=== PATIENT | female | born 1960 | race Caucasian/White ===

== ENCOUNTER 2017-04-19 12:26 | Inpatient (IN) | payer OTHER ==
[2017-04-19] VITALS (9 sets, daily range): BP systolic 85–104; BP diastolic 43–64; PULSE 96–104; RESP 16–27; TEMP 98.3–99; O2SAT 96–100
[~2017-04-19 12:26] MED LIST: BACT800T5 PO; CHLO25 PO; CITA20TA4 PO; ESTR1TAB PO; LISI-363 PO; LORA1TAB PO; MEDR2.5T19 PO; PRIL20TA2 PO; PROM25TA5 PO; ZANT150T2 PO; ZANT300T PO
[2017-04-19] MEDS ORDERED: IODIXANOL 320 MG/ML 10 ML VIAL (for Rad CT) IV ONE (12:27)
[2017-04-19] MEDS ORDERED: SODIUM CHLOR 0.9% 1000 ML INJ 1,000 ML IV SCH (12:43)
[2017-04-19] MEDS ORDERED: SODIUM CHLORIDE 0.9% FLUSH 10 ML FLUSH IV FLUSH PRN ×2 (12:45→15:45)
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
[2017-04-19 13:06] LABS: AUTOMATED NEUTROPHIL # 6.2 TH/MM3 (1.8-7.7); BASOPHIL % 0.2 % (0.0-2.0); HEMATOCRIT 30.6 % (35.0-46.0); LYMPH % 18.1 % (9.0-44.0); LYMPHOCYTE # 1.5 TH/MM3 (1.0-4.8); MEAN CELL VOLUME 102.7 FL (80.0-100.0); MEAN CORPUSCULAR HEMOGLOBIN 34.9 PG (27.0-34.0); MONO % 3.2 % (0.0-8.0); NEUT % 78.5 % (16.0-70.0); PLATELET COUNT 164 TH/MM3 (150-450); RED BLOOD COUNT 2.98 MIL/MM3 (4.00-5.30); RED CELL DISTRIBUTION WIDTH 17.3 % (11.6-17.2)
[2017-04-19 13:09] LABS: HEMO FLAGS AUTO DIFF
[2017-04-19 13:27] LABS: APTT (PATIENT) 38.3 SEC (24.3-30.1); INTERNATIONAL NORMALIZED RATIO 1.7 RATIO
[2017-04-19] MEDS ORDERED: LISI-515 PO (13:27)
[2017-04-19] MEDS ORDERED: TRAZ1TAB45 PO (13:27)
[2017-04-19] MEDS ORDERED: ESTR1 PO (13:27)
[2017-04-19] MEDS ORDERED: CITA20TA4 PO (13:27)
[2017-04-19 13:32] LABS: ALT (GPT) 130 U/L (10-53); ANION GAP 14 MEQ/L (5-15); AST (GOT) 280 U/L (15-37); BICARBONATE 20.6 MEQ/L (21.0-32.0); CHLORIDE 84 MEQ/L (98-107); GLOMERULAR FILTRATION RATE 33 ML/MIN (>89); POTASSIUM 3.9 MEQ/L (3.5-5.1)
[2017-04-19 13:33] LABS: BLOOD UREA NITROGEN 12 MG/DL (7-18)
[2017-04-19 13:35] LABS: SODIUM (NA) 119 MEQ/L (136-145)
[2017-04-19 13:36] LABS: ALKALINE PHOSPHATASE 188 U/L (45-117)
[2017-04-19 13:39] LABS: BANDS 20 % (0-6); CORRECTED NUCLEATED RBC 1 /100 WBC (0-0); MYELOCYTES 1 % (0-0); NEUTROPHIL # MANUAL DIFF 7.4 TH/MM3 (1.8-7.7); POLYS (SEG NEUTROPHILS) 72 % (16-70); WBC DIFF SAMPLE 100
[2017-04-19 13:41] LABS: OVALOCYTES 1+ (NORMAL); PLATELET ESTIMATE SMEAR NORMAL (NORMAL); PLATELET MORPHOLOGY NORMAL (NORMAL); SCAN/DIFF FINAL DIFF MANUAL; TARGET CELLS 2+ (NORMAL)
[2017-04-19] MEDS ORDERED: SODIUM CHLOR 0.9% 1000 ML INJ 1,000 ML IV ONE ×2 (13:45→23:30)
--- NOTE | 2017-04-19 13:55 | RADRPT ---
EXAM DATE/TIME: 04/19/2017 13:05 [facility] COMPARISON: US ABDOMEN - GALLBLADDER, May 07, 2014, 15:59. INDICATIONS : Right upper quadrant pain. MEDICAL HISTORY : Hypertension. Gastroesophageal reflux disease. Asthma. SURGICAL HISTORY : Tonsillectomy. Dilation and curettage. ENCOUNTER: Subsequent ACUITY: 1 day PAIN SCORE: 1/10 LOCATION: Right upper quadrant MEASUREMENTS: LIVER: 19.6 cm length COMMON DUCT: 5 mm RIGHT KIDNEY: 11.5 x 5.3 x 6.6 cm FINDINGS: LIVER: Liver is enlarged with increased echogenicity suggesting some degree of fatty infiltration. Is also n odularity possibly representing some degree of cirrhosis. Ascites identified. Hepatofugal flow in th e main portal vein. COMMON DUCT: No intraluminal mass or stone visualized. GALLBLADDER: Gallbladder wall thickening with mild pericholecystic fluid. Gallbladder is sludge-filled PANCREAS: The visualized portions are within normal limits. RIGHT KIDNEY: No evidence of hydronephrosis, stone, or mass. Small amount of perinephric fluid. CONCLUSION: 1. Sonographic findings characteristic of some degree of cirrhosis with hepatic fatty infiltration an d nodularity. 2. In addition, there is hepatofugal flow in the main portal vein characteristic of portal hypertensi on. 3. Ascites. 4. Sludge filled gallbladder with gallbladder wall thickening and pericholecystic fluid. Findings are nonspecific and can be related to liver failure with low oncotic pressures. Armen Rodriguez MD on April 19, 2017 at 13:48 Board Certified Radiologist. This report was verified electronically.
[2017-04-19] MEDS ORDERED: PIPERACIL-TAZO 4.5 GM PREMIX 100 ML IV ONE (14:00)
--- NOTE | 2017-04-19 14:45 | RADRPT ---
EXAM DATE/TIME: 04/19/2017 13:51 [facility] COMPARISON: No previous studies available for comparison. INDICATIONS : Generalized weakness and hypotension. IV CONTRAST: 50 cc Visipaque (iodixanol) IV ORAL CONTRAST: No oral contrast ingested. RADIATION DOSE: 18.89 CTDIvol (mGy) MEDICAL HISTORY : Hypertension. Gastroesophageal reflux disease. SURGICAL HISTORY : Tonsillectomy. ENCOUNTER: Initial ACUITY: 1 day PAIN SCALE: 0/10 LOCATION: abdomen TECHNIQUE: Volumetric scanning of the abdomen and pelvis was performed. Using automated exposure control and ad justment of the mA and/or kV according to patient size, radiation dose was kept as low as reasonably achievable to obtain optimal diagnostic quality images. DICOM format image data is available electro nically for review and comparison. FINDINGS: LOWER LUNGS: Moderate left pleural effusion with a tiny right-sided effusion. Concomitant atelectatic changes in t he lung base. Small hiatal hernia. LIVER: Enlarged with diffusely decreased attenuation characteristic of fatty infiltration. Focal areas of in creased density may represent areas of fatty sparing. Ascites along the convexity of the liver and sp lxu tracking through the mesentery and into the deep pelvis. I do not believe that this is sufficien t volume to drain percutaneously at this point, however. SPLEEN: Normal size without lesion. PANCREAS: Within normal limits. KIDNEYS: Normal in size and shape. There is no mass, stone or hydronephrosis. ADRENAL GLANDS: Within normal limits. VASCULAR: There is no aortic aneurysm. BOWEL/MESENTERY: The stomach, small bowel, and colon demonstrate no acute abnormality. There is no free intraperitone al air or fluid. ABDOMINAL WALL: Within normal limits. RETROPERITONEUM: There is no lymphadenopathy. BLADDER: No wall thickening or mass. REPRODUCTIVE: Within normal limits. INGUINAL: There is no lymphadenopathy or hernia. MUSCULOSKELETAL: Partial sacralization of the left side of L5. Mild degenerative changes in the lumbar spine. Otherwis e intact CONCLUSION: 1. Diffuse hepatic fatty infiltration with probable focal areas of fatty sparing. 2. Mild to moderate ascites. 3. Moderate size left pleural effusion with a tiny right pleural effusion. Concomitant atelectatic ch anges in the left base. 4. Pericholecystic fluid with possible some gallbladder wall thickening and luminal sludge 5. Partial sacralization of the left side of L5. Armen Rodriguez MD on April 19, 2017 at 14:37 Board Certified Radiologist. This report was verified electronically.
[2017-04-19] MEDS ORDERED: ONDANSETRON HCL 4 MG/2 ML VIAL IVP PRN (15:45)
[2017-04-19] MEDS ORDERED: NALOXONE HCL 0.4 MG/ML AMP IV PRN (15:45)
--- NOTE | 2017-04-19 16:41 | HHI.HP ---
cc: Kulwant Martel MD [facility] Service [facility] Primary Care Physician Non-Staff Admission Diagnosis jaundice, cirrhosis, ascites, hyponatremia Diagnoses: Chief Complaint: dizzy and jaundiced Travel History International Travel<30 Days: No Contact w/Intl Traveler <30 Da: No Traveled to Known Affected Are: No History of Present Illness Patient is a 56 female who drinks wine daily and who came to the ER by ambulance for complaints of dizziness and feeling poorly for one day. She had back pain and a friend gave her a tramadol which she took at work. She felt dizzy and a coworker thought she looked yellow. She was recently evaluated by Dr Martel for liver disease and her Hepatitis profile was negative. She was hypotensive and jaundiced with high liver numbers. She has anxiety and takes tramadol and Celexa. There has been no belly pain or nausea today but in the past few days she has had this without emesis. Review of Systems Constitutional: COMPLAINS OF: Fatigue, Dizziness, DENIES: Diaphoretic episodes , Fever, Weight gain, Weight loss, Chills, Change in appetite, Night Sweats Endocrine: DENIES: Abnorml menstrual pattern, Heat/cold intolerance, Polydipsia , Polyuria, Polyphagia Eyes: DENIES: Blurred vision, Diplopia, Eye inflammation, Eye pain, Vision loss , Photosensitivity, Double Vision Ears, nose, mouth, throat: DENIES: Tinnitus, Hearing loss, Vertigo, Nasal discharge, Oral lesions, Throat pain, Hoarseness, Ear Pain, Running Nose, Epistaxis, Sinus Pain, Toothache, Odynophagia Respiratory: DENIES: Apneas, Cough, Snoring, Wheezing, Hemoptysis, Sputum production, Shortness of breath Cardiovascular: DENIES: Chest pain, Palpitations, Syncope, Dyspnea on Exertion , PND, Lower Extremity Edema, Orthopnea, Claudication Gastrointestinal: COMPLAINS OF: Abdominal pain, DENIES: Black stools, Bloody stools, Constipation, Diarrhea, Nausea, Vomiting, Difficulty Swallowing, Anorexia Genitourinary: DENIES: Abnormal vaginal bleeding, Dysmenorrhea, Dyspareunia, Sexual dysfunction, Urinary frequency, Urinary incontinence, Urgency, Hematuria , Dysuria, Nocturia, Vaginal discharge Musculoskeletal: DENIES: Joint pain, Muscle aches, Stiffness, Joint Swelling, Back pain, Neck pain Integumentary: DENIES: Abnormal pigmentation, Pruritus, Rash, Nail changes, Breast masses, Breast skin changes, Nipple discharge Hematologic/lymphatic: DENIES: Bruising, Lymphadenopathy Immunologic/allergic: DENIES: Eczema, Urticaria Neurologic: DENIES: Abnormal gait, Headache, Localized weakness, Paresthesias, Seizures, Speech Problems, Tremor, Poor Balance Psychiatric: DENIES: Anxiety, Confusion, Mood changes, Depression, Hallucinations, Agitation, Suicidal Ideation, Homicidal Ideation, Delusions Except as stated in HPI: all other systems reviewed are Neg Past Family Social History Past Medical History HTN Anxiety Past Surgical History denies Reported Medications Reviewed in the EMR Allergies: Coded Allergies: No Known Allergies (Verified , 03/23/16) Active Ordered Medications Reviewed in the EMR Family History Father in MVA Mother with dementia Brother has DM2 Social History No tobacco Drinks 3-4 Glasses of wine daily (but this is after having cut back recently) Physical Exam Vital Signs Vital Signs Date Time Temp Pulse Resp B/P (MAP) Pulse Ox O2 Delivery O2 Flow Rate FiO2 04/19/17 15:45 98 18 95/60 (72) 98 Nasal Cannula 2.00 04/19/17 14:35 96 18 104/64 (77) 96 Nasal Cannula 2.00 04/19/17 13:00 100 04/19/17 13:00 99 16 04/19/17 12:59 98.3 99 16 86/56 (66) 100 Physical Exam GENERAL: This is a well-nourished, well-developed patient,jaundiced, ill appearing SKIN: telangiectasia, No rashes, ecchymoses or lesions. Cool and dry. HEAD: Atraumatic. Normocephalic. No temporal or scalp tenderness. EYES: Pupils equal round and reactive. Extraocular motions intact. No scleral icterus. No injection or drainage. ENT: Nose without bleeding, purulent drainage or septal hematoma. Throat without erythema, tonsillar hypertrophy or exudate. Uvula midline. Airway patent. NECK: Trachea midline. No JVD or lymphadenopathy. Supple, nontender, no meningeal signs. CARDIOVASCULAR: Regular rate and rhythm without murmurs, gallops, or rubs. RESPIRATORY: Clear to auscultation. Breath sounds equal bilaterally. No wheezes , rales, or rhonchi. GASTROINTESTINAL: Abdomen soft, non-tender,moderately nondistended. No hepato- splenomegaly, or palpable masses. No guarding. MUSCULOSKELETAL: Extremities without clubbing, cyanosis, but +2 edema. No joint tenderness, effusion, or edema noted. No calf tenderness. Negative Homans sign bilaterally. NEUROLOGICAL: Awake and alert. Cranial nerves II through XII intact. Motor and sensory grossly within normal limits. Five out of 5 muscle strength in all muscle groups. Normal speech. Laboratory Laboratory Tests Test 04/19/17 12:56 04/19/17 14:32 White Blood Count 8.0 Red Blood Count 2.98 Hemoglobin 10.4 Hematocrit 30.6 Mean Corpuscular Volume 102.7 Mean Corpuscular Hemoglobin 34.9 Mean Corpuscular Hemoglobin Concent 34.0 Red Cell Distribution Width 17.3 Platelet Count 164 Mean Platelet Volume 8.4 Neutrophils (%) (Auto) 78.5 Lymphocytes (%) (Auto) 18.1 Monocytes (%) (Auto) 3.2 Eosinophils (%) (Auto) 0.0 Basophils (%) (Auto) 0.2 Neutrophils # (Auto) 6.2 Lymphocytes # (Auto) 1.5 Monocytes # (Auto) 0.3 Eosinophils # (Auto) 0.0 Basophils # (Auto) 0.0 CBC Comment AUTO DIFF Differential Total Cells Counted 100 Neutrophils % (Manual) 72 Band Neutrophils % 20 Lymphocytes % 5 Monocytes % 2 Neutrophils # (Manual) 7.4 Myelocytes 1 Nucleated Red Blood Cells 1 Differential Comment FINAL DIFF MANUAL Platelet Estimate NORMAL Platelet Morphology Comment NORMAL Target Cells 2+ Ovalocytes 1+ Prothrombin Time 19.0 Prothromb Time International Ratio 1.7 Activated Partial Thromboplast Time 38.3 Blood Urea Nitrogen 12 Creatinine 1.60 Random Glucose 99 Total Protein 5.5 Albumin 2.1 Calcium Level 8.8 Alkaline Phosphatase 188 Aspartate Amino Transf (AST/SGOT) 280 Alanine Aminotransferase (ALT/SGPT) 130 Total Bilirubin 24.0 Direct Bilirubin 20.4 Sodium Level 119 Potassium Level 3.9 Chloride Level 84 Carbon Dioxide Level 20.6 Anion Gap 14 Estimat Glomerular Filtration Rate 33 Lipase 560 Lactic Acid Level 4.1 Date/Time Source Procedure Growth Status 04/19/17 14:32 Blood Peripheral Aerobic Blood Culture Pending Received 04/19/17 14:32 Blood Peripheral Anaerobic Blood Culture Pending Received Result Diagram: 04/19/17 1256 04/19/[address] abd pelvis and US GB Caprini VTE Risk Assessment Caprini VTE Risk Assessment: Mod/High Risk (score >= 2) VTE Pharm Contraindication: Coagulopathy,INR elevated Caprini Risk Assessment Model Point Value = 1 Point Value = 2 Point Value = 3 Point Value = 5 Age 41-60 Minor surgery BMI > 25 kg/m2 Swollen legs Varicose veins or History of unexplained or recurrent spontaneous Oral contraceptives or hormone replacement Sepsis (< 1 month) Serious lung disease, including pneumonia (< 1 month) Abnormal pulmonary function Acute myocardial infarction Congestive heart failure (< 1 month) History of inflammatory bowel disease Medical patient at bed rest Age 61-74 Arthroscopic surgery Major open surgery (> 45 min) Laparoscopic surgery (> 45 min) Malignancy Confined to bed (> 72 hours) Immobilizing plaster cast Central venous access Age >= 75 History of VTE Family history of VTE Factor V Leiden Prothrombin [id number] Lupus anticoagulant Anticardiolipin antibodies Elevated serum homocysteine Heparin-induced thrombocytopenia Other congenital or acquired thrombophilia Stroke (< 1 month) Elective arthroplasty Hip, pelvis, or leg fracture Acute spinal cord injury (< 1 month) Prophylaxis Regimen Total Risk Factor Score Risk Level Prophylaxis Regimen 0-1 Low Early ambulation 2 Moderate Order ONE of the following: *Sequential Compression Device (SCD) *Heparin 5000 units SQ BID 3-4 Higher Order ONE of the following medications: *Heparin 5000 units SQ TID *Enoxaparin/Lovenox 40 mg SQ daily (WT < 150 kg, CrCl > 30 mL/min) *Enoxaparin/Lovenox 30 mg SQ daily (WT < 150 kg, CrCl > 10-29 mL/min) *Enoxaparin/Lovenox 30 mg SQ BID (WT < 150 kg, CrCl > 30 mL/min) AND/OR *Sequential Compression Device (SCD) 5 or more Highest Order ONE of the following medications: *Heparin 5000 units SQ TID (Preferred with Epidurals) *Enoxaparin/Lovenox 40 mg SQ daily (WT < 150 kg, CrCl > 30 mL/min) *Enoxaparin/Lovenox 30 mg SQ daily (WT < 150 kg, CrCl > 10-29 mL/min) *Enoxaparin/Lovenox 30 mg SQ BID (WT < 150 kg, CrCl > 30 mL/min) AND *Sequential Compression Device (SCD) Assessment and Plan Problem List: (1) Liver failure, acute ICD Code: K72.00 - Acute and subacute hepatic failure without coma Plan: with minimal ascited Medical management (bb, diuretic0 Serology completed 01/2017 and was negative (2) Hyponatremia ICD Code: E87.1 - Hypo-osmolality and hyponatremia Status: Acute Plan: likely due to volume overload will diurese and follow trend (3) Hyperbilirubinemia ICD Code: E80.6 - Other disorders of bilirubin metabolism Status: Acute Plan: from Acute liver failure, likely from Etoh no evidence of Obstruction (4) Ascites ICD Code: R18.8 - Other ascites Status: Acute Plan: not enough to drain at this time (5) Anemia ICD Code: D64.9 - Anemia, unspecified Status: Chronic Plan: macrocytic and likely chronic from liver failure work up in progress (6) Hypotension ICD Code: I95.9 - Hypotension, unspecified Code Status full code Discussed Condition With Patient, ER MD Physician Certification 2 Midnight Certification Type: Admission for Inpatient Services Order for Inpatient Services The services are ordered in accordance with Medicare regulations or non- Medicare payer requirements, as applicable. In the case of services not specified as inpatient-only, they are appropriately provided as inpatient services in accordance with the 2-midnight benchmark. Estimated LOS (days): 4 4 days is the estimated time the patient will need to remain in the hospital, assuming treatment plan goals are met and no additional complications. Post-Hospital Plan: Home Problem Qualifiers (1) Ascites: Qualified Codes: K70.31 - Alcoholic cirrhosis of liver with ascites Hien Hernandez MD Apr 19, 2017 16:40
[2017-04-19 16:46] LABS: LACTIC ACID GHOST NOT REPORTABLE
[2017-04-19] MEDS: PANTOPRAZOLE SOD 40 MG DELAYED RELEASE TAB PO SCH (17:13)
[2017-04-19] MEDS: SODIUM CHLORIDE 0.9% FLUSH 10 ML FLUSH IV FLUSH SCH (21:00)
[2017-04-19] MEDS: traZODone HCL 50 MG TAB PO SCH (21:00)
[2017-04-19] MEDS ORDERED: LORazepam 2 MG/ML VIAL IV PUSH PRN ×4 (21:15)
[2017-04-19] MEDS ORDERED: LORazepam 1 MG TAB PO PRN (21:15)
[2017-04-19] MEDS ORDERED: LORazepam 2 MG TAB PO PRN (21:15)
[2017-04-19] MEDS ORDERED: FLUMAZENIL 0.5 MG/5 ML VIAL IV PUSH PRN (21:15)
[2017-04-19] MEDS ORDERED: HALOPERIDOL LACTATE 5 MG/ML AMP IM PRN (21:15)
[2017-04-20] VITALS (15 sets, daily range): BP systolic 78–104; BP diastolic 46–66; PULSE 80–122; RESP 17–27; TEMP 97.8–98.3; O2SAT 96–98
[2017-04-20] MEDS ORDERED: SODIUM CHLOR 0.9% 1000 ML INJ 1,000 ML IV ONE (03:30)
[2017-04-20] MEDS ORDERED: TERBUTALINE INJ 1 MG/ML AMP SQ PRN (03:30)
[2017-04-20] MEDS ORDERED: NOREPINEPHRINE INJ 4 MG in SODIUM CHLOR 0.9% 250 ML INJ 246 ML IV PRN (03:30)
--- NOTE | 2017-04-20 04:06 | RADRPT ---
EXAM DATE/TIME: 04/20/2017 03:41 [facility] COMPARISON: CHEST SINGLE AP, March 23, 2016, 16:42. INDICATIONS : Chest pain. MEDICAL HISTORY : Hypertension. SURGICAL HISTORY : None. ENCOUNTER: Initial ACUITY: 1 day PAIN SCORE: 3/10 LOCATION: Right upper chest FINDINGS: A single view of the chest demonstrates increased density overlying the left thorax characteristic of a layering small to moderate-sized left pleural effusion with some compressive atelectasis. Right tarsha ng is clear. Heart size upper limits normal. CONCLUSION: 1. Layering small to moderate size left effusion with basilar atelectasis. No pneumothorax. Balaji Whittington MD on April 20, 2017 at 4:02 Board Certified Radiologist. This report was verified electronically.
[2017-04-20] MEDS: cefTRIAXone INJ 2,000 MG in SODIUM CHLORIDE 0.9% INJ 100 ML IV SCH ×2 (04:49→04:50)
[2017-04-20 05:27] LABS: HEMATOCRIT 26.8 % (35.0-46.0); MEAN CELL VOLUME 100.7 FL (80.0-100.0); MEAN CORPUSCULAR HEMOGLOBIN 35.9 PG (27.0-34.0); MEAN CORPUSCULAR HGB CONC 35.6 % (32.0-36.0); PLATELET COUNT 149 TH/MM3 (150-450); RED BLOOD COUNT 2.67 MIL/MM3 (4.00-5.30); RED CELL DISTRIBUTION WIDTH 16.8 % (11.6-17.2); WHITE BLOOD COUNT 7.4 TH/MM3 (4.0-11.0)
[2017-04-20 05:43] LABS: BLOOD, URINE NEG (NEG); GLUCOSE,URINE NEG (NEG); KETONE, URINE NEG (NEG); NITRITE,URINE NEG (NEG); PH, URINE 5.5 (5.0-8.5)
[2017-04-20 05:44] LABS: HEMO FLAGS AUTO DIFF
[2017-04-20 06:08] LABS: ALKALINE PHOSPHATASE 160 U/L (45-117); ALT (GPT) 111 U/L (10-53); ANION GAP 12 MEQ/L (5-15); AST (GOT) 228 U/L (15-37); BICARBONATE 20.8 MEQ/L (21.0-32.0); BLOOD UREA NITROGEN 13 MG/DL (7-18); CHLORIDE 90 MEQ/L (98-107); GLOMERULAR FILTRATION RATE 39 ML/MIN (>89); POTASSIUM 4.3 MEQ/L (3.5-5.1); TOTAL BILIRUBIN ADULT 24.5 MG/DL (0.2-1.0)
[2017-04-20 06:12] LABS: SODIUM (NA) 123 MEQ/L (136-145)
[2017-04-20 06:19] LABS: URINE COLOR AMBER (YELLW/STRAW)
[2017-04-20 06:20] LABS: SQUAMOUS EPITHELIAL CELL URINE 0-5 /hpf (0-5)
[2017-04-20 06:21] LABS: COMMENT (UR) CULT NOT INDICATED; CULTURE IF INDICATED CULT NOT INDICATED
[2017-04-20 06:49] LABS: BANDS 3 % (0-6); CORRECTED NUCLEATED RBC 1 /100 WBC (0-0); NEUTROPHIL # MANUAL DIFF 6.3 TH/MM3 (1.8-7.7); POLYS (SEG NEUTROPHILS) 82 % (16-70); WBC DIFF SAMPLE 100
[2017-04-20 06:50] LABS: SCAN/DIFF FINAL DIFF MANUAL; TOXIC GRANULATION 2+ (NORMAL)
--- NOTE | 2017-04-20 08:56 | MB ---
cc: JUANJOSE QUEEN M.D. DATE OF CONSULTATION 04/20/[address] Hernandez REASON FOR CONSULTATION Jaundice, abdominal pain. HISTORY OF PRESENT ILLNESS Ms. Espinoza is a very pleasant 56-year-old lady who came to our emergency room with complaints of dizziness and feeling poorly for approximately one day. The patient stated she was having diarrhea on and off for one week. Also, she reports having nausea and vomiting, abdominal pain for the last three weeks. She complained mostly of back pain which she describes to be in the thoracic area for the last three weeks. She was taking Tylenol, ibuprofen and most recently she had some tramadol from one of her friends. She had some red blood per rectum. She stated most likely it was from to much wiping secondary to her diarrhea. Denies any recent travel or antibiotic use. 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 According to her, she had recent labs with the Dr. Martel. She was tested for hepatitis and that was negative. There is no previous history of liver issues as far as she can tell. She does drink quite a large amount of alcohol approximately one bottle of wine daily. No weight loss, fever or chills. PAST MEDICAL HISTORY She has: 1. High blood pressure 2. Mitral valve prolapse 3. Asthma 4. Reflux 5. Chronic back pain 6. History of anemia. PAST SURGICAL HISTORY She had a keloid removed from the ears. ALLERGIES No known allergies. MEDICATIONS She is on: 1. Celexa 2. Vitamin B1 3. 4. Rocephin 5. Norepinephrine 6. Terbutaline 7. M p.r.n. 8. Ativan p.r.n. 9. Haldol p.r.n. 10. Desyrel 11. Protonix REVIEW OF SYSTEMS She denies any fever or chills, weight loss or weight gain. ENT: No alteration in her baseline hearing or visual acuity. PULMONARY: Denies any chest pain or shortness of breath. GASTROINTESTINAL: As above. GENITOURINARY: Denies dysuria or hematuria. HEMATOLOGIC: Does have history of anemia. No bleeding disorder. SKIN: No alteration in baseline skin lesion. NEUROLOGIC: No history of TIA or CVA kind of symptoms. ON CLINICAL EXAM She is sitting in bed in no acute distress. She is jaundiced. VITAL SIGNS: Temperature 98, pulse 94 and blood pressure 98/54. HEAD, EYES, EARS, NOSE, AND THROAT: PERRLA. Jaundiced. NECK: No JVD. No lymphadenopathy. CHEST: Clear to auscultation and palpation. CARDIOVASCULAR: Sinus with no murmur. ABDOMEN: Soft, distended. Bowel sounds are present, tenderness ruq and epigastrium GUEST SERVICES AGENT: Awake, alert, oriented x3. No focal signs identified. No flapping tremor, but she does have resting tremor. LABORATORY DATA Her hemoglobin was 10.4 dropped from 15.3 last year, today 9.6, white count 8, platelets 164. Her PT/INR 1.7 and 19. Her chemistry suggestive of sodium 123, BUN 13, creatinine 1.4, glucose 74, total bilirubin 24 with a direct of 20, AST 228, ALT 111, alkaline phosphatase 160, total protein 5.5, albumin 2.1, lipase 560. Hepatitis profile was negative. Her Tylenol level was less 2. No alcohol level was done. Her abdominal CT done this admission showed diffuse hepatic fatty infiltration with probable focal areas of fatty sparing, mild to moderate ascites, moderate sized left pleural effusion, pericholecystic fluid with possibly some gallbladder wall thickening of sludge, partial cephalization of L5. The patient had an ultrasound of the gallbladder that showed some degree of cirrhosis with hepatic fatty infiltration and nodularity, portal hypertension, ascites, sludge filled gallbladder with gallbladder wall thickening and pericholecystic fluid most likely related to liver failure. IMPRESSION Ms. Espinoza is a 56-year-old lady admitted with dizziness, weakness, found to have: 1. Severe jaundice. The findings are suggestive of alcoholic hepatitis most likely as the etiology. 2. Multiple electrolyte abnormalities secondary to cirrhosis and possible alcohol use 3. Coagulopathy secondary to the above. 4. Ascites, not enough at this point to be drained. 5. No signs of hepatic encephalopathy. 6. Anemia secondary to liver cirrhosis. No indication of active bleed at this time. 7. Back pain of unclear etiology. 8. Pericholecystic fluid with sludge in the gallbladder. No indication of acute cholecystitis, most likely findings related to portal hypertension and ascites. RECOMMENDATIONS 1. MRCP to further evaluate for common bile duct pathology. 2. MRI thoracic spine. 3. Start pentoxifylline. 4. If no indication of infection, may consider starting Steroids. 5. Hepatitis profile, JAYANT, anti-smooth muscle antibody, antimitochondrial antibodies,ceruloplasmin , celiac panel, alpha-I antitrypsin, ferritin and iron stool for C. Diff. The patient was counseled about stopping alcohol completely. May need to join rehab after discharge. I would like to thank Dr. Hernandez for referring her to our office for consultation. MD DIOR Cabral/AWA /8:09 AM /8:26 AM MTDBettina
[2017-04-20 10:05] LABS: FERRITIN 4008 NG/ML (8-252); TRANSFERRIN IRON PROFILE 59 MG/DL (200-360)
[2017-04-20] MEDS: THIAMINE HCL 100 MG TAB PO SCH (10:37)
[2017-04-20] MEDS: MULTIVITAMINS/MINERALS THERAPEUTIC TAB PO SCH (10:37)
[2017-04-20] MEDS: FOLIC ACID 1 MG TAB PO SCH (10:38)
[2017-04-20] MEDS: CITALOPRAM HYDROBROMIDE 20 MG TAB PO SCH (10:38)
[2017-04-20] MEDS: PANTOPRAZOLE SOD 40 MG DELAYED RELEASE TAB PO SCH (10:38)
[2017-04-20] MEDS: SODIUM CHLORIDE 0.9% FLUSH 10 ML FLUSH IV FLUSH SCH ×2 (10:39→21:00)
--- NOTE | 2017-04-20 11:11 | HHI.PR ---
Subjective Remarks Seen in follow-up today for liver failure and for back pain. She is still quite jaundiced. Plan of care discussed with patient. GI consultation appreciated. MRCP pending Objective Vitals Vital Signs Date Time Temp Pulse Resp B/P (MAP) Pulse Ox O2 Delivery O2 Flow Rate FiO2 04/20/17 08:00 97.8 102 19 91/54 (66) 97 04/20/17 08:00 102 04/20/17 05:00 100 22 104/50 (68) 04/20/17 04:00 94 04/20/17 04:00 98.0 94 18 98/54 (69) 04/20/17 03:00 96 17 87/52 (64) 04/20/17 02:00 98 17 100/53 (69) 96 04/20/17 01:00 100 17 96/48 (64) 98 04/20/17 00:00 98 18 95/55 (68) 97 04/20/17 00:00 98 04/19/17 23:00 96 18 85/43 (57) 96 04/19/17 22:00 104 04/19/17 22:00 98.6 104 27 102/56 (71) 99 04/19/17 21:48 04/19/17 21:24 103 18 96/53 (67) 96 Nasal Cannula 2.00 04/19/17 19:00 99 Nasal Cannula 2.00 04/19/17 19:00 99.0 99 18 99/53 (68) 99 Nasal Cannula 2.00 04/19/17 16:32 96 18 99/57 (71) 100 Nasal Cannula 2.00 04/19/17 15:45 98 18 95/60 (72) 98 Nasal Cannula 2.00 04/19/17 14:35 96 18 104/64 (77) 96 Nasal Cannula 2.00 04/19/17 13:00 100 04/19/17 13:00 99 16 04/19/17 12:59 98.3 99 16 86/56 (66) 100 I/O 04/19/17 04/19/17 04/19/17 04/20/17 04/20/17 04/20/17 07:00 15:00 23:00 07:00 15:00 23:00 Intake Total 2100 ml 4100 ml Output Total 550 ml Balance 2100 ml 3550 ml Intake IV Total 2100 ml 4100 ml Output Urine Total 550 ml # Voids 1 Result Diagram: 04/20/17 0453 04/20/17 0453 Objective Remarks Diffuse telangiectasias GENERAL: This is a well-nourished, well-developed patient, jaundiced CARDIOVASCULAR: Regular rate and rhythm without murmurs, gallops, or rubs. RESPIRATORY: Clear to auscultation. Breath sounds equal bilaterally. No wheezes , rales, or rhonchi. GASTROINTESTINAL: Abdomen soft, non-tender, mildly distended. Small umbilical hernia, Normal active bowel sounds MUSCULOSKELETAL: Extremities without clubbing, cyanosis, or edema. NEURO: Alert & Oriented x4 to person, place, time, situation. Moves all ext x4 A/P Problem List: (1) Liver failure, acute ICD Code: K72.00 - Acute and subacute hepatic failure without coma Plan: with minimal ascites Empric ABX Medical management (bb, diuretic, pentoxifylline) Serology completed 01/2017 and was negative MRCP pending (2) Hyponatremia ICD Code: E87.1 - Hypo-osmolality and hyponatremia Status: Acute Plan: likely due to volume overload will diurese and follow trend (3) Hyperbilirubinemia ICD Code: E80.6 - Other disorders of bilirubin metabolism Status: Acute Plan: from Acute liver failure, likely from Etoh no evidence of Obstruction (4) Anemia ICD Code: D64.9 - Anemia, unspecified Status: Chronic Plan: macrocytic and likely chronic from liver failure work up in progress (5) Hypotension ICD Code: I95.9 - Hypotension, unspecified (6) EtOH dependence ICD Code: F10.20 - Alcohol dependence, uncomplicated Plan: Continue vitamin supplementation wa protocol (7) Back pain ICD Code: M54.9 - Dorsalgia, unspecified Plan: MRI back rule out pathological issues Continue with pain control Hien Hernandez MD Apr 20, 2017 11:11
--- NOTE | 2017-04-20 13:49 | EKG ---
Date Performed: 04/19/2017 Time Performed: 12:56:16 PTAGE: 56 years EKG: Sinus rhythm NORMAL ECG Compared to prior tracing no significant change PREVIOUS TRACING : 05/07/2014 13.04 DOCTOR: Karen Jacobs Interpretating Date/Time 04/20/2017 13:43:25
--- NOTE | 2017-04-20 14:05 | RADRPT ---
EXAM DATE/TIME: 04/20/2017 12:58 [facility] COMPARISON: US ABDOMEN - GALLBLADDER, April 19, 2017, 13:05. CT ABDOMEN & PELVIS W CONTRAST, April 19, 2017, 1 3:51. INDICATIONS : Abdominal pain. MEDICAL HISTORY : Hypertension. SURGICAL HISTORY : Tonsillectomy. ENCOUNTER: Initial ACUITY: 2 day PAIN SCORE: 6/10 LOCATION: abdomen TECHNIQUE: Multiplanar, multisequence magnetic resonance imaging of the abdomen was performed. High-resolution 3D dataset was utilized to reconstruct maximum-intensity projection (MIP) images. FINDINGS: There is no biliary ductal dilatation. Liver is mildly inhomogeneous and there is moderate ascites. T he gallbladder is abnormal, mildly distended with wall thickening/pericholecystic fluid as before, no nspecific. Pancreas is unremarkable. There is hepatic steatosis. A diffuse drop in signal intensity i s noted on the opposed phase imaging. There is a large left pleural effusion and a small right effusi on. CONCLUSION: 1. No evidence for biliary obstruction. 2. Fatty liver. 3. Ascites and pleural effusions. Checo Pollard MD on April 20, 2017 at 13:57 Board Certified Radiologist. This report was verified electronically.
[2017-04-20] MEDS: PENTOXIFYLLINE 400 MG CONTROLLED RELEASE TAB PO SCH ×2 (14:48→20:59)
[2017-04-20 15:24] LABS: C. DIFF EPI 027 PRESUMPTIVE NEGATIVE (NEGATIVE)
--- NOTE | 2017-04-20 16:41 | RADRPT ---
EXAM DATE/TIME: 04/20/2017 13:28 [facility] COMPARISON: No previous studies available for comparison. INDICATIONS : Pain. Abdominal pain/ NKI. MEDICAL HISTORY : Hypertension. SURGICAL HISTORY : Tonsillectomy. ENCOUNTER: Initial ACUITY: 2 day PAIN SCORE: 7/10 LOCATION: Back TECHNIQUE: Multiplanar multisequence MRI of the thoracic spine was performed. FINDINGS: Hemangioma at T12. Tiny hemangioma at T8 and T1 vertebral bodies. Sagittal T2-6 cervical spine. This is visualized on the axial images centrally may reflect a subtle syrinx. There is no cord expansion. Bilateral pleural effusions. T1-T2: Normal. T2-T3: The thecal sac has a normal diameter. No evidence of disc bulge or protrusion. T3-T4: The thecal sac has a normal diameter. No evidence of disc bulge or protrusion. T4-T5: The thecal sac has a normal diameter. No evidence of disc bulge or protrusion. T5-T6: The thecal sac has a normal diameter. No evidence of disc bulge or protrusion. T6-T7: The thecal sac has a normal diameter. No evidence of disc bulge or protrusion. T7-T8: The thecal sac has a normal diameter. No evidence of disc bulge or protrusion. T8-T9: The thecal sac has a normal diameter. No evidence of disc bulge or protrusion. T9-T10: The thecal sac has a normal diameter. No evidence of disc bulge or protrusion. T10-T11: The thecal sac has a normal diameter. No evidence of disc bulge or protrusion. T11-T12: The thecal sac has a normal diameter. No evidence of disc bulge or protrusion. T12-L1: The thecal sac has a normal diameter. No evidence of disc bulge or protrusion. CONCLUSION: 1. Questionable thin caliber increased signal within the cord diffusely may be related to a subtle sy rinx versus artifactual. Consider a followup short interval MRI in 2-4 weeks both with and without co ntrast. Checo Pollard MD on April 20, 2017 at 16:36 Board Certified Radiologist. This report was verified electronically.
[2017-04-20] MEDS: KETOROLAC TROMETHAMINE 30 MG/ML (IVP) VIAL IV PUSH PRN ×2 (18:55→18:57)
[2017-04-20] MEDS: NADOLOL 20 MG TAB PO SCH (18:55)
[2017-04-20] MEDS: traZODone HCL 50 MG TAB PO SCH (20:58)
[2017-04-21] VITALS (24 sets, daily range): BP systolic 72–92; BP diastolic 45–63; PULSE 70–84; RESP 14–28; TEMP 98–98.7; O2SAT 84–98
[2017-04-21] MEDS ORDERED: SODIUM CHLORID 0.9% 500 ML INJ 500 ML IV ONE (03:00)
[2017-04-21] MEDS: cefTRIAXone INJ 2,000 MG in SODIUM CHLORIDE 0.9% INJ 100 ML IV SCH (05:00)
[2017-04-21] MEDS: PENTOXIFYLLINE 400 MG CONTROLLED RELEASE TAB PO SCH ×3 (06:09→21:44)
[2017-04-21] MEDS: THIAMINE HCL 100 MG TAB PO SCH (08:34)
[2017-04-21] MEDS: FOLIC ACID 1 MG TAB PO SCH (08:35)
[2017-04-21] MEDS: SODIUM CHLORIDE 0.9% FLUSH 10 ML FLUSH IV FLUSH SCH ×2 (08:35→21:45)
[2017-04-21] MEDS: MULTIVITAMINS/MINERALS THERAPEUTIC TAB PO SCH (08:35)
[2017-04-21] MEDS: PANTOPRAZOLE SOD 40 MG DELAYED RELEASE TAB PO SCH (08:35)
[2017-04-21] MEDS: CITALOPRAM HYDROBROMIDE 20 MG TAB PO SCH (08:35)
[2017-04-21] MEDS: NADOLOL 20 MG TAB PO SCH (09:00)
[2017-04-21] MEDS: prednisoLONE 10 MG ODT TAB PO SCH (09:51)
[2017-04-21] MEDS: SPIRONOLACTONE 50 MG TAB PO SCH ×2 (11:22→18:26)
[2017-04-21] MEDS: KETOROLAC TROMETHAMINE 30 MG/ML (IVP) VIAL IV PUSH PRN ×2 (11:28→18:37)
[2017-04-21 12:00] LABS: INTERNATIONAL NORMALIZED RATIO 1.8 RATIO; PROTHROMBIN TIME - PATIENT 19.9 SEC (9.8-11.6)
[2017-04-21 12:33] LABS: CREATINE KINASE 44 U/L (26-192)
[2017-04-21 13:06] LABS: BLOOD, URINE NEG (NEG); GLUCOSE,URINE NEG (NEG); KETONE, URINE NEG (NEG); NITRITE,URINE NEG (NEG); PH, URINE 6.5 (5.0-8.5)
[2017-04-21 13:10] LABS: METHOD OF COLLECTION CATH; URINE COLOR AMBER (YELLW/STRAW)
[2017-04-21 13:11] LABS: COMMENT (UR) CULT NOT INDICATED; CULTURE IF INDICATED CULT NOT INDICATED; RENAL EPITHELIAL CELLS 0-5 /hpf; SQUAMOUS EPITHELIAL CELL URINE > 8 /hpf (0-5)
[2017-04-21 13:11] LABS: ANA SCREEN POS (NEG)
--- NOTE | 2017-04-21 13:29 | PD.RAD ---
Post US Procedure Prog Note Pre Procedure Diagnosis: (1) Cirrhosis (2) Ascites Post Procedure Diagnosis: (1) Cirrhosis (2) Ascites Procedure Date: Apr 21, 2017 Supervising Radiologist: Andrez Calderon Proceduralist/Assist: Charlene Barker RDMS Anesthesia: Local Plan of Activity Patient to Unit: Nursing Unit Patient Condition: Fair See PACS Report for procedural detail/treatment Drainage Procedure Procedure 1 Imaging Guidance: Ultrasound Side: Right Procedure Type: Paracentesis Syrian: 6 Drainage: Suction Fluid Description: Clear, Yellow Andrez Calderon MD Apr 21, 2017 13:29
--- NOTE | 2017-04-21 14:15 | HHI.PR ---
Subjective Remarks Patient seen today in follow-up for acute liver failure presumably from alcohol. Patient with some volume overload and hypotension after several liters of fluid been given overnight. Patient still hypotensive but now is edematous. Patient abdomen is distended and there is fluid wave. Care plan discussed with patient and with BERRY GROWER Objective Vitals Vital Signs Date Time Temp Pulse Resp B/P (MAP) Pulse Ox O2 Delivery O2 Flow Rate FiO2 04/21/17 12:00 70 04/21/17 12:00 98.7 70 17 77/52 (60) 04/21/17 10:00 80 04/21/17 09:00 78 28 91/54 (66) 04/21/17 08:33 76 26 80/53 (62) 04/21/17 08:05 74 21 87/48 (61) 04/21/17 08:00 72 04/21/17 08:00 98.5 72 14 79/49 (59) 94 04/21/17 07:00 74 16 81/52 (62) 04/21/17 06:11 76 20 91/63 (72) 04/21/17 06:00 72 18 72/48 (56) 04/21/17 05:00 70 14 76/48 (57) 97 04/21/17 04:21 72 17 84/54 (64) 84/54 (64) 04/21/17 04:00 98.0 70 14 76/51 (59) 04/21/17 04:00 70 04/21/17 03:11 84/56 (65) 04/21/17 03:04 74 17 83/59 (67) 97 04/21/17 02:45 72 15 81/52 (62) 98 04/21/17 02:00 74 16 74/45 (55) 97 04/21/17 01:51 95 Nasal Cannula 2.00 04/21/17 01:06 76 25 92/60 (71) 98 04/21/17 01:06 76 04/21/17 01:05 76 04/21/17 01:05 76 18 87/60 (69) 93 04/21/17 00:00 74 04/21/17 00:00 98.2 74 17 78/48 (58) 90 04/20/17 23:10 84 26 86/54 (65) 04/20/17 23:10 84 04/20/17 22:00 82 21 78/58 (65) 04/20/17 22:00 82 04/20/17 21:00 80 04/20/17 21:00 80 04/20/17 21:00 80 21 87/59 (68) 04/20/17 21:00 80 21 87/59 (68) 04/20/17 20:00 98.3 80 27 87/66 (73) 97 04/20/17 20:00 80 04/20/17 17:45 122 04/20/17 16:00 108 04/20/17 16:00 106 20 88/57 (67) I/O 04/20/17 04/20/17 04/20/17 04/21/17 04/21/17 04/21/17 07:00 15:00 23:00 07:00 15:00 23:00 Intake Total 4100 ml 240 ml 1440 ml Output Total 550 ml 700 ml 350 ml Balance 3550 ml -460 ml 1090 ml Intake Oral 240 ml 240 ml IV Total 4100 ml 1200 ml Output Urine Total 550 ml 700 ml 350 ml # Bowel Movements 0 1 Result Diagram: 04/20/17 0453 04/20/17 0453 Imaging Last Impressions Thoracic Spine MRI 04/20/17 0000 Signed Impressions: Service Date/Time: Thursday, April 20, 2017 13:28 - CONCLUSION: 1. Questionable thin caliber increased signal within the cord diffusely may be related to a subtle syrinx versus artifactual. Consider a followup short interval MRI in 2-4 weeks both with and without contrast. Checo Pollard MD Cholangiopancreatography MRI 04/20/17 0000 Signed Impressions: Service Date/Time: Thursday, April 20, 2017 12:58 - CONCLUSION: 1. No evidence for biliary obstruction. 2. Fatty liver. 3. Ascites and pleural effusions. Checo Pollard MD Chest X-Ray 04/20/17 0000 Signed Impressions: Service Date/Time: Thursday, April 20, 2017 03:41 - CONCLUSION: 1. Layering small to moderate size left effusion with basilar atelectasis. No pneumothorax. Balaji Whittington MD Gall Bladder Ultrasound 04/19/17 0000 Signed Impressions: Service Date/Time: Wednesday, April 19, 2017 13:05 - CONCLUSION: 1. Sonographic findings characteristic of some degree of cirrhosis with hepatic fatty infiltration and nodularity. 2. In addition, there is hepatofugal flow in the main portal vein characteristic of portal hypertension. 3. Ascites. 4. Sludge filled gallbladder with gallbladder wall thickening and pericholecystic fluid. Findings are nonspecific and can be related to liver failure with low oncotic pressures. Armen Rodriguez MD Abdomen/Pelvis CT 04/19/17 0000 Signed Impressions: Service Date/Time: Wednesday, April 19, 2017 13:51 - CONCLUSION: 1. Diffuse hepatic fatty infiltration with probable focal areas of fatty sparing. 2. Mild to moderate ascites. 3. Moderate size left pleural effusion with a tiny right pleural effusion. Concomitant atelectatic changes in the left base. 4. Pericholecystic fluid with possible some gallbladder wall thickening and luminal sludge 5. Partial sacralization of the left side of L5. Armen Rodriguez MD Objective Remarks Diffuse telangiectasias GENERAL: This is a well-nourished, well-developed patient, jaundiced CARDIOVASCULAR: Regular rate and rhythm without murmurs, gallops, or rubs. RESPIRATORY: Clear to auscultation. Breath sounds equal bilaterally. No wheezes , rales, or rhonchi. GASTROINTESTINAL: Abdomen soft, non-tender, mildly distended. Small umbilical hernia, Normal active bowel sounds MUSCULOSKELETAL: Extremities without clubbing, cyanosis, or edema. NEURO: Alert & Oriented x4 to person, place, time, situation. Moves all ext x4 A/P Problem List: (1) Liver failure, acute ICD Code: K72.00 - Acute and subacute hepatic failure without coma Plan: with minimal ascites Empric ABX Medical management (bb, diuretic, pentoxifylline, steroids) Serology completed 01/2017 and was negative, repeat pending MRCP pending (2) Hyponatremia ICD Code: E87.1 - Hypo-osmolality and hyponatremia Status: Acute Plan: Improved (3) Hyperbilirubinemia ICD Code: E80.6 - Other disorders of bilirubin metabolism Status: Acute Plan: from Acute liver failure, likely from Etoh no evidence of Obstruction continue to follow (4) Anemia ICD Code: D64.9 - Anemia, unspecified Status: Chronic (5) Hypotension ICD Code: I95.9 - Hypotension, unspecified (6) EtOH dependence ICD Code: F10.20 - Alcohol dependence, uncomplicated (7) Back pain ICD Code: M54.9 - Dorsalgia, unspecified Hien Hernandez MD Apr 21, 2017 14:15
[2017-04-21 15:09] LABS: PERITONEAL LYMPHS 28 %; PERITONEAL MESOTHELIAL 28 %; PERITONEAL POLYS(SEGS) 44 %; PERITONEAL WBC 19 /MM3 (0-10)
[2017-04-21 16:28] LABS: LDH SERUM 755 U/L (84-246)
--- NOTE | 2017-04-21 17:57 | RADRPT ---
EXAM DATE/TIME: 04/21/2017 13:00 [facility] COMPARISON: No previous studies available for comparison. INDICATIONS : Ascites. MEDICAL HISTORY : Hypertension. Gastroesophageal reflux disease. Miltral valve prolapse. Anxiety. Anemia. SURGICAL HISTORY : Tonsillectomy. Dilation and curettage. Keloid removal. ENCOUNTER: Initial ACUITY: 1 day PAIN SCORE: 4/10 LOCATION: Right lower quadrant FLUID: Total volume of 2,500 cc of clear, yellow fluid was removed. Fluid was sent to lab for ordered studies. Post procedure scanning reveals no hematoma or other complication. TECHNIQUE: 1. Ultrasound guidance for abdominal paracentesis. 2. Paracentesis. The risks, benefits, and alternatives to ultrasound guided paracentesis were explained to the patient in detail including the risk of bleeding and infection. Written and verbal informed consent was obt ained. With the patient on the ultrasound table, ultrasound imaging was used to select the most appropriate approach for paracentesis. Overlying skin was prepped and draped in the usual sterile fashion and wi th a local anesthetic, a dermatotomy was made with an 11 blade scalpel. A 6 [place] H[employer]-nafeccvy ca theter was introduced into the peritoneal cavity and fluid was collected. The patient tolerated the procedure well and left the ultrasound suite in stable condition. CONCLUSION: Uncomplicated ultrasound guided paracentesis. Andrez Calderon MD on April 21, 2017 at 17:55 Board Certified Radiologist. This report was verified electronically.
[2017-04-21] MEDS ORDERED: SPIRONOLACTONE 50 MG TAB PO SCH (18:00)
--- NOTE | 2017-04-21 18:00 | HHI.GIFU ---
GI Follow-up Note Consult Follow-up Subjective: Patient laying in bed comfortably, tired. S/p paracentesis .Denies nausea, vomiting, still loose stools .Still hypotensive Objective: PHYSICAL EXAMINATION: Vitals signs stable No fever HEENT: Pupils round and reactive to light; normocephalic; atraumatic; Vital Signs Date Time Temp Pulse Resp B/P (MAP) Pulse Ox O2 Delivery O2 Flow Rate FiO2 04/21/17 14:10 78 16 91/58 (69) 84 04/21/17 12:00 70 04/21/17 12:00 98.7 70 17 77/52 (60) 04/21/17 10:00 80 jaundice. Throat is clear. NECK: Neck is supple, no JVD, no lymphadenopathy. CHEST: Chest is clear to auscultation and percussion. CARDIAC: Regular rate and rhythm with no murmur gallop or rubs. ABDOMEN: Soft, distended, nontender; no hepatosplenomegaly; bowel sounds are present in all four quadrants. EXTREMITIES: No clubbing, cyanosis, or edema. SKIN: Normal; no rash; jaundice. MAINTENANCE ASSISTANT: No focal deficits; alert and oriented times three. Available Data (labs, X- Rays, Procedues) : Laboratory Tests Test 04/20/17 04:53 04/20/17 05:08 04/20/17 08:56 04/20/17 11:30 White Blood Count 7.4 TH/MM3 Red Blood Count 2.67 MIL/MM3 Hemoglobin 9.6 GM/DL Hematocrit 26.8 % Mean Corpuscular Volume 100.7 FL Mean Corpuscular Hemoglobin 35.9 PG Mean Corpuscular Hemoglobin Concent 35.6 % Red Cell Distribution Width 16.8 % Platelet Count 149 TH/MM3 Mean Platelet Volume 8.5 FL CBC Comment AUTO DIFF Differential Total Cells Counted 100 Neutrophils % (Manual) 82 % Band Neutrophils % 3 % Lymphocytes % 11 % Monocytes % 4 % Neutrophils # (Manual) 6.3 TH/MM3 Nucleated Red Blood Cells 1 /100 WBC Differential Comment FINAL DIFF MANUAL Toxic Granulation 2+ Blood Urea Nitrogen 13 MG/DL Creatinine 1.40 MG/DL Random Glucose 64 MG/DL Total Protein 4.9 GM/DL Albumin 1.9 GM/DL Calcium Level 8.4 MG/DL Alkaline Phosphatase 160 U/L Aspartate Amino Transf (AST/SGOT) 228 U/L Alanine Aminotransferase (ALT/SGPT) 111 U/L Total Bilirubin 24.5 MG/DL Sodium Level 123 MEQ/L Potassium Level 4.3 MEQ/L Chloride Level 90 MEQ/L Carbon Dioxide Level 20.8 MEQ/L Anion Gap 12 MEQ/L Estimat Glomerular Filtration Rate 39 ML/MIN Iron Level 86 MCG/DL Total Iron Binding Capacity 83 MCG/DL Percent Iron Saturation 100.0 % Ferritin 4008 NG/ML Urine Color BIBI Urine Turbidity CLEAR Urine pH 5.5 Urine Specific [place] 1.011 Urine Protein NEG mg/dL Urine Glucose (UA) NEG mg/dL Urine Ketones NEG mg/dL Urine Occult Blood NEG Urine Nitrite NEG Urine Bilirubin LARGE Urine Leukocyte Esterase NEG Urine Squamous Epithelial Cells 0-5 /hpf Urine Amorphous Sediment SMALL Microscopic Urinalysis Comment CULT NOT INDICATED Stool C. difficile Toxin (PCR) NEGATIVE Stl C. difficile Toxin Epiderm 027 PRESUMPTIVE NEGATIVE Anti-Nuclear Antibody Screen POS Anti-Smooth Muscle Antibody Negative Hepatitis A IgM Antibody NEGATIVE Hepatitis B Surface Antigen NEGATIVE Hepatitis B Core IgM Antibody NEGATIVE Hepatitis C Antibody NEGATIVE Test 04/21/17 11:35 04/21/17 12:52 04/21/17 13:25 Prothrombin Time 19.9 SEC Prothromb Time International Ratio 1.8 RATIO Ammonia LESS THAN 10 MCMOL/L Lactate Dehydrogenase 755 U/L Total Creatine Kinase 44 U/L Urine Collection Type CATH Urine Color BIBI Urine Turbidity CLEAR Urine pH 6.5 Urine Specific [place] 1.010 Urine Protein NEG mg/dL Urine Glucose (UA) NEG mg/dL Urine Ketones NEG mg/dL Urine Occult Blood NEG Urine Nitrite NEG Urine Bilirubin LARGE Urine Leukocyte Esterase NEG Urine WBC 3-5 /hpf Urine Squamous Epithelial Cells > 8 /hpf Urine Renal Epithelial Cells 0-5 /hpf Microscopic Urinalysis Comment CULT NOT INDICATED Urine Collection Time 12:52 Peritoneal Fluid WBC 19 /MM3 Peritoneal Fluid RBC 450 /MM3 Peritoneal Fluid Neutrophils 44 % Peritoneal Fluid Lymphocytes 28 % Peritoneal Fluid Mesothelial Cells 28 % Peritoneal Fluid Albumin 0.5 G/DL Peritoneal Fluid LDH 146 U/L ASSESSMENT/PLAN: liver failure secondary etoh hepatitis -stable ascites s/p paracentesis awaiting results coagulopathy secondary liver failure jaundice -no indication of obstruction of biliary tree -secondary etoh hepattis back pain-abnormal mri spine [id number] diff negative Recommendations advance diet trial of Rifaximin start albumin bid iv start Prednisolone monitor labs closely fu labs neurology consult in am It was a pleasure seeing [place],Richelle. Thank you for this consult. Entered by: Thuy Hilton MD Apr 21, 2017 18:00
[2017-04-21] MEDS: ALBUMIN HUMAN 25% 25 GM/100 ML BAGP IV SCH (18:26)
--- NOTE | 2017-04-21 21:41 | HHI.PR ---
Subjective Remarks DRAFT not seen F/U Liver failure Objective Vitals Vital Signs Date Time Temp Pulse Resp B/P (MAP) Pulse Ox O2 Delivery O2 Flow Rate FiO2 04/21/17 18:00 82 19 85/54 (64) 96 04/21/17 18:00 82 04/21/17 16:00 98.6 84 22 89/56 (67) 04/21/17 16:00 82 04/21/17 14:10 78 16 91/58 (69) 84 04/21/17 12:00 70 04/21/17 12:00 98.7 70 17 77/52 (60) 04/21/17 10:00 80 04/21/17 09:00 78 28 91/54 (66) 04/21/17 08:33 76 26 80/53 (62) 04/21/17 08:05 74 21 87/48 (61) 04/21/17 08:00 95 21 04/21/17 08:00 72 04/21/17 08:00 98.5 72 14 79/49 (59) 94 04/21/17 07:00 74 16 81/52 (62) 04/21/17 06:11 76 20 91/63 (72) 04/21/17 06:00 72 18 72/48 (56) 04/21/17 05:00 70 14 76/48 (57) 97 04/21/17 04:21 72 17 84/54 (64) 84/54 (64) 04/21/17 04:00 98.0 70 14 76/51 (59) 04/21/17 04:00 70 04/21/17 03:11 84/56 (65) 04/21/17 03:04 74 17 83/59 (67) 97 04/21/17 02:45 72 15 81/52 (62) 98 04/21/17 02:00 74 16 74/45 (55) 97 04/21/17 01:51 95 Nasal Cannula 2.00 04/21/17 01:06 76 25 92/60 (71) 98 04/21/17 01:06 76 04/21/17 01:05 76 04/21/17 01:05 76 18 87/60 (69) 93 04/21/17 00:00 74 04/21/17 00:00 98.2 74 17 78/48 (58) 90 04/20/17 23:10 84 26 86/54 (65) 04/20/17 23:10 84 04/20/17 22:00 82 21 78/58 (65) 04/20/17 22:00 82 I/O 04/20/17 04/20/17 04/20/17 04/21/17 04/21/17 04/21/17 06:59 14:59 22:59 06:59 14:59 22:59 Intake Total 4100 ml 240 ml 1440 ml 590 ml Output Total 550 ml 700 ml 350 ml 1025 ml Balance 3550 ml -460 ml 1090 ml -435 ml Intake Oral 240 ml 240 ml 480 ml IV Total 4100 ml 1200 ml 110 ml Output Urine Total 550 ml 700 ml 350 ml 1025 ml # Bowel Movements 0 1 1 Result Diagram: 04/20/1745204/20/17452 A/P Problem List: (1) Liver failure, acute ICD Code: K72.00 - Acute and subacute hepatic failure without coma (2) Hyponatremia ICD Code: E87.1 - Hypo-osmolality and hyponatremia Status: Acute (3) Hyperbilirubinemia ICD Code: E80.6 - Other disorders of bilirubin metabolism Status: Acute (4) Anemia ICD Code: D64.9 - Anemia, unspecified Status: Chronic (5) Hypotension ICD Code: I95.9 - Hypotension, unspecified (6) EtOH dependence ICD Code: F10.20 - Alcohol dependence, uncomplicated (7) Back pain ICD Code: M54.9 - Dorsalgia, unspecified Assessment and Plan (1) Liver failure, acute 2/2 etoh hepatitis with minimal ascites Empric ABX Medical management (bb/corgard, diuretic/aldactone, pentoxifylline, steroids, rifaximin and albumin) Serology for infectious hep negative MRCP no blockage (2) Hyponatremia Improving (3) Hyperbilirubinemia from Acute liver failure, likely from Etoh no evidence of Obstruction continue to follow (4) Anemia Chronic (5) Hypotension on IV albumin (6) EtOH dependence. Counselled. WA protocol (7) Back pain F/u TS MRI mid Sept f/u possible syrinx Lactic acidosis improved 2/2 hypotension from low albumin. No eveidence of infection Chet Ramachandran MD Apr 21, 2017 21:41
[2017-04-21] MEDS: traZODone HCL 50 MG TAB PO SCH (21:44)
[2017-04-21] MEDS: RIFAXIMIN 550 MG TAB PO SCH (21:44)
[2017-04-22] VITALS (16 sets, daily range): BP systolic 64–102; BP diastolic 38–61; PULSE 71–97; RESP 12–25; TEMP 98–98.4; O2SAT 93–99
[2017-04-22] MEDS: KETOROLAC TROMETHAMINE 30 MG/ML (IVP) VIAL IV PUSH PRN ×2 (02:14→09:26)
[2017-04-22] MEDS ORDERED: cefTRIAXone INJ 2,000 MG in SODIUM CHLORIDE 0.9% INJ 100 ML IV SCH ×2 (03:30→05:00)
[2017-04-22 04:56] LABS: CHLORIDE 93 MEQ/L (98-107); POTASSIUM 3.7 MEQ/L (3.5-5.1); SODIUM (NA) 126 MEQ/L (136-145)
[2017-04-22 05:03] LABS: ANION GAP 10 MEQ/L (5-15); BICARBONATE 22.9 MEQ/L (21.0-32.0); BLOOD UREA NITROGEN 18 MG/DL (7-18)
[2017-04-22 05:06] LABS: ALT (GPT) 87 U/L (10-53); AST (GOT) 133 U/L (15-37); GLOMERULAR FILTRATION RATE 47 ML/MIN (>89)
[2017-04-22 05:09] LABS: ALKALINE PHOSPHATASE 156 U/L (45-117)
[2017-04-22 05:18] LABS: TOTAL BILIRUBIN ADULT 25.5 MG/DL (0.2-1.0)
[2017-04-22] MEDS: ALBUMIN HUMAN 25% 25 GM/100 ML BAGP IV SCH ×3 (05:36→22:43)
[2017-04-22] MEDS: PENTOXIFYLLINE 400 MG CONTROLLED RELEASE TAB PO SCH ×3 (05:38→22:01)
[2017-04-22 07:51] LABS: IGA SERUM 499 mg/dL (81-463)
[2017-04-22] MEDS: NADOLOL 20 MG TAB PO SCH (09:00)
[2017-04-22] MEDS: CITALOPRAM HYDROBROMIDE 20 MG TAB PO SCH (09:24)
[2017-04-22] MEDS: PANTOPRAZOLE SOD 40 MG DELAYED RELEASE TAB PO SCH (09:25)
[2017-04-22] MEDS: MULTIVITAMINS/MINERALS THERAPEUTIC TAB PO SCH (09:25)
[2017-04-22] MEDS: prednisoLONE 10 MG ODT TAB PO SCH (09:25)
[2017-04-22] MEDS: THIAMINE HCL 100 MG TAB PO SCH (09:25)
[2017-04-22] MEDS: RIFAXIMIN 550 MG TAB PO SCH ×2 (09:25→20:47)
[2017-04-22] MEDS: FOLIC ACID 1 MG TAB PO SCH (09:25)
[2017-04-22] MEDS: SPIRONOLACTONE 50 MG TAB PO SCH ×2 (09:25→17:54)
[2017-04-22] MEDS: SODIUM CHLORIDE 0.9% FLUSH 10 ML FLUSH IV FLUSH SCH ×2 (09:26→20:47)
--- NOTE | 2017-04-22 14:37 | HHI.PR ---
Subjective Remarks Follow-up liver failure. Complains of weakness. Also with transient dizziness and shortness of breath when she is out of bed. Still with abdominal pain. Discussed with RN, still with low BP systolic in the high 80s or low 90s map at least 60. Objective Vitals Vital Signs Date Time Temp Pulse Resp B/P (MAP) Pulse Ox O2 Delivery O2 Flow Rate FiO2 04/22/17 13:00 82 18 93/54 (67) 04/22/17 12:00 84 04/22/17 12:00 98.4 84 25 80/57 (65) 04/22/17 11:00 78 13 90/56 (67) 04/22/17 10:09 82 23 85/51 (62) 04/22/17 10:00 76 12 64/38 (47) 04/22/17 09:00 74 14 71/45 (54) 04/22/17 08:22 86 19 94/54 (67) 04/22/17 08:00 98.3 78 14 77/55 (62) 96 04/22/17 08:00 75 04/22/17 07:00 76 15 78/53 (61) 04/22/17 04:00 98.1 72 25 93/61 (72) 99 04/22/17 04:00 71 04/22/17 03:14 25 04/22/17 00:00 98.0 96 18 81/56 (64) 93 04/22/17 00:00 97 04/21/17 20:00 78 04/21/17 20:00 98.4 79 26 85/46 (59) 97 04/21/17 18:00 82 19 85/54 (64) 96 04/21/17 18:00 82 04/21/17 16:00 98.6 84 22 89/56 (67) 04/21/17 16:00 82 I/O 04/21/17 04/21/17 04/21/17 04/22/17 04/22/17 04/22/17 06:59 14:59 22:59 06:59 14:59 22:59 Intake Total 1440 ml 830 ml 240 ml Output Total 350 ml 1025 ml Balance 1090 ml -195 ml 240 ml Intake Oral 240 ml 720 ml 240 ml IV Total 1200 ml 110 ml Output Urine Total 350 ml 1025 ml # Voids 3 5 # Bowel Movements 1 4 4 Result Diagram: 04/20/17 0453 04/22/17 0435 Imaging Last Impressions Cyst Biopsy Asp-Paracentesis US 04/21/17 0000 Signed Impressions: Service Date/Time: Friday, April 21, 2017 13:00 - CONCLUSION: Uncomplicated ultrasound guided paracentesis. Andrez Calderon MD Thoracic Spine MRI 04/20/17 0000 Signed Impressions: Service Date/Time: Thursday, April 20, 2017 13:28 - CONCLUSION: 1. Questionable thin caliber increased signal within the cord diffusely may be related to a subtle syrinx versus artifactual. Consider a followup short interval MRI in 2-4 weeks both with and without contrast. Checo Pollard MD Cholangiopancreatography MRI 04/20/17 0000 Signed Impressions: Service Date/Time: Thursday, April 20, 2017 12:58 - CONCLUSION: 1. No evidence for biliary obstruction. 2. Fatty liver. 3. Ascites and pleural effusions. Checo Pollard MD Chest X-Ray 04/20/17 0000 Signed Impressions: Service Date/Time: Thursday, April 20, 2017 03:41 - CONCLUSION: 1. Layering small to moderate size left effusion with basilar atelectasis. No pneumothorax. Balaji Whittington MD Gall Bladder Ultrasound 04/19/17 0000 Signed Impressions: Service Date/Time: Wednesday, April 19, 2017 13:05 - CONCLUSION: 1. Sonographic findings characteristic of some degree of cirrhosis with hepatic fatty infiltration and nodularity. 2. In addition, there is hepatofugal flow in the main portal vein characteristic of portal hypertension. 3. Ascites. 4. Sludge filled gallbladder with gallbladder wall thickening and pericholecystic fluid. Findings are nonspecific and can be related to liver failure with low oncotic pressures. Armen Rodriguez MD Abdomen/Pelvis CT 04/19/17 0000 Signed Impressions: Service Date/Time: Wednesday, April 19, 2017 13:51 - CONCLUSION: 1. Diffuse hepatic fatty infiltration with probable focal areas of fatty sparing. 2. Mild to moderate ascites. 3. Moderate size left pleural effusion with a tiny right pleural effusion. Concomitant atelectatic changes in the left base. 4. Pericholecystic fluid with possible some gallbladder wall thickening and luminal sludge 5. Partial sacralization of the left side of L5. Armen Rodriguez MD Objective Remarks Well-developed, well-nourished who is critically ill Skin is jaundice no rash Pupils reactive to light with jaundice Neck no JVD supple Lungs are clear decreased breath sounds Regular rate rhythm Abdomen soft normal active bowel sounds tender epigastric and right upper quadrant Anasarca. Bilateral lower extremity pitting edema no cyanosis Alert and oriented nonfocal. No hallucinations. No tremors Procedures none A/P Problem List: (1) Liver failure, acute ICD Code: K72.00 - Acute and subacute hepatic failure without coma (2) Hyponatremia ICD Code: E87.1 - Hypo-osmolality and hyponatremia Status: Acute (3) Hyperbilirubinemia ICD Code: E80.6 - Other disorders of bilirubin metabolism Status: Acute (4) Anemia ICD Code: D64.9 - Anemia, unspecified Status: Chronic (5) Hypotension ICD Code: I95.9 - Hypotension, unspecified (6) EtOH dependence ICD Code: F10.20 - Alcohol dependence, uncomplicated (7) Back pain ICD Code: M54.9 - Dorsalgia, unspecified Assessment and Plan (1) Liver failure, acute 2/2 etoh hepatitis Patient has anasarca Continue Medical management (bb/corgard, diuretic/aldactone, pentoxifylline, steroids, rifaximin and albumin) Serology for infectious hep negative MRCP no blockage (2) Hyponatremia Improving (3) Hyperbilirubinemia from Acute liver failure, likely from Etoh no evidence of Obstruction continue to follow (4) Anemia Chronic (5) Hypotension with hypoalbuminemia. Still with hypotension increase IV albumin 25 mg every 8 hours (6) EtOH dependence. Counselled. CIWA protocol (7) Back pain F/u TS MRI mid Sept f/u possible syrinx. Continue pain management with oxycodone and IV Toradol. Lactic acidosis improved 2/2 hypotension. No evidence of infection dc Rocephin Deconditioning. Consult physical therapy Discharge Planning Patient remains critically ill we'll keep in ICU. High likelihood of decompensation Chet Stark MD Apr 22, 2017 14:36
[2017-04-22] MEDS: traZODone HCL 50 MG TAB PO SCH (20:47)
[2017-04-23] VITALS (9 sets, daily range): BP systolic 62–100; BP diastolic 38–64; PULSE 72–99; RESP 16–25; TEMP 97.8–98; O2SAT 93
[2017-04-23 05:16] LABS: CHLORIDE 98 MEQ/L (98-107); POTASSIUM 3.4 MEQ/L (3.5-5.1); SODIUM (NA) 132 MEQ/L (136-145)
[2017-04-23 05:30] LABS: MEAN CELL VOLUME 100.9 FL (80.0-100.0); MEAN CORPUSCULAR HEMOGLOBIN 35.8 PG (27.0-34.0); MEAN CORPUSCULAR HGB CONC 35.5 % (32.0-36.0); PLATELET COUNT 168 TH/MM3 (150-450); RED BLOOD COUNT 2.58 MIL/MM3 (4.00-5.30); RED CELL DISTRIBUTION WIDTH 17.4 % (11.6-17.2); WHITE BLOOD COUNT 6.6 TH/MM3 (4.0-11.0)
[2017-04-23 05:47] LABS: HEMO FLAGS AUTO DIFF
[2017-04-23 06:04] LABS: ALKALINE PHOSPHATASE 132 U/L (45-117); ALT (GPT) 71 U/L (10-53); ANION GAP 11 MEQ/L (5-15); AST (GOT) 92 U/L (15-37); BLOOD UREA NITROGEN 16 MG/DL (7-18); GLOMERULAR FILTRATION RATE 52 ML/MIN (>89); MAGNESIUM 2.1 MG/DL (1.5-2.5); TOTAL BILIRUBIN ADULT 26.6 MG/DL (0.2-1.0)
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
[2017-04-23 06:43] LABS: CORRECTED NUCLEATED RBC 2 /100 WBC (0-0); NEUTROPHIL # MANUAL DIFF 5.9 TH/MM3 (1.8-7.7); OVALOCYTES 1+ (NORMAL); POLYS (SEG NEUTROPHILS) 90 % (16-70); TARGET CELLS 1+ (NORMAL); WBC DIFF SAMPLE 100
[2017-04-23 06:44] LABS: PLATELET ESTIMATE SMEAR NORMAL (NORMAL); PLATELET MORPHOLOGY NORMAL (NORMAL); SCAN/DIFF FINAL DIFF MANUAL
[2017-04-23] MEDS: PENTOXIFYLLINE 400 MG CONTROLLED RELEASE TAB PO SCH ×3 (06:52→20:00)
[2017-04-23] MEDS: ALBUMIN HUMAN 25% 25 GM/100 ML BAGP IV SCH ×3 (06:53→19:59)
--- NOTE | 2017-04-23 07:27 | HHI.GIFU ---
GI Follow-up Note Consult Follow-up Subjective: Patient laying in bed comfortably, feeling better.Nausea, no vomiting. Pain better, bp improved Objective: PHYSICAL EXAMINATION: Vitals signs stable No fever Vital Signs Date Time Temp Pulse Resp B/P (MAP) Pulse Ox O2 Delivery O2 Flow Rate FiO2 04/23/17 04:00 99 04/23/17 04:00 97.8 76 16 90/60 (70) 93 04/23/17 00:00 97.8 76 16 90/60 (70) 93 04/23/17 00:00 76 HEENT: Pupils round and reactive to light; normocephalic; atraumatic; jaundice. Throat is clear. NECK: Neck is supple, no JVD, no lymphadenopathy. CHEST: Chest is clear to auscultation and percussion. CARDIAC: Regular rate and rhythm with no murmur gallop or rubs. ABDOMEN: Soft, nondistended, nontender; no hepatosplenomegaly; bowel sounds are present in all four quadrants. EXTREMITIES: No clubbing, cyanosis, edema pitting-2 plus SKIN: Normal; no rash; jaundice. 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 Available Data (labs, X- Rays, Procedues) : Laboratory Tests Test 04/21/17 11:35 04/21/17 12:52 04/21/17 13:25 04/22/17 04:35 Prothrombin Time 19.9 SEC Prothromb Time International Ratio 1.8 RATIO Ammonia LESS THAN 10 MCMOL/L LESS THAN 10 MCMOL/L Lactate Dehydrogenase 755 U/L Total Creatine Kinase 44 U/L Urine Collection Type CATH Urine Color BIBI Urine Turbidity CLEAR Urine pH 6.5 Urine Specific [place] 1.010 Urine Protein NEG mg/dL Urine Glucose (UA) NEG mg/dL Urine Ketones NEG mg/dL Urine Occult Blood NEG Urine Nitrite NEG Urine Bilirubin LARGE Urine Leukocyte Esterase NEG Urine WBC 3-5 /hpf Urine Squamous Epithelial Cells > 8 /hpf Urine Renal Epithelial Cells 0-5 /hpf Microscopic Urinalysis Comment CULT NOT INDICATED Urine Collection Time 12:52 Peritoneal Fluid WBC 19 /MM3 Peritoneal Fluid RBC 450 /MM3 Peritoneal Fluid Neutrophils 44 % Peritoneal Fluid Lymphocytes 28 % Peritoneal Fluid Mesothelial Cells 28 % Peritoneal Fluid Albumin 0.5 G/DL Peritoneal Fluid LDH 146 U/L Blood Urea Nitrogen 18 MG/DL Creatinine 1.20 MG/DL Random Glucose 100 MG/DL Total Protein 5.1 GM/DL Albumin 2.1 GM/DL Calcium Level 8.9 MG/DL Alkaline Phosphatase 156 U/L Aspartate Amino Transf (AST/SGOT) 133 U/L Alanine Aminotransferase (ALT/SGPT) 87 U/L Total Bilirubin 25.5 MG/DL Sodium Level 126 MEQ/L Potassium Level 3.7 MEQ/L Chloride Level 93 MEQ/L Carbon Dioxide Level 22.9 MEQ/L Anion Gap 10 MEQ/L Estimat Glomerular Filtration Rate 47 ML/MIN Random Cortisol 13.7 MCG/DL Test 04/23/17 04:50 White Blood Count 6.6 TH/MM3 Red Blood Count 2.58 MIL/MM3 Hemoglobin 9.2 GM/DL Hematocrit 26.0 % Mean Corpuscular Volume 100.9 FL Mean Corpuscular Hemoglobin 35.8 PG Mean Corpuscular Hemoglobin Concent 35.5 % Red Cell Distribution Width 17.4 % Platelet Count 168 TH/MM3 Mean Platelet Volume 8.0 FL CBC Comment AUTO DIFF Differential Total Cells Counted 100 Neutrophils % (Manual) 90 % Lymphocytes % 8 % Monocytes % 2 % Neutrophils # (Manual) 5.9 TH/MM3 Nucleated Red Blood Cells 2 /100 WBC Differential Comment FINAL DIFF MANUAL Platelet Estimate NORMAL Platelet Morphology Comment NORMAL Target Cells 1+ Ovalocytes 1+ Blood Urea Nitrogen 16 MG/DL Creatinine 1.10 MG/DL Random Glucose 99 MG/DL Total Protein 5.2 GM/DL Albumin 2.7 GM/DL Calcium Level 9.4 MG/DL Magnesium Level 2.1 MG/DL Alkaline Phosphatase 132 U/L Aspartate Amino Transf (AST/SGOT) 92 U/L Alanine Aminotransferase (ALT/SGPT) 71 U/L Total Bilirubin 26.6 MG/DL Sodium Level 132 MEQ/L Potassium Level 3.4 MEQ/L Chloride Level 98 MEQ/L Carbon Dioxide Level 23.0 MEQ/L Anion Gap 11 MEQ/L Estimat Glomerular Filtration Rate 52 ML/MIN ASSESSMENT/PLAN: liver failure secondary etoh hepatitis etoh hepatitis coagulpaty secondary to that ascites s/p paracentesis secondary portal htn-no sbp Recommendations continue current management prognosis guarded may add Lasix 40 mg bid iv once bp improves needs to stop etoh use completely consider drug rehab upon dc close monitoring of lfts, pt/inr, cbc It was a pleasure seeing Krupa Espinoza. Thank you for this consult. Entered by: Thuy Hilton MD Apr 23, 2017 07:27
[2017-04-23] MEDS: SODIUM CHLORIDE 0.9% FLUSH 10 ML FLUSH IV FLUSH SCH ×2 (09:00→19:59)
[2017-04-23] MEDS: prednisoLONE 10 MG ODT TAB PO SCH (09:02)
[2017-04-23] MEDS: MULTIVITAMINS/MINERALS THERAPEUTIC TAB PO SCH (09:02)
[2017-04-23] MEDS: SPIRONOLACTONE 50 MG TAB PO SCH ×2 (09:02→17:22)
[2017-04-23] MEDS: THIAMINE HCL 100 MG TAB PO SCH (09:02)
[2017-04-23] MEDS: NADOLOL 20 MG TAB PO SCH (09:02)
[2017-04-23] MEDS: FOLIC ACID 1 MG TAB PO SCH (09:02)
[2017-04-23] MEDS: CITALOPRAM HYDROBROMIDE 20 MG TAB PO SCH (09:02)
[2017-04-23] MEDS: PANTOPRAZOLE SOD 40 MG DELAYED RELEASE TAB PO SCH (09:02)
[2017-04-23] MEDS: RIFAXIMIN 550 MG TAB PO SCH ×2 (09:02→19:59)
[2017-04-23] MEDS: KETOROLAC TROMETHAMINE 30 MG/ML (IVP) VIAL IV PUSH PRN (09:05)
[2017-04-23] MEDS ORDERED: POTASSIUM CHLORIDE 10 MEQ CONTROLLED RELEASE TAB PO ONE (11:30)
[2017-04-23] MEDS ORDERED: FUROSEMIDE 20 MG/2 ML VIAL IV PUSH ONE (11:30)
[2017-04-23] MEDS: MIDODRINE 5 MG TAB PO SCH ×2 (11:43→17:00)
--- NOTE | 2017-04-23 12:33 | HHI.PR ---
Subjective Remarks Follow-up hypotension. Systolic BP in the 60s to 70s with map in the high 50s. Complains of dizziness and weakness when she is upright. No loss of consciousness, chest pain and shortness of breath. Discussed with RN Objective Vitals Vital Signs Date Time Temp Pulse Resp B/P (MAP) Pulse Ox O2 Delivery O2 Flow Rate FiO2 04/23/17 10:04 20 04/23/17 10:04 20 04/23/17 08:00 97.8 76 16 100/57 (71) 93 04/23/17 08:00 76 04/23/17 04:00 99 04/23/17 04:00 97.8 76 16 90/60 (70) 93 04/23/17 00:00 97.8 76 16 90/60 (70) 93 04/23/17 00:00 76 04/22/17 20:00 98.3 83 20 102/60 (74) 97 04/22/17 20:00 72 04/22/17 17:00 72 14 88/40 (56) 04/22/17 16:00 98.1 78 17 89/57 (68) 95 04/22/17 16:00 78 04/22/17 15:00 82 22 93/55 (68) 04/22/17 14:00 78 15 80/52 (61) 04/22/17 13:00 82 18 93/54 (67) I/O 04/22/17 04/22/17 04/22/17 04/23/17 04/23/17 04/23/17 07:00 15:00 23:00 07:00 15:00 23:00 Intake Total 240 ml 720 ml 220 ml Balance 240 ml 720 ml 220 ml Intake Oral 240 ml 520 ml 120 ml IV Total 100 ml 100 ml Albumin 100 ml # Voids 5 6 3 # Bowel Movements 4 3 3 Result Diagram: 04/23/1744904/23/170 Objective Remarks Well-developed, well-nourished who is critically ill Skin is jaundice no rash Pupils reactive to light with jaundice Neck no JVD supple Lungs are clear decreased breath sounds Regular rate rhythm Abdomen soft normal active bowel sounds tender epigastric and right upper quadrant Anasarca. Bilateral lower extremity pitting edema no cyanosis Alert and oriented nonfocal. No hallucinations. No tremors Procedures none A/P Problem List: (1) Liver failure, acute ICD Code: K72.00 - Acute and subacute hepatic failure without coma (2) Hyponatremia ICD Code: E87.1 - Hypo-osmolality and hyponatremia Status: Acute (3) Hyperbilirubinemia ICD Code: E80.6 - Other disorders of bilirubin metabolism Status: Acute (4) Anemia ICD Code: D64.9 - Anemia, unspecified Status: Chronic (5) Hypotension ICD Code: I95.9 - Hypotension, unspecified (6) EtOH dependence ICD Code: F10.20 - Alcohol dependence, uncomplicated (7) Back pain ICD Code: M54.9 - Dorsalgia, unspecified Assessment and Plan (1) Liver failure, acute 2/2 etoh hepatitis Patient has anasarca Continue Medical management (bb/corgard, diuretic/aldactone, pentoxifylline, steroids, rifaximin and albumin). Add Lasix with hold parameters Serology for infectious hep negative MRCP no blockage (2) Hyponatremia Improving (3) Hyperbilirubinemia from Acute liver failure, likely from Etoh no evidence of Obstruction continue to follow (4) Anemia Chronic (5) Hypotension with hypoalbuminemia. Cortisol 13.4 Worsening hypotension despite on IV albumin 25 mg every 8 hours. Labs unchanged. Start ProAmatine. Check echocardiogram (6) EtOH dependence. Counselled. CIWA protocol (7) Back pain F/u TS MRI mid Sept f/u possible syrinx status post neurology evaluation. Continue pain management with oxycodone and IV Toradol. Lactic acidosis improved 2/2 hypotension. No evidence of infection dc Rocephin Deconditioning. Consulted physical therapy Discharge Planning Patient remains critically ill we'll keep in ICU. High likelihood of hemodynamic decompensation. Critical care time spent 30 minutes Chet Stark MD Apr 23, 2017 12:33
[2017-04-23] MEDS: FUROSEMIDE 20 MG/2 ML VIAL IV PUSH SCH (17:22)
[2017-04-23] MEDS: traZODone HCL 50 MG TAB PO SCH (19:59)
[2017-04-23] MEDS ORDERED: MIDODRINE 5 MG TAB PO ONE (22:15)
[2017-04-24] VITALS (43 sets, daily range): BP systolic 71–116; BP diastolic 44–76; PULSE 66–96; RESP 12–33; TEMP 97.6–99.2; O2SAT 96
[2017-04-24 03:50] LABS: ENDOMYSIAL AB TITER ND (<1:5); TISSUE TRANSGLUTAMINASE AB 1 U/mL (0-4)
[2017-04-24] MEDS: ALBUMIN HUMAN 25% 25 GM/100 ML BAGP IV SCH ×3 (05:21→22:08)
[2017-04-24] MEDS: PENTOXIFYLLINE 400 MG CONTROLLED RELEASE TAB PO SCH ×3 (05:21→22:09)
[2017-04-24] MEDS: MIDODRINE 5 MG TAB PO SCH ×3 (05:22→16:14)
[2017-04-24 06:58] LABS: HEMATOCRIT 24.8 % (35.0-46.0); MEAN CORPUSCULAR HEMOGLOBIN 35.7 PG (27.0-34.0); MEAN CORPUSCULAR HGB CONC 34.7 % (32.0-36.0); PLATELET COUNT 152 TH/MM3 (150-450); RED BLOOD COUNT 2.41 MIL/MM3 (4.00-5.30); RED CELL DISTRIBUTION WIDTH 18.4 % (11.6-17.2); WHITE BLOOD COUNT 7.3 TH/MM3 (4.0-11.0)
[2017-04-24 07:10] LABS: CHLORIDE 98 MEQ/L (98-107); POTASSIUM 3.5 MEQ/L (3.5-5.1); SODIUM (NA) 132 MEQ/L (136-145)
[2017-04-24 07:15] LABS: ANION GAP 11 MEQ/L (5-15); BICARBONATE 23.2 MEQ/L (21.0-32.0); BLOOD UREA NITROGEN 16 MG/DL (7-18); INTERNATIONAL NORMALIZED RATIO 1.6 RATIO; MAGNESIUM 2.1 MG/DL (1.5-2.5); PROTHROMBIN TIME - PATIENT 18.5 SEC (9.8-11.6)
[2017-04-24 07:18] LABS: ALT (GPT) 58 U/L (10-53); AST (GOT) 73 U/L (15-37); GLOMERULAR FILTRATION RATE 52 ML/MIN (>89); HEMO FLAGS AUTO DIFF
[2017-04-24 07:21] LABS: ALKALINE PHOSPHATASE 112 U/L (45-117)
[2017-04-24 07:41] LABS: NEUTROPHIL # MANUAL DIFF 6.4 TH/MM3 (1.8-7.7); POLYS (SEG NEUTROPHILS) 88 % (16-70); WBC DIFF SAMPLE 100
[2017-04-24 07:42] LABS: ROULEAUX PRESENT (NORMAL); SCAN/DIFF FINAL DIFF MANUAL
[2017-04-24] MEDS: NADOLOL 20 MG TAB PO SCH (08:18)
[2017-04-24] MEDS: SPIRONOLACTONE 50 MG TAB PO SCH ×2 (08:18→18:34)
[2017-04-24] MEDS: SODIUM CHLORIDE 0.9% FLUSH 10 ML FLUSH IV FLUSH SCH ×2 (09:00→20:05)
[2017-04-24] MEDS: FUROSEMIDE 20 MG/2 ML VIAL IV PUSH SCH ×2 (09:00→18:35)
[2017-04-24 09:11] LABS: TOTAL BILIRUBIN ADULT 23.5 MG/DL (0.2-1.0)
[2017-04-24] MEDS: MULTIVITAMINS/MINERALS THERAPEUTIC TAB PO SCH (09:42)
[2017-04-24] MEDS: PANTOPRAZOLE SOD 40 MG DELAYED RELEASE TAB PO SCH (09:42)
[2017-04-24] MEDS: THIAMINE HCL 100 MG TAB PO SCH (09:42)
[2017-04-24] MEDS: FOLIC ACID 1 MG TAB PO SCH (09:42)
[2017-04-24] MEDS: RIFAXIMIN 550 MG TAB PO SCH ×2 (09:42→20:03)
[2017-04-24] MEDS: prednisoLONE 10 MG ODT TAB PO SCH (09:43)
[2017-04-24] MEDS: CITALOPRAM HYDROBROMIDE 20 MG TAB PO SCH (09:43)
--- NOTE | 2017-04-24 15:23 | HHI.PR ---
Subjective Remarks Follow-up liver failure. Still feeling weak. Out of bed to chair with improving dizziness. BP still low. Discussed with RN Objective Vitals Vital Signs Date Time Temp Pulse Resp B/P (MAP) Pulse Ox O2 Delivery O2 Flow Rate FiO2 04/24/17 13:00 78 04/24/17 13:00 78 16 75/49 (58) 04/24/17 12:45 80 18 76/48 (57) 04/24/17 12:30 78 21 76/50 (59) 04/24/17 12:15 90 25 85/48 (60) 04/24/17 12:00 82 04/24/17 12:00 98.3 82 22 71/44 (53) 04/24/17 11:45 82 17 84/53 (63) 04/24/17 11:30 86 20 86/57 (67) 04/24/17 11:15 90 28 94/55 (68) 04/24/17 11:00 84 18 87/54 (65) 04/24/17 11:00 84 04/24/17 10:45 94 21 94/61 (72) 04/24/17 10:30 82 15 86/56 (66) 04/24/17 10:15 84 18 94/59 (71) 04/24/17 10:00 90 04/24/17 10:00 90 21 103/58 (73) 04/24/17 09:45 96 23 98/76 (83) 04/24/17 09:39 84 22 87/56 (66) 04/24/17 09:00 74 14 80/55 (63) 04/24/17 09:00 74 04/24/17 08:00 97.9 74 13 93/58 (70) 04/24/17 08:00 74 04/24/17 07:00 72 04/24/17 07:00 72 12 91/60 (70) 04/24/17 06:00 74 04/24/17 06:00 74 13 89/54 (66) 04/24/17 05:00 76 04/24/17 04:00 74 04/24/17 04:00 97.6 74 13 80/45 (57) 04/24/17 00:00 66 04/24/17 00:00 97.7 66 33 83/55 (64) 04/23/17 20:00 78 04/23/17 19:19 98.0 80 25 93/60 (71) 04/23/17 16:00 98.0 96 18 87/61 (70) 04/23/17 16:00 76 I/O 04/23/17 04/23/17 04/23/17 04/24/17 04/24/17 04/24/17 07:00 15:00 23:00 07:00 15:00 23:00 Intake Total 220 ml 410 ml 100 ml Output Total 400 ml Balance 220 ml 410 ml -300 ml Intake Oral 120 ml 210 ml IV Total 100 ml 100 ml 100 ml Albumin 100 ml Output Urine Total 400 ml # Voids 3 5 # Bowel Movements 3 3 Result Diagram: 04/24/1762104/24/17621 Objective Remarks Well-developed, well-nourished who is critically ill Skin is jaundice no rash Pupils reactive to light with jaundice Neck no JVD supple Lungs are clear decreased breath sounds Regular rate rhythm Abdomen soft normal active bowel sounds tender epigastric and right upper quadrant Anasarca. Bilateral lower extremity pitting edema no cyanosis Alert and oriented nonfocal. No hallucinations. No tremors Procedures none A/P Problem List: (1) Liver failure, acute ICD Code: K72.00 - Acute and subacute hepatic failure without coma (2) Hyponatremia ICD Code: E87.1 - Hypo-osmolality and hyponatremia Status: Acute (3) Hyperbilirubinemia ICD Code: E80.6 - Other disorders of bilirubin metabolism Status: Acute (4) Anemia ICD Code: D64.9 - Anemia, unspecified Status: Chronic (5) Hypotension ICD Code: I95.9 - Hypotension, unspecified (6) EtOH dependence ICD Code: F10.20 - Alcohol dependence, uncomplicated (7) Back pain ICD Code: M54.9 - Dorsalgia, unspecified Assessment and Plan (1) Liver failure, acute 2/2 etoh hepatitis Patient has anasarca Continue Medical management (bb(corgard), diuretic(aldactone and lasix), pentoxifylline, steroids, rifaximin and albumin). Serology for infectious hep negative MRCP no blockage (2) Hyponatremia Improving (3) Hyperbilirubinemia from Acute liver failure, likely from Etoh no evidence of Obstruction continue to follow (4) Anemia Chronic (5) Hypotension with hypoalbuminemia. Cortisol 13.4. Hypotension persistent despite on IV albumin 25 mg every 8 hours. Labs unchanged. Increase ProAmatine. Follow-up echocardiogram (6) EtOH dependence. Counselled. WA protocol (7) Back pain F/u TS MRI mid Sept f/u possible syrinx status post neurology evaluation. Continue pain management with oxycodone and IV Toradol. Lactic acidosis improved 2/2 hypotension. No evidence of infection dc Rocephin Deconditioning. Consulted physical therapy Discharge Planning Patient remains critically ill we'll keep in ICU. High likelihood of hemodynamic decompensation. Critical care time spent 30 minutes. Consult palliative care Chet Stark MD Apr 24, 2017 15:23
[2017-04-24] MEDS ORDERED: POTASSIUM CHLORIDE 20 MEQ CONTROLLED RELEASE TAB PO ONE (15:30)
--- NOTE | 2017-04-24 16:43 | HHI.GIFU ---
Subjective Remarks No specific symptoms, tremors noted but fully awake and alert. Objective Vitals I&O Vital Signs Date Time Temp Pulse Resp B/P (MAP) Pulse Ox O2 Delivery O2 Flow Rate FiO2 04/24/17 13:00 78 04/24/17 13:00 78 16 75/49 (58) 04/24/17 12:45 80 18 76/48 (57) 04/24/17 12:30 78 21 76/50 (59) 04/24/17 12:15 90 25 85/48 (60) 04/24/17 12:00 82 04/24/17 12:00 98.3 82 22 71/44 (53) 04/24/17 11:45 82 17 84/53 (63) 04/24/17 11:30 86 20 86/57 (67) 04/24/17 11:15 90 28 94/55 (68) 04/24/17 11:00 84 18 87/54 (65) 04/24/17 11:00 84 04/24/17 10:45 94 21 94/61 (72) 04/24/17 10:30 82 15 86/56 (66) 04/24/17 10:15 84 18 94/59 (71) 04/24/17 10:00 90 04/24/17 10:00 90 21 103/58 (73) 04/24/17 09:45 96 23 98/76 (83) 04/24/17 09:39 84 22 87/56 (66) 04/24/17 09:00 74 14 80/55 (63) 04/24/17 09:00 74 04/24/17 08:00 97.9 74 13 93/58 (70) 04/24/17 08:00 74 04/24/17 07:00 72 04/24/17 07:00 72 12 91/60 (70) 04/24/17 06:00 74 04/24/17 06:00 74 13 89/54 (66) 04/24/17 05:00 76 04/24/17 04:00 74 04/24/17 04:00 97.6 74 13 80/45 (57) 04/24/17 00:00 66 04/24/17 00:00 97.7 66 33 83/55 (64) 04/23/17 20:00 78 04/23/17 19:19 98.0 80 25 93/60 (71) I/O 04/23/17 04/23/17 04/23/17 04/24/17 04/24/17 04/24/17 07:00 15:00 23:00 07:00 15:00 23:00 Intake Total 220 ml 410 ml 100 ml Output Total 400 ml Balance 220 ml 410 ml -300 ml Intake Oral 120 ml 210 ml IV Total 100 ml 100 ml 100 ml Albumin 100 ml Output Urine Total 400 ml # Voids 3 5 # Bowel Movements 3 3 Laboratory Laboratory Tests Test 04/24/17 06:22 White Blood Count 7.3 Red Blood Count 2.41 Hemoglobin 8.6 Hematocrit 24.8 Mean Corpuscular Volume 103.0 Mean Corpuscular Hemoglobin 35.7 Mean Corpuscular Hemoglobin Concent 34.7 Red Cell Distribution Width 18.4 Platelet Count 152 Mean Platelet Volume 8.1 CBC Comment AUTO DIFF Differential Total Cells Counted 100 Neutrophils % (Manual) 88 Lymphocytes % 10 Monocytes % 2 Neutrophils # (Manual) 6.4 Differential Comment FINAL DIFF MANUAL Rouleau PRESENT Prothrombin Time 18.5 Prothromb Time International Ratio 1.6 Blood Urea Nitrogen 16 Creatinine 1.10 Random Glucose 96 Total Protein 5.5 Albumin 3.3 Calcium Level 9.5 Magnesium Level 2.1 Alkaline Phosphatase 112 Aspartate Amino Transf (AST/SGOT) 73 Alanine Aminotransferase (ALT/SGPT) 58 Total Bilirubin 23.5 Sodium Level 132 Potassium Level 3.5 Chloride Level 98 Carbon Dioxide Level 23.2 Anion Gap 11 Estimat Glomerular Filtration Rate 52 Date/Time Source Procedure Growth Status 04/19/17 14:32 Blood Peripheral Aerobic Blood Culture - Final NO GROWTH IN 5 DAYS Complete 04/19/17 14:32 Blood Peripheral Anaerobic Blood Culture - Final NO GROWTH IN 5 DAYS Complete 04/21/17 13:25 Fluid Peritoneal Fluid Gram Stain - Final Complete 04/21/17 13:25 Fluid Peritoneal Fluid Body Fluid Culture - Final NO GROWTH IN 72 HRS.--AEROBICALLY OR ... Complete Physical Exam HEENT: Pupils round and reactive to light; normocephalic; atraumatic; no jaundice. Throat is clear. NECK: Neck is supple, no JVD, no lymphadenopathy. CHEST: Chest is clear to auscultation and percussion. CARDIAC: Regular rate and rhythm with no murmur gallop or rubs. ABDOMEN: Soft, nondistended, nontender; no hepatosplenomegaly; bowel sounds are present in all four quadrants. EXTREMITIES: No clubbing, cyanosis, or edema. SKIN: Normal; no rash; no jaundice. FUNDRAISING COORDINATOR: positive flapping Assessment and Plan Plan ASSESSMENT: - Liver failure secondary etoh hepatitis - Etoh hepatitis, DF score less than 33 - Coagulpaty secondary to that - Ascites s/p paracentesis secondary portal htn-no sbp PLAN: - Continue current management - Needs to stop etoh use completely - Daily labs - Lactulose and Rifaximin - Will follow up with Esha Alford MD Apr 24, 2017 16:43
--- NOTE | 2017-04-24 17:49 | ECHRPT ---
Indication: HEART FAILURE CONCLUSIONS The left ventricular systolic function is normal with an estimated ejection fraction in the range of 60-65%. Normal left ventricular size. Wall thickness is normal. No regional wall motion abnormalities are present. moderate mitral valve regurgitation. Aortic valve sclerosis is present. mild to moderate aortic valve regurgitation. There is trace tricuspid valve regurgitation. The estimated pulmonary arterial pressure is 40 mmHg. BP: 89 / 54 HR: 66 Rhythm: Sinus MEASUREMENTS (Male / Female) Normal Values Technical Quality:Good 2D ECHO LV Diastolic Diameter PLAX 4.3 cm 4.2 - 5.9 / 3.9 - 5.3 cm LV Systolic Diameter PLAX 2.9 cm IVS Diastolic Thickness 0.9 cm 0.6 - 1.0 / 0.6 - 0.9 cm LVPW Diastolic Thickness 0.9 cm 0.6 - 1.0 / 0.6 - 0.9 cm LV Relative Wall Thickness 0.4 RV Internal Dim ED PLAX 2.4 cm LVOT Diameter 2.0 cm LA Systolic Diameter LX 3.5 cm 3.0 - 4.0 / 2.7 - 3.8 cm LV Ejection Fraction MOD 4C 61.8 % LV Cardiac Index MOD 4C 1360.8 cm/minm LV Ejection Fraction 4C AL 63.6 % LV Cardiac Index 4C AL 1449.7 cm/minm M-MODE Aortic Root Diameter MM 2.5 cm AV Cusp Separation MM 1.7 cm DOPPLER AV Peak Velocity 181.0 cm/s AV Peak Gradient 13.1 mmHg AI Peak Velocity 306.0 cm/s AI Peak Gradient 37.5 mmHg AI Pressure Half Time 349.5 ms LVOT Peak Velocity 135.0 cm/s LVOT Peak Gradient 7.3 mmHg AV Area Cont Eq pk 2.3 cm MV Area PHT 4.0 cm Mitral E Point Velocity 129.0 cm/s Mitral A Point Velocity 81.7 cm/s Mitral E to A Ratio 1.6 LV E' Lateral Velocity 8.4 cm/s Mitral E to LV E' Lateral Ratio 15.4 LV E' Septal Velocity 8.4 cm/s Mitral E to LV E' Septal Ratio 15.4 TR Peak Velocity 274.0 cm/s TR Peak Gradient 30.0 mmHg PV Peak Velocity 92.3 cm/s PV Peak Gradient 3.4 mmHg FINDINGS LEFT VENTRICLE The left ventricular systolic function is normal with an estimated ejection fraction in the range of 60-65%. Normal left ventricular size. Wall thickness is normal. No regional wall motion abnormalities are present. RIGHT VENTRICLE Normal right ventricular size and systolic function. LEFT ATRIUM The left atrial size is normal. RIGHT ATRIUM The right atrial size is normal. ATRIAL SEPTUM Normal atrial septal thickness without atrial level shunting by limited color doppler interrogation. AORTA The aortic root and proximal ascending aorta are normal in size on limited imaging. MITRAL VALVE Mild mitral valve regurgitation. AORTIC VALVE Trileaflet aortic valve. Aortic valve sclerosis is present. Moderate aortic valve regurgitation. TRICUSPID VALVE There is trace tricuspid valve regurgitation. The estimated pulmonary arterial pressure is 40 mmHg. PULMONARY VALVE The pulmonary valve is not well visualized. VESSELS The inferior vena cava is normal in size. PERICARDIUM No pericardial effusion. Donta Biggs MD, FACC, [facility] [place] (Electronically Signed) Final Date:24 April 2017 17:48
[2017-04-24] MEDS: traZODone HCL 50 MG TAB PO SCH (20:03)
[2017-04-25] VITALS (9 sets, daily range): BP systolic 82–124; BP diastolic 56–68; PULSE 74–102; RESP 15–28; TEMP 98.4–99.2; O2SAT 92
[2017-04-25 03:51] LABS: MITOCHONDRIAL ABS LESS THAN 20.0 U (<=20.0)
[2017-04-25] MEDS: PENTOXIFYLLINE 400 MG CONTROLLED RELEASE TAB PO SCH ×3 (06:00→20:10)
[2017-04-25] MEDS: ALBUMIN HUMAN 25% 25 GM/100 ML BAGP IV SCH (06:00)
[2017-04-25] MEDS: MIDODRINE 5 MG TAB PO SCH ×3 (06:00→16:01)
[2017-04-25] MEDS: FUROSEMIDE 20 MG/2 ML VIAL IV PUSH SCH ×2 (08:32→17:20)
[2017-04-25] MEDS: CITALOPRAM HYDROBROMIDE 20 MG TAB PO SCH (08:32)
[2017-04-25] MEDS: THIAMINE HCL 100 MG TAB PO SCH (08:32)
[2017-04-25] MEDS: RIFAXIMIN 550 MG TAB PO SCH ×2 (08:32→20:10)
[2017-04-25] MEDS: SPIRONOLACTONE 50 MG TAB PO SCH ×2 (08:32→17:20)
[2017-04-25] MEDS: PANTOPRAZOLE SOD 40 MG DELAYED RELEASE TAB PO SCH (08:32)
[2017-04-25] MEDS: NADOLOL 20 MG TAB PO SCH (08:33)
[2017-04-25] MEDS: prednisoLONE 10 MG ODT TAB PO SCH (08:33)
[2017-04-25] MEDS: SODIUM CHLORIDE 0.9% FLUSH 10 ML FLUSH IV FLUSH SCH ×2 (09:00→20:15)
--- NOTE | 2017-04-25 09:39 | HHI.PR ---
Subjective Remarks Follow-up liver failure. Still feels weak but able to get out of bed to chair without dizziness. Hemodynamically improved. Seen with RN Objective Vitals Vital Signs Date Time Temp Pulse Resp B/P (MAP) Pulse Ox O2 Delivery O2 Flow Rate FiO2 04/25/17 04:00 100 04/25/17 04:00 98.4 100 20 82/64 (70) 92 04/25/17 03:00 76 20 92/57 (69) 04/25/17 03:00 76 04/25/17 02:00 76 20 96/57 (70) 04/25/17 02:00 76 04/25/17 00:00 74 04/25/17 00:00 98.6 74 20 96/56 (69) 92 04/24/17 23:00 76 04/24/17 23:00 76 20 89/59 (69) 04/24/17 22:00 74 04/24/17 22:00 74 20 87/59 (68) 04/24/17 21:05 18 04/24/17 21:00 80 20 112/63 (79) 04/24/17 21:00 80 04/24/17 20:00 86 20 116/70 (85) 04/24/17 20:00 86 04/24/17 19:00 99.2 82 20 105/64 (78) 96 04/24/17 19:00 83 04/24/17 16:45 82 17 112/66 (81) 04/24/17 16:30 86 16 93/64 (74) 04/24/17 16:15 78 18 111/72 (85) 04/24/17 16:00 97.9 78 18 108/67 (81) 04/24/17 16:00 78 04/24/17 15:45 96 23 110/61 (77) 04/24/17 15:15 80 20 110/73 (85) 04/24/17 15:00 74 04/24/17 15:00 74 14 97/56 (70) 04/24/17 14:45 74 15 95/54 (68) 04/24/17 14:30 74 15 96/60 (72) 04/24/17 14:15 78 17 97/59 (72) 04/24/17 14:00 74 15 93/58 (70) 04/24/17 14:00 74 8/26/17 13:45 84 17 100/63 (75) 04/24/17 13:44 80 22 95/63 (74) 04/24/17 13:43 78 17 71/46 (54) 04/24/17 13:30 80 16 76/47 (57) 04/24/17 13:15 78 15 79/48 (58) 04/24/17 13:00 78 04/24/17 13:00 78 16 75/49 (58) 04/24/17 12:45 80 18 76/48 (57) 04/24/17 12:30 78 21 76/50 (59) 04/24/17 12:15 90 25 85/48 (60) 04/24/17 12:00 82 04/24/17 12:00 98.3 82 22 71/44 (53) 04/24/17 11:45 82 17 84/53 (63) 04/24/17 11:30 86 20 86/57 (67) 04/24/17 11:15 90 28 94/55 (68) 04/24/17 11:00 84 18 87/54 (65) 04/24/17 11:00 84 04/24/17 10:45 94 21 94/61 (72) 04/24/17 10:30 82 15 86/56 (66) 04/24/17 10:15 84 18 94/59 (71) 04/24/17 10:00 90 04/24/17 10:00 90 21 103/58 (73) 04/24/17 09:45 96 23 98/76 (83) I/O 04/24/17 04/24/17 04/24/17 04/25/17 04/25/17 04/25/17 07:00 15:00 23:00 07:00 15:00 23:00 Intake Total 100 ml 620 ml 360 ml Output Total 400 ml 300 ml 0 ml Balance -300 ml 320 ml 360 ml Intake Oral 420 ml 360 ml IV Total 100 ml 200 ml Output Urine Total 400 ml 300 ml Emesis 0 ml 0 ml # Voids 5 3 # Bowel Movements 0 2 Result Diagram: 04/24/1762104/24/17621 Imaging Last Impressions Cyst Biopsy Asp-Paracentesis US 04/21/17 0000 Signed Impressions: Service Date/Time: Friday, April 21, 2017 13:00 - CONCLUSION: Uncomplicated ultrasound guided paracentesis. Andrez Calderon MD Thoracic Spine MRI 04/20/17 Signed Impressions: Service Date/Time: Thursday, April 20, 2017 13:28 - CONCLUSION: 1. Questionable thin caliber increased signal within the cord diffusely may be related to a subtle syrinx versus artifactual. Consider a followup short interval MRI in 2-4 weeks both with and without contrast. Checo Pollard MD Cholangiopancreatography MRI 04/20/17 Signed Impressions: Service Date/Time: Thursday, April 20, 2017 12:58 - CONCLUSION: 1. No evidence for biliary obstruction. 2. Fatty liver. 3. Ascites and pleural effusions. Checo Pollard MD Chest X-Ray 04/20/17 Signed Impressions: Service Date/Time: Thursday, April 20, 2017 03:41 - CONCLUSION: 1. Layering small to moderate size left effusion with basilar atelectasis. No pneumothorax. Balaji Whittington MD Gall Bladder Ultrasound 04/19/17 Signed Impressions: Service Date/Time: Wednesday, April 19, 2017 13:05 - CONCLUSION: 1. Sonographic findings characteristic of some degree of cirrhosis with hepatic fatty infiltration and nodularity. 2. In addition, there is hepatofugal flow in the main portal vein characteristic of portal hypertension. 3. Ascites. 4. Sludge filled gallbladder with gallbladder wall thickening and pericholecystic fluid. Findings are nonspecific and can be related to liver failure with low oncotic pressures. Armen Rodriguez MD Abdomen/Pelvis CT 04/19/17 Signed Impressions: Service Date/Time: Wednesday, April 19, 2017 13:51 - CONCLUSION: 1. Diffuse hepatic fatty infiltration with probable focal areas of fatty sparing. 2. Mild to moderate ascites. 3. Moderate size left pleural effusion with a tiny right pleural effusion. Concomitant atelectatic changes in the left base. 4. Pericholecystic fluid with possible some gallbladder wall thickening and luminal sludge 5. Partial sacralization of the left side of L5. Armen Rodriguez MD Objective Remarks Well-developed, well-nourished patient Skin is jaundice no rash Pupils reactive to light with jaundice Neck no JVD supple Lungs are clear decreased breath sounds Regular rate rhythm Abdomen soft normal active bowel sounds tender epigastric and right upper quadrant Anasarca. Bilateral lower extremity pitting edema no cyanosis Alert and oriented nonfocal. No hallucinations. No tremors Procedures none A/P Problem List: (1) Liver failure, acute ICD Code: K72.00 - Acute and subacute hepatic failure without coma (2) Hyponatremia ICD Code: E87.1 - Hypo-osmolality and hyponatremia Status: Acute (3) Hyperbilirubinemia ICD Code: E80.6 - Other disorders of bilirubin metabolism Status: Acute (4) Anemia ICD Code: D64.9 - Anemia, unspecified Status: Chronic (5) Hypotension ICD Code: I95.9 - Hypotension, unspecified (6) EtOH dependence ICD Code: F10.20 - Alcohol dependence, uncomplicated (7) Back pain ICD Code: M54.9 - Dorsalgia, unspecified Assessment and Plan (1) Liver failure, acute 2/2 etoh hepatitis Patient has anasarca . Improved albumin levels discontinue IV albumin. Improving LFTs and coags but remains abnormal Continue Medical management (bb( corgard), diuretic(aldactone and lasix), pentoxifylline, steroids and rifaximin) . Serology for infectious hep negative MRCP no blockage (2) Hyponatremia Improving (3) Hyperbilirubinemia from Acute liver failure, likely from Etoh no evidence of Obstruction continue to follow (4) Anemia Chronic (5) Hypotension with hypoalbuminemia. Cortisol 13.4. Hemodynamically improved continue ProAmatine. Follow-up echocardiogram EF 60% (6) EtOH dependence. Counselled. CIWA protocol (7) Back pain F/u TS MRI mid Sept f/u possible syrinx status post neurology evaluation. Continue pain management with oxycodone and IV Toradol. Lactic acidosis improved 2/2 hypotension. No evidence of infection dc Rocephin Deconditioning. Consulted physical therapy Discharge Planning Hemodynamically improved. Transfer to intermediate care. Follow-up palliative care consult Chet Stark MD Apr 25, 2017 09:39
[2017-04-25] MEDS: traZODone HCL 50 MG TAB PO SCH (20:10)
[2017-04-26] VITALS (15 sets, daily range): BP systolic 89–122; BP diastolic 51–71; PULSE 66–97; RESP 12–27; TEMP 97.8–99.1
[2017-04-26 04:52] LABS: HEMATOCRIT 28.4 % (35.0-46.0); MEAN CELL VOLUME 105.2 FL (80.0-100.0); MEAN CORPUSCULAR HEMOGLOBIN 35.7 PG (27.0-34.0); MEAN CORPUSCULAR HGB CONC 33.9 % (32.0-36.0); PLATELET COUNT 159 TH/MM3 (150-450); RED CELL DISTRIBUTION WIDTH 19.8 % (11.6-17.2); WHITE BLOOD COUNT 8.7 TH/MM3 (4.0-11.0)
[2017-04-26 04:55] LABS: HEMO FLAGS AUTO DIFF
[2017-04-26 05:13] LABS: CHLORIDE 99 MEQ/L (98-107); POTASSIUM 3.4 MEQ/L (3.5-5.1); SODIUM (NA) 136 MEQ/L (136-145)
[2017-04-26 05:18] LABS: ANION GAP 9 MEQ/L (5-15); BLOOD UREA NITROGEN 17 MG/DL (7-18); MAGNESIUM 1.9 MG/DL (1.5-2.5)
[2017-04-26 05:21] LABS: ALT (GPT) 49 U/L (10-53); AST (GOT) 63 U/L (15-37); GLOMERULAR FILTRATION RATE 69 ML/MIN (>89)
[2017-04-26 05:23] LABS: TOTAL BILIRUBIN ADULT 24.8 MG/DL (0.2-1.0)
[2017-04-26 05:24] LABS: ALKALINE PHOSPHATASE 105 U/L (45-117)
[2017-04-26 06:04] LABS: INTERNATIONAL NORMALIZED RATIO 1.6 RATIO; PROTHROMBIN TIME - PATIENT 17.8 SEC (9.8-11.6)
[2017-04-26] MEDS: PENTOXIFYLLINE 400 MG CONTROLLED RELEASE TAB PO SCH ×3 (06:20→20:05)
[2017-04-26] MEDS: MIDODRINE 5 MG TAB PO SCH ×3 (06:21→16:39)
[2017-04-26 07:31] LABS: BANDS 4 % (0-6); POLYS (SEG NEUTROPHILS) 77 % (16-70); WBC DIFF SAMPLE 100
[2017-04-26 07:33] LABS: OVALOCYTES 1+ (NORMAL); PLATELET ESTIMATE SMEAR NORMAL (NORMAL); PLATELET MORPHOLOGY NORMAL (NORMAL); SCAN/DIFF FINAL DIFF MANUAL; TARGET CELLS 2+ (NORMAL); TEARDROP RBCS 1+ (NORMAL)
[2017-04-26] MEDS: PANTOPRAZOLE SOD 40 MG DELAYED RELEASE TAB PO SCH (08:37)
[2017-04-26] MEDS: prednisoLONE 10 MG ODT TAB PO SCH (08:37)
[2017-04-26] MEDS: SPIRONOLACTONE 50 MG TAB PO SCH ×2 (08:37→18:08)
[2017-04-26] MEDS: THIAMINE HCL 100 MG TAB PO SCH (08:37)
[2017-04-26] MEDS: CITALOPRAM HYDROBROMIDE 20 MG TAB PO SCH (08:37)
[2017-04-26] MEDS: RIFAXIMIN 550 MG TAB PO SCH ×2 (08:37→20:04)
[2017-04-26] MEDS: NADOLOL 20 MG TAB PO SCH (08:37)
[2017-04-26] MEDS: FUROSEMIDE 20 MG/2 ML VIAL IV PUSH SCH (08:38)
[2017-04-26] MEDS: SODIUM CHLORIDE 0.9% FLUSH 10 ML FLUSH IV FLUSH SCH ×2 (08:38→20:04)
--- NOTE | 2017-04-26 12:01 | HHI.PR ---
Subjective Remarks Follow liver failure. Feels better but still weak. Out of bed. Discussed with brother, nursing staff and palliative care. Objective Vitals Vital Signs Date Time Temp Pulse Resp B/P (MAP) Pulse Ox O2 Delivery O2 Flow Rate FiO2 04/26/17 10:56 97.8 90 23 111/68 (82) 04/26/17 08:28 92 17 107/63 (78) 04/26/17 08:00 80 12 04/26/17 07:00 80 13 04/26/17 04:39 95 04/26/17 04:38 97.8 97 17 108/65 (79) 04/26/17 00:17 78 22 96/59 (71) 04/26/17 00:12 79 04/26/17 00:00 74 22 04/25/17 20:25 92 04/25/17 20:00 98.4 82 16 98/56 (70) 04/25/17 17:12 20 04/25/17 14:00 82 I/O 04/25/17 04/25/17 04/25/17 04/26/17 04/26/17 04/26/17 07:00 15:00 23:00 07:00 15:00 23:00 Intake Total 360 ml 0 ml 125 ml 125 ml Output Total 0 ml Balance 360 ml 0 ml 125 ml 125 ml Intake Oral 360 ml 0 ml 125 ml 125 ml IV Total 0 ml 0 ml 0 ml Emesis 0 ml # Voids 3 5 2 3 # Bowel Movements 2 1 Result Diagram: 04/26/17 0431 04/26/17 0431 Objective Remarks Well-developed, well-nourished patient Skin is jaundice no rash Pupils reactive to light with jaundice Neck no JVD supple Lungs are clear decreased breath sounds Regular rate rhythm Abdomen soft normal active bowel sounds improving tenderness epigastric and right upper quadrant Anasarca. Bilateral lower extremity pitting edema no cyanosis Alert and oriented nonfocal. No hallucinations. No tremors Procedures none A/P Problem List: (1) Liver failure, acute ICD Code: K72.00 - Acute and subacute hepatic failure without coma (2) Hyponatremia ICD Code: E87.1 - Hypo-osmolality and hyponatremia Status: Acute (3) Hyperbilirubinemia ICD Code: E80.6 - Other disorders of bilirubin metabolism Status: Acute (4) Anemia ICD Code: D64.9 - Anemia, unspecified Status: Chronic (5) Hypotension ICD Code: I95.9 - Hypotension, unspecified (6) EtOH dependence ICD Code: F10.20 - Alcohol dependence, uncomplicated (7) Back pain ICD Code: M54.9 - Dorsalgia, unspecified Assessment and Plan (1) Liver failure, acute 2/2 etoh hepatitis Patient has anasarca . Improved albumin levels discontinued IV albumin. Will increase IV Lasix since she is hemodynamically stable and weight has not decreased Improving LFTs and coags but remains abnormal Continue Medical management (bb( corgard), diuretic(aldactone and lasix), pentoxifylline, steroids and rifaximin) . Serology for infectious hep negative MRCP no blockage (2) Hyponatremia Improving (3) Hyperbilirubinemia from Acute liver failure, likely from Etoh no evidence of Obstruction continue to follow (4) Anemia Chronic (5) Hypotension with hypoalbuminemia. Cortisol 13.4. Hemodynamically improved continue ProAmatine. Follow-up echocardiogram EF 60% (6) EtOH dependence. Counselled. CIWA protocol (7) Back pain F/u TS MRI mid Sept f/u possible syrinx status post neurology evaluation. Continue pain management with oxycodone and IV Toradol. Lactic acidosis improved 2/2 hypotension. No evidence of infection dc Rocephin Deconditioning. Consulted physical therapy Discharge Planning Hemodynamically improved. Transfer to medical floor Chet Stark MD Apr 26, 2017 12:01
--- NOTE | 2017-04-26 13:07 | PD.CONS ---
Consult Service Palliative Care Consult Requested By Dr. Stark . Primary Care Physician Non-Staff . Reason for Consultation a. To assist with evaluation and management of symptoms including: Weakness , edema, anxiety b. To assist medical decision maker(s) with: better understanding of current medical conditions; weighing benefits/burdens of medical treatment options; making medical treatment decisions. . HPI History of Present Illness This 56-year-old female, with a past history of alcohol abuse, chronic neck/ back pain, anxiety, depression, and hypertension, presented to the emergency department on 04/19/17 because of weakness and worsening edema. The patient reports that she has had a decreasing appetite over the past few months, and that she has been drinking less wine than usual in recent weeks. She had not noticed that she was jaundiced. She did believe that she had an episode of red blood per rectum, but not in recent days. In the past, she had suffered alcohol withdrawal symptoms when she stopped drinking, with tremor and nausea/ vomiting. The patient's brother reports that he had noticed that she was having muscle wasting with thinner arms and torso in recent weeks. In 2013 when she was in the emergency department here, her bilirubin was 1.7, with AST 192 and ALT 138. Her bilirubin was actually normal at 0.8 in December 2016, but the transaminases remained up at 154 and 110. The patient reports that she drinks Chardonnay and Pinot Grigio taylor daily, and she is unsure how much. Recently, she says she was drinking wine "to go to sleep." She had been associated with AA in the past, but she reports that her sponsor moved away a couple years ago and she lost contact with AA. She has no history of hepatitis from other etiologies as far she knows. In the emergency department at the time of this admission, findings included: * Obvious jaundice, weakness * Temp 98.3, pulse 99, respirations 16, blood pressure 86/56 * White count 8.0, hemoglobin 10.4, platelets 164,000, MCV 102.7 * Sodium 119, creatinine 1.6 * Lipase 560 * Bilirubin 24, AST 280, ALT 1:30 * INR 1.7 * CT abdomen/pelvis revealed diffuse fatty infiltrate of the liver, ascites * Ultrasound revealed cirrhosis, findings consistent with portal hypertension, and sludge in the gallbladder The patient was admitted and treatment was begun. An MRI revealed no evidence of biliary obstruction. She underwent paracentesis on 04/21/17, yielding 2.5 L. By 04/25/17, her sodium had improved to 132, but she remained weak and quite edematous, anasarca. Her albumin was 3.1, creatinine 0.85, but the bilirubin remained 24.8. Palliative Care was consulted to assist with symptom management, and to enter into discussions with the patient and her family regarding her current illnesses , prognosis, and the benefits and burdens of the various treatment options. . Function/Cognitive Trajectory The patient reports that she was functioning independently, living alone until the time of this hospitalization. She was weaker recently but was still driving a car and had had no falls. . Review of Systems Constitutional: COMPLAINS OF: Weight loss Endocrine: DENIES: Polydipsia Eyes: DENIES: Eye inflammation Ears, nose, mouth, throat: DENIES: Epistaxis Respiratory: DENIES: Cough, Shortness of breath Cardiovascular: DENIES: Chest pain, Syncope Gastrointestinal: COMPLAINS OF: Bloody stools (1 time a couple weeks ago), Anorexia (for a few weeks), DENIES: Constipation, Diarrhea, Vomiting, Vomiting blood Genitourinary: DENIES: Hematuria Musculoskeletal: COMPLAINS OF: Back pain (chronic), Neck pain (chronic) Integumentary: DENIES: Rash Hematologic/Lymphatics: DENIES: Lymphadenopathy Immunologic/Allergic: DENIES: Urticaria Neurologic: DENIES: Localized weakness, Seizures Psychiatric: DENIES: Hallucinations, Agitation, Suicidal Ideation Past Family Social History Coded Allergies: No Known Allergies (Verified , 03/23/16) Past Medical History * Hepatic failure, 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 Past Surgical History Tonsils D&C . Reported Medications Reported Meds & Active Scripts Active Reported Trazodone (Trazodone HCl) 150 Mg Tablet 150 Mg PO HS Citalopram (Citalopram Hydrobromide) 20 Mg Tab 20 Mg PO DAILY Estrace (Estradiol) 1 Mg Tab 1 Mg PO DAILY Lisinopril 20 Mg Tab 20 Mg PO DAILY . Current Medications Medications (Trade) Dose Ordered Sig/Ramon Route Start Time Stop Time Status Last Admin (NS Flush) 2 ml UNSCH PRN IV FLUSH 04/19/17 15:45 8/26/17 22:09 (NS Flush) 2 ml BID IV FLUSH 04/19/17 21:00 04/26/17 08:38 (Zofran Inj) 4 mg Q6H PRN IVP 04/19/17 15:45 04/23/17 09:03 (Narcan Inj) 0.4 mg UNSCH PRN IV 04/19/17 15:45 (CeleXA) 20 mg DAILY PO 04/20/17 09:00 04/26/17 08:37 (Desyrel) 150 mg HS PO 04/19/17 21:00 04/25/17 20:10 (Protonix) 40 mg DAILY PO 04/19/17 17:00 04/26/17 08:37 (Vitamin B1) 100 mg DAILY PO 04/20/17 09:00 04/26/17 08:37 (Romazicon Inj) 0.2 mg Q1M PRN IV PUSH 04/19/17 21:15 (Ativan) 1 mg Q4H PRN PO 04/19/17 21:15 (Ativan Inj) 1 mg Q4H PRN IV PUSH 04/19/17 21:15 04/23/17 02:23 (Ativan) 2 mg Q2H PRN PO 04/19/17 21:15 (Ativan Inj) 2 mg Q2H PRN IV PUSH 04/19/17 21:15 (Ativan Inj) 2 mg Q1H PRN IV PUSH 04/19/17 21:15 (Ativan Inj) 2 mg Q15M PRN IV PUSH 04/19/17 21:15 (Haldol Inj) 2 mg Q15M PRN IM 04/19/17 21:15 (TRENtal SR) 400 mg Q8HR PO 04/20/17 14:00 04/26/17 06:20 (Roxicodone) 5 mg Q6H PRN PO 04/20/17 11:15 04/25/17 22:26 (Corgard) 20 mg DAILY PO 04/20/17 18:30 04/26/17 08:37 (Orapred Odt) 40 mg DAILY PO 04/21/17 09:00 04/26/17 08:37 (Aldactone) 50 mg BID@ PO 8/23/17 11:00 04/26/17 08:37 (Xifaxan) 550 mg BID PO 04/21/17 21:00 04/26/17 08:37 (Proamatine) 10 mg TID@07,12,17 PO 04/24/17 17:00 04/26/17 06:21 (Lasix Inj) 40 mg BID@09,18 IV PUSH 04/26/17 18:00 (KCl) 40 meq DAILY PO 04/26/17 12:00 Family History Father in MVA, Mother has dementia, and a Brother has DM2. One sister of alcohol liver disease. . Substance Use Tobacco: None Alcohol: Long-term regular wine drinker Prescription med abuse: None Illicits: Denies any . Psychosocial History The patient was born and raised in [place], but moved to [place] at age 17. She has lived in this area for quite some time, and his lived alone for the past 15 years. She was once, in 2001. She has no children, but has 2 brothers and 2 sisters. One brother lives locally. 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 . Spiritual/Cultural Factors The patient is Church but unaffiliated with any particular amish or clergy. She has been visited by Church clergy while here in the hospital. . Health Care Surrogate: Copy in medical record Health Care Surrogate(s): Her brother Balaji . Today's verbally stated goals: The patient does want to be resuscitated if things get worse, and she would even want to be kept on life support "if there was a small chance that I could get better," but she would not want to be on life support more than 2 or 3 months. . Family/friends goals: The patient's brother/HCS is present for the conversation, and he says he will support her wishes. . Ethical and Legal Issues There are no ethical issues that would impact her care or decision-making at this time. The patient has capacity for decision-making. She has now designated her brother Balaji as healthcare surrogate. . Physical Exam Vital Signs Date Time Temp Pulse Resp B/P (MAP) Pulse Ox O2 Delivery O2 Flow Rate FiO2 04/26/17 10:56 97.8 90 23 111/68 (82) 8/28/17 08:28 92 17 107/63 (78) 04/26/17 08:00 80 12 04/26/17 07:00 80 13 04/26/17 04:39 95 04/26/17 04:38 97.8 97 17 108/65 (79) 04/26/17 00:17 78 22 96/59 (71) 04/26/17 00:12 79 04/26/17 00:00 74 22 04/25/17 20:25 92 04/25/17 20:00 98.4 82 16 98/56 (70) 04/25/17 17:12 20 04/25/17 14:00 82 04/26/17 04/27/17 19:00 07:00 Output Total 525 ml Balance -525 ml Output Urine Total 525 ml # Voids 4 Exam CONSTITUTIONAL/GENERAL: This is an obviously jaundiced, weak patient, in no apparent distress. TUBES/LINES/DRAINS: Peripheral IV SKIN: No rashes, or lesions. No wounds seen anteriorly. Skin temperature appropriate. Not diaphoretic. HEAD: Atraumatic. Normocephalic. EYES: Pupils equal and round and reactive. Extraocular motions intact. Marked scleral icterus. No injection or drainage. Fundi not examined. ENT: Hearing grossly normal. Nose without bleeding or purulent drainage. Throat without visible erythema, exudates, masses, or lesions. NECK: Trachea midline. Supple, nontender. No palpable thyroid enlargement or nodularity. CARDIOVASCULAR: Regular rate and rhythm without murmurs, gallops, or rubs. No JVD. Peripheral pulses symmetric. RESPIRATORY/CHEST: Symmetric, unlabored respirations. Clear to auscultation. Breath sounds equal bilaterally. No wheezes, rales, or rhonchi. GASTROINTESTINAL: Abdomen soft and nontender, but she is moderately distended with ascites. No hepato-splenomegaly, or palpable masses. No guarding. Bowel sounds present. GENITOURINARY: Without palpable bladder distension. MUSCULOSKELETAL: Extremities without clubbing, cyanosis. There is 3+ pitting edema of her entire legs and feet. No joint tenderness or effusion noted. No calf tenderness. No mottling or clubbing. LYMPHATICS: No palpable cervical or supraclavicular adenopathy. NEUROLOGICAL: Awake and alert. Motor and sensory grossly within normal limits. Follows commands. Cognitively sharp. Moves all extremities. PSYCHIATRIC: No obvious anxiety/depression. no apparent hallucinations or other psychotic thought process. . Diagnostic Tests Laboratory Laboratory Tests Test 04/24/17 06:22 04/26/17 04:31 White Blood Count 7.3 TH/MM3 (4.0-11.0) 8.7 TH/MM3 (4.0-11.0) Red Blood Count 2.41 MIL/MM3 (4.00-5.30) 2.70 MIL/MM3 (4.00-5.30) Hemoglobin 8.6 GM/DL (11.6-15.3) 9.6 GM/DL (11.6-15.3) Hematocrit 24.8 % (35.0-46.0) 28.4 % (35.0-46.0) Mean Corpuscular Volume 103.0 FL (80.0-100.0) 105.2 FL (80.0-100.0) Mean Corpuscular Hemoglobin 35.7 PG (27.0-34.0) 35.7 PG (27.0-34.0) Mean Corpuscular Hemoglobin Concent 34.7 % (32.0-36.0) 33.9 % (32.0-36.0) Red Cell Distribution Width 18.4 % (11.6-17.2) 19.8 % (11.6-17.2) Platelet Count 152 TH/MM3 (150-450) 159 TH/MM3 (150-450) Mean Platelet Volume 8.1 FL (7.0-11.0) 8.1 FL (7.0-11.0) CBC Comment AUTO DIFF AUTO DIFF Differential Total Cells Counted 100 100 Neutrophils % (Manual) 88 % (16-70) 77 % (16-70) Lymphocytes % 10 % (9-44) 11 % (9-44) Monocytes % 2 % (0-8) 8 % (0-8) Neutrophils # (Manual) 6.4 TH/MM3 (1.8-7.7) 7.0 TH/MM3 (1.8-7.7) Differential Comment FINAL DIFF MANUAL FINAL DIFF MANUAL Rouleau PRESENT (NORMAL) Prothrombin Time 18.5 SEC (9.8-11.6) 17.8 SEC (9.8-11.6) Prothromb Time International Ratio 1.6 RATIO 1.6 RATIO Blood Urea Nitrogen 16 MG/DL (7-18) 17 MG/DL (7-18) Creatinine 1.10 MG/DL (0.50-1.00) 0.85 MG/DL (0.50-1.00) Random Glucose 96 MG/DL (74-106) 88 MG/DL (74-106) Total Protein 5.5 GM/DL (6.4-8.2) 5.4 GM/DL (6.4-8.2) Albumin 3.3 GM/DL (3.4-5.0) 3.1 GM/DL (3.4-5.0) Calcium Level 9.5 MG/DL (8.5-10.1) 9.0 MG/DL (8.5-10.1) Magnesium Level 2.1 MG/DL (1.5-2.5) 1.9 MG/DL (1.5-2.5) Alkaline Phosphatase 112 U/L (45-117) 105 U/L (45-117) Aspartate Amino Transf (AST/SGOT) 73 U/L (15-37) 63 U/L (15-37) Alanine Aminotransferase (ALT/SGPT) 58 U/L (10-53) 49 U/L (10-53) Total Bilirubin 23.5 MG/DL (0.2-1.0) 24.8 MG/DL (0.2-1.0) Sodium Level 132 MEQ/L (136-145) 136 MEQ/L (136-145) Potassium Level 3.5 MEQ/L (3.5-5.1) 3.4 MEQ/L (3.5-5.1) Chloride Level 98 MEQ/L (98-107) 99 MEQ/L (98-107) Carbon Dioxide Level 23.2 MEQ/L (21.0-32.0) 28.0 MEQ/L (21.0-32.0) Anion Gap 11 MEQ/L (5-15) 9 MEQ/L (5-15) Estimat Glomerular Filtration Rate 52 ML/MIN (>89) 69 ML/MIN (>89) Band Neutrophils % 4 % (0-6) Platelet Estimate NORMAL (NORMAL) Platelet Morphology Comment NORMAL (NORMAL) Target Cells 2+ (NORMAL) Tear Drop Cells 1+ (NORMAL) Ovalocytes 1+ (NORMAL) Result Diagram: 04/26/17 0431 04/26/17 0431 Imaging Last Impressions Cyst Biopsy Asp-Paracentesis US 04/21/17 Signed Impressions: Service Date/Time: Friday, April 21, 2017 13:00 - CONCLUSION: Uncomplicated ultrasound guided paracentesis. Andrez Cadleron MD Thoracic Spine MRI 04/20/17 Signed Impressions: Service Date/Time: Thursday, April 20, 2017 13:28 - CONCLUSION: 1. Questionable thin caliber increased signal within the cord diffusely may be related to a subtle syrinx versus artifactual. Consider a followup short interval MRI in 2-4 weeks both with and without contrast. Checo Pollard MD Cholangiopancreatography MRI 04/20/17 Signed Impressions: Service Date/Time: Thursday, April 20, 2017 12:58 - CONCLUSION: 1. No evidence for biliary obstruction. 2. Fatty liver. 3. Ascites and pleural effusions. Checo Pollard MD Chest X-Ray 04/20/17 Signed Impressions: Service Date/Time: Thursday, April 20, 2017 03:41 - CONCLUSION: 1. Layering small to moderate size left effusion with basilar atelectasis. No pneumothorax. Balaji Whittington MD Gall Bladder Ultrasound 04/19/17 Signed Impressions: Service Date/Time: Wednesday, April 19, 2017 13:05 - CONCLUSION: 1. Sonographic findings characteristic of some degree of cirrhosis with hepatic fatty infiltration and nodularity. 2. In addition, there is hepatofugal flow in the main portal vein characteristic of portal hypertension. 3. Ascites. 4. Sludge filled gallbladder with gallbladder wall thickening and pericholecystic fluid. Findings are nonspecific and can be related to liver failure with low oncotic pressures. Armen Rodriguez MD Abdomen/Pelvis CT 04/19/17 Signed Impressions: Service Date/Time: Wednesday, April 19, 2017 13:51 - CONCLUSION: 1. Diffuse hepatic fatty infiltration with probable focal areas of fatty sparing. 2. Mild to moderate ascites. 3. Moderate size left pleural effusion with a tiny right pleural effusion. Concomitant atelectatic changes in the left base. 4. Pericholecystic fluid with possible some gallbladder wall thickening and luminal sludge 5. Partial sacralization of the left side of L5. Armen Rodriguez MD Procedures Paracentesis 04/21/17 . Patient/Family Conference Present at Family Conference: Patient's brother Balaji Fishman . Family Conference Time (mins): 44 Family Conference Location: Bedside Issues Discussed: * Palliative care role, purpose, approach * Additional medical, psychosocial, and spiritual history * Patients general health, functional status, and cognitive changes in the months leading up to the current hospitalization * Patient/family understanding of the current medical problems * Patient/family understanding of prognosis * Patients goals of care as best understood from advance directives and/or conversations and/or values * Current medical treatment options and benefits/burdens of those options * Likely scenarios comparing ongoing aggressive care with a transition to comfort measures only * Questions answered to the best of my ability * Palliative care contact information provided . 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 Spiritual: The patient is Church but unaffiliated with any particular amish or clergy. She has been visited by Church clergy while here in the hospital. Legal: The patient has capacity for decision-making. She has now designated her brother Balaji as healthcare surrogate. Ethical issues impacting care: None . Important Contacts Brother: Balaji Fishman Home: . Prognosis The patient's prognosis is rather poor. Her level of hepatic failure is significant, and her MELD score at the time of admission here was 33. . Code Status: Full Code Plan * FULL CODE, but the patient says she would only want to be on life support for 2 or 3 months and then withdrawn "if I was not going to get better" * DECISION-MAKING: The patient has capacity for decision-making. She has now designated her brother Balaji as healthcare surrogate. * SYMPTOMS: She has some chronic underlying anxiety, but that has not required specific treatment here. Her chronic but intermittent neck/back pain has also not required specific treatment, and she is not complaining of it at the time of the initial consultation. I have no medication recommendations at this time. * GOALS: The patient wants to continue to be treated aggressively for now. She says she will stop drinking and will reengage with AA. She is aware that her liver disease can be fatal, as she had a sister who of alcohol liver disease. * Healthcare surrogate form completed * Palliative Care will follow intermittently during this hospitalization, and will be available should any significant changes occur. . Time Spent Total Floor Time (mins): 78 Face to Face Time (mins): 55 >50% Counseling/Coord of Care: Yes (d/w Dr. Proctor and with RN) Thank you for the opportunity to participate in the care of Ms. Espinoza. Attestation To help prompt me to consider important information that might be impacting today's encounter and assessment, information from prior notes written by myself or my colleagues may have been "brought forward" into today's note. My signature on this note, however, is an attestation that I personally performed the exam, history, and/or decision-making noted today, and, unless otherwise indicated, the interactions with patient, family, and staff as well as the review of records all occurred today. I also attest that the listed assessment and stated plan reflect my best clinical judgment today based on the combination of historical information, prior notes, and today's exam/ interactions. When time spent is documented, it refers only to time spent today by the signer, or if indicated, combined time spent today by collaborating physician/nurse practitioner. Kell Cornejo MD Apr 26, 2017 13:07
[2017-04-26] MEDS: POTASSIUM CHLORIDE 20 MEQ CONTROLLED RELEASE TAB PO SCH (13:26)
--- NOTE | 2017-04-26 16:05 | HHI.DCPOC ---
Discharge Care Plan Diagnosis: (1) hepatic failure, most likely due to alcoholism and alcoholic hepatitis Your Health Problems Are: Difficulty with ADL Exercise Tolerance Goals to Promote Your Health * To prevent worsening of your condition and complications * To maintain your health at the optimal level Directions to Meet Your Goals Take your medications as prescribed Follow your dietary instruction Follow activity as directed Keep your appointments as scheduled Take your immunizations and boosters as scheduled If your symptoms worsen call your PCP, if no PCP go to Urgent Care Center or Emergency Room Smoking is Dangerous to Your Health. Avoid second hand smoke Call the 24-hour hour crisis hotline for domestic abuse at Chet Stark MD Apr 26, 2017 16:05
--- NOTE | 2017-04-26 16:07 | HHI.FF ---
Face to Face Verification Diagnosis: (1) hepatic failure, most likely due to alcoholism and alcoholic hepatitis Physical Therapy Order: Evaluate and Treat, Improve ambulation, Strength and gait training Home Health Nursing Order: Medical education Signs/symptoms of disease process Medication education-adverse effect Nursing assessment with vital signs I have seen patient Krupa Espinoza on 04/26/17. My clinical findings support the need for the requested home health care services because: Ltd mobility - disease progression I certify that my clinical findings support that this patient is homebound because: Unsafe to leave home unassisted Chet Stark MD Apr 26, 2017 16:07
[2017-04-26] MEDS: FUROSEMIDE 40 MG/4 ML VIAL IV PUSH SCH (18:08)
[2017-04-26] MEDS: hydrOXYzine HCL 25 MG TAB PO PRN (20:04)
[2017-04-26] MEDS: traZODone HCL 50 MG TAB PO SCH (20:05)
--- NOTE | 2017-04-26 23:18 | HHI.GIFU ---
Subjective Remarks patient is awake and orientated today, still very jaundice, no sign of GI bleed Objective Vitals I&O Vital Signs Date Time Temp Pulse Resp B/P (MAP) Pulse Ox O2 Delivery O2 Flow Rate FiO2 04/26/17 21:27 76 18 90/62 (71) 04/26/17 20:00 80 04/26/17 19:00 98.4 96 27 122/71 (88) 04/26/17 16:43 98.8 84 20 106/62 (77) 04/26/17 16:32 80 19 114/69 (84) 04/26/17 10:56 97.8 90 23 111/68 (82) 04/26/17 08:28 92 17 107/63 (78) 04/26/17 08:00 80 12 04/26/17 07:00 80 13 04/26/17 04:39 95 04/26/17 04:38 97.8 97 17 108/65 (79) 04/26/17 00:17 78 22 96/59 (71) 04/26/17 00:12 79 04/26/17 00:00 74 22 I/O 04/26/17 04/26/17 04/26/17 04/27/17 04/27/17 04/27/17 07:00 15:00 23:00 07:00 15:00 23:00 Intake Total 125 ml Output Total 525 ml 300 ml Balance 125 ml -525 ml -300 ml Intake Oral 125 ml IV Total 0 ml Output Urine Total 525 ml 300 ml # Voids 3 4 3 # Bowel Movements 6 Laboratory Laboratory Tests Test 04/26/17 04:31 White Blood Count 8.7 Red Blood Count 2.70 Hemoglobin 9.6 Hematocrit 28.4 Mean Corpuscular Volume 105.2 Mean Corpuscular Hemoglobin 35.7 Mean Corpuscular Hemoglobin Concent 33.9 Red Cell Distribution Width 19.8 Platelet Count 159 Mean Platelet Volume 8.1 CBC Comment AUTO DIFF Differential Total Cells Counted 100 Neutrophils % (Manual) 77 Band Neutrophils % 4 Lymphocytes % 11 Monocytes % 8 Neutrophils # (Manual) 7.0 Differential Comment FINAL DIFF MANUAL Platelet Estimate NORMAL Platelet Morphology Comment NORMAL Target Cells 2+ Tear Drop Cells 1+ Ovalocytes 1+ Prothrombin Time 17.8 Prothromb Time International Ratio 1.6 Blood Urea Nitrogen 17 Creatinine 0.85 Random Glucose 88 Total Protein 5.4 Albumin 3.1 Calcium Level 9.0 Magnesium Level 1.9 Alkaline Phosphatase 105 Aspartate Amino Transf (AST/SGOT) 63 Alanine Aminotransferase (ALT/SGPT) 49 Total Bilirubin 24.8 Sodium Level 136 Potassium Level 3.4 Chloride Level 99 Carbon Dioxide Level 28.0 Anion Gap 9 Estimat Glomerular Filtration Rate 69 Date/Time Source Procedure Growth Status 04/19/17 14:32 Blood Peripheral Aerobic Blood Culture - Final NO GROWTH IN 5 DAYS Complete 04/19/17 14:32 Blood Peripheral Anaerobic Blood Culture - Final NO GROWTH IN 5 DAYS Complete 04/21/17 13:25 Fluid Peritoneal Fluid Gram Stain - Final Complete 04/21/17 13:25 Fluid Peritoneal Fluid Body Fluid Culture - Final NO GROWTH IN 72 HRS.--AEROBICALLY OR ... Complete Physical Exam HEENT: Pupils round and reactive to light; normocephalic; atraumatic; sever jaundice. Throat is clear. NECK: Neck is supple, no JVD, no lymphadenopathy. CHEST: Chest is clear to auscultation and percussion. CARDIAC: Regular rate and rhythm with no murmur gallop or rubs. ABDOMEN: Soft, nondistended, nontender; hepatomegaly; bowel sounds are present in all four quadrants. EXTREMITIES: No clubbing, cyanosis, or edema. SKIN: Normal; no rash; jaundice. TERMITE EXTERMINATOR HELPER: positive flapping Assessment and Plan Plan ASSESSMENT: - Liver failure secondary etoh hepatitis - Etoh hepatitis, DF score less than 33 - Coagulpaty secondary to that - Ascites s/p paracentesis secondary portal htn-no sbp patient is not clear about how much she drinks, (she said she has no drinking for few wks but at same time she said he had wine to sleep before cooming to hospital PLAN: - Continue current management - Needs to stop etoh use completely - Daily labs - Lactulose and Rifaximin - pt was seen by palliative care - if she is truly off ETOH for wks as she said then there is less chance of her liver enzymes improving - other W/U for other etiologies is in progness Rochelle Proctor MD Apr 26, 2017 23:18
[2017-04-27] VITALS (12 sets, daily range): BP systolic 87–128; BP diastolic 57–83; PULSE 68–106; RESP 12–53; TEMP 97.9–99.2; O2SAT 94–98
[2017-04-27 05:15] LABS: POTASSIUM 3.4 MEQ/L (3.5-5.1)
[2017-04-27 05:18] LABS: BICARBONATE 30.1 MEQ/L (21.0-32.0); MAGNESIUM 1.8 MG/DL (1.5-2.5)
[2017-04-27] MEDS: MIDODRINE 5 MG TAB PO SCH ×3 (05:33→17:08)
[2017-04-27] MEDS: PENTOXIFYLLINE 400 MG CONTROLLED RELEASE TAB PO SCH ×3 (05:33→20:59)
[2017-04-27] MEDS: NADOLOL 20 MG TAB PO SCH (09:00)
[2017-04-27] MEDS: FUROSEMIDE 40 MG/4 ML VIAL IV PUSH SCH ×2 (09:33→17:57)
[2017-04-27] MEDS: THIAMINE HCL 100 MG TAB PO SCH (09:34)
[2017-04-27] MEDS: PANTOPRAZOLE SOD 40 MG DELAYED RELEASE TAB PO SCH (09:34)
[2017-04-27] MEDS: POTASSIUM CHLORIDE 20 MEQ CONTROLLED RELEASE TAB PO SCH ×2 (09:34→21:00)
[2017-04-27] MEDS: CITALOPRAM HYDROBROMIDE 20 MG TAB PO SCH (09:34)
[2017-04-27] MEDS: RIFAXIMIN 550 MG TAB PO SCH ×2 (09:34→20:59)
[2017-04-27] MEDS: SPIRONOLACTONE 50 MG TAB PO SCH ×2 (09:34→17:57)
[2017-04-27] MEDS: SODIUM CHLORIDE 0.9% FLUSH 10 ML FLUSH IV FLUSH SCH ×2 (09:35→20:59)
[2017-04-27] MEDS: prednisoLONE 10 MG ODT TAB PO SCH (09:39)
--- NOTE | 2017-04-27 13:16 | HHI.PR ---
Subjective Remarks Follow-up liver failure. States she is improving ambulated in the hallway with physical therapy. Objective Vitals Vital Signs Date Time Temp Pulse Resp B/P (MAP) Pulse Ox O2 Delivery O2 Flow Rate FiO2 04/27/17 12:00 100 04/27/17 12:00 99.2 96 21 118/68 (85) 04/27/17 11:00 94 18 108/67 (81) 04/27/17 10:00 106 37 128/83 (98) 04/27/17 09:00 80 17 108/65 (79) 04/27/17 08:00 98.8 68 12 95/61 (72) 04/27/17 08:00 72 04/27/17 05:00 72 26 93/61 (72) 04/27/17 04:00 70 04/27/17 03:00 97.9 70 16 99/57 (71) 04/27/17 01:00 68 53 87/61 (70) 04/27/17 00:00 84 04/26/17 23:00 99.1 66 13 89/51 (64) 04/26/17 21:27 76 18 90/62 (71) 04/26/17 20:00 80 04/26/17 19:00 98.4 96 27 122/71 (88) 04/26/17 16:43 98.8 84 20 106/62 (77) 04/26/17 16:32 80 19 114/69 (84) I/O 04/26/17 04/26/17 04/26/17 04/27/17 04/27/17 04/27/17 07:00 15:00 23:00 07:00 15:00 23:00 Intake Total 125 ml Output Total 525 ml 300 ml 1250 ml Balance 125 ml -525 ml -300 ml -1250 ml Intake Oral 125 ml IV Total 0 ml Output Urine Total 525 ml 300 ml 1250 ml # Voids 3 4 3 # Bowel Movements 6 Result Diagram: 04/26/17 0431 04/27/17 0435 Imaging Last Impressions Cyst Biopsy Asp-Paracentesis US 04/21/17 0000 Signed Impressions: Service Date/Time: Friday, April 21, 2017 13:00 - CONCLUSION: Uncomplicated ultrasound guided paracentesis. Andrez Calderon MD Thoracic Spine MRI 04/20/17 0000 Signed Impressions: Service Date/Time: Thursday, April 20, 2017 13:28 - CONCLUSION: 1. Questionable thin caliber increased signal within the cord diffusely may be related to a subtle syrinx versus artifactual. Consider a followup short interval MRI in 2-4 weeks both with and without contrast. Checo Pollard MD Cholangiopancreatography MRI 04/20/17 0000 Signed Impressions: Service Date/Time: Thursday, April 20, 2017 12:58 - CONCLUSION: 1. No evidence for biliary obstruction. 2. Fatty liver. 3. Ascites and pleural effusions. Checo Pollard MD Chest X-Ray 04/20/17 Signed Impressions: Service Date/Time: Thursday, April 20, 2017 03:41 - CONCLUSION: 1. Layering small to moderate size left effusion with basilar atelectasis. No pneumothorax. Balaji Whittington MD Gall Bladder Ultrasound 04/19/17 0000 Signed Impressions: Service Date/Time: Wednesday, April 19, 2017 13:05 - CONCLUSION: 1. Sonographic findings characteristic of some degree of cirrhosis with hepatic fatty infiltration and nodularity. 2. In addition, there is hepatofugal flow in the main portal vein characteristic of portal hypertension. 3. Ascites. 4. Sludge filled gallbladder with gallbladder wall thickening and pericholecystic fluid. Findings are nonspecific and can be related to liver failure with low oncotic pressures. Armen Rodriguez MD Abdomen/Pelvis CT 04/19/17 Signed Impressions: Service Date/Time: Wednesday, April 19, 2017 13:51 - CONCLUSION: 1. Diffuse hepatic fatty infiltration with probable focal areas of fatty sparing. 2. Mild to moderate ascites. 3. Moderate size left pleural effusion with a tiny right pleural effusion. Concomitant atelectatic changes in the left base. 4. Pericholecystic fluid with possible some gallbladder wall thickening and luminal sludge 5. Partial sacralization of the left side of L5. Armen Rodriguez MD Objective Remarks Well-developed, well-nourished patient Skin is jaundice no rash Pupils reactive to light with jaundice Neck no JVD supple Lungs are clear decreased breath sounds Regular rate rhythm Abdomen soft normal active bowel sounds improving tenderness epigastric and right upper quadrant Anasarca. Bilateral lower extremity pitting edema no cyanosis Alert and oriented nonfocal. No hallucinations. No tremors Procedures none A/P Problem List: (1) Liver failure, acute ICD Code: K72.00 - Acute and subacute hepatic failure without coma (2) Hyponatremia ICD Code: E87.1 - Hypo-osmolality and hyponatremia Status: Acute (3) Hyperbilirubinemia ICD Code: E80.6 - Other disorders of bilirubin metabolism Status: Acute (4) Anemia ICD Code: D64.9 - Anemia, unspecified Status: Chronic (5) Hypotension ICD Code: I95.9 - Hypotension, unspecified (6) EtOH dependence ICD Code: F10.20 - Alcohol dependence, uncomplicated (7) Back pain ICD Code: M54.9 - Dorsalgia, unspecified Assessment and Plan (1) Liver failure, acute 2/2 etoh hepatitis Patient has anasarca. Improved albumin levels discontinued IV albumin. Lost 4 kg from yesterday but still significantly fluid overloaded continue 40 mg IV Lasix every 12 hours Improving LFTs and coags but remains abnormal Continue Medical management (bb( corgard), diuretic(aldactone and lasix), pentoxifylline, steroids and rifaximin) . Serology for infectious hep negative. Follow-up hemochromatosis workup MRCP no blockage (2) Hyponatremia Improving (3) Hyperbilirubinemia from Acute liver failure, likely from Etoh no evidence of Obstruction continue to follow (4) Anemia Chronic (5) Hypotension with hypoalbuminemia. Cortisol 13.4. Hemodynamically improved continue ProAmatine. Follow-up echocardiogram EF 60% (6) EtOH dependence. Counselled. [place] protocol (7) Back pain F/u TS MRI mid Sept f/u possible syrinx status post neurology evaluation. Continue pain management with oxycodone and IV Toradol. Lactic acidosis improved 2/2 hypotension. No evidence of infection dc Rocephin Deconditioning. Consulted physical therapy Discharge Planning Slowly improving but not ready for discharge still with significant anasarca requiring IV diuresis. Also no payor source for rehabilitation Chet Stark MD Apr 27, 2017 13:16
--- NOTE | 2017-04-27 16:58 | HHI.GIFU ---
Subjective Remarks Patient was seen and examined today, she is sitting in chair, eating dinner, she has minimal abdominal discomfort still very jaundice no new complaint Objective Vitals I&O Vital Signs Date Time Temp Pulse Resp B/P (MAP) Pulse Ox O2 Delivery O2 Flow Rate FiO2 04/27/17 16:00 99.0 78 22 106/66 (79) 98 04/27/17 16:00 78 04/27/17 12:00 100 04/27/17 12:00 99.2 96 21 118/68 (85) 04/27/17 11:00 94 18 108/67 (81) 04/27/17 10:00 106 37 128/83 (98) 04/27/17 09:00 80 17 108/65 (79) 04/27/17 08:00 98.8 68 12 95/61 (72) 04/27/17 08:00 72 04/27/17 05:00 72 26 93/61 (72) 04/27/17 04:00 70 04/27/17 03:00 97.9 70 16 99/57 (71) 04/27/17 01:00 68 53 87/61 (70) 04/27/17 00:00 84 04/26/17 23:00 99.1 66 13 89/51 (64) 04/26/17 21:27 76 18 90/62 (71) 04/26/17 20:00 80 04/26/17 19:00 98.4 96 27 122/71 (88) I/O 04/26/17 04/26/17 04/26/17 04/27/17 04/27/17 04/27/17 07:00 15:00 23:00 07:00 15:00 23:00 Intake Total 125 ml Output Total 525 ml 300 ml 1250 ml Balance 125 ml -525 ml -300 ml -1250 ml Intake Oral 125 ml IV Total 0 ml Output Urine Total 525 ml 300 ml 1250 ml # Voids 3 4 3 # Bowel Movements 6 Laboratory Laboratory Tests Test 04/27/17 04:35 Blood Urea Nitrogen 17 Creatinine 0.82 Random Glucose 96 Calcium Level 8.7 Magnesium Level 1.8 Sodium Level 134 Potassium Level 3.4 Chloride Level 97 Carbon Dioxide Level 30.1 Anion Gap 7 Estimat Glomerular Filtration Rate 72 Date/Time Source Procedure Growth Status 04/19/17 14:32 Blood Peripheral Aerobic Blood Culture - Final NO GROWTH IN 5 DAYS Complete 04/19/17 14:32 Blood Peripheral Anaerobic Blood Culture - Final NO GROWTH IN 5 DAYS Complete 04/21/17 13:25 Fluid Peritoneal Fluid Gram Stain - Final Complete 04/21/17 13:25 Fluid Peritoneal Fluid Body Fluid Culture - Final NO GROWTH IN 72 HRS.--AEROBICALLY OR ... Complete Physical Exam HEENT: Pupils round and reactive to light; normocephalic; atraumatic; sever jaundice. Throat is clear. NECK: Neck is supple, no JVD, no lymphadenopathy. CHEST: Chest is clear to auscultation and percussion. CARDIAC: Regular rate and rhythm with no murmur gallop or rubs. ABDOMEN: Soft, nondistended, nontender; hepatomegaly; bowel sounds are present in all four quadrants. EXTREMITIES: No clubbing, cyanosis, or edema. SKIN: Normal; no rash; jaundice. DIGITAL COMMUNICATIONS MANAGER: no flapping A/O Assessment and Plan Plan ASSESSMENT: - Liver failure secondary etoh hepatitis - Etoh hepatitis, DF score less than 33 - Coagulpaty secondary to that - Ascites s/p paracentesis secondary portal htn-no sbp patient is not clear about how much she drinks, (she said she has no drinking for few wks but at same time she said he had wine to sleep before coming to hospital 04-27-17 seems to be doing better, but still very jaundiced, consistent with alcohol hepatitis she continued to wanting to be full code and no palliative care, we discussed transplant option after 6 month of being off alcohol or any substance abuse PLAN: - Continue current management - Needs to stop etoh use completely - Lactulose and Rifaximin - pt was seen by palliative care - if she is truly off ETOH for wks as she said then there is less chance of her liver enzymes improving - other W/U for other etiologies is in progress - ok to transfer to floor from GI stand Rochelle Proctor MD Apr 27, 2017 16:58
[2017-04-27] MEDS: traZODone HCL 50 MG TAB PO SCH (20:59)
[2017-04-27] MEDS: hydrOXYzine HCL 25 MG TAB PO PRN (21:01)
[2017-04-28] VITALS (20 sets, daily range): BP systolic 81–127; BP diastolic 45–77; PULSE 76–100; RESP 17–26; TEMP 97.5–98.9; O2SAT 92–99
[2017-04-28] MEDS: PENTOXIFYLLINE 400 MG CONTROLLED RELEASE TAB PO SCH ×3 (06:11→21:44)
[2017-04-28] MEDS: MIDODRINE 5 MG TAB PO SCH ×3 (06:11→16:40)
[2017-04-28] MEDS: PANTOPRAZOLE SOD 40 MG DELAYED RELEASE TAB PO SCH (08:07)
[2017-04-28] MEDS: prednisoLONE 10 MG ODT TAB PO SCH (08:07)
[2017-04-28] MEDS: RIFAXIMIN 550 MG TAB PO SCH ×2 (08:07→21:44)
[2017-04-28] MEDS: THIAMINE HCL 100 MG TAB PO SCH (08:08)
[2017-04-28] MEDS: CITALOPRAM HYDROBROMIDE 20 MG TAB PO SCH (08:08)
[2017-04-28] MEDS: POTASSIUM CHLORIDE 20 MEQ CONTROLLED RELEASE TAB PO SCH ×2 (08:08→21:44)
[2017-04-28] MEDS: NADOLOL 20 MG TAB PO SCH (08:09)
[2017-04-28] MEDS: FUROSEMIDE 40 MG/4 ML VIAL IV PUSH SCH ×2 (08:09→17:47)
[2017-04-28] MEDS: SODIUM CHLORIDE 0.9% FLUSH 10 ML FLUSH IV FLUSH SCH ×2 (08:09→21:00)
[2017-04-28] MEDS: SPIRONOLACTONE 50 MG TAB PO SCH ×3 (08:09→17:47)
--- NOTE | 2017-04-28 11:24 | HHI.PR ---
Subjective Remarks Patient seen and evaluated today in follow-up for liver failure secondary to alcohol. No new events overnight. Care plan discussed with ELECTRICAL ASSEMBLIES SUPERVISOR Objective Vitals Vital Signs Date Time Temp Pulse Resp B/P (MAP) Pulse Ox O2 Delivery O2 Flow Rate FiO2 04/28/17 10:00 98 04/28/17 10:00 98 22 114/73 (87) 04/28/17 09:00 98 04/28/17 09:00 98 22 102/69 (80) 04/28/17 08:00 98.4 80 17 90/49 (63) 04/28/17 08:00 80 04/28/17 07:00 76 04/28/17 07:00 76 26 81/45 (57) 04/28/17 06:00 80 17 84/50 (61) 04/28/17 06:00 80 04/28/17 05:00 88 19 96/52 (67) 04/28/17 05:00 88 04/28/17 04:00 98.9 81 18 86/52 (63) 93 04/28/17 04:00 81 04/28/17 00:00 82 04/28/17 00:00 98.3 82 18 83/58 (66) 99 04/27/17 20:00 98.6 91 22 114/74 (87) 94 04/27/17 20:00 77 04/27/17 16:00 99.0 78 22 106/66 (79) 98 04/27/17 16:00 78 04/27/17 12:00 100 04/27/17 12:00 99.2 96 21 118/68 (85) I/O 04/27/17 04/27/17 04/27/17 04/28/17 04/28/17 04/28/17 07:00 15:00 23:00 07:00 15:00 23:00 Intake Total 480 ml 480 ml Output Total 1250 ml 1800 ml 650 ml Balance -1250 ml -1320 ml -170 ml Intake Oral 480 ml 480 ml Output Urine Total 1250 ml 1800 ml 650 ml # Bowel Movements 5 2 Result Diagram: 04/26/17 04304/27/17 043 Objective Remarks Diffuse telangiectasias GENERAL: This is a well-nourished, well-developed patient, jaundiced CARDIOVASCULAR: Regular rate and rhythm without murmurs, gallops, or rubs. RESPIRATORY: Clear to auscultation. Breath sounds equal bilaterally. No wheezes , rales, or rhonchi. GASTROINTESTINAL: Abdomen soft, non-tender, mildly distended. Small umbilical hernia, Normal active bowel sounds MUSCULOSKELETAL: Extremities without clubbing, cyanosis, and +3 edema. NEURO: Alert & Oriented x4 to person, place, time, situation. Moves all ext x4 Procedures none A/P Problem List: (1) Liver failure, acute ICD Code: K72.00 - Acute and subacute hepatic failure without coma Plan: s/p paracentesis 04/21 Unable to tolerate BB Medical management (diuretic, pentoxifylline, steroids,Lactulose and Rifaximin) Serology completed 01/2017 and was negative, repeat pending MRCP pending (2) Hypotension ICD Code: I95.9 - Hypotension, unspecified Plan: d/c nadolol (patient not tolerating due to hypotension) follow clinically Discharge Planning She'll benefit from rehabilitation but is unable without pain or source at this time Continue inpatient care and PT OT Hien Hernandez MD Apr 28, 2017 11:24
--- NOTE | 2017-04-28 18:56 | HHI.GIFU ---
Subjective Remarks Feeling better, still very jaundiced, tolerating food well Objective Vitals I&O Vital Signs Date Time Temp Pulse Resp B/P (MAP) Pulse Ox O2 Delivery O2 Flow Rate FiO2 04/28/17 17:46 16 04/28/17 16:20 98.4 98 24 109/63 (78) 04/28/17 16:01 94 22 118/73 (88) 04/28/17 16:00 94 04/28/17 15:01 96 22 113/71 (85) 04/28/17 15:00 100 04/28/17 14:01 78 21 108/67 (81) 04/28/17 14:00 78 04/28/17 13:00 88 20 116/67 (83) 04/28/17 13:00 88 04/28/17 12:00 84 04/28/17 12:00 98.3 84 20 102/64 (77) 04/28/17 11:00 90 21 100/64 (76) 04/28/17 11:00 90 04/28/17 10:00 98 04/28/17 10:00 98 22 114/73 (87) 04/28/17 09:00 98 04/28/17 09:00 98 22 102/69 (80) 04/28/17 08:00 98.4 80 17 90/49 (63) 04/28/17 08:00 80 04/28/17 07:00 76 04/28/17 07:00 76 26 81/45 (57) 04/28/17 06:00 80 17 84/50 (61) 04/28/17 06:00 80 04/28/17 05:00 88 19 96/52 (67) 04/28/17 05:00 88 04/28/17 04:00 98.9 81 18 86/52 (63) 93 04/28/17 04:00 81 04/28/17 00:00 82 04/28/17 00:00 98.3 82 18 83/58 (66) 99 04/27/17 20:00 98.6 91 22 114/74 (87) 94 04/27/17 20:00 77 I/O 04/27/17 04/27/17 04/27/17 04/28/17 04/28/17 04/28/17 07:00 15:00 23:00 07:00 15:00 23:00 Intake Total 480 ml 480 ml 720 ml Output Total 1250 ml 1800 ml 650 ml Balance -1250 ml -1320 ml -170 ml 720 ml Intake Oral 480 ml 480 ml 720 ml Output Urine Total 1250 ml 1800 ml 650 ml # Voids 10 # Bowel Movements 5 2 2 Laboratory Date/Time Source Procedure Growth Status 04/19/17 14:32 Blood Peripheral Aerobic Blood Culture - Final NO GROWTH IN 5 DAYS Complete 04/19/17 14:32 Blood Peripheral Anaerobic Blood Culture - Final NO GROWTH IN 5 DAYS Complete 04/21/17 13:25 Fluid Peritoneal Fluid Gram Stain - Final Complete 04/21/17 13:25 Fluid Peritoneal Fluid Body Fluid Culture - Final NO GROWTH IN 72 HRS.--AEROBICALLY OR ... Complete Physical Exam HEENT: Pupils round and reactive to light; normocephalic; atraumatic; sever jaundice. Throat is clear. NECK: Neck is supple, no JVD, no lymphadenopathy. CHEST: Chest is clear to auscultation and percussion. CARDIAC: Regular rate and rhythm with no murmur gallop or rubs. ABDOMEN: Soft, nondistended, nontender; hepatomegaly; bowel sounds are present in all four quadrants. EXTREMITIES: No clubbing, cyanosis, or edema. SKIN: Normal; no rash; jaundice. EXTENSION SERVICE SPECIALIST IN CHARGE: no flapping A/O Assessment and Plan Plan ASSESSMENT: - Liver failure secondary etoh hepatitis - Etoh hepatitis, - Coagulpaty secondary to that - Ascites s/p paracentesis secondary portal htn-no sbp patient is not clear about how much she drinks, (she said she has no drinking for few wks but at same time she said he had wine to sleep before coming to hospital 04-27-17 seems to be doing better, but still very jaundiced, consistent with alcohol hepatitis she continued to wanting to be full code and no palliative care, we discussed transplant option after 6 month of being off alcohol or any substance abuse 04/28/2017 patient is doing better but still very jaundiced, alcohol liver disease with cirrhosis. PLAN: - Continue current management - Needs to stop etoh use completely - Lactulose and Rifaximin - if she is truly off ETOH for wks as she said then there is less chance of her liver enzymes improving - other W/U for other etiologies is in progress transfer to floor Rochelle Proctor MD Apr 28, 2017 18:56
[2017-04-28] MEDS: traZODone HCL 50 MG TAB PO SCH (21:41)
[2017-04-28] MEDS: hydrOXYzine HCL 25 MG TAB PO PRN (21:48)
[2017-04-29] VITALS: BP 106/67; PULSE 71; PULSE 77; RESP 20; TEMP 97.6; O2SAT 94
[2017-04-29 04:00] VITALS: BP 109/69; PULSE 74; PULSE 83; RESP 20; TEMP 98.3; O2SAT 91
[2017-04-29] MEDS: PENTOXIFYLLINE 400 MG CONTROLLED RELEASE TAB PO SCH ×3 (05:00→21:16)
[2017-04-29] MEDS: MIDODRINE 5 MG TAB PO SCH ×3 (06:43→17:10)
[2017-04-29 07:09] LABS: TOTAL BILIRUBIN ADULT 21.5 MG/DL (0.2-1.0)
[2017-04-29 08:00] VITALS: BP 108/68; PULSE 88; RESP 18; TEMP 98.1; O2SAT 94
[2017-04-29] MEDS: CITALOPRAM HYDROBROMIDE 20 MG TAB PO SCH (09:32)
[2017-04-29] MEDS: PANTOPRAZOLE SOD 40 MG DELAYED RELEASE TAB PO SCH (09:33)
[2017-04-29] MEDS: SPIRONOLACTONE 50 MG TAB PO SCH ×2 (09:33→18:10)
[2017-04-29] MEDS: POTASSIUM CHLORIDE 20 MEQ CONTROLLED RELEASE TAB PO SCH ×2 (09:34→21:17)
[2017-04-29] MEDS: RIFAXIMIN 550 MG TAB PO SCH ×2 (09:34→21:17)
[2017-04-29] MEDS: THIAMINE HCL 100 MG TAB PO SCH (09:34)
[2017-04-29] MEDS: FUROSEMIDE 40 MG/4 ML VIAL IV PUSH SCH ×2 (09:35→18:10)
[2017-04-29] MEDS: prednisoLONE 10 MG ODT TAB PO SCH (09:41)
[2017-04-29] MEDS: SODIUM CHLORIDE 0.9% FLUSH 10 ML FLUSH IV FLUSH SCH ×2 (09:41→21:17)
--- NOTE | 2017-04-29 10:31 | HHI.PR ---
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 Overall fluid balance is greatly improved. Patient without pain complaint. Slept well. Objective Vitals Vital Signs Date Time Temp Pulse Resp B/P (MAP) Pulse Ox O2 Delivery O2 Flow Rate FiO2 04/29/17 08:00 98.1 88 18 108/68 (81) 94 04/29/17 04:00 74 04/29/17 04:00 98.3 83 20 109/69 (82) 91 04/29/17 00:00 97.6 77 20 106/67 (80) 94 04/29/17 00:00 71 04/28/17 20:00 97.5 83 20 127/77 (94) 92 Manual Cuff/Palpation 04/28/17 17:46 16 04/28/17 17:45 87 119/75 (90) 04/28/17 16:20 98.4 98 24 109/63 (78) 04/28/17 16:01 94 22 118/73 (88) 04/28/17 16:00 94 04/28/17 15:01 96 22 113/71 (85) 04/28/17 15:00 100 04/28/17 14:01 78 21 108/67 (81) 04/28/17 14:00 78 04/28/17 13:00 88 20 116/67 (83) 04/28/17 13:00 88 04/28/17 12:00 84 04/28/17 12:00 98.3 84 20 102/64 (77) 04/28/17 11:00 90 21 100/64 (76) 04/28/17 11:00 90 I/O 04/28/17 04/28/17 04/28/17 04/29/17 04/29/17 04/29/17 07:00 15:00 23:00 07:00 15:00 23:00 Intake Total 480 ml 960 ml 60 ml Output Total 650 ml 200 ml Balance -170 ml 760 ml 60 ml Intake Oral 480 ml 960 ml 60 ml Output Urine Total 650 ml 200 ml # Voids 11 1 # Bowel Movements 2 2 1 Result Diagram: 04/26/17 0431 04/27/17 0435 Objective Remarks Diffuse telangiectasias GENERAL: This is a well-nourished, well-developed patient, jaundiced CARDIOVASCULAR: Regular rate and rhythm without murmurs, gallops, or rubs. RESPIRATORY: Clear to auscultation. Breath sounds equal bilaterally. No wheezes , rales, or rhonchi. GASTROINTESTINAL: Abdomen soft, non-tender, mildly distended. Small umbilical hernia, Normal active bowel sounds MUSCULOSKELETAL: Extremities without clubbing, cyanosis, and +1 edema. NEURO: Alert & Oriented x4 to person, place, time, situation. Moves all ext x4 Procedures none A/P Problem List: (1) Liver failure, acute ICD Code: K72.00 - Acute and subacute hepatic failure without coma Plan: Patient doing better on current regimen (diuretic, pentoxifylline, steroids,Lactulose and Rifaximin) Discharge Planning She'll benefit from rehabilitation but is unable without pain or source at this time Continue inpatient care and PT OT Hien Hernandez MD Apr 29, 2017 10:31
[2017-04-29 12:00] VITALS: BP 111/75; PULSE 101; RESP 18; TEMP 98.4; O2SAT 94
[2017-04-29 16:00] VITALS: BP 107/68; PULSE 85; RESP 18; TEMP 99; O2SAT 93
[2017-04-29 20:00] VITALS: BP 131/76; PULSE 88; RESP 18; TEMP 97.3; O2SAT 91
[2017-04-29] MEDS: traZODone HCL 50 MG TAB PO SCH (21:17)
[2017-04-30] VITALS: BP 105/61; PULSE 85; RESP 16; TEMP 98; O2SAT 91
[2017-04-30] MEDS: PENTOXIFYLLINE 400 MG CONTROLLED RELEASE TAB PO SCH ×3 (06:08→22:08)
[2017-04-30] MEDS: MIDODRINE 5 MG TAB PO SCH ×3 (06:08→17:33)
[2017-04-30 08:00] VITALS: BP 109/66; PULSE 87; RESP 20; TEMP 97.1; O2SAT 92
[2017-04-30] MEDS: prednisoLONE 10 MG ODT TAB PO SCH (08:33)
[2017-04-30] MEDS: RIFAXIMIN 550 MG TAB PO SCH ×2 (08:33→20:27)
[2017-04-30] MEDS: CITALOPRAM HYDROBROMIDE 20 MG TAB PO SCH (08:33)
[2017-04-30] MEDS: PANTOPRAZOLE SOD 40 MG DELAYED RELEASE TAB PO SCH (08:34)
[2017-04-30] MEDS: THIAMINE HCL 100 MG TAB PO SCH (08:34)
[2017-04-30] MEDS: SODIUM CHLORIDE 0.9% FLUSH 10 ML FLUSH IV FLUSH SCH ×2 (08:34→20:27)
[2017-04-30] MEDS: FUROSEMIDE 40 MG/4 ML VIAL IV PUSH SCH (08:34)
[2017-04-30] MEDS: SPIRONOLACTONE 50 MG TAB PO SCH ×2 (08:34→17:32)
[2017-04-30] MEDS: POTASSIUM CHLORIDE 20 MEQ CONTROLLED RELEASE TAB PO SCH ×2 (08:34→20:27)
[2017-04-30 09:51] LABS: HEREDITARY HEMOCHROM SPECIMEN WB Whole Blood
--- NOTE | 2017-04-30 11:09 | HHI.PR ---
Subjective Remarks Seen and evaluated today in follow-up for weakness secondary to end-stage liver disease. No new complaints. Still with less fluid. Objective Vitals Vital Signs Date Time Temp Pulse Resp B/P (MAP) Pulse Ox O2 Delivery O2 Flow Rate FiO2 04/30/17 08:00 97.1 87 20 109/66 (80) 92 04/30/17 07:08 17 04/30/17 00:00 98.0 85 16 105/61 (76) 91 04/29/17 20:00 97.3 88 18 131/76 (94) 91 04/29/17 16:00 99.0 85 18 107/68 (81) 93 04/29/17 12:00 98.4 101 18 111/75 (87) 94 I/O 04/29/17 04/29/17 04/29/17 04/30/17 04/30/17 04/30/17 07:00 15:00 23:00 07:00 15:00 23:00 Intake Total 60 ml 330 ml Output Total 800 ml Balance 60 ml 330 ml -800 ml Intake Oral 60 ml 330 ml Output Urine Total 800 ml # Voids 1 8 3 # Bowel Movements 1 1 2 Result Diagram: 04/26/17 0431 04/27/17 0435 Objective Remarks Diffuse telangiectasias GENERAL: This is a well-nourished, well-developed patient, jaundiced CARDIOVASCULAR: Regular rate and rhythm without murmurs, gallops, or rubs. RESPIRATORY: Clear to auscultation. Breath sounds equal bilaterally. No wheezes , rales, or rhonchi. GASTROINTESTINAL: Abdomen soft, non-tender, mildly distended. Small umbilical hernia, Normal active bowel sounds MUSCULOSKELETAL: Extremities without clubbing, cyanosis, and +1 edema. NEURO: Alert & Oriented x4 to person, place, time, situation. Moves all ext x4 Procedures none A/P Problem List: (1) Liver failure, acute ICD Code: K72.00 - Acute and subacute hepatic failure without coma Plan: Patient doing better on current regimen (diuretic, pentoxifylline, steroids, Lactulose and Rifaximin) (2) Hypokalemia ICD Code: E87.6 - Hypokalemia Plan: Continue to replace and follow Discharge Planning She'll benefit from rehabilitation but is unable without pain or source at this time Continue inpatient care and PT OT Hien Hernandez MD Apr 30, 2017 11:09
[2017-04-30 11:50] VITALS: BP 101/67; PULSE 101; RESP 20; TEMP 99.5; O2SAT 99
[2017-04-30 16:00] VITALS: BP 121/72; PULSE 88; RESP 20; TEMP 98.9; O2SAT 94
[2017-04-30] MEDS: FUROSEMIDE 40 MG TAB PO SCH (17:33)
[2017-04-30 20:08] VITALS: BP 112/71; PULSE 86; RESP 18; TEMP 99; O2SAT 94
[2017-04-30] MEDS: traZODone HCL 50 MG TAB PO SCH (20:26)
[2017-05-01 00:08] VITALS: BP 107/62; PULSE 79; RESP 18; TEMP 97.6; O2SAT 92
[2017-05-01] MEDS: MIDODRINE 5 MG TAB PO SCH ×3 (05:34→16:36)
[2017-05-01] MEDS: PENTOXIFYLLINE 400 MG CONTROLLED RELEASE TAB PO SCH ×3 (05:34→22:31)
[2017-05-01 07:51] LABS: POTASSIUM 4.1 MEQ/L (3.5-5.1)
[2017-05-01 07:54] LABS: BICARBONATE 29.9 MEQ/L (21.0-32.0); MAGNESIUM 1.6 MG/DL (1.5-2.5)
[2017-05-01 08:00] VITALS: BP 101/66; PULSE 87; RESP 19; TEMP 98; O2SAT 93
[2017-05-01] MEDS: POTASSIUM CHLORIDE 20 MEQ CONTROLLED RELEASE TAB PO SCH ×2 (08:50→20:31)
[2017-05-01] MEDS: PANTOPRAZOLE SOD 40 MG DELAYED RELEASE TAB PO SCH (08:50)
[2017-05-01] MEDS: FUROSEMIDE 40 MG TAB PO SCH ×2 (08:50→16:35)
[2017-05-01] MEDS: prednisoLONE 10 MG ODT TAB PO SCH (08:50)
[2017-05-01] MEDS: SPIRONOLACTONE 50 MG TAB PO SCH ×2 (08:50→16:35)
[2017-05-01] MEDS: RIFAXIMIN 550 MG TAB PO SCH ×2 (08:50→20:31)
[2017-05-01] MEDS: CITALOPRAM HYDROBROMIDE 20 MG TAB PO SCH (08:50)
[2017-05-01] MEDS: SODIUM CHLORIDE 0.9% FLUSH 10 ML FLUSH IV FLUSH SCH ×2 (08:51→20:44)
--- NOTE | 2017-05-01 09:42 | HHI.PR ---
Subjective Remarks Patient seen and evaluated today in follow-up for end-stage liver disease. No new complaints. Electrolytes appear stabilized Objective Vitals Vital Signs Date Time Temp Pulse Resp B/P (MAP) Pulse Ox O2 Delivery O2 Flow Rate FiO2 05/01/17 08:00 98.0 87 19 101/66 (78) 93 05/01/17 00:08 97.6 79 18 107/62 (77) 92 04/30/17 20:08 99.0 86 18 112/71 (85) 94 04/30/17 16:00 98.9 88 20 121/72 (88) 94 04/30/17 14:54 18 04/30/17 11:50 99.5 101 20 101/67 (78) 99 I/O 04/30/17 04/30/17 04/30/17 05/01/17 05/01/17 05/01/17 07:00 15:00 23:00 07:00 15:00 23:00 Intake Total 850 ml 240 ml 250 ml Balance 850 ml 240 ml 250 ml Intake Oral 850 ml 240 ml 250 ml IV Total 0 ml # Voids 5 2 6 # Bowel Movements 1 Result Diagram: 05/01/17 0650 Objective Remarks Tremor at rest stable GENERAL: This is a well-nourished, well-developed patient, jaundiced CARDIOVASCULAR: Regular rate and rhythm without murmurs, gallops, or rubs. RESPIRATORY: Clear to auscultation. Breath sounds equal bilaterally. No wheezes , rales, or rhonchi. GASTROINTESTINAL: Abdomen soft, non-tender, mildly distended. Small umbilical hernia, Normal active bowel sounds MUSCULOSKELETAL: Extremities without clubbing, cyanosis, and +1 edema. NEURO: Alert & Oriented x4 to person, place, time, situation. Moves all ext x4 Procedures none A/P Problem List: (1) Liver failure, acute ICD Code: K72.00 - Acute and subacute hepatic failure without coma Plan: Patient doing better on current regimen (diuretic, pentoxifylline, steroids, Lactulose and Rifaximin) (2) Hypokalemia ICD Code: E87.6 - Hypokalemia Plan: Continue to replace and follow Assessment and Plan Patient is making progress with physical therapy Discharge Planning She'll benefit from rehabilitation but is unable to afford Will evaluate for genesis visits if available as the patient continues to improve Hien Hernandez MD May 01, 2017 09:42
[2017-05-01 12:00] VITALS: BP 105/66; PULSE 98; RESP 17; TEMP 97.9; O2SAT 96
[2017-05-01 17:36] VITALS: BP 131/72; PULSE 90; RESP 20; TEMP 99.4; O2SAT 96
[2017-05-01 20:00] VITALS: BP 126/74; PULSE 85; RESP 18; TEMP 97.6; O2SAT 98
[2017-05-01] MEDS: traZODone HCL 50 MG TAB PO SCH (20:31)
[2017-05-01] MEDS: hydrOXYzine HCL 25 MG TAB PO PRN (22:40)
[2017-05-02 02:00] VITALS: BP 102/66; PULSE 84; RESP 20; TEMP 96.8; O2SAT 99
[2017-05-02 04:00] VITALS: BP 96/55; PULSE 83; RESP 16; TEMP 97.3; O2SAT 94
[2017-05-02] MEDS: MIDODRINE 5 MG TAB PO SCH ×3 (06:18→17:26)
[2017-05-02] MEDS: PENTOXIFYLLINE 400 MG CONTROLLED RELEASE TAB PO SCH ×3 (06:18→21:28)
[2017-05-02] MEDS: SPIRONOLACTONE 50 MG TAB PO SCH ×2 (08:20→17:26)
[2017-05-02] MEDS: RIFAXIMIN 550 MG TAB PO SCH ×2 (08:20→20:35)
[2017-05-02] MEDS: POTASSIUM CHLORIDE 20 MEQ CONTROLLED RELEASE TAB PO SCH ×2 (08:20→20:34)
[2017-05-02] MEDS: CITALOPRAM HYDROBROMIDE 20 MG TAB PO SCH (08:20)
[2017-05-02] MEDS: FUROSEMIDE 40 MG TAB PO SCH ×2 (08:20→17:26)
[2017-05-02] MEDS: PANTOPRAZOLE SOD 40 MG DELAYED RELEASE TAB PO SCH (08:21)
[2017-05-02] MEDS: SODIUM CHLORIDE 0.9% FLUSH 10 ML FLUSH IV FLUSH SCH (08:21)
[2017-05-02] MEDS: prednisoLONE 10 MG ODT TAB PO SCH (08:28)
[2017-05-02 08:59] VITALS: BP 109/56; PULSE 79; RESP 20; TEMP 98.2; O2SAT 95
--- NOTE | 2017-05-02 14:55 | HHI.PR ---
Subjective Remarks Patient seen and examined today for follow-up on end-stage liver disease, cirrhosis, weakness. Patient indicates that she is still very weak and wobbly when she ambulates. Therapy services still indicate that she needed to go home with home health care, patient does not have any insurance and is unsafe to discharge her home at this time until cleared by PT/OT for discharge. Patient had multiple questions about getting further workup performed while she was here in the hospital. She states that her family has history of tremors and Parkinson's and she also has tremors so she was requesting further evaluation. I discussed with her that she could have familial tremors, tremors secondary to alcoholism, which is not emergent and workup should be entertained in outpatient setting. Patient also indicating that she started to develop some further abdominal distention. She does have cirrhosis of which she had paracentesis performed during this admission. She is just concerned if she has to have it drained again. I counseled her extensively on the risks of performing repeat paracentesis and possible infection. Objective Vitals Vital Signs Date Time Temp Pulse Resp B/P (MAP) Pulse Ox O2 Delivery O2 Flow Rate FiO2 05/02/17 08:59 98.2 79 20 109/56 (73) 95 05/02/17 04:00 97.3 83 16 96/55 (69) 94 05/02/17 02:00 96.8 84 20 102/66 (78) 99 05/01/17 21:43 16 05/01/17 20:00 97.6 85 18 126/74 (91) 98 05/01/17 17:36 99.4 90 20 131/72 (91) 96 I/O 05/01/17 05/01/17 05/01/17 05/02/17 05/02/17 05/02/17 07:00 15:00 23:00 07:00 15:00 23:00 Intake Total 250 ml 580 ml 480 ml 440 ml Output Total 0 ml 650 ml Balance 250 ml 580 ml -170 ml 440 ml Intake Oral 250 ml 580 ml 480 ml 440 ml IV Total 0 ml Output Urine Total 0 ml 650 ml Stool Total 0 ml # Voids 6 4 # Bowel Movements 2 1 0 Result Diagram: 05/01/17 0650 Objective Remarks GENERAL: Well-developed, well-nourished, in no acute distress. alert and orientated HEENT: Head is normocephalic without any lesions or masses noted. Facial features are symmetric. Eyes: Extraocular muscles are intact. Conjunctivae were icteric. NECK: Supple without any masses. Trachea midline no deviation. No JVD, CARDIAC: Regular rhythm, regular rate. S1/S2 are heard. No murmurs gallops or rubs. LUNGS: Clear to auscultation bilaterally. No wheeze, rhonchi or rales. No use of accessory muscles on inspiration or expiration. ABDOMEN: Soft, nontender. Nondistended. Bowel sounds heard in all 4 quadrants. No organomegaly or masses. Negative rebound, negative guarding EXTREMITIES: No edema, pulses are equal bilaterally. No cyanosis or clubbing NEUROLOGY: Mood and affect appear appropriate. Cranial nerves II through XII grossly intact. Moving all extremities, speech is clear, 1+ tremors, tremors are resting and exertional Procedures none Urinary Catheter: No Vascular Central Line Catheter: No A/P Assessment and Plan Unsafe discharge secondary to debility, deconditioning, weakness Continue PT/OT evaluations Case management consulted for discharge planning Liver failure secondary to EtOH hepatitis Patient with multiple abnormalities to include anemia, thrombocytopenia, coagulopathy, jaundice, ascites, hepatitis panel was negative, JAYANT screen is positive, IgA elevated Status post paracentesis with total of 2500 cc removed Patient continued on Lasix, rifaximin, Aldactone, Trental, lactulose GI was consulted and will follow up outpatient Palliative care was consulted and at the present time patient wants to be treated aggressively, states that she will stop drinking and reengage with AA. Hypotension, improved Continue to monitor blood pressure, patient started on midodrine Back pain Continue pain control with oxycodone and IV Toradol Follow-up MRI of the thoracic spine in mid-April because of possible subtle syrinx versus artifact, as requested by neurology DVT prevention Sequential compression devices Discharge Planning Discharge planning. Case management consulted to arrange home health care, if unable to be arranged patient will require hospitalization until cleared by therapy services to go home without any PT/OT Andrea Weathers May 02, 2017 14:55
[2017-05-02] MEDS ORDERED: ONDANSETRON ODT 4 MG TAB PO PRN (15:00)
[2017-05-02 20:00] VITALS: BP 104/66; PULSE 89; RESP 16; TEMP 96.8; O2SAT 96
[2017-05-02] MEDS: traZODone HCL 50 MG TAB PO SCH (20:35)
[2017-05-02] MEDS: hydrOXYzine HCL 25 MG TAB PO PRN (21:33)
[2017-05-03] MEDS: MIDODRINE 5 MG TAB PO SCH ×4 (06:18→16:11)
[2017-05-03] MEDS: PENTOXIFYLLINE 400 MG CONTROLLED RELEASE TAB PO SCH ×3 (06:19→21:55)
[2017-05-03 08:00] VITALS: BP 88/60; PULSE 88; RESP 16; TEMP 97.6; O2SAT 97
[2017-05-03] MEDS: prednisoLONE 10 MG ODT TAB PO SCH (08:01)
[2017-05-03] MEDS: PANTOPRAZOLE SOD 40 MG DELAYED RELEASE TAB PO SCH (08:02)
[2017-05-03] MEDS: FUROSEMIDE 40 MG TAB PO SCH ×2 (08:02→16:11)
[2017-05-03] MEDS: RIFAXIMIN 550 MG TAB PO SCH ×2 (08:02→21:55)
[2017-05-03] MEDS: POTASSIUM CHLORIDE 20 MEQ CONTROLLED RELEASE TAB PO SCH ×2 (08:02→21:55)
[2017-05-03] MEDS: SPIRONOLACTONE 50 MG TAB PO SCH ×2 (08:02→16:11)
[2017-05-03] MEDS: CITALOPRAM HYDROBROMIDE 20 MG TAB PO SCH (08:03)
--- NOTE | 2017-05-03 11:18 | HHI.PR ---
Subjective Remarks Patient seen and examined today for follow-up on weakness, liver failure. Patient is in good spirits today. Denies any new complaints. She did not have any further questions today. Continue with PT until cleared for discharge. Objective Vitals Vital Signs Date Time Temp Pulse Resp B/P (MAP) Pulse Ox O2 Delivery O2 Flow Rate FiO2 05/03/17 08:00 97.6 88 16 88/60 (69) 97 05/02/17 22:30 16 05/02/17 20:00 96.8 89 16 104/66 (79) 96 I/O 05/02/17 05/02/17 05/02/17 05/03/17 05/03/17 05/03/17 07:00 15:00 23:00 07:00 15:00 23:00 Intake Total 480 ml 440 ml 920 ml 480 ml Output Total 650 ml 900 ml Balance -170 ml 440 ml 920 ml -420 ml Intake Oral 480 ml 440 ml 680 ml 480 ml Oral Supplement 240 ml Output Urine Total 650 ml 900 ml # Voids 5 # Bowel Movements 0 1 0 Result Diagram: 05/01/17 0650 Objective Remarks GENERAL: Well-developed, well-nourished, in no acute distress. alert and orientated HEENT: Head is normocephalic without any lesions or masses noted. Facial features are symmetric. Eyes: Extraocular muscles are intact. Conjunctivae were icteric. NECK: Supple without any masses. Trachea midline no deviation. No JVD, CARDIAC: Regular rhythm, regular rate. S1/S2 are heard. No murmurs gallops or rubs. LUNGS: Clear to auscultation bilaterally. No wheeze, rhonchi or rales. No use of accessory muscles on inspiration or expiration. ABDOMEN: Soft, nontender. Nondistended. Bowel sounds heard in all 4 quadrants. No organomegaly or masses. Negative rebound, negative guarding EXTREMITIES: No edema, pulses are equal bilaterally. No cyanosis or clubbing NEUROLOGY: Mood and affect appear appropriate. Cranial nerves II through XII grossly intact. Moving all extremities, speech is clear, 1+ tremors, tremors are resting and exertional Procedures none Urinary Catheter: No Vascular Central Line Catheter: No A/P Assessment and Plan Unsafe discharge secondary to debility, deconditioning, weakness Continue PT until cleared to discharge home or until trimming caser can arrange home health care Case management consulted for discharge planning Liver failure secondary to EtOH hepatitis Patient with multiple abnormalities to include anemia, thrombocytopenia, coagulopathy, jaundice, ascites, hepatitis panel was negative, JAYANT screen is positive, IgA elevated Status post paracentesis with total of 2500 cc removed Patient continued on Lasix, rifaximin, Aldactone, Trental, lactulose GI was consulted and will follow up outpatient Palliative care was consulted and at the present time patient wants to be treated aggressively, states that she will stop drinking and reengage with AA. Hypotension, Continue to monitor blood pressure, Increased to midodrine 12.5 mg 3 times daily Back pain Continue pain control with oxycodone and IV Toradol Follow-up MRI of the thoracic spine in mid-April because of possible subtle syrinx versus artifact, as requested by neurology DVT prevention Sequential compression devices Discharge Planning Discharge planning. Case management consulted to arrange home health care, if unable to be arranged patient will require hospitalization until cleared by therapy services to go home without any PT/OT Andrea Weathers May 03, 2017 11:18
[2017-05-03 20:30] VITALS: BP 134/81; PULSE 91; RESP 20; TEMP 97.5; O2SAT 96
[2017-05-03] MEDS: traZODone HCL 50 MG TAB PO SCH (21:55)
[2017-05-03] MEDS: hydrOXYzine HCL 25 MG TAB PO PRN (21:59)
[2017-05-04] MEDS: PENTOXIFYLLINE 400 MG CONTROLLED RELEASE TAB PO SCH ×3 (05:37→20:55)
[2017-05-04] MEDS: MIDODRINE 5 MG TAB PO SCH ×3 (05:38→17:40)
[2017-05-04 08:26] VITALS: BP 113/64; PULSE 84; RESP 20; TEMP 97.7; O2SAT 98
[2017-05-04] MEDS: POTASSIUM CHLORIDE 20 MEQ CONTROLLED RELEASE TAB PO SCH ×2 (08:33→20:55)
[2017-05-04] MEDS: RIFAXIMIN 550 MG TAB PO SCH ×2 (08:33→20:55)
[2017-05-04] MEDS: PANTOPRAZOLE SOD 40 MG DELAYED RELEASE TAB PO SCH (08:33)
[2017-05-04] MEDS: CITALOPRAM HYDROBROMIDE 20 MG TAB PO SCH (08:34)
[2017-05-04] MEDS: FUROSEMIDE 40 MG TAB PO SCH ×2 (08:34→17:40)
[2017-05-04] MEDS: prednisoLONE 10 MG ODT TAB PO SCH (08:34)
[2017-05-04] MEDS: SPIRONOLACTONE 50 MG TAB PO SCH ×2 (08:34→17:40)
--- NOTE | 2017-05-04 11:23 | HHI.PR ---
Subjective Remarks Follow-up for liver failure. The patient has multiple questions. She inquires about her anemia and states she was told she was supposed to undergo an EGD and colonoscopy while hospitalized. I told her her anemia is stable, but I was unaware of any mention of EGD or colonoscopy being performed. The patient also states her abdomen has felt more distended which started 2 days ago. She additionally complains of the tremors in her hands stating it was difficult to eat earlier, but states she's had these tremors for 2 years; parents have Parkinson's. Most of these issues were addressed with previous PA on 05/02/17. The patient states she had some shortness of breath yesterday due to back pain. Objective Vitals Vital Signs Date Time Temp Pulse Resp B/P (MAP) Pulse Ox O2 Delivery O2 Flow Rate FiO2 05/04/17 08:26 97.7 84 20 113/64 (80) 98 05/03/17 20:30 97.5 91 20 134/81 (98) 96 I/O 05/03/17 05/03/17 05/03/17 05/04/17 05/04/17 05/04/17 07:00 15:00 23:00 07:00 15:00 23:00 Intake Total 480 ml 600 ml Output Total 900 ml Balance -420 ml 600 ml Intake Oral 480 ml 600 ml Output Urine Total 900 ml # Voids 5 2 # Bowel Movements 0 Result Diagram: 05/01/17 0650 Objective Remarks GENERAL: Well-developed patient in no apparent distress. SKIN: Jaundiced. EYES: Scleral icterus. CARDIOVASCULAR: Regular rate and rhythm. 3/6 murmur aortic region. RESPIRATORY: No accessory muscle use. Clear to auscultation. Breath sounds equal bilaterally. GASTROINTESTINAL: Normoactive bowel sounds auscultated in left upper quadrant and left lower quadrant. Abdomen soft, non-tender, nondistended. Abdominal bruits bilaterally. MUSCULOSKELETAL: No lower extremity edema bilaterally. NEUROLOGICAL: Awake and alert. Normal speech. PSYCHIATRIC: Appropriate mood and affect; insight and judgment normal. Procedures none Urinary Catheter: No Vascular Central Line Catheter: No A/P Problem List: (1) Leukocytosis ICD Code: D72.829 - Elevated white blood cell count, unspecified Status: Acute (2) Abdominal bruit ICD Code: R09.89 - Other specified symptoms and signs involving the circulatory and respiratory systems Status: Acute (3) Liver failure, acute ICD Code: K72.00 - Acute and subacute hepatic failure without coma Assessment and Plan Leukocytosis: Acute. WBC elevated at 23.6, prior 8.7 on 04/26. Could be due to Orapred. Patient's vitals are good. No sign of new infection. -Decrease Orapred to 20 mg po daily. -Repeat am CBC w/ diff Abdominal bruits: Bilateral. Not previously documented. Does have murmur over aortic region. Echo as below. Could be related to this, but need to assess for stenosis/aneurysm. -Aorta US ordered. Liver failure secondary to EtOH hepatitis -Patient with multiple abnormalities to include anemia, thrombocytopenia, coagulopathy, jaundice, ascites, hepatitis panel was negative, JAYANT screen is positive, IgA elevated -Status post paracentesis with total of 2500 cc removed -Patient continued on Lasix, rifaximin, Aldactone, Trental, lactulose -GI was consulted and will follow up outpatient -Palliative care was consulted and at the present time patient wants to be treated aggressively, states that she will stop drinking and reengage with AA. -05/04: Tbili improved at 17 but AST, ALT, and alkaline phosphatase have increased. Repeat am LFTs and ammonia level. Anemia: Improved. Hemoglobin 10.5 today. Hyponatremia and hypochloremia: Stable. Likely related to liver failure. -Monitor periodically Unsafe discharge secondary to debility, deconditioning, weakness -Continue PT until cleared to discharge home or until telephonic nurse case manager can arrange home health care -Case management consulted for discharge planning Hypotension: -Echo 04/24 with EF of 60-65%, AV sclerosis, mild to moderate AV regurgitation, moderate mitral valve regurgitation, trace tricuspid valve regurgitation. -Midodrine 12.5 mg 3 times daily -Continue to monitor blood pressure -05/04: Initially hypotensive this morning but upon recheck was normal. Back pain: -Continue pain control with oxycodone -Follow-up MRI of the thoracic spine in next 2-3 months because of possible subtle syrinx versus artifact, as requested by neurology on 04/22 Tremors: Chronic. Likely related to liver failure. -Patient advised to follow up outpatient. DVT prevention Sequential compression devices Patient management discussed with Dr. Gaston, attending. Discharge Planning PT recommends wheeled walker and HHC. No payor source. CM following. Emily Oropeza May 04, 2017 11:23
[2017-05-04 13:25] LABS: HEMATOCRIT 30.9 % (35.0-46.0); MEAN CELL VOLUME 107.4 FL (80.0-100.0); MEAN CORPUSCULAR HEMOGLOBIN 36.4 PG (27.0-34.0); MEAN CORPUSCULAR HGB CONC 33.9 % (32.0-36.0); PLATELET COUNT 154 TH/MM3 (150-450); RED BLOOD COUNT 2.88 MIL/MM3 (4.00-5.30); RED CELL DISTRIBUTION WIDTH 19.1 % (11.6-17.2); WHITE BLOOD COUNT 23.6 TH/MM3 (4.0-11.0)
[2017-05-04 13:34] LABS: CHLORIDE 95 MEQ/L (98-107); POTASSIUM 3.9 MEQ/L (3.5-5.1); SODIUM (NA) 133 MEQ/L (136-145)
[2017-05-04 13:38] LABS: ANION GAP 11 MEQ/L (5-15); BICARBONATE 26.8 MEQ/L (21.0-32.0); BLOOD UREA NITROGEN 16 MG/DL (7-18)
[2017-05-04 13:41] LABS: ALT (GPT) 72 U/L (10-53); AST (GOT) 102 U/L (15-37); GLOMERULAR FILTRATION RATE 68 ML/MIN (>89)
[2017-05-04 13:44] LABS: ALKALINE PHOSPHATASE 128 U/L (45-117)
[2017-05-04 14:29] LABS: BANDS 4 % (0-6); NEUTROPHIL # MANUAL DIFF 22.9 TH/MM3 (1.8-7.7); POLYS (SEG NEUTROPHILS) 93 % (16-70); TARGET CELLS 1+ (NORMAL); WBC DIFF SAMPLE 100
[2017-05-04 14:30] LABS: PLATELET ESTIMATE SMEAR NORMAL (NORMAL); PLATELET MORPHOLOGY NORMAL (NORMAL); SCAN/DIFF FINAL DIFF MANUAL
[2017-05-04 20:00] VITALS: BP 130/86; PULSE 97; RESP 20; TEMP 98; O2SAT 98
[2017-05-04] MEDS: traZODone HCL 50 MG TAB PO SCH (20:55)
[2017-05-04] MEDS: hydrOXYzine HCL 25 MG TAB PO PRN (23:19)
[2017-05-05] MEDS: PENTOXIFYLLINE 400 MG CONTROLLED RELEASE TAB PO SCH ×3 (06:09→20:48)
[2017-05-05] MEDS: MIDODRINE 5 MG TAB PO SCH ×3 (06:09→17:04)
[2017-05-05 08:56] LABS: AUTOMATED NEUTROPHIL # 18.9 TH/MM3 (1.8-7.7); BASOPHIL # 0.2 TH/MM3 (0-0.2); EOSINOPHIL % 0.2 % (0.0-4.0); HEMATOCRIT 31.1 % (35.0-46.0); LYMPH % 2.9 % (9.0-44.0); LYMPHOCYTE # 0.6 TH/MM3 (1.0-4.8); MEAN CELL VOLUME 106.6 FL (80.0-100.0); MEAN CORPUSCULAR HEMOGLOBIN 35.8 PG (27.0-34.0); MEAN CORPUSCULAR HGB CONC 33.6 % (32.0-36.0); MONO % 5.6 % (0.0-8.0); NEUT % 90.3 % (16.0-70.0); PLATELET COUNT 148 TH/MM3 (150-450); RED BLOOD COUNT 2.92 MIL/MM3 (4.00-5.30); RED CELL DISTRIBUTION WIDTH 18.9 % (11.6-17.2); WHITE BLOOD COUNT 20.9 TH/MM3 (4.0-11.0)
[2017-05-05 08:58] LABS: HEMO FLAGS DIFF FINAL
[2017-05-05 09:05] LABS: INDIRECT BILIRUBIN 3.4 MG/DL (0.0-0.8); TOTAL BILIRUBIN ADULT 13.9 MG/DL (0.2-1.0)
[2017-05-05] MEDS: POTASSIUM CHLORIDE 20 MEQ CONTROLLED RELEASE TAB PO SCH ×2 (09:24→20:48)
[2017-05-05] MEDS: FUROSEMIDE 40 MG TAB PO SCH ×2 (09:24→17:04)
[2017-05-05] MEDS: RIFAXIMIN 550 MG TAB PO SCH ×2 (09:24→20:48)
[2017-05-05] MEDS: CITALOPRAM HYDROBROMIDE 20 MG TAB PO SCH (09:25)
[2017-05-05] MEDS: prednisoLONE 10 MG ODT TAB PO SCH (09:25)
[2017-05-05] MEDS: PANTOPRAZOLE SOD 40 MG DELAYED RELEASE TAB PO SCH (09:25)
[2017-05-05] MEDS: SPIRONOLACTONE 50 MG TAB PO SCH ×2 (09:25→17:04)
[2017-05-05 09:33] VITALS: BP 121/65; PULSE 98; RESP 20; TEMP 98.6; O2SAT 98
--- NOTE | 2017-05-05 10:15 | RADRPT ---
EXAM DATE/TIME: 05/05/2017 07:49 [facility] COMPARISON: MRCP W/O CONTRAST, April 20, 2017, 12:58. INDICATIONS : Bruit. MEDICAL HISTORY : Hypertension. Gastroesophageal reflux disease. Neck pain. Asthma. Back pain. Anxiety. Mitral valve prolapse. Blood transfusion. SURGICAL HISTORY : Tonsillectomy. Dilation and curettage. Keloid removal. ENCOUNTER: Initial ACUITY: 2 days PAIN SCORE: 3/10 LOCATION: Abdomen. MEASUREMENTS: (AP x TRANSVERSE) PROXIMAL: 2.2 x 2.0 cm MID: 1.8 x 2.0 cm DISTAL: 2.1 x 2.4 cm RIGHT ILIAC: 1.3 x 0.6 cm LEFT ILIAC: 1.1x 0.3 cm FINDINGS: AORTA: No significant atherosclerotic disease. Doppler evaluation within normal limits. OTHER: Significant amount of ascites about the liver. The gallbladder is distended and there is layering ec hogenic material within the lumen characteristic of sludge. CONCLUSION: 1. Normal dimension abdominal aorta. 2. Incidentally noted findings of ascites and sludge within the gallbladder. Darren Field MD on May 05, 2017 at 10:11 Board Certified Radiologist. This report was verified electronically.
--- NOTE | 2017-05-05 11:15 | HHI.PR ---
Subjective Remarks Follow-up for end-stage liver failure, leukocytosis, anemia, abdominal bruits. Patient denies any fevers or chills. She denies any new cough or shortness of breath. She denies any dysuria or increased urinary frequency. She denies any vomiting or diarrhea. She states her last bowel movement was normal in consistency but does admit to some blood on the tissue when wiping due to hemorrhoids which is chronic. Does admit to some itching of the external genitalia but denies any erythema or discharge. States aorta US was done this morning and she had some pain over upper abdomen when probe applied in this area. Objective Vitals Vital Signs Date Time Temp Pulse Resp B/P (MAP) Pulse Ox O2 Delivery O2 Flow Rate FiO2 05/05/17 09:33 98.6 98 20 121/65 (83) 98 05/05/17 00:30 16 05/04/17 20:00 98.0 97 20 130/86 (101) 98 I/O 05/04/17 05/04/17 05/04/17 05/05/17 05/05/17 05/05/17 07:00 15:00 23:00 07:00 15:00 23:00 Intake Total 0 ml Balance 0 ml Intake Oral 0 ml # Voids 2 4 3 # Bowel Movements 0 Result Diagram: 05/05/17 0825 05/04/17 1250 Objective Remarks GENERAL: Well-developed patient in no apparent distress. EYES: Scleral icterus. CARDIOVASCULAR: Regular rate and rhythm. 3/6 murmur heard over aortic region and LLSB. RESPIRATORY: No accessory muscle use. Clear to auscultation. Breath sounds equal bilaterally. GASTROINTESTINAL: Normoactive bowel sounds. Abdomen soft. Bruits noted over abdominal aorta and renal arteries bilaterally. MUSCULOSKELETAL: No lower extremity edema bilaterally. NEUROLOGICAL: Awake and alert. Normal speech. PSYCHIATRIC: Appropriate mood and affect; insight and judgment normal. Procedures none Urinary Catheter: No Vascular Central Line Catheter: No A/P Problem List: (1) Leukocytosis ICD Code: D72.829 - Elevated white blood cell count, unspecified Status: Acute (2) Abdominal bruit ICD Code: R09.89 - Other specified symptoms and signs involving the circulatory and respiratory systems Status: Acute (3) Liver failure, acute ICD Code: K72.00 - Acute and subacute hepatic failure without coma Assessment and Plan Leukocytosis: Improving. WBC 23.6. Could be due to Orapred. Patient's vitals are good. No sign of new infection. -05/04: Orapred decreased to 20 mg po daily. -05/05: WBC 20.9. Repeat am CBC w/diff. Monitor clinically for signs of infection. Abdominal bruits: Over aorta and renal arteries. Does have murmur over aortic region. Echo as below. Could be related to this, but need to assess for stenosis /aneurysm. -05/05: Aorta US shows normal dimension of the abdominal aorta. Incidental findings of ascites and sludge in gallbladder. Liver failure secondary to EtOH hepatitis -Patient with multiple abnormalities to include anemia, thrombocytopenia, coagulopathy, jaundice, ascites, hepatitis panel was negative, JAYANT screen is positive, IgA elevated -Status post paracentesis with total of 2500 cc removed -Patient continued on Lasix, rifaximin, Aldactone, Trental, lactulose -GI was consulted and will follow up outpatient -Palliative care was consulted and at the present time patient wants to be treated aggressively, states that she will stop drinking and reengage with AA. -05/05: Tbili improved at 13.9. LFTs had increased again yesterday but are starting to trend downward today. Ammonia level normal. Repeat am CMP. Anemia: Stable. -05/05: Hemoglobin again 10.5 today. Patient admits to BRB but only on toilet tissue from hemorrhoids. Patient again states that she had been told she would need an EGD and colonoscopy on this hospitalization, but I told her that was not documented by GI and is not indicated at this time. Hyponatremia and hypochloremia: Stable. Likely related to liver failure. -Recheck labs tomorrow Unsafe discharge secondary to debility, deconditioning, weakness -Continue PT until cleared to discharge home or until supportive employment case manager can arrange home health care -Case management consulted for discharge planning Hypotension: Improved -Echo 04/24 with EF of 60-65%, AV sclerosis, mild to moderate AV regurgitation, moderate mitral valve regurgitation, trace tricuspid valve regurgitation. -Midodrine 12.5 mg 3 times daily -Continue to monitor blood pressure Back pain: -Continue pain control with oxycodone -Follow-up MRI of the thoracic spine in next 2-3 months because of possible subtle syrinx versus artifact, as requested by neurology on 04/22 Tremors: Chronic. Likely related to liver failure. -Patient advised to follow up outpatient. DVT prevention Sequential compression devices Discharge Planning PT recommends wheeled walker and HHC. No payor source. CM following. Emily Oropeza May 05, 2017 11:15
[2017-05-05 20:00] VITALS: BP 150/90; PULSE 92; RESP 22; TEMP 96.5; O2SAT 99
[2017-05-05] MEDS: hydrOXYzine HCL 25 MG TAB PO PRN (20:47)
[2017-05-05] MEDS: traZODone HCL 50 MG TAB PO SCH (20:48)
[2017-05-06] MEDS: PENTOXIFYLLINE 400 MG CONTROLLED RELEASE TAB PO SCH ×4 (06:12→22:08)
[2017-05-06] MEDS: MIDODRINE 5 MG TAB PO SCH ×3 (06:12→18:30)
[2017-05-06 06:26] LABS: AUTOMATED NEUTROPHIL # 15.1 TH/MM3 (1.8-7.7); BASOPHIL # 0.7 TH/MM3 (0-0.2); BASOPHIL % 3.9 % (0.0-2.0); EOSINOPHIL % 0.1 % (0.0-4.0); HEMATOCRIT 28.6 % (35.0-46.0); LYMPH % 4.9 % (9.0-44.0); LYMPHOCYTE # 0.9 TH/MM3 (1.0-4.8); MEAN CELL VOLUME 106.9 FL (80.0-100.0); MEAN CORPUSCULAR HEMOGLOBIN 36.4 PG (27.0-34.0); MEAN CORPUSCULAR HGB CONC 34.1 % (32.0-36.0); MONO % 4.6 % (0.0-8.0); NEUT % 86.5 % (16.0-70.0); PLATELET COUNT 116 TH/MM3 (150-450); RED BLOOD COUNT 2.67 MIL/MM3 (4.00-5.30); RED CELL DISTRIBUTION WIDTH 18.3 % (11.6-17.2); WHITE BLOOD COUNT 17.5 TH/MM3 (4.0-11.0)
[2017-05-06 06:29] LABS: HEMO FLAGS AUTO DIFF
[2017-05-06 06:34] LABS: CHLORIDE 96 MEQ/L (98-107); POTASSIUM 4.4 MEQ/L (3.5-5.1); SODIUM (NA) 133 MEQ/L (136-145)
[2017-05-06 06:38] LABS: ANION GAP 9 MEQ/L (5-15); BICARBONATE 27.7 MEQ/L (21.0-32.0)
[2017-05-06 06:45] LABS: ALKALINE PHOSPHATASE 120 U/L (45-117); ALT (GPT) 72 U/L (10-53); AST (GOT) 97 U/L (15-37); BLOOD UREA NITROGEN 16 MG/DL (7-18); GLOMERULAR FILTRATION RATE 91 ML/MIN (>89)
[2017-05-06 06:54] LABS: PLATELET ESTIMATE SMEAR LOW (NORMAL); PLATELET MORPHOLOGY NORMAL (NORMAL); ROULEAUX PRESENT (NORMAL); SCAN/DIFF AUTO DIFF CONFIRMED; TARGET CELLS 1+ (NORMAL)
[2017-05-06 08:00] VITALS: BP 145/75; PULSE 98; RESP 16; TEMP 99.2; O2SAT 98
[2017-05-06] MEDS: RIFAXIMIN 550 MG TAB PO SCH ×2 (08:37→20:56)
[2017-05-06] MEDS: SPIRONOLACTONE 50 MG TAB PO SCH ×2 (08:37→18:00)
[2017-05-06] MEDS: PANTOPRAZOLE SOD 40 MG DELAYED RELEASE TAB PO SCH (08:37)
[2017-05-06] MEDS: POTASSIUM CHLORIDE 20 MEQ CONTROLLED RELEASE TAB PO SCH ×2 (08:37→20:57)
[2017-05-06] MEDS: CITALOPRAM HYDROBROMIDE 20 MG TAB PO SCH (08:37)
[2017-05-06] MEDS: FUROSEMIDE 40 MG TAB PO SCH ×2 (08:38→18:31)
[2017-05-06] MEDS: prednisoLONE 10 MG ODT TAB PO SCH (08:38)
--- NOTE | 2017-05-06 10:26 | HHI.PR ---
Subjective Remarks Follow-up for end-stage liver failure, leukocytosis, anemia. No new issues. Patient asks if there is treatment for her tremors. Objective Vitals Vital Signs Date Time Temp Pulse Resp B/P (MAP) Pulse Ox O2 Delivery O2 Flow Rate FiO2 05/06/17 08:00 99.2 98 16 145/75 (98) 98 05/06/17 01:54 16 05/05/17 20:00 96.5 92 22 150/90 (110) 99 I/O 05/05/17 05/05/17 05/05/17 05/06/17 05/06/17 05/06/17 07:00 15:00 23:00 07:00 15:00 23:00 Intake Total 0 ml Balance 0 ml Intake Oral 0 ml # Voids 3 6 # Bowel Movements 0 Result Diagram: 05/06/17 0610 05/06/17 0610 Objective Remarks GENERAL: Well-developed patient in no apparent distress. EYES: Scleral icterus. CARDIOVASCULAR: Tachycardic rate and regular rhythm. RESPIRATORY: No accessory muscle use. Clear to auscultation. Breath sounds equal bilaterally. GASTROINTESTINAL: Abdomen soft, but mildly distended. Tender over RUQ and epigastric region. Bruits noted over abdominal aorta and renal arteries bilaterally, softer over area of iliac arteries. NEUROLOGICAL: Awake and alert. Normal speech. Asterixis. PSYCHIATRIC: Appropriate mood and affect; insight and judgment normal. Procedures none Urinary Catheter: No Vascular Central Line Catheter: No A/P Problem List: (1) Leukocytosis ICD Code: D72.829 - Elevated white blood cell count, unspecified Status: Acute (2) Abdominal bruit ICD Code: R09.89 - Other specified symptoms and signs involving the circulatory and respiratory systems Status: Acute (3) Liver failure, acute ICD Code: K72.00 - Acute and subacute hepatic failure without coma Assessment and Plan Leukocytosis: Improving. WBC 23.6. Could be due to Orapred. Patient's vitals are good. No sign of new infection. -05/04: Orapred decreased to 20 mg po daily. -05/06: WBC further decreased to 17.5. Continue to monitor CBC. Abdominal bruits: Over aorta and renal arteries. Does have murmur over aortic region. Echo as below. Could be related to this, but need to assess for stenosis /aneurysm. -05/05: Aorta US shows normal dimension of the abdominal aorta. Incidental findings of ascites and sludge in gallbladder. Liver failure secondary to EtOH hepatitis -Patient with multiple abnormalities to include anemia, thrombocytopenia, coagulopathy, jaundice, ascites, hepatitis panel was negative, JAYANT screen is positive, IgA elevated -Status post paracentesis with total of 2500 cc removed -Patient continued on Lasix, rifaximin, Aldactone, Trental, lactulose -GI was consulted and will follow up outpatient -Palliative care was consulted and at the present time patient wants to be treated aggressively, states that she will stop drinking and reengage with AA. -05/06: Tbili stable at 14. AST mildly increased 85-->97, but ALT and alkaline phosphatase stable. Continue to monitor LFTs periodically. Anemia: Macrocytic. Stable. Attributed to alcoholic liver disease. Admitted to [facility] on tissue only, due to hemorrhoids which is chronic. No other active bleeding reported. -05/06: Hemoglobin 9.7. Monitor. Thrombocytopenia: Worse -05/06: Platelets further decreased to 116. Monitor. Hyponatremia and hypochloremia: Stable. Likely related to liver failure. -05/06: Na 133 and Cl 96 stable from prior. Unsafe discharge secondary to debility, deconditioning, weakness -Continue PT until cleared to discharge home or until case loader operator can arrange home health care -Case management consulted for discharge planning Hypotension: Improved -Echo 04/24 with EF of 60-65%, AV sclerosis, mild to moderate AV regurgitation, moderate mitral valve regurgitation, trace tricuspid valve regurgitation. -Midodrine 12.5 mg 3 times daily -Continue to monitor blood pressure Back pain: -Continue pain control with oxycodone -Follow-up MRI of the thoracic spine in next 2-3 months because of possible subtle syrinx versus artifact, as requested by neurology on 04/22 Tremors: Chronic. Asterixis related to liver failure. Ammonia level normal. -Patient advised to follow up outpatient. DVT prevention Sequential compression devices Discharge Planning PT recommends wheeled walker and HHC. No payor source. CM following. Emily Oropeza May 06, 2017 10:26
[2017-05-06 20:00] VITALS: BP 142/82; PULSE 87; RESP 20; TEMP 97.2; O2SAT 100
[2017-05-06] MEDS: traZODone HCL 50 MG TAB PO SCH (20:56)
[2017-05-06] MEDS: hydrOXYzine HCL 25 MG TAB PO PRN (23:56)
[2017-05-07] MEDS: MIDODRINE 5 MG TAB PO SCH ×3 (06:17→17:00)
[2017-05-07] MEDS: PENTOXIFYLLINE 400 MG CONTROLLED RELEASE TAB PO SCH ×3 (06:17→22:23)
[2017-05-07 08:00] VITALS: BP 118/68; PULSE 82; RESP 17; TEMP 98.1; O2SAT 99
[2017-05-07] MEDS: POTASSIUM CHLORIDE 20 MEQ CONTROLLED RELEASE TAB PO SCH ×2 (08:32→21:26)
[2017-05-07] MEDS: CITALOPRAM HYDROBROMIDE 20 MG TAB PO SCH (08:32)
[2017-05-07] MEDS: RIFAXIMIN 550 MG TAB PO SCH ×2 (08:32→21:26)
[2017-05-07] MEDS: FUROSEMIDE 40 MG TAB PO SCH ×2 (08:33→17:01)
[2017-05-07] MEDS: PANTOPRAZOLE SOD 40 MG DELAYED RELEASE TAB PO SCH (08:33)
[2017-05-07] MEDS: SPIRONOLACTONE 50 MG TAB PO SCH ×2 (08:43→17:00)
[2017-05-07] MEDS: prednisoLONE 10 MG ODT TAB PO SCH (08:43)
[2017-05-07 12:00] VITALS: BP 138/71; PULSE 101; RESP 17; TEMP 98.2; O2SAT 97
--- NOTE | 2017-05-07 14:06 | HHI.PR ---
Subjective Remarks Follow-up for end-stage liver failure, leukocytosis, anemia. No acute issues. Objective Vitals Vital Signs Date Time Temp Pulse Resp B/P (MAP) Pulse Ox O2 Delivery O2 Flow Rate FiO2 05/07/17 12:00 98.2 101 17 138/71 (93) 97 05/07/17 08:00 98.1 82 17 118/68 (85) 99 05/07/17 00:56 16 05/06/17 20:00 97.2 87 20 142/82 (102) 100 I/O 05/06/17 05/06/17 05/06/17 05/07/17 05/07/17 05/07/17 07:00 15:00 23:00 07:00 15:00 23:00 Intake Total 500 ml Balance 500 ml Intake Oral 500 ml # Voids 1 3 3 # Bowel Movements 1 Result Diagram: 05/06/17 0610 05/06/17 0610 Objective Remarks GENERAL: Well-developed patient in no apparent distress. EYES: Scleral icterus. CARDIOVASCULAR: Regular rate and rhythm. 2-3/6 murmur. RESPIRATORY: No accessory muscle use. Clear to auscultation. Breath sounds equal bilaterally. GASTROINTESTINAL: Abdomen soft, but mildly distended. Tender over RUQ and epigastric region, same. No guarding. NEUROLOGICAL: Awake and alert. Normal speech. Tremors of hands. PSYCHIATRIC: Appropriate mood and affect; insight and judgment normal. Procedures none Urinary Catheter: No Vascular Central Line Catheter: No A/P Problem List: (1) Leukocytosis ICD Code: D72.829 - Elevated white blood cell count, unspecified Status: Acute (2) Abdominal bruit ICD Code: R09.89 - Other specified symptoms and signs involving the circulatory and respiratory systems Status: Acute (3) Liver failure, acute ICD Code: K72.00 - Acute and subacute hepatic failure without coma Assessment and Plan Leukocytosis: Improving. WBC 23.6. Could be due to Orapred. Patient's vitals are good. No sign of new infection. -05/04: Orapred decreased to 20 mg po daily. -05/06: WBC further decreased to 17.5. -05/07: Repeat am CBC w/diff Abdominal bruits: Over aorta and renal arteries. Does have murmur over aortic region. Echo as below. Could be related to this, but need to assess for stenosis /aneurysm. -05/05: Aorta US shows normal dimension of the abdominal aorta. Incidental findings of ascites and sludge in gallbladder. Liver failure secondary to EtOH hepatitis -Patient with multiple abnormalities to include anemia, thrombocytopenia, coagulopathy, jaundice, ascites, hepatitis panel was negative, JAYANT screen is positive, IgA elevated -Status post paracentesis with total of 2500 cc removed -Patient continued on Lasix, rifaximin, Aldactone, Trental, lactulose -GI was consulted and will follow up outpatient -Palliative care was consulted and at the present time patient wants to be treated aggressively, states that she will stop drinking and reengage with AA. -05/06: Tbili stable at 14. AST mildly increased 85-->97, but ALT and alkaline phosphatase stable. -05/07: Repeat am CMP Anemia: Macrocytic. Stable. Attributed to alcoholic liver disease. Admitted to [facility] on tissue only, due to hemorrhoids which is chronic. No other active bleeding reported. -05/06: Hemoglobin 9.7. Monitor. Thrombocytopenia: Worse -05/06: Platelets further decreased to 116. Monitor. Hyponatremia and hypochloremia: Stable. Likely related to liver failure. -05/06: Na 133 and Cl 96 stable from prior. Unsafe discharge secondary to debility, deconditioning, weakness -Continue PT until cleared to discharge home or until case loader operator can arrange home health care -Case management consulted for discharge planning Hypotension: Improved -Echo 04/24 with EF of 60-65%, AV sclerosis, mild to moderate AV regurgitation, moderate mitral valve regurgitation, trace tricuspid valve regurgitation. -Midodrine 12.5 mg 3 times daily -Continue to monitor blood pressure Back pain: -Continue pain control with oxycodone -Follow-up MRI of the thoracic spine in next 2-3 months because of possible subtle syrinx versus artifact, as requested by neurology on 04/22 Tremors: Chronic. Asterixis related to liver failure. Ammonia level normal. -Patient advised to follow up outpatient. DVT prevention Sequential compression devices Discharge Planning PT recommends wheeled walker and HHC. No payor source. CM following. Emily Oropeza May 07, 2017 14:06
[2017-05-07 16:00] VITALS: BP 121/72; PULSE 90; RESP 17; TEMP 98; O2SAT 97
[2017-05-07 20:00] VITALS: BP 136/76; PULSE 96; RESP 18; TEMP 97.8; O2SAT 97
[2017-05-07] MEDS: traZODone HCL 50 MG TAB PO SCH (21:26)
[2017-05-07] MEDS: hydrOXYzine HCL 25 MG TAB PO PRN (22:23)
[2017-05-08] MEDS: PENTOXIFYLLINE 400 MG CONTROLLED RELEASE TAB PO SCH ×3 (06:46→21:21)
[2017-05-08] MEDS: MIDODRINE 5 MG TAB PO SCH ×3 (06:46→17:12)
[2017-05-08 07:07] LABS: AUTOMATED NEUTROPHIL # 12.8 TH/MM3 (1.8-7.7); BASOPHIL # 0.1 TH/MM3 (0-0.2); BASOPHIL % 0.4 % (0.0-2.0); EOSINOPHIL % 0.1 % (0.0-4.0); HEMATOCRIT 27.4 % (35.0-46.0); LYMPHOCYTE # 0.6 TH/MM3 (1.0-4.8); MEAN CELL VOLUME 109.2 FL (80.0-100.0); MONO % 3.9 % (0.0-8.0); NEUT % 91.6 % (16.0-70.0); PLATELET COUNT 105 TH/MM3 (150-450); RED BLOOD COUNT 2.51 MIL/MM3 (4.00-5.30); RED CELL DISTRIBUTION WIDTH 17.9 % (11.6-17.2); WHITE BLOOD COUNT 14.1 TH/MM3 (4.0-11.0)
[2017-05-08 07:14] LABS: HEMO FLAGS DIFF FINAL
[2017-05-08 07:15] LABS: CHLORIDE 98 MEQ/L (98-107); POTASSIUM 4.6 MEQ/L (3.5-5.1); SODIUM (NA) 134 MEQ/L (136-145)
[2017-05-08 07:20] LABS: ANION GAP 8 MEQ/L (5-15); BICARBONATE 28.5 MEQ/L (21.0-32.0); BLOOD UREA NITROGEN 14 MG/DL (7-18)
[2017-05-08 07:23] LABS: ALT (GPT) 82 U/L (10-53); AST (GOT) 93 U/L (15-37); GLOMERULAR FILTRATION RATE 98 ML/MIN (>89)
[2017-05-08 07:39] LABS: ALKALINE PHOSPHATASE 124 U/L (45-117); TOTAL BILIRUBIN ADULT 11.9 MG/DL (0.2-1.0)
[2017-05-08 08:00] VITALS: BP 108/63; PULSE 85; RESP 20; TEMP 98.1; O2SAT 98
[2017-05-08] MEDS: SPIRONOLACTONE 50 MG TAB PO SCH ×2 (10:01→18:30)
[2017-05-08] MEDS: FUROSEMIDE 40 MG TAB PO SCH ×2 (10:02→18:30)
[2017-05-08] MEDS: CITALOPRAM HYDROBROMIDE 20 MG TAB PO SCH (10:02)
[2017-05-08] MEDS: POTASSIUM CHLORIDE 20 MEQ CONTROLLED RELEASE TAB PO SCH ×2 (10:02→21:21)
[2017-05-08] MEDS: RIFAXIMIN 550 MG TAB PO SCH ×2 (10:03→21:21)
[2017-05-08] MEDS: prednisoLONE 10 MG ODT TAB PO SCH (10:03)
[2017-05-08] MEDS: PANTOPRAZOLE SOD 40 MG DELAYED RELEASE TAB PO SCH (10:03)
--- NOTE | 2017-05-08 10:42 | HHI.PR ---
Subjective Remarks Follow-up for end-stage liver failure, leukocytosis, anemia. Patient admits to BRB in the toilet which happened once or twice yesterday and once this morning. Bowel movements are otherwise dark brown. She denies any melena. She does have a history of hemorrhoids and a few days ago she told me she had some bright red blood but only on the tissue at that time. She denies any increased abdominal pain but continues to have epigastric pain. She denies any vomiting. She denies any fevers or chills, lightheadedness or dizziness, headache, chest pain, or shortness of breath. Denies any dysuria but does admit to voiding frequently although is on Lasix. She admits to itching of the external genitalia. Objective Vitals Vital Signs Date Time Temp Pulse Resp B/P (MAP) Pulse Ox O2 Delivery O2 Flow Rate FiO2 05/08/17 08:00 98.1 85 20 108/63 (78) 98 05/07/17 23:24 16 05/07/17 20:00 97.8 96 18 136/76 (96) 97 05/07/17 16:00 98.0 90 17 121/72 (88) 97 05/07/17 12:00 98.2 101 17 138/71 (93) 97 I/O 05/07/17 05/07/17 05/07/17 05/08/17 05/08/17 05/08/17 06:59 14:59 22:59 06:59 14:59 22:59 Intake Total 500 ml 1680 ml 580 ml Balance 500 ml 1680 ml 580 ml Intake Oral 500 ml 1680 ml 580 ml # Voids 3 11 4 # Bowel Movements 1 0 0 Result Diagram: 05/08/1746 05/08/1746 Objective Remarks GENERAL: Well-developed patient in no apparent distress. SKIN: Petechiae dorsal R forearm. Ecchymosis over the Left arm. CARDIOVASCULAR: Regular rate and rhythm. 2/6 murmur. RESPIRATORY: No accessory muscle use. Clear to auscultation. Breath sounds equal bilaterally. GASTROINTESTINAL: Normoactive bowel sounds x 4 quadrants. Abdomen soft, non- distended. Tender over RUQ and significantly over epigastric region. Bruits over renal arteries bilaterally and abdominal aorta. NEUROLOGICAL: Awake and alert. Normal speech. PSYCHIATRIC: Appropriate mood and affect; insight and judgment normal. Procedures none Urinary Catheter: No Vascular Central Line Catheter: No A/P Problem List: (1) Leukocytosis ICD Code: D72.829 - Elevated white blood cell count, unspecified Status: Acute (2) Abdominal bruit ICD Code: R09.89 - Other specified symptoms and signs involving the circulatory and respiratory systems Status: Acute (3) Liver failure, acute ICD Code: K72.00 - Acute and subacute hepatic failure without coma Assessment and Plan Anemia: Macrocytic. Worse. Attributed to alcoholic liver disease. -05/08: Hemoglobin 9.0 today, trending downward over the last few days. Patient has hemorrhoids and initially admitted to only BRB on toilet tissue, but today states there was BRB in the toilet a few times starting yesterday. Will trend H& H q6h and transfuse if hemoglobin < 8.0. If bleeding continues will need to consult GI. Discussed with Dr. Gaston, attending. -Repeat Hemoglobin improved at 11.4 at 1307 which is odd. Will continue to monitor. Leukocytosis: Improving. Initial WBC 23.6. Could be due to Orapred. No sign of new infection. -05/04: Orapred decreased to 20 mg po daily. -05/08: WBC further decreased to 14.1. Monitor CBC. Liver failure secondary to EtOH hepatitis: Stable -Patient with multiple abnormalities to include anemia, thrombocytopenia, coagulopathy, jaundice, ascites, hepatitis panel was negative, JAYANT screen is positive, IgA elevated -Status post paracentesis with total of 2500 cc removed -Patient continued on Lasix, rifaximin, Aldactone, Trental, lactulose -GI was consulted and will follow up outpatient -Palliative care was consulted and at the present time patient wants to be treated aggressively, states that she will stop drinking and reengage with AA. -05/08: Patient has epigastric pain likely related to liver. Lipase wnl at 380. Tbili further decreased to 11.9. AST, ALT, and alkaline phosphatase relatively stable. Thrombocytopenia: Worse. Related to liver failure. -05/08: Platelets further decreased to 105. Recheck CBC in the morning. Hyponatremia and hypochloremia: Improved. -05/08: Na 134. Cl wnl. Abdominal bruits: Over aorta and renal arteries. Does have murmur over aortic region. Echo as below. Could be related to this, but need to assess for stenosis /aneurysm. -05/05: Aorta US shows normal dimension of the abdominal aorta. Incidental findings of ascites and sludge in gallbladder. Unsafe discharge secondary to debility, deconditioning, weakness -Continue PT until cleared to discharge home or until case picker can arrange home health care -Case management consulted for discharge planning Hypotension: Improved -Echo 04/24 with EF of 60-65%, AV sclerosis, mild to moderate AV regurgitation, moderate mitral valve regurgitation, trace tricuspid valve regurgitation. -Midodrine 12.5 mg 3 times daily -Continue to monitor blood pressure Back pain: -Continue pain control with oxycodone -Follow-up MRI of the thoracic spine in next 2-3 months because of possible subtle syrinx versus artifact, as requested by neurology on 04/22 Tremors: Chronic. Asterixis related to liver failure. Ammonia level normal. -Patient advised to follow up outpatient. Pruritus external genitalia: Over the last few days. Likely external yeast infection. -Topical miconazole ordered q12h prn DVT prevention Sequential compression devices Discharge Planning PT recommends wheeled walker and HHC. No payor source. CM following. Emily Oropeza May 08, 2017 10:42
[2017-05-08 12:49] VITALS: BP 138/95; PULSE 108; RESP 18
[2017-05-08] MEDS ORDERED: MICONAZOLE NITRATE 2% CREAM 15 GM TOPICAL PRN (13:00)
[2017-05-08 13:22] LABS: HEMATOCRIT 34.4 % (35.0-46.0); REVIEW FLAG FINAL
[2017-05-08 17:09] VITALS: BP 118/67; PULSE 96; RESP 18
[2017-05-08 19:22] LABS: HEMATOCRIT 31.6 % (35.0-46.0); REVIEW FLAG FINAL
[2017-05-08 20:00] VITALS: BP 138/77; PULSE 81; RESP 20; TEMP 97.4; O2SAT 100
[2017-05-08] MEDS: traZODone HCL 50 MG TAB PO SCH (21:00)
[2017-05-08] MEDS: hydrOXYzine HCL 25 MG TAB PO PRN (21:22)
[2017-05-09 01:25] LABS: HEMATOCRIT 29.5 % (35.0-46.0)
[2017-05-09 01:53] LABS: REVIEW FLAG FINAL
[2017-05-09] MEDS: PENTOXIFYLLINE 400 MG CONTROLLED RELEASE TAB PO SCH ×3 (05:22→21:03)
[2017-05-09] MEDS: MIDODRINE 5 MG TAB PO SCH ×3 (05:45→18:18)
[2017-05-09 08:04] LABS: AUTOMATED NEUTROPHIL # 13.4 TH/MM3 (1.8-7.7); BASOPHIL # 0.1 TH/MM3 (0-0.2); BASOPHIL % 0.5 % (0.0-2.0); EOSINOPHIL % 0.1 % (0.0-4.0); HEMATOCRIT 30.4 % (35.0-46.0); LYMPH % 5.6 % (9.0-44.0); LYMPHOCYTE # 0.8 TH/MM3 (1.0-4.8); MEAN CELL VOLUME 110.4 FL (80.0-100.0); MEAN CORPUSCULAR HEMOGLOBIN 36.8 PG (27.0-34.0); MEAN CORPUSCULAR HGB CONC 33.3 % (32.0-36.0); MONO % 4.8 % (0.0-8.0); PLATELET COUNT 111 TH/MM3 (150-450); RED BLOOD COUNT 2.76 MIL/MM3 (4.00-5.30); RED CELL DISTRIBUTION WIDTH 17.1 % (11.6-17.2)
[2017-05-09 08:10] LABS: HEMO FLAGS DIFF FINAL
[2017-05-09 09:00] VITALS: BP 136/79; PULSE 86; RESP 20; TEMP 96.9; O2SAT 96
--- NOTE | 2017-05-09 09:18 | HHI.PR ---
Subjective Remarks Follow-up for end-stage liver failure, leukocytosis, anemia/rectal bleeding. Patient states she had 2 bowel movements early this morning and there was some blood splattered on the toilet seat but none in the toilet today. Denies any melena. She denies any increased abdominal pain. Denies any lightheadedness or dizziness. Denies any fevers or chills. Patient tells me she had chest pain last night which occurred at 10:30 pm waking her up. She thinks it was indigestion but states she had a pressure in the center of her chest which lasted 15-20 minutes and self resolved. She denies any associated diaphoresis, radiation of pain to the back or elsewhere, numbness or tingling, nausea, or vomiting. Also states when she eats she feels a sensation of food getting stuck pointing to the hiatal region. Objective Vitals Vital Signs Date Time Temp Pulse Resp B/P (MAP) Pulse Ox O2 Delivery O2 Flow Rate FiO2 05/09/17 09:00 96.9 86 20 136/79 (98) 96 05/08/17 20:00 97.4 81 20 138/77 (97) 100 05/08/17 17:09 96 18 118/67 (84) 05/08/17 12:49 108 18 138/95 (109) I/O 05/08/17 05/08/17 05/08/17 05/09/17 05/09/17 05/09/17 07:00 15:00 23:00 07:00 15:00 23:00 Intake Total 580 ml 600 ml 240 ml Balance 580 ml 600 ml 240 ml Intake Oral 580 ml 600 ml 240 ml # Voids 4 3 4 # Bowel Movements 0 Result Diagram: 05/09/17 0719 05/08/17 0646 Objective Remarks GENERAL: Well-developed patient in no apparent distress. SKIN: Petechiae dorsal R forearm. Ecchymosis over the right upper arm. CARDIOVASCULAR: Regular rate and rhythm. 2/6 murmur. RESPIRATORY: No accessory muscle use. Clear to auscultation. Breath sounds equal bilaterally. GASTROINTESTINAL: Soft bowel sounds x 4 quadrants. Abdomen soft, but mildly distended. Tender over epigastric region, but no guarding. Soft bruit over abdominal aorta. NEUROLOGICAL: Awake and alert. Normal speech. PSYCHIATRIC: Appropriate mood and affect; insight and judgment normal. Procedures none Urinary Catheter: No Vascular Central Line Catheter: No A/P Problem List: (1) Chest pain ICD Code: R07.9 - Chest pain, unspecified Status: Acute (2) Rectal bleeding ICD Code: K62.5 - Hemorrhage of anus and rectum Status: Acute (3) Anemia ICD Code: D64.9 - Anemia, unspecified Status: Acute (4) Leukocytosis ICD Code: D72.829 - Elevated white blood cell count, unspecified Status: Acute (5) Liver failure, acute ICD Code: K72.00 - Acute and subacute hepatic failure without coma (6) Abdominal bruit ICD Code: R09.89 - Other specified symptoms and signs involving the circulatory and respiratory systems Status: Acute Assessment and Plan Chest pain: Acute last night 10:30 pm, self resolved. May be indigestion as patient states she ate before bed. She also gets a feeling of food getting stuck in the hiatal region when eating. Will rule out ACS though. -EKG personally interpreted with sinus rhythm, rate 91 bpm, normal axis, and no evidence of ischemia. -CK 23 and troponin < 0.02. -Patient already on Protonix 40 mg po daily. Will order Maalox prn. Anemia: Macrocytic. Improved. Attributed to alcoholic liver disease. Does have hemorrhoids and had BRB on tissue only initially then some BRB in toilet on 05/08. -05/09: Hemoglobin has actually improved and remained stable, 10.1 this morning. If bleeding continues will need to consult GI. Thrombocytopenia: Stable. Related to liver failure. -05/09: Platelets stable at 111. Leukocytosis: Stable. Initial WBC 23.6. Could be due to Orapred. No sign of new infection. -05/04: Orapred decreased to 20 mg po daily. -05/09: WBC mildly increased but relatively stable at 15.0. Monitor CBC. Liver failure secondary to EtOH hepatitis: Stable -Patient with multiple abnormalities to include anemia, thrombocytopenia, coagulopathy, jaundice, ascites, hepatitis panel was negative, JAYANT screen is positive, IgA elevated -Status post paracentesis with total of 2500 cc removed -Patient continued on Lasix, rifaximin, Aldactone, Trental, lactulose -GI was consulted and will follow up outpatient -Palliative care was consulted and at the present time patient wants to be treated aggressively, states that she will stop drinking and reengage with AA. -05/08: Patient has epigastric pain likely related to liver. Lipase wnl at 380. Tbili further decreased to 11.9. AST, ALT, and alkaline phosphatase relatively stable. Hyponatremia and hypochloremia: Improved. Abdominal bruits: Over aorta and renal arteries. Does have murmur over aortic region. Echo as below. Could be related to this, but need to assess for stenosis /aneurysm. -05/05: Aorta US shows normal dimension of the abdominal aorta. Incidental findings of ascites and sludge in gallbladder. Unsafe discharge secondary to debility, deconditioning, weakness -Continue PT until cleared to discharge home or until foster care case manager can arrange home health care -Case management consulted for discharge planning Hypotension: Improved -Echo 04/24 with EF of 60-65%, AV sclerosis, mild to moderate AV regurgitation, moderate mitral valve regurgitation, trace tricuspid valve regurgitation. -Midodrine 12.5 mg 3 times daily -Continue to monitor blood pressure Back pain: -Continue pain control with oxycodone -Follow-up MRI of the thoracic spine in next 2-3 months because of possible subtle syrinx versus artifact, as requested by neurology on 04/22 Tremors: Chronic. Asterixis related to liver failure. Ammonia level normal. -Patient advised to follow up outpatient. Pruritus external genitalia: Over the last few days. Likely external yeast infection. -Topical miconazole ordered q12h prn DVT prevention Sequential compression devices Discharge Planning PT recommends wheeled walker and HHC. No payor source. CM following. Emily Oropeza May 09, 2017 09:18
[2017-05-09] MEDS: SPIRONOLACTONE 50 MG TAB PO SCH ×2 (09:29→18:17)
[2017-05-09] MEDS: CITALOPRAM HYDROBROMIDE 20 MG TAB PO SCH (09:29)
[2017-05-09] MEDS: PANTOPRAZOLE SOD 40 MG DELAYED RELEASE TAB PO SCH (09:30)
[2017-05-09] MEDS: FUROSEMIDE 40 MG TAB PO SCH ×2 (09:30→18:18)
[2017-05-09] MEDS: RIFAXIMIN 550 MG TAB PO SCH ×2 (09:30→21:03)
[2017-05-09] MEDS: prednisoLONE 10 MG ODT TAB PO SCH (09:30)
[2017-05-09] MEDS: POTASSIUM CHLORIDE 20 MEQ CONTROLLED RELEASE TAB PO SCH ×2 (09:30→21:03)
[2017-05-09 10:29] LABS: CREATINE KINASE 23 U/L (26-192)
[2017-05-09] MEDS ORDERED: ALUMINUM/MAGNESIUM/SIMETH 30 ML CUP PO PRN (12:45)
[2017-05-09 12:53] VITALS: BP 129/78; PULSE 103; RESP 18
[2017-05-09 18:06] VITALS: BP 121/71
[2017-05-09 20:00] VITALS: BP 130/73; PULSE 93; RESP 20; TEMP 97.9; O2SAT 98
[2017-05-09] MEDS: traZODone HCL 50 MG TAB PO SCH (21:03)
[2017-05-09] MEDS: hydrOXYzine HCL 25 MG TAB PO PRN (23:39)
[2017-05-10] MEDS: PENTOXIFYLLINE 400 MG CONTROLLED RELEASE TAB PO SCH ×3 (05:21→21:12)
[2017-05-10] MEDS: MIDODRINE 5 MG TAB PO SCH ×3 (05:21→17:00)
[2017-05-10] MEDS: RIFAXIMIN 550 MG TAB PO SCH ×2 (08:53→21:11)
[2017-05-10] MEDS: PANTOPRAZOLE SOD 40 MG DELAYED RELEASE TAB PO SCH (08:53)
[2017-05-10] MEDS: CITALOPRAM HYDROBROMIDE 20 MG TAB PO SCH (08:53)
[2017-05-10] MEDS: FUROSEMIDE 40 MG TAB PO SCH ×2 (08:53→18:24)
[2017-05-10] MEDS: SPIRONOLACTONE 50 MG TAB PO SCH ×2 (08:53→18:25)
[2017-05-10] MEDS: prednisoLONE 10 MG ODT TAB PO SCH (08:54)
[2017-05-10] MEDS: POTASSIUM CHLORIDE 20 MEQ CONTROLLED RELEASE TAB PO SCH ×2 (08:54→21:11)
[2017-05-10 08:58] VITALS: BP 113/66; PULSE 86; RESP 20; TEMP 97.1; O2SAT 97
--- NOTE | 2017-05-10 09:13 | HHI.PR ---
Subjective Remarks Follow-up for end-stage liver failure, leukocytosis, rectal bleeding, chest pain. Patient again states that she has chest pressure which has been constant overnight. She states the pressure gets worse with eating and again states she feels like food is getting stuck when she eats indicating over her lower esophagus. Pressure also feels worse with breathing. She has the chest pressure currently. She denies any shortness of breath. Denies any nausea or vomiting. Denies any fevers or chills. Admits to dry cough sometimes. She again complains of bright red blood in the toilet bowl. Denies any increase in abdominal pain and denies any melena. Objective Vitals Vital Signs Date Time Temp Pulse Resp B/P (MAP) Pulse Ox O2 Delivery O2 Flow Rate FiO2 05/10/17 08:58 97.1 86 20 113/66 (82) 97 05/10/17 07:00 16 05/09/17 20:00 97.9 93 20 130/73 (92) 98 05/09/17 18:06 121/71 (88) 05/09/17 12:53 103 18 129/78 (95) I/O 05/09/17 05/09/17 05/09/17 05/10/17 05/10/17 05/10/17 07:00 15:00 23:00 07:00 15:00 23:00 Intake Total 240 ml 240 ml Balance 240 ml 240 ml Intake Oral 240 ml 240 ml # Voids 4 4 Result Diagram: 05/09/17 0719 05/08/17 0646 Imaging Last Impressions Chest X-Ray 05/10/17 0000 Signed Impressions: Service Date/Time: Wednesday, May 10, 2017 12:44 - CONCLUSION: No acute disease. Darren Thomas Jr., MD Aorta Ultrasound 05/05/17 0000 Signed Impressions: Service Date/Time: Friday, May 05, 2017 07:49 - CONCLUSION: 1. Normal dimension abdominal aorta. 2. Incidentally noted findings of ascites and sludge within the gallbladder. Darren Field MD Cyst Biopsy Asp-Paracentesis US 04/21/17 0000 Signed Impressions: Service Date/Time: Friday, April 21, 2017 13:00 - CONCLUSION: Uncomplicated ultrasound guided paracentesis. Andrez Calderon MD Thoracic Spine MRI 04/20/17 0000 Signed Impressions: Service Date/Time: Thursday, April 20, 2017 13:28 - CONCLUSION: 1. Questionable thin caliber increased signal within the cord diffusely may be related to a subtle syrinx versus artifactual. Consider a followup short interval MRI in 2-4 weeks both with and without contrast. Checo Pollard MD Cholangiopancreatography MRI 04/20/17 0000 Signed Impressions: Service Date/Time: Thursday, April 20, 2017 12:58 - CONCLUSION: 1. No evidence for biliary obstruction. 2. Fatty liver. 3. Ascites and pleural effusions. Checo Pollard MD Gall Bladder Ultrasound 04/19/17 0000 Signed Impressions: Service Date/Time: Wednesday, April 19, 2017 13:05 - CONCLUSION: 1. Sonographic findings characteristic of some degree of cirrhosis with hepatic fatty infiltration and nodularity. 2. In addition, there is hepatofugal flow in the main portal vein characteristic of portal hypertension. 3. Ascites. 4. Sludge filled gallbladder with gallbladder wall thickening and pericholecystic fluid. Findings are nonspecific and can be related to liver failure with low oncotic pressures. Armen Rodriguez MD Abdomen/Pelvis CT 04/19/17 0000 Signed Impressions: Service Date/Time: Wednesday, April 19, 2017 13:51 - CONCLUSION: 1. Diffuse hepatic fatty infiltration with probable focal areas of fatty sparing. 2. Mild to moderate ascites. 3. Moderate size left pleural effusion with a tiny right pleural effusion. Concomitant atelectatic changes in the left base. 4. Pericholecystic fluid with possible some gallbladder wall thickening and luminal sludge 5. Partial sacralization of the left side of L5. Armen Rodriguez MD Objective Remarks GENERAL: Well-developed patient in no apparent distress. EYES: Scleral icterus. CHEST: Mild tenderness over sternum. CARDIOVASCULAR: Regular rate and rhythm. 2/6 murmur. RESPIRATORY: No accessory muscle use. Clear to auscultation. Breath sounds equal bilaterally. GASTROINTESTINAL: Soft bowel sounds. Abdomen distended, but non-tender. MUSCULOSKELETAL: No lower extremity edema bilaterally. NEUROLOGICAL: Awake and alert. Normal speech. PSYCHIATRIC: Appropriate mood and affect; insight and judgment normal. Procedures none Urinary Catheter: No Vascular Central Line Catheter: No A/P Problem List: (1) Chest pain ICD Code: R07.9 - Chest pain, unspecified Status: Acute (2) Rectal bleeding ICD Code: K62.5 - Hemorrhage of anus and rectum Status: Acute (3) Anemia ICD Code: D64.9 - Anemia, unspecified Status: Acute (4) Leukocytosis ICD Code: D72.829 - Elevated white blood cell count, unspecified Status: Acute (5) Liver failure, acute ICD Code: K72.00 - Acute and subacute hepatic failure without coma (6) Abdominal bruit ICD Code: R09.89 - Other specified symptoms and signs involving the circulatory and respiratory systems Status: Acute Assessment and Plan Chest pain: Recurrent overnight, currently has pain. Likely GERD related. She also gets a feeling of food getting stuck in the hiatal region when eating. 05/10: -EKG and enzymes normal yesterday but repeated today due to active chest pressure. EKG personally interpreted with normal sinus rhythm and no evidence of ischemia. CK and troponin normal. Chest x-ray personally interpreted with no acute disease or mass. No cardiac etiology evident. -Patient already on Protonix 40 mg po daily. Patient never received Maalox yesterday. RN instructed to administer. -GI consulted for evaluation. EGD with possible dilation to be performed tomorrow. Anemia/Rectal bleeding: Macrocytic. Improved. Attributed to alcoholic liver disease. Does have hemorrhoids and had BRB on tissue only initially then some BRB in toilet on 05/08. -05/10: Hemoglobin has remained stable, 11.1 this morning. Again has BRB in the toilet. GI has evaluated patient. Thrombocytopenia: Improved. Related to liver failure. -05/10: Platelets 111-->139. Monitor. Leukocytosis: Worse. Initial WBC 23.6. Could be due to Orapred. No sign of new infection. -05/04: Orapred decreased to 20 mg po daily. -05/10: WBC was trending downward but now elevated at 19.5. Remains afebrile. No symptoms of new infection. Chest x-ray without infection. Nurse denies patient having infected wounds. Could still be related to Orapred or stress from rectal bleeding, but will order clean catch UA to rule out UTI. Repeat am CBC w/diff. Liver failure secondary to EtOH hepatitis: Stable -Patient with multiple abnormalities to include anemia, thrombocytopenia, coagulopathy, jaundice, ascites, hepatitis panel was negative, JAYANT screen is positive, IgA elevated -Status post paracentesis with total of 2500 cc removed -Patient continued on Lasix, rifaximin, Aldactone, Trental, lactulose -GI was consulted and will follow up outpatient -Palliative care was consulted and at the present time patient wants to be treated aggressively, states that she will stop drinking and reengage with AA. -05/08: Patient has epigastric pain likely related to liver. Lipase wnl at 380. Tbili further decreased to 11.9. AST, ALT, and alkaline phosphatase relatively stable. Hyponatremia and hypochloremia: Worse. Attributed to liver failure. -05/10: Na 131 and Cl 94. Repeat am BMP. No need to treat at this time. Abdominal bruits: Over aorta and renal arteries. Does have murmur over aortic region. Echo as below. Could be related to this, but need to assess for stenosis /aneurysm. -05/05: Aorta US shows normal dimension of the abdominal aorta. Incidental findings of ascites and sludge in gallbladder. Unsafe discharge secondary to debility, deconditioning, weakness -Continue PT until cleared to discharge home or until medical case manager can arrange home health care -Case management consulted for discharge planning Hypotension: Improved -Echo 04/24 with EF of 60-65%, AV sclerosis, mild to moderate AV regurgitation, moderate mitral valve regurgitation, trace tricuspid valve regurgitation. -Midodrine 12.5 mg 3 times daily. -Continue to monitor blood pressure -05/10: Nurse states pressure increased this afternoon. Will hold Midodrine. Back pain: -Continue pain control with oxycodone -Follow-up MRI of the thoracic spine in next 2-3 months because of possible subtle syrinx versus artifact, as requested by neurology on 04/22 Tremors: Chronic. Asterixis related to liver failure. Ammonia level normal. -Patient advised to follow up outpatient. Pruritus external genitalia: Over the last few days. Likely external yeast infection. -Topical miconazole q12h prn DVT prevention Sequential compression devices Discharge Planning PT recommends wheeled walker and HHC. No payor source. CM following. Emily Oropeza May 10, 2017 09:13
[2017-05-10 10:19] LABS: POTASSIUM 3.8 MEQ/L (3.5-5.1)
[2017-05-10 10:22] LABS: BICARBONATE 27.5 MEQ/L (21.0-32.0)
[2017-05-10 10:28] LABS: AUTOMATED NEUTROPHIL # 17.5 TH/MM3 (1.8-7.7); BASOPHIL % 0.1 % (0.0-2.0); EOSINOPHIL % 0.2 % (0.0-4.0); HEMATOCRIT 32.5 % (35.0-46.0); LYMPH % 7.4 % (9.0-44.0); LYMPHOCYTE # 1.4 TH/MM3 (1.0-4.8); MEAN CELL VOLUME 109.6 FL (80.0-100.0); MEAN CORPUSCULAR HEMOGLOBIN 37.3 PG (27.0-34.0); MEAN CORPUSCULAR HGB CONC 34.1 % (32.0-36.0); MONO % 3.2 % (0.0-8.0); NEUT % 89.1 % (16.0-70.0); PLATELET COUNT 139 TH/MM3 (150-450); RED BLOOD COUNT 2.97 MIL/MM3 (4.00-5.30); RED CELL DISTRIBUTION WIDTH 16.7 % (11.6-17.2); WHITE BLOOD COUNT 19.5 TH/MM3 (4.0-11.0)
[2017-05-10 10:34] LABS: HEMO FLAGS DIFF FINAL
[2017-05-10 10:37] LABS: CREATINE KINASE 16 U/L (26-192)
--- NOTE | 2017-05-10 11:19 | EKG ---
Date Performed: 05/09/2017 Time Performed: 11:37:25 PTAGE: 56 years EKG: Sinus rhythm NORMAL ECG PREVIOUS TRACING : 04/19/2017 12.56 Compared to prior tracing no significant change DOCTOR: Vickie Massey Interpretating Date/Time 05/10/2017 11:17:35
--- NOTE | 2017-05-10 13:00 | RADRPT ---
EXAM DATE/TIME: 05/10/2017 12:44 [facility] COMPARISON: CHEST SINGLE AP, April 20, 2017, 3:41. INDICATIONS : Chest pain MEDICAL HISTORY : Hypertension. Gastroesophageal reflux disease. Miltral valve prolapse.Anxiety. Anemia. SURGICAL HISTORY : Tonsillectomy. Dilation and curettage. Keloid removal. ENCOUNTER: Subsequent ACUITY: 1 month PAIN SCORE: 6/10 LOCATION: chest FINDINGS: A single view of the chest demonstrates the lungs to be symmetrically aerated without evidence of mas s, infiltrate or effusion. The cardiomediastinal contours are unremarkable. Osseous structures are intact. CONCLUSION: No acute disease. Darren Thomas Jr., MD on May 10, 2017 at 12:57 Board Certified Radiologist. This report was verified electronically.
--- NOTE | 2017-05-10 13:11 | HHI.GIFU ---
Subjective Remarks I was asked to reconsult on the patient because some rectal bleeding on and off , and feeling dyspepsia with occasional feeling that the solid food gets stuck in her esophagus, no nausea or vomiting no hematemesis no melena, overall feeling better as far as her liver disease but still jaundiced Objective Vitals I&O Vital Signs Date Time Temp Pulse Resp B/P (MAP) Pulse Ox O2 Delivery O2 Flow Rate FiO2 05/10/17 12:52 18 05/10/17 08:58 97.1 86 20 113/66 (82) 97 05/09/17 20:00 97.9 93 20 130/73 (92) 98 05/09/17 18:06 121/71 (88) I/O 05/09/17 05/09/17 05/09/17 05/10/17 05/10/17 05/10/17 07:00 15:00 23:00 07:00 15:00 23:00 Intake Total 240 ml 240 ml Balance 240 ml 240 ml Intake Oral 240 ml 240 ml # Voids 4 4 Laboratory Laboratory Tests Test 05/10/17 09:19 White Blood Count 19.5 Red Blood Count 2.97 Hemoglobin 11.1 Hematocrit 32.5 Mean Corpuscular Volume 109.6 Mean Corpuscular Hemoglobin 37.3 Mean Corpuscular Hemoglobin Concent 34.1 Red Cell Distribution Width 16.7 Platelet Count 139 Mean Platelet Volume 8.8 Neutrophils (%) (Auto) 89.1 Lymphocytes (%) (Auto) 7.4 Monocytes (%) (Auto) 3.2 Eosinophils (%) (Auto) 0.2 Basophils (%) (Auto) 0.1 Neutrophils # (Auto) 17.5 Lymphocytes # (Auto) 1.4 Monocytes # (Auto) 0.6 Eosinophils # (Auto) 0.0 Basophils # (Auto) 0.0 CBC Comment DIFF FINAL Differential Comment Blood Urea Nitrogen 14 Creatinine 0.73 Random Glucose 81 Calcium Level 8.9 Sodium Level 131 Potassium Level 3.8 Chloride Level 94 Carbon Dioxide Level 27.5 Anion Gap 10 Estimat Glomerular Filtration Rate 83 Total Creatine Kinase 16 Troponin I LESS THAN 0.02 Date/Time Source Procedure Growth Status 04/19/17 14:32 Blood Peripheral Aerobic Blood Culture - Final NO GROWTH IN 5 DAYS Complete 04/19/17 14:32 Blood Peripheral Anaerobic Blood Culture - Final NO GROWTH IN 5 DAYS Complete 04/21/17 13:25 Fluid Peritoneal Fluid Gram Stain - Final Complete 04/21/17 13:25 Fluid Peritoneal Fluid Body Fluid Culture - Final NO GROWTH IN 72 HRS.--AEROBICALLY OR ... Complete Physical Exam HEENT: Pupils round and reactive to light; normocephalic; atraumatic; S jaundice. Throat is clear. NECK: Neck is supple, no JVD, no lymphadenopathy. CHEST: Chest is clear to auscultation and percussion. CARDIAC: Regular rate and rhythm with no murmur gallop or rubs. ABDOMEN: Soft, nondistended, minimal midepigastric tenderness; hepatomegaly; bowel sounds are present in all four quadrants. EXTREMITIES: No clubbing, cyanosis, or edema. SKIN: Normal; no rash; jaundice. SEAMLESS HOSIERY KNITTER: no flapping A/O Assessment and Plan Plan ASSESSMENT: - Liver failure secondary etoh hepatitis - Etoh hepatitis, - Coagulpaty secondary to that - Ascites s/p paracentesis secondary portal htn-no sbp patient is not clear about how much she drinks, (she said she has no drinking for few wks but at same time she said he had wine to sleep before coming to hospital 04-27-17 seems to be doing better, but still very jaundiced, consistent with alcohol hepatitis she continued to wanting to be full code and no palliative care, we discussed transplant option after 6 month of being off alcohol or any substance abuse 04/28/2017 patient is doing better but still very jaundiced, alcohol liver disease with cirrhosis. 05/10/2017 patient slightly less jaundice she was complaining of dyspepsia/ dysphagia and rectal bleeding small amounts PLAN: - Continue current management - Needs to stop etoh use completely - Lactulose and Rifaximin -Consent for: EGD with possible dilation - We'll start prep today Rochelle Proctor MD May 10, 2017 13:11
[2017-05-10] MEDS ORDERED: PEG (High)/E-LYTE SOLN 4000 ML BTL PO ONE (14:00)
[2017-05-10 17:34] VITALS: BP 148/87; PULSE 103; RESP 18
[2017-05-10 20:00] VITALS: BP 120/73; PULSE 89; RESP 20; TEMP 96.4; O2SAT 97
[2017-05-10] MEDS: traZODone HCL 50 MG TAB PO SCH (21:22)
[2017-05-11] MEDS: PENTOXIFYLLINE 400 MG CONTROLLED RELEASE TAB PO SCH ×3 (06:23→21:16)
[2017-05-11] MEDS: MIDODRINE 5 MG TAB PO SCH ×3 (06:23→17:50)
[2017-05-11 08:00] VITALS: BP 119/69; PULSE 101; RESP 20; TEMP 97.5; O2SAT 98
--- NOTE | 2017-05-11 08:04 | HHI.PR ---
Subjective Remarks Patient seen and examined today for follow-up on end-stage liver disease, intermittent rectal bleeding, dyspepsia. Patient was evaluated by GI and plans for endoscopy and colonoscopy today. Hemoglobin has remained stable. Objective Vitals Vital Signs Date Time Temp Pulse Resp B/P (MAP) Pulse Ox O2 Delivery O2 Flow Rate FiO2 05/10/17 20:00 96.4 89 20 120/73 (89) 97 05/10/17 17:34 103 18 148/87 (107) 05/10/17 12:52 18 05/10/17 08:58 97.1 86 20 113/66 (82) 97 I/O 05/10/17 05/10/17 05/10/17 05/11/17 05/11/17 05/11/17 07:00 15:00 23:00 07:00 15:00 23:00 Intake Total 240 ml 300 ml Balance 240 ml 300 ml Intake Oral 240 ml 300 ml # Voids 4 2 6 # Bowel Movements 1 2 Result Diagram: 05/10/1791805/10/17918 Objective Remarks GENERAL: Well-developed, well-nourished, in no acute distress. alert and orientated HEENT: Head is normocephalic without any lesions or masses noted. Facial features are symmetric. Eyes: Extraocular muscles are intact. Conjunctivae were icteric. NECK: Supple without any masses. Trachea midline no deviation. No JVD, CARDIAC: Regular rhythm, regular rate. S1/S2 are heard. 2/6 murmurs, no gallops or rubs. LUNGS: Clear to auscultation bilaterally. No wheeze, rhonchi or rales. No use of accessory muscles on inspiration or expiration. ABDOMEN: Soft, nontender. Nondistended. Bowel sounds heard in all 4 quadrants. No organomegaly or masses. Negative rebound, negative guarding EXTREMITIES: No edema, pulses are equal bilaterally. No cyanosis or clubbing NEUROLOGY: Mood and affect appear appropriate. Cranial nerves II through XII grossly intact. Moving all extremities, speech is clear, Procedures none Urinary Catheter: No Vascular Central Line Catheter: No A/P Assessment and Plan Dyspepsia and intermittent rectal bleeding Hemoglobin has remained stable GI consulted, plans for endoscopy today Continue Protonix 40 mg daily Leukocytosis Likely secondary to steroid use, continue to trend CBC Chest x-ray was unremarkable for any acute infection Patient remains afebrile, no signs or source of infection Awaiting urinalysis Chest pain, likely secondary to dyspepsia Cardiac enzymes were performed which were unremarkable for any acute coronary event EKG shows normal sinus rhythm without any changes Thrombocytopenia Likely secondary to chronic liver disease, cirrhosis Platelet count improving Unsafe discharge secondary to debility, deconditioning, weakness Continue PT until cleared to discharge home or until case work aide can arrange home health care Case management consulted for discharge planning Liver failure secondary to EtOH hepatitis Patient with multiple abnormalities to include anemia, thrombocytopenia, coagulopathy, jaundice, ascites, hepatitis panel was negative, JAYANT screen is positive, IgA elevated Status post paracentesis with total of 2500 cc removed Patient continued on Lasix, rifaximin, Aldactone, Trental, lactulose GI was consulted and will follow up outpatient Palliative care was consulted and at the present time patient wants to be treated aggressively, states that she will stop drinking and reengage with AA. Hypotension, Continue to monitor blood pressure, Increased to midodrine 12.5 mg 3 times daily Hyponatremia, asymptomatic Likely secondary to liver failure, cirrhosis, diuretic use Continue monitor External genitalia pruritus Could be secondary to change in vaginal keith, yeast infection Topical miconazole every 12 hours as needed Back pain Continue pain control with oxycodone Follow-up MRI of the thoracic spine in mid-April because of possible subtle syrinx versus artifact, as requested by neurology DVT prevention Sequential compression devices Discharge Planning Discharge planning. Case management consulted to arrange home health care, if unable to be arranged patient will require hospitalization until cleared by therapy services to go home without any PT/OT Andrea Weathers May 11, 2017 08:04
[2017-05-11 08:24] LABS: POTASSIUM 3.7 MEQ/L (3.5-5.1)
[2017-05-11 08:28] LABS: BICARBONATE 27.7 MEQ/L (21.0-32.0)
[2017-05-11 08:43] LABS: AUTOMATED NEUTROPHIL # 14.2 TH/MM3 (1.8-7.7); BASOPHIL % 0.3 % (0.0-2.0); EOSINOPHIL % 0.2 % (0.0-4.0); HEMATOCRIT 28.4 % (35.0-46.0); LYMPH % 7.6 % (9.0-44.0); LYMPHOCYTE # 1.2 TH/MM3 (1.0-4.8); MEAN CELL VOLUME 109.8 FL (80.0-100.0); MEAN CORPUSCULAR HEMOGLOBIN 37.5 PG (27.0-34.0); MEAN CORPUSCULAR HGB CONC 34.2 % (32.0-36.0); MONO % 1.8 % (0.0-8.0); NEUT % 90.1 % (16.0-70.0); PLATELET COUNT 104 TH/MM3 (150-450); RED BLOOD COUNT 2.59 MIL/MM3 (4.00-5.30); RED CELL DISTRIBUTION WIDTH 16.6 % (11.6-17.2); WHITE BLOOD COUNT 15.7 TH/MM3 (4.0-11.0)
[2017-05-11 08:47] LABS: HEMO FLAGS DIFF FINAL
[2017-05-11] MEDS: POTASSIUM CHLORIDE 20 MEQ CONTROLLED RELEASE TAB PO SCH ×2 (09:00→21:16)
[2017-05-11] MEDS: FUROSEMIDE 40 MG TAB PO SCH ×2 (09:00→17:50)
[2017-05-11] MEDS: RIFAXIMIN 550 MG TAB PO SCH ×2 (09:00→21:16)
[2017-05-11] MEDS: CITALOPRAM HYDROBROMIDE 20 MG TAB PO SCH (09:24)
[2017-05-11] MEDS: prednisoLONE 10 MG ODT TAB PO SCH (09:24)
[2017-05-11] MEDS: PANTOPRAZOLE SOD 40 MG DELAYED RELEASE TAB PO SCH (09:24)
[2017-05-11] MEDS: SPIRONOLACTONE 50 MG TAB PO SCH ×2 (09:24→17:51)
[2017-05-11 12:15] VITALS: BP 116/63; PULSE 96; RESP 16; TEMP 98.9; O2SAT 98
[2017-05-11] MEDS ORDERED: *Lactated Ringer's INJ 1,000 ML ONE (12:19)
[2017-05-11] MEDS ORDERED: PROPOFOL 200 MG/20 ML AMP IV ONE (12:59)
--- NOTE | 2017-05-11 13:16 | GIPROC ---
[facility] [address] [place] [address], [id number] EGD PROCEDURE REPORT EXAM DATE: 05/11/2017 PATIENT NAME: Krupa Espinoza MR #: [id number] BIRTHDATE: 1960 ATTENDING: Iqra Clark MD ORDER #: [id number] PIN CLEANER: Riceky Cordero and Mary Ling STATUS: inpatient INDICATIONS: The patient is a 56 yr old female here for an EGD due to acute post hemorrhagic anemia and dysphagia PROCEDURE PERFORMED: EGD w/ biopsy EGD w/ ablation MEDICATIONS: None and Per Anesthesia. TOPICAL ANESTHETIC: CONSENT: The patient understands the risks and benefits of the procedure and understands that these risks include, but are not limited to: sedation, allergic reaction, infection, perforation and/or bleeding. Alternative means of evaluation and treatment include, among others: physical exam, x-rays, and/or surgical intervention. The patient elects to proceed with this endoscopic procedure. medical equipment was checked for proper function. Hand hygiene and appropriate measures for infection prevention was taken. After the risks, benefits and alternatives of the procedure were thoroughly explained, Informed consent was verified, confirmed and timeout was successfully executed by the treatment team. The patient was anesthetized with topical anesthesia and the EC-3490Li (Pedi C) endoscope was introduced through the mouth and advanced to the second portion of the duodenum. Retroflexed views revealed no abnormalities The gastroscope was then slowly withdrawn and removed. ESOPHAGUS: There was LA Class B esophagitis noted. A biopsy was performed. 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 Bipolar (BICAP) cautery with a 10Fr probe was applied to the site for 5 secs using 15 nation power. Moderate pressure was applied to the cautery site with complete hemostasis achieved. There was alcoholic moderate gastritis in the gastric fundus. DUODENUM: The duodenal mucosa appeared normal in the bulb and second portion of the duodenum. ADVERSE EVENTS: There were no complications. IMPRESSIONS: 1. There was LA Class B esophagitis noted; biopsy was performed 2. Arteriovenous malformation measuring 4mm in size was found in the gastric body; Bipolar (BICAP) cautery with a 10Fr probe was applied to the site for 5 secs; with complete hemostasis achieved 3. There was alcoholic gastritis in the gastric fundus 4. Normal duodenal mucosa in the bulb and second portion of the duodenum 5. Retroflexed views revealed no abnormalities RECOMMENDATIONS: 1. Await biopsy results. Biopsy results will not be ready for 7-10 days. If you don't hear from us in two weeks, call our office for biopsy results. 2. Anti-reflux regimen 3. Continue PPI 4. Avoid NSAIDS PATIENT CONDITION: stable DISPOSITION: Inpatient REPEAT EXAM: Return 1 year EGD pending biopsy results Iqra Clark MD eSigned: Iqra Clark MD 05/11/2017 1:15 PM cc: PATIENT NAME: Krupa Espinoza MR#: [id number]
--- NOTE | 2017-05-11 13:18 | GIPROC ---
[facility] [address] [place] [address], [id number] COLONOSCOPY PROCEDURE REPORT EXAM DATE: 05/11/2017 PATIENT NAME: Krupa Espinoza MR #: [id number] BIRTHDATE: 1960 ENDOSCOPIST: Iqra Clark MD ORDER #: [id number] DERMATOLOGY SALES REPRESENTATIVE: Rickey Cordero and Mary Ling STATUS: inpatient INDICATIONS: The patient is a 56 yr old female here for a colonoscopy due to anemia, non-specific and hematochezia PROCEDURE PERFORMED: Colonoscopy with biopsy MEDICATIONS: None and Per Anesthesia. PREP QUALITY: poor PREP TYPE:GoLytely ESTIMATED BLOOD LOSS: None CONSENT: The patient understands the risks and benefits of the procedure and understands that these risks include, but are not limited to: sedation, allergic reaction, infection, perforation and/or bleeding. Alternative means of evaluation and treatment include, among others: physical exam, x-rays, and/or surgical intervention. The patient elects to proceed with this endoscopic procedure. medical equipment was checked for proper function. Hand hygiene and appropriate measures for infection prevention was taken. After the risks, benefits and alternatives of the procedure were thoroughly explained, Informed consent was verified, confirmed and timeout was successfully executed by the treatment team. A digital exam revealed external hemorrhoids The Pentax EC-3490Li endoscope was introduced through the anus and advanced to the cecum, which was identified by both the appendix and ileocecal valve. The instrument was then slowly withdrawn as the colon was fully examined. COLON FINDINGS: A polypoid shaped sessile polyp ranging between 5-9mm in size was found in the sigmoid colon. A biopsy was performed using cold forceps. Retroflexed views revealed internal hemorrhoids and Retroflexed views revealed medium internal hemorrhoids The scope was then completely withdrawn from the patient and the procedure terminated. ADVERSE EVENTS: There were no complications. IMPRESSIONS: 1. A sessile polyp ranging between 5-9mm in size was found in the sigmoid colon; biopsy was performed using cold forceps 2. Retroflexed views revealed internal hemorrhoids 3. Retroflexed views revealed medium internal hemorrhoids 4. Revealed external hemorrhoids RECOMMENDATIONS: 1. Await biopsy results. Biopsy results will not be ready for 7-10 days. If you don't hear from us in two weeks, call our office for results. 2. Continue surveillance 3. Yearly hemoccult 4. Hydrocortisone supp 25mg NH HS RECALL: Return 6 months Colonoscopy, pending biopsy results Iqra Clark MD eSigned: Iqra Clark MD 05/11/2017 1:18 PM cc:
--- NOTE | 2017-05-11 14:02 | EKG ---
Date Performed: 05/10/2017 Time Performed: 12:35:55 PTAGE: 56 years EKG: Sinus rhythm NORMAL ECG Compared to prior tracing no significant change PREVIOUS TRACING : 05/09/2017 11.37 DOCTOR: Karen Jacobs Interpretating Date/Time 05/11/2017 13:57:06
[2017-05-11] MEDS: FLUCONAZOLE 100 MG TAB PO SCH (14:58)
[2017-05-11 16:03] LABS: BLOOD, URINE NEG (NEG); GLUCOSE,URINE NEG (NEG); KETONE, URINE NEG (NEG); NITRITE,URINE NEG (NEG)
[2017-05-11 16:12] LABS: METHOD OF COLLECTION CLEAN CATCH
[2017-05-11 16:13] LABS: URINE COLOR YELLOW (YELLW/STRAW)
[2017-05-11 16:17] LABS: BACTERIA, URINE MOD /hpf; COMMENT (UR) CULTURE INDICATED; CULTURE IF INDICATED CULTURE INDICATED; WBC, URINE 0-2 /hpf (0-5)
[2017-05-11 17:45] VITALS: BP 118/68; PULSE 101; RESP 18
[2017-05-11 20:00] VITALS: BP 155/60; PULSE 96; RESP 18; TEMP 98.4; O2SAT 99
[2017-05-11] MEDS: traZODone HCL 50 MG TAB PO SCH (21:16)
[2017-05-11] MEDS: hydrOXYzine HCL 25 MG TAB PO PRN (23:16)
[2017-05-12] MEDS: PENTOXIFYLLINE 400 MG CONTROLLED RELEASE TAB PO SCH ×3 (06:02→20:29)
[2017-05-12] MEDS: MIDODRINE 5 MG TAB PO SCH ×3 (06:03→17:42)
[2017-05-12 07:03] LABS: AUTOMATED NEUTROPHIL # 12.6 TH/MM3 (1.8-7.7); BASOPHIL % 0.1 % (0.0-2.0); CHLORIDE 96 MEQ/L (98-107); EOSINOPHIL % 0.1 % (0.0-4.0); HEMATOCRIT 28.8 % (35.0-46.0); HEMO FLAGS DIFF FINAL; LYMPH % 9.5 % (9.0-44.0); LYMPHOCYTE # 1.4 TH/MM3 (1.0-4.8); MEAN CELL VOLUME 108.1 FL (80.0-100.0); MEAN CORPUSCULAR HGB CONC 34.2 % (32.0-36.0); NEUT % 86.3 % (16.0-70.0); PLATELET COUNT 118 TH/MM3 (150-450); POTASSIUM 3.8 MEQ/L (3.5-5.1); RED BLOOD COUNT 2.66 MIL/MM3 (4.00-5.30); SODIUM (NA) 132 MEQ/L (136-145); WHITE BLOOD COUNT 14.6 TH/MM3 (4.0-11.0)
[2017-05-12 07:10] LABS: ANION GAP 8 MEQ/L (5-15); BICARBONATE 28.2 MEQ/L (21.0-32.0); BLOOD UREA NITROGEN 11 MG/DL (7-18)
[2017-05-12 07:12] LABS: ALT (GPT) 88 U/L (10-53); AST (GOT) 91 U/L (15-37)
[2017-05-12 07:13] LABS: GLOMERULAR FILTRATION RATE 102 ML/MIN (>89)
[2017-05-12 07:15] LABS: ALKALINE PHOSPHATASE 124 U/L (45-117)
[2017-05-12 08:00] VITALS: BP 120/70; PULSE 95; RESP 18; TEMP 96.9; O2SAT 99
[2017-05-12] MEDS: SPIRONOLACTONE 50 MG TAB PO SCH ×2 (11:05→17:47)
[2017-05-12] MEDS: POTASSIUM CHLORIDE 20 MEQ CONTROLLED RELEASE TAB PO SCH ×2 (11:05→20:30)
[2017-05-12] MEDS: PANTOPRAZOLE SOD 40 MG DELAYED RELEASE TAB PO SCH (11:05)
[2017-05-12] MEDS: RIFAXIMIN 550 MG TAB PO SCH ×2 (11:05→20:29)
[2017-05-12] MEDS: CITALOPRAM HYDROBROMIDE 20 MG TAB PO SCH (11:06)
[2017-05-12] MEDS: FLUCONAZOLE 100 MG TAB PO SCH (11:06)
[2017-05-12] MEDS: prednisoLONE 10 MG ODT TAB PO SCH (11:06)
[2017-05-12] MEDS: FUROSEMIDE 40 MG TAB PO SCH ×2 (11:06→17:47)
[2017-05-12 12:00] VITALS: BP_SYST 116; BP_SYST 118; BP_DIAS 80; BP_DIAS 85; PULSE 126; PULSE 80; RESP 18; TEMP 97.2; TEMP 99.1; O2SAT 95; O2SAT 98
--- NOTE | 2017-05-12 12:07 | HHI.PR ---
Subjective Remarks Patient seen and examined today for follow-up on end-stage liver disease. Patient was standing up walking without a walker this morning when I am in the room. Appears to be doing much better. I discussed her endoscopy results with her today. Notified the patient that we're waiting on physical therapy to clear her to be able to go home. However, it appears as if when PT saw the patient today she states that she was too tired to participate so no advancement of her care can be done because of her deferral of treatment. I discussed with the patient also about alcohol treatment and supplied her with paperwork for [facility]. Objective Vitals Vital Signs Date Time Temp Pulse Resp B/P (MAP) Pulse Ox O2 Delivery O2 Flow Rate FiO2 05/12/17 08:00 96.9 95 18 120/70 (87) 99 05/11/17 20:00 98.4 96 18 155/60 (91) 99 05/11/17 17:45 101 18 118/68 (85) 05/11/17 13:15 95 16 133/67 (89) 99 05/11/17 13:03 99.5 87 16 127/65 (85) 99 05/11/17 12:15 98.9 96 16 116/63 (80) 98 I/O 05/11/17 05/11/17 05/11/17 05/12/17 05/12/17 05/12/17 07:00 15:00 23:00 07:00 15:00 23:00 Intake Total 300 ml 200 ml 500 ml 420 ml Balance 300 ml 200 ml 500 ml 420 ml Intake Oral 300 ml 500 ml 420 ml IV Total 100 ml Other 100 ml # Voids 6 5 3 # Bowel Movements 2 4 0 Result Diagram: 05/12/1730 05/12/17 0630 Objective Remarks GENERAL: Well-developed, well-nourished, in no acute distress. alert and orientated HEENT: Head is normocephalic without any lesions or masses noted. Facial features are symmetric. Eyes: Extraocular muscles are intact. Conjunctivae were icteric. NECK: Supple without any masses. Trachea midline no deviation. No JVD, CARDIAC: Regular rhythm, regular rate. S1/S2 are heard. 2/6 murmurs, no gallops or rubs. LUNGS: Clear to auscultation bilaterally. No wheeze, rhonchi or rales. No use of accessory muscles on inspiration or expiration. ABDOMEN: Soft, nontender. Nondistended. Bowel sounds heard in all 4 quadrants. No organomegaly or masses. Negative rebound, negative guarding EXTREMITIES: No edema, pulses are equal bilaterally. No cyanosis or clubbing NEUROLOGY: Mood and affect appear appropriate. Cranial nerves II through XII grossly intact. Moving all extremities, speech is clear, walking in the room without any assisted device Procedures none Urinary Catheter: No Vascular Central Line Catheter: No A/P Assessment and Plan Dyspepsia and intermittent rectal bleeding Hemoglobin has remained stable GI consulted, endoscopy indicate esophagitis, gastritis, AV malformation, polyp, hemorrhoids Continue Protonix 40 mg daily Diflucan added by GI Leukocytosis Likely secondary to steroid use, continue to trend CBC Chest x-ray was unremarkable for any acute infection Patient remains afebrile, no signs or source of infection Awaiting urinalysis Chest pain, likely secondary to dyspepsia/esophagitis Cardiac enzymes were performed which were unremarkable for any acute coronary event EKG shows normal sinus rhythm without any changes Thrombocytopenia Likely secondary to chronic liver disease, cirrhosis Platelet count improving Unsafe discharge secondary to debility, deconditioning, weakness Continue PT until cleared to discharge home or until human services case manager can arrange home health care Case management consulted for discharge planning Liver failure secondary to EtOH hepatitis Patient with multiple abnormalities to include anemia, thrombocytopenia, coagulopathy, jaundice, ascites, hepatitis panel was negative, JAYANT screen is positive, IgA elevated Status post paracentesis with total of 2500 cc removed Patient continued on Lasix, rifaximin, Aldactone, Trental, lactulose GI was consulted and will follow up outpatient Palliative care was consulted and at the present time patient wants to be treated aggressively, states that she will stop drinking and reengage with AA. Patient given information to contact [facility] upon discharge Hypotension, Continue to monitor blood pressure, Increased to midodrine 12.5 mg 3 times daily Hyponatremia, asymptomatic Likely secondary to liver failure, cirrhosis, diuretic use Continue monitor External genitalia pruritus Could be secondary to change in vaginal keith, yeast infection Topical miconazole every 12 hours as needed Back pain Continue pain control with oxycodone Follow-up MRI of the thoracic spine in mid-April because of possible subtle syrinx versus artifact, as requested by neurology DVT prevention Sequential compression devices Discharge Planning Discharge planning. Case management consulted to arrange home health care, if unable to be arranged patient will require hospitalization until cleared by therapy services to go home without any PT/OT Andrea Weathers May 12, 2017 12:07
--- NOTE | 2017-05-12 12:09 | HHI.FF ---
Face to Face Verification Diagnosis: (1) Generalized weakness Physical Therapy Order: Evaluate and Treat, Improve ambulation, Strength and gait training I have seen patient Krupa Espinoza on 05/12/17. My clinical findings support the need for the requested home health care services because: Deconditioned w/ increased weakness I certify that my clinical findings support that this patient is homebound because: Unsteady gait/balance Andrea Weathers May 12, 2017 12:09
[2017-05-12 16:00] VITALS: BP 125/78; PULSE 100; RESP 18; TEMP 96.7; O2SAT 95
[2017-05-12 19:15] VITALS: BP 129/68; PULSE 88; RESP 16; TEMP 98.4; O2SAT 96
[2017-05-12] MEDS: traZODone HCL 50 MG TAB PO SCH (23:23)
[2017-05-13] MEDS: MIDODRINE 5 MG TAB PO SCH ×2 (06:07→11:49)
[2017-05-13] MEDS: PENTOXIFYLLINE 400 MG CONTROLLED RELEASE TAB PO SCH ×2 (06:07→13:41)
[2017-05-13 08:00] VITALS: BP 130/80; PULSE 92; RESP 18; TEMP 98.4; O2SAT 93
[2017-05-13] MEDS: FLUCONAZOLE 100 MG TAB PO SCH (08:24)
[2017-05-13] MEDS: FUROSEMIDE 40 MG TAB PO SCH (08:25)
[2017-05-13] MEDS: POTASSIUM CHLORIDE 20 MEQ CONTROLLED RELEASE TAB PO SCH (08:25)
[2017-05-13] MEDS: RIFAXIMIN 550 MG TAB PO SCH (08:26)
[2017-05-13] MEDS: CITALOPRAM HYDROBROMIDE 20 MG TAB PO SCH (08:26)
[2017-05-13] MEDS: PANTOPRAZOLE SOD 40 MG DELAYED RELEASE TAB PO SCH (08:26)
[2017-05-13] MEDS: SPIRONOLACTONE 50 MG TAB PO SCH (08:26)
[2017-05-13] MEDS: prednisoLONE 10 MG ODT TAB PO SCH (08:31)
[2017-05-13 12:00] VITALS: BP 140/86; PULSE 116; RESP 18; TEMP 98.7; O2SAT 99
--- NOTE | 2017-05-13 14:40 | HHI.GIFU ---
Subjective Remarks Overall feeling better, sitting in a chair having physical therapy, less jaundice, no diarrhea no abdominal pain still some discomfort with eating but better Objective Vitals I&O Vital Signs Date Time Temp Pulse Resp B/P (MAP) Pulse Ox O2 Delivery O2 Flow Rate FiO2 05/13/17 12:00 98.7 116 18 140/86 (104) 99 05/13/17 08:00 98.4 92 18 130/80 (97) 93 05/12/17 19:15 98.4 88 16 129/68 (88) 96 05/12/17 16:00 96.7 100 18 125/78 (94) 95 I/O 05/12/17 05/12/17 05/12/17 05/13/17 05/13/17 05/13/17 07:00 15:00 23:00 07:00 15:00 23:00 Intake Total 420 ml 720 ml 240 ml Balance 420 ml 720 ml 240 ml Intake Oral 420 ml 720 ml 240 ml # Voids 3 4 5 # Bowel Movements 0 2 Laboratory Date/Time Source Procedure Growth Status 04/19/17 14:32 Blood Peripheral Aerobic Blood Culture - Final NO GROWTH IN 5 DAYS Complete 04/19/17 14:32 Blood Peripheral Anaerobic Blood Culture - Final NO GROWTH IN 5 DAYS Complete 04/21/17 13:25 Fluid Peritoneal Fluid Gram Stain - Final Complete 04/21/17 13:25 Fluid Peritoneal Fluid Body Fluid Culture - Final NO GROWTH IN 72 HRS.--AEROBICALLY OR ... Complete 05/11/17 15:45 Urine Clean Catch Urine Culture - Final Hafnia Alvei Complete Physical Exam HEENT: Pupils round and reactive to light; normocephalic; atraumatic; jaundice. Throat is clear. NECK: Neck is supple, no JVD, no lymphadenopathy. CHEST: Chest is clear to auscultation and percussion. CARDIAC: Regular rate and rhythm with no murmur gallop or rubs. ABDOMEN: Soft, nondistended, minimal midepigastric tenderness; hepatomegaly; bowel sounds are present in all four quadrants. EXTREMITIES: No clubbing, cyanosis, or edema. SKIN: Normal; no rash; jaundice. TAX ADJUSTER: no flapping A/O Assessment and Plan Plan ASSESSMENT: - Liver failure secondary etoh hepatitis - Etoh hepatitis, - Coagulpaty secondary to that - Ascites s/p paracentesis secondary portal htn-no sbp patient is not clear about how much she drinks, (she said she has no drinking for few wks but at same time she said he had wine to sleep before coming to hospital 04-27-17 seems to be doing better, but still very jaundiced, consistent with alcohol hepatitis she continued to wanting to be full code and no palliative care, we discussed transplant option after 6 month of being off alcohol or any substance abuse 04/28/2017 patient is doing better but still very jaundiced, alcohol liver disease with cirrhosis. 05/10/2017 patient slightly less jaundice she was complaining of dyspepsia/ dysphagia and rectal bleeding small amounts 05/13/2017 doing better had colon EGD done which show an D the esophagitis and adenomatous polyp already started on treatment with fluconazole PLAN: - Continue current management - Needs to stop etoh use completely - Lactulose and Rifaximin we will sign off at this point Rochelle Proctor MD May 13, 2017 14:40
[2017-05-13] MEDS ORDERED: POTA20TA5 PO (15:04)
[2017-05-13] MEDS ORDERED: MIDO5TAB PO (15:04)
[2017-05-13] MEDS ORDERED: PENT400T PO (15:04)
[2017-05-13] MEDS ORDERED: PRED1TAB72 PO (15:04)
[2017-05-13] MEDS ORDERED: XIFA550T4 PO (15:04)
[2017-05-13] MEDS ORDERED: DIFL100T PO (15:04)
[2017-05-13] MEDS ORDERED: FURO40TA PO (15:04)
[2017-05-13] MEDS ORDERED: ALDA50TA2 PO (15:04)
[2017-05-13] MEDS ORDERED: WALKER WHEELS/F1 MIS (15:04)
[2017-05-13] MEDS ORDERED: PANT40TA3 PO (15:04)
--- NOTE | 2017-05-13 15:12 | HHI.DS ---
Discharge Summary Admission Date Apr 19, 2017 at 15:07 Discharge Date: May 13, 2017 Admitting Diagnosis jaundice, cirrhosis, ascites, hyponatremia (1) Chest pain ICD Code: R07.9 - Chest pain, unspecified Status: Acute (2) Rectal bleeding ICD Code: K62.5 - Hemorrhage of anus and rectum Status: Acute (3) Anemia ICD Code: D64.9 - Anemia, unspecified Status: Acute (4) Leukocytosis ICD Code: D72.829 - Elevated white blood cell count, unspecified Status: Acute (5) Liver failure, acute ICD Code: K72.00 - Acute and subacute hepatic failure without coma (6) Abdominal bruit ICD Code: R09.89 - Other specified symptoms and signs involving the circulatory and respiratory systems Status: Acute Procedures Paracentesis with removal of 2500 cc of clear yellow fluid EGD was done that showed B esophagitis, 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 Colonoscopy with sessile polyp which biopsy was performed, internal hemorrhoids , external hemorrhoids Brief History - From Admission Patient is a 56 female who drinks wine daily and who came to the ER by ambulance for complaints of dizziness and feeling poorly for one day. She had back pain and a friend gave her a tramadol which she took at work. She felt dizzy and a coworker thought she looked yellow. She was recently evaluated by Dr Martel for liver disease and her Hepatitis profile was negative. She was hypotensive and jaundiced with high liver numbers. She has anxiety and takes tramadol and Celexa. There has been no belly pain or nausea today but in the past few days she has had this without emesis. CBC/BMP: 05/12/17 0630 05/12/17 0630 Significant Findings Laboratory Tests Test 05/11/17 07:40 05/11/17 15:45 05/12/17 06:30 White Blood Count 15.7 TH/MM3 (4.0-11.0) 14.6 TH/MM3 (4.0-11.0) Red Blood Count 2.59 MIL/MM3 (4.00-5.30) 2.66 MIL/MM3 (4.00-5.30) Hemoglobin 9.7 GM/DL (11.6-15.3) 9.8 GM/DL (11.6-15.3) Hematocrit 28.4 % (35.0-46.0) 28.8 % (35.0-46.0) Mean Corpuscular Volume 109.8 FL (80.0-100.0) 108.1 FL (80.0-100.0) Mean Corpuscular Hemoglobin 37.5 PG (27.0-34.0) 37.0 PG (27.0-34.0) Platelet Count 104 TH/MM3 (150-450) 118 TH/MM3 (150-450) Neutrophils (%) (Auto) 90.1 % (16.0-70.0) 86.3 % (16.0-70.0) Lymphocytes (%) (Auto) 7.6 % (9.0-44.0) Neutrophils # (Auto) 14.2 TH/MM3 (1.8-7.7) 12.6 TH/MM3 (1.8-7.7) Sodium Level 135 MEQ/L (136-145) 132 MEQ/L (136-145) Chloride Level 96 MEQ/L (98-107) 96 MEQ/L (98-107) Urine Bacteria MOD /hpf (NONE) Total Protein 5.7 GM/DL (6.4-8.2) Albumin 2.4 GM/DL (3.4-5.0) Alkaline Phosphatase 124 U/L (45-117) Aspartate Amino Transf (AST/SGOT) 91 U/L (15-37) Alanine Aminotransferase (ALT/SGPT) 88 U/L (10-53) Total Bilirubin 10.0 MG/DL (0.2-1.0) Imaging Last Impressions Chest X-Ray 05/10/17 0000 Signed Impressions: Service Date/Time: Wednesday, May 10, 2017 12:44 - CONCLUSION: No acute disease. Darren Thomas Jr., MD Aorta Ultrasound 05/05/17 0000 Signed Impressions: Service Date/Time: Friday, May 05, 2017 07:49 - CONCLUSION: 1. Normal dimension abdominal aorta. 2. Incidentally noted findings of ascites and sludge within the gallbladder. Darren Field MD Cyst Biopsy Asp-Paracentesis US 8/23/17 0000 Signed Impressions: Service Date/Time: Friday, April 21, 2017 13:00 - CONCLUSION: Uncomplicated ultrasound guided paracentesis. Andrez Calderon MD Thoracic Spine MRI 04/20/17 Signed Impressions: Service Date/Time: Thursday, April 20, 2017 13:28 - CONCLUSION: 1. Questionable thin caliber increased signal within the cord diffusely may be related to a subtle syrinx versus artifactual. Consider a followup short interval MRI in 2-4 weeks both with and without contrast. Checo Pollard MD Cholangiopancreatography MRI 04/20/17 Signed Impressions: Service Date/Time: Thursday, April 20, 2017 12:58 - CONCLUSION: 1. No evidence for biliary obstruction. 2. Fatty liver. 3. Ascites and pleural effusions. Checo Pollard MD Gall Bladder Ultrasound 04/19/17 Signed Impressions: Service Date/Time: Wednesday, April 19, 2017 13:05 - CONCLUSION: 1. Sonographic findings characteristic of some degree of cirrhosis with hepatic fatty infiltration and nodularity. 2. In addition, there is hepatofugal flow in the main portal vein characteristic of portal hypertension. 3. Ascites. 4. Sludge filled gallbladder with gallbladder wall thickening and pericholecystic fluid. Findings are nonspecific and can be related to liver failure with low oncotic pressures. Armen Rodriguez MD Abdomen/Pelvis CT 04/19/17 Signed Impressions: Service Date/Time: Wednesday, April 19, 2017 13:51 - CONCLUSION: 1. Diffuse hepatic fatty infiltration with probable focal areas of fatty sparing. 2. Mild to moderate ascites. 3. Moderate size left pleural effusion with a tiny right pleural effusion. Concomitant atelectatic changes in the left base. 4. Pericholecystic fluid with possible some gallbladder wall thickening and luminal sludge 5. Partial sacralization of the left side of L5. Armen Rodriguez MD PE at Discharge GENERAL: Well-developed, well-nourished, in no acute distress. alert and orientated HEENT: Head is normocephalic without any lesions or masses noted. Facial features are symmetric. Eyes: Extraocular muscles are intact. Conjunctivae were icteric. NECK: Supple without any masses. Trachea midline no deviation. No JVD, CARDIAC: Regular rhythm, regular rate. S1/S2 are heard. 2/6 murmurs, no gallops or rubs. LUNGS: Clear to auscultation bilaterally. No wheeze, rhonchi or rales. No use of accessory muscles on inspiration or expiration. ABDOMEN: Soft, nontender. Nondistended. Bowel sounds heard in all 4 quadrants. No organomegaly or masses. Negative rebound, negative guarding EXTREMITIES: No edema, pulses are equal bilaterally. No cyanosis or clubbing NEUROLOGY: Mood and affect appear appropriate. Cranial nerves II through XII grossly intact. Moving all extremities, speech is clear, walking in the room without any assisted device Hospital Course Is a 56-year-old female who originally presented to hospital because of feeling poorly and dizziness. She was at work and her coworker thought that she was yellow coloration is indicated that she had recent workup with hepatitis profile which was negative. 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 Patient has significant ascites and underwent paracentesis by radiology with removal of 2500 cc of fluid. GI was consulted and followed the patient to her stay at the hospital. Laboratory studies were trended on a regular basis and they appeared to go down nicely daily. Patient did have CT scan done of the abdomen which did show significant ascites, pericholecystic fluid. MRCP was performed which did not indicate any biliary obstruction, did show fatty liver with ascites and pleural effusions. Patient medically condition much in the hospital and continue with physical therapy. Patient was maintained in the hospital because of weakness. During that stay she also developed some bright red blood per rectum and epigastric abdominal pain. Patient did have workup that ruled out any acute coronary event. GI evaluated patient and she went for panendoscopy which did show esophagitis and histology does indicate fungal element. Alcoholic gastritis. AV malformation. Colonoscopy showed sessile polyp which was biopsied, which showed tubular adenoma. Patient was started for treatment of esophagitis with proton pump inhibitor, Diflucan which will be continued upon discharge. Patient clinically improved. She is ambulating the halls with a wheeled walker. Is recommended by physical therapy that patient should have wheeled walker upon discharge. However she is stable to go home per physical therapist today. Will plan discharge accordingly. Patient will need follow-up with GI upon discharge. Pt Condition on Discharge: Stable Discharge Disposition: Discharge Home Discharge Time: > 30 minutes Discharge Instructions DIET: Follow Instructions for: Heart Healthy Diet Activities you can perform: Regular-No Restrictions Activities to Avoid: Driving for 24 hrs Follow up Referrals: Gastroenterology - 2 Weeks PCP Follow-up - 1 Week New Medications: Walker with Front Wheels (Walker with Front Wheels) 1 Mis Mis EA .ROUTE DIRECTED, #1 0 Refills Use for ambulation Fluconazole (Diflucan) 100 Mg Tab 100 MG PO DAILY for esophagitis for 20 Days, #20 TAB Furosemide (Furosemide) 40 Mg Tab 40 MG PO BID@09,18 for blood pressure management, camilo for 30 Days, TAB Midodrine (Midodrine) 5 Mg Tab 12.5 MG PO TID@07,12,17 for blood pressure management for 30 Days, TAB Pantoprazole (Pantoprazole) 40 Mg Tab 40 MG PO DAILY for GI protection, gastritis for 30 Days, #30 TAB Pentoxifylline ER (Pentoxifylline ER) 400 Mg Tab 400 MG PO Q8HR for liver failure for 30 Days, TAB Potassium Chloride Microencaps (Potassium Chloride Microencaps) 20 Meq Tab 40 MEQ PO BID for electrolyte replacement for 30 Days, #120 TAB Prednisolone Odt (Prednisolone Odt) 10 Mg Tab 20 MG PO DAILY for liver failure for 30 Days, #60 TAB Rifaximin (Xifaxan) 550 Mg Tab 550 MG PO BID for liver failure for 30 Days, #60 TAB Spironolactone (Aldactone) 50 Mg Tab 50 MG PO BID@09,18 for liver failure for 30 Days, TAB Continued Medications: Citalopram (Citalopram) 20 Mg Tab 20 MG PO DAILY for Control Depression, #30 TAB 0 Refills Estradiol (Estrace) 1 Mg Tab 1 MG PO DAILY for Estrogen Supplements, #30 TAB 0 Refills Trazodone (Trazodone) 150 Mg Tablet 150 MG PO HS for Control Depression, #30 TAB 0 Refills Discontinued Medications: Lisinopril (Lisinopril) 20 Mg Tab 20 MG PO DAILY, #30 TAB 0 Refills Andrea Weathers May 13, 2017 15:12
[2017-05-13 16:00] VITALS: BP 150/86; PULSE 105; RESP 20; TEMP 96.9; O2SAT 99
[2017-05-13] MEDS ORDERED: OXYC-392 PO (16:26)
[2017-05-13] MEDS ORDERED: HYDR-3133 PO (18:22)
== END 2017-05-13 19:21 | disposition home or self-care (01) | DRG 433 ==
LOC: PHED 12:26 → PHEDA 15:07 → PHICU 19:45 → PH3B 04-28 16:55 → PH5A 05-01 16:11 → PH3A 05-06 15:46
PROVIDERS: ADMIT Hospitalist; ATTEND Hospitalist
PROC: 0W9G3ZZ Drainage of Peritoneal Cavity, Percutaneous Approach (ICD-10-PCS; principal; 2017-04-21)
PROC: 0DB58ZX Excision of Esophagus, Via Natural or Artificial Opening Endoscopic, Diagnostic (ICD-10-PCS; 2017-05-11)
PROC: 0D568ZZ Destruction of Stomach, Via Natural or Artificial Opening Endoscopic (ICD-10-PCS; 2017-05-11)
PROC: 0DBN8ZX Excision of Sigmoid Colon, Via Natural or Artificial Opening Endoscopic, Diagnostic (ICD-10-PCS; 2017-05-11 12:41)
DX: K70.40 Alcoholic hepatic failure without coma (principal); J90 Pleural effusion, not elsewhere classified; K70.31 Alcoholic cirrhosis of liver with ascites; D68.9 Coagulation defect, unspecified; K76.6 Portal hypertension; E87.2 Acidosis; I95.9 Hypotension, unspecified; E87.1 Hypo-osmolality and hyponatremia; B37.49 Other urogenital candidiasis; K62.5 Hemorrhage of anus and rectum; E87.8 Other disorders of electrolyte and fluid balance, not elsewhere classified; K70.11 Alcoholic hepatitis with ascites; D69.6 Thrombocytopenia, unspecified; E87.70 Fluid overload, unspecified; I10 Essential (primary) hypertension; K21.0 Gastro-esophageal reflux disease with esophagitis; M47.814 Spondylosis without myelopathy or radiculopathy, thoracic region; R63.4 Abnormal weight loss; D12.5 Benign neoplasm of sigmoid colon; K64.8 Other hemorrhoids; K64.4 Residual hemorrhoidal skin tags; K31.819 Angiodysplasia of stomach and duodenum without bleeding; K29.20 Alcoholic gastritis without bleeding; E88.09 Other disorders of plasma-protein metabolism, not elsewhere classified; K42.9 Umbilical hernia without obstruction or gangrene; E87.6 Hypokalemia; D53.9 Nutritional anemia, unspecified; I08.3 Combined rheumatic disorders of mitral, aortic and tricuspid valves; G25.2 Other specified forms of tremor; D72.829 Elevated white blood cell count, unspecified; R27.8 Other lack of coordination; R13.10 Dysphagia, unspecified; K30 Functional dyspepsia; T38.0X5A Adverse effect of glucocorticoids and synthetic analogues, initial encounter; F41.9 Anxiety disorder, unspecified; F10.10 Alcohol abuse, uncomplicated; F32.9 Major depressive disorder, single episode, unspecified; Z81.1 Family history of alcohol abuse and dependence
CPT/HCPCS: 49083; 71010; 72146; 74177; 74181; 76377; 76705; 76775; 76937; 80048; 80053; 80074; 80076; 80307; 81001; 81256; 82042; 82103; 82140; 82248; 82390; 82533; 82550; 82728; 82784; 83516; 83520; 83540; 83550; 83605; 83615; 83690; 83735; 84484; 85007; 85014; 85018; 85025; 85027; 85610; 85730; 86038; 86039; 86255; 87040; 87070; 87077; 87086; 87186; 87205; 87493; 88305; 89051; 93005; 93306; 96374; C1729; J0696; J1885; J1940; J2060; J2405; J2543; J7030; J7040; J7120; J7510; P9047; Q9967

== ENCOUNTER 2017-06-13 17:54 | Observation (INO) | payer OTHER ==
[~2017-06-13] VITALS: Ht 175.3 cm; Wt 84.9 kg
[~2017-06-13 17:54] MED LIST changes: +ALDA50TA2 PO; -BACT800T5 PO; -CHLO25 PO; +DIFL100T PO; +ESTR1 PO; -ESTR1TAB PO; +FURO40TA PO; +HYDR-3133 PO; -LISI-363 PO; -LORA1TAB PO; -MEDR2.5T19 PO; +MIDO5TAB PO; +OXYC-392 PO; +PANT40TA3 PO; +PENT400T PO; +POTA20TA5 PO; +PRED1TAB72 PO; -PRIL20TA2 PO; -PROM25TA5 PO; +TRAZ1TAB45 PO; +WALKER WHEELS/F1 MIS; +XIFA550T4 PO; -ZANT150T2 PO; -ZANT300T PO
[2017-06-13 17:58] VITALS: BP 135/86; PULSE 120; RESP 22; TEMP 98; O2SAT 96
[2017-06-13] MEDS ORDERED: SODIUM CHLORIDE 0.9% FLUSH 10 ML FLUSH IV FLUSH PRN ×2 (18:15→21:45)
[2017-06-13] MEDS ORDERED: HYDROmorphone HCL PF 2 MG/ML VIAL IVS ONE (18:15)
[2017-06-13] MEDS ORDERED: ONDANSETRON HCL 4 MG/2 ML VIAL IVP ONE (18:15)
[2017-06-13 18:34] LABS: HEMATOCRIT 37.5 % (35.0-46.0); MEAN CELL VOLUME 97.3 FL (80.0-100.0); MEAN CORPUSCULAR HEMOGLOBIN 32.6 PG (27.0-34.0); MEAN CORPUSCULAR HGB CONC 33.5 % (32.0-36.0); PLATELET COUNT 143 TH/MM3 (150-450); RED BLOOD COUNT 3.85 MIL/MM3 (4.00-5.30); RED CELL DISTRIBUTION WIDTH 15.1 % (11.6-17.2); WHITE BLOOD COUNT 10.6 TH/MM3 (4.0-11.0)
[2017-06-13 18:35] LABS: HEMO FLAGS AUTO DIFF
[2017-06-13 18:44] LABS: CHLORIDE 95 MEQ/L (98-107); POTASSIUM 3.4 MEQ/L (3.5-5.1); SODIUM (NA) 131 MEQ/L (136-145)
[2017-06-13] MEDS ORDERED: PROM25TA10 PO (18:45)
[2017-06-13] MEDS ORDERED: LORA-373 PO (18:45)
[2017-06-13] MEDS ORDERED: IBUP-1129 PO (18:45)
[2017-06-13 18:48] LABS: ANION GAP 10 MEQ/L (5-15); BICARBONATE 25.8 MEQ/L (21.0-32.0); BLOOD UREA NITROGEN 6 MG/DL (7-18)
[2017-06-13 18:50] LABS: ALT (GPT) 29 U/L (10-53); AST (GOT) 35 U/L (15-37); GLOMERULAR FILTRATION RATE 73 ML/MIN (>89)
[2017-06-13 18:52] LABS: TOTAL BILIRUBIN ADULT 7.1 MG/DL (0.2-1.0)
[2017-06-13 18:53] LABS: ALKALINE PHOSPHATASE 131 U/L (45-117)
[2017-06-13 18:58] VITALS: PULSE 90; RESP 20; O2SAT 92
[2017-06-13 19:05] VITALS: BP 144/80; PULSE 90; RESP 20; O2SAT 95
[2017-06-13 19:11] LABS: NEUTROPHIL # MANUAL DIFF 9.1 TH/MM3 (1.8-7.7); PLATELET ESTIMATE SMEAR LOW (NORMAL); PLATELET MORPHOLOGY CLUMPED (NORMAL); POLYS (SEG NEUTROPHILS) 86 % (16-70); SCAN/DIFF FINAL DIFF MANUAL; WBC DIFF SAMPLE 100
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
[2017-06-13] MEDS ORDERED: IOHEXOL 350 MG/ML 10 ML VIAL (for RAD DIAG) IVCONTRAST ONE (19:42)
[2017-06-13 19:44] LABS: INTERNATIONAL NORMALIZED RATIO 1.3 RATIO; PROTHROMBIN TIME - PATIENT 14.4 SEC (9.8-11.6)
--- NOTE | 2017-06-13 19:57 | RADRPT ---
EXAM DATE/TIME: 06/13/2017 19:24 [facility] COMPARISON: CT ABDOMEN & PELVIS W CONTRAST, April 19, 2017, 13:51. INDICATIONS : Bilateral abdominal pain. Distention. IV CONTRAST: 100 cc Omnipaque 350 (iohexol) IV ORAL CONTRAST: No oral contrast ingested. RADIATION DOSE: 19.21 CTDIvol (mGy) MEDICAL HISTORY : Hypertension. Gastroesophageal reflux disease. End stage liver disease. SURGICAL HISTORY : None. ENCOUNTER: Initial ACUITY: 4 - 6 days PAIN SCALE: 7/10 LOCATION: Bilateral upper quadrant Lower quadrant TECHNIQUE: Volumetric scanning of the abdomen and pelvis was performed. Using automated exposure control and ad justment of the mA and/or kV according to patient size, radiation dose was kept as low as reasonably achievable to obtain optimal diagnostic quality images. DICOM format image data is available electro nically for review and comparison. FINDINGS: LOWER LUNGS: Left pleural effusion has enlarged since the previous study and is [id number] in size. LIVER: Liver appears heterogeneous. There is no similar duct dilatation or discrete mass. The gallbladder is distended SPLEEN: Mildly enlarged measuring 15 cm in craniocaudad dimension. PANCREAS: Within normal limits. KIDNEYS: Normal in size and shape. There is no mass, stone or hydronephrosis. ADRENAL GLANDS: Within normal limits. VASCULAR: There is no aortic aneurysm. BOWEL/MESENTERY: Significant increase in ascites is identified compared to previous study. Large amount of free fluid is identified in the abdominal cavity. There is no evidence of ileus or free air. ABDOMINAL WALL: Within normal limits. RETROPERITONEUM: There is no lymphadenopathy. BLADDER: No wall thickening or mass. REPRODUCTIVE: Within normal limits. INGUINAL: There is no lymphadenopathy or hernia. MUSCULOSKELETAL: Within normal limits for patient age. CONCLUSION: 1. Increasing left pleural effusion and ascites. 2. Chronic liver disease associated with splenomegaly. 3. Distended gallbladder. Miguel Angel Olguin MD on June 13, 2017 at 19:50 Board Certified Radiologist. This report was verified electronically.
[2017-06-13] MEDS ORDERED: PIPERACIL-TAZO 4.5 GM PREMIX 100 ML IV ONE (20:15)
[2017-06-13 20:42] VITALS: BP 135/73; PULSE 95; RESP 18; O2SAT 95
[2017-06-13 21:18] LABS: GLUCOSE,URINE NEG (NEG); KETONE, URINE NEG (NEG); NITRITE,URINE NEG (NEG); PH, URINE 5.5 (5.0-8.5)
[2017-06-13 21:33] LABS: BLOOD, URINE TRACE (NEG)
[2017-06-13 21:38] LABS: URINE COLOR AMBER (YELLW/STRAW)
[2017-06-13 21:39] LABS: BACTERIA, URINE OCC /hpf; HYALINE CAST, URINE 0-2 /lpf (RARE); SQUAMOUS EPITHELIAL CELL URINE 0-5 /hpf (0-5)
[2017-06-13 21:40] LABS: COMMENT (UR) CULT NOT INDICATED; CULTURE IF INDICATED CULT NOT INDICATED
[2017-06-13] MEDS ORDERED: LORazepam 2 MG/ML VIAL IV PUSH PRN ×4 (21:45)
[2017-06-13] MEDS ORDERED: SENNOSIDES 8.6 MG TAB PO PRN (21:45)
[2017-06-13] MEDS ORDERED: LORazepam 1 MG TAB PO PRN (21:45)
[2017-06-13] MEDS ORDERED: MAGNESIUM HYDROXIDE SUSP 30 ML CUP PO PRN (21:45)
[2017-06-13] MEDS ORDERED: LACTULOSE SYRUP 20 GM/30 ML CUP PO PRN (21:45)
[2017-06-13] MEDS ORDERED: FLUMAZENIL 0.5 MG/5 ML VIAL IV PUSH PRN (21:45)
[2017-06-13] MEDS ORDERED: ACETAMINOPHEN 325 MG TAB PO PRN (21:45)
[2017-06-13] MEDS ORDERED: ONDANSETRON HCL 4 MG/2 ML VIAL IVP PRN (21:45)
[2017-06-13] MEDS ORDERED: HALOPERIDOL LACTATE 5 MG/ML AMP IM PRN (21:45)
[2017-06-13] MEDS ORDERED: LORazepam 2 MG TAB PO PRN (21:45)
[2017-06-13] MEDS ORDERED: DEXT 5%-NACL 0.45% 500 ML INJ 500 ML IV ONE (21:45)
[2017-06-13] MEDS ORDERED: BISACODYL 10 MG SUPP RECTAL PRN (21:45)
[2017-06-13] MEDS ORDERED: FUROSEMIDE 20 MG/2 ML VIAL IV PUSH ONE (21:45)
[2017-06-13 22:15] VITALS: BP 131/74
[2017-06-13 23:20] VITALS: BP 102/83; PULSE 101; PULSE 86; RESP 24; TEMP 96.6; O2SAT 97
[2017-06-14 04:00] VITALS: BP 124/76; PULSE 98; RESP 20; TEMP 96.4; O2SAT 96
[2017-06-14 06:50] LABS: AUTOMATED NEUTROPHIL # 6.9 TH/MM3 (1.8-7.7); BASOPHIL % 0.4 % (0.0-2.0); EOSINOPHIL % 0.2 % (0.0-4.0); HEMATOCRIT 35.9 % (35.0-46.0); HEMO FLAGS DIFF FINAL; LYMPH % 14.4 % (9.0-44.0); LYMPHOCYTE # 1.2 TH/MM3 (1.0-4.8); MEAN CELL VOLUME 97.4 FL (80.0-100.0); MEAN CORPUSCULAR HEMOGLOBIN 31.3 PG (27.0-34.0); MEAN CORPUSCULAR HGB CONC 32.2 % (32.0-36.0); MONO % 5.5 % (0.0-8.0); NEUT % 79.5 % (16.0-70.0); PLATELET COUNT 110 TH/MM3 (150-450); RED BLOOD COUNT 3.69 MIL/MM3 (4.00-5.30); RED CELL DISTRIBUTION WIDTH 14.9 % (11.6-17.2); WHITE BLOOD COUNT 8.6 TH/MM3 (4.0-11.0)
[2017-06-14 07:05] LABS: CHLORIDE 96 MEQ/L (98-107); POTASSIUM 3.4 MEQ/L (3.5-5.1); SODIUM (NA) 133 MEQ/L (136-145)
[2017-06-14 07:08] LABS: INTERNATIONAL NORMALIZED RATIO 1.3 RATIO; PROTHROMBIN TIME - PATIENT 14.7 SEC (9.8-11.6)
[2017-06-14 07:10] LABS: ANION GAP 10 MEQ/L (5-15); BICARBONATE 27.2 MEQ/L (21.0-32.0); BLOOD UREA NITROGEN 7 MG/DL (7-18)
[2017-06-14 07:13] LABS: ALT (GPT) 27 U/L (10-53); AST (GOT) 29 U/L (15-37); GLOMERULAR FILTRATION RATE 76 ML/MIN (>89)
[2017-06-14 07:15] LABS: TOTAL BILIRUBIN ADULT 6.2 MG/DL (0.2-1.0)
[2017-06-14 07:16] LABS: ALKALINE PHOSPHATASE 116 U/L (45-117)
[2017-06-14 07:45] VITALS: BP 129/75; PULSE 95; RESP 15; TEMP 96.1; O2SAT 98
[2017-06-14] MEDS ORDERED: DOCUSATE SODIUM 50 MG/SENNA 8.6 MG TAB PO SCH (09:00)
[2017-06-14] MEDS ORDERED: THIAMINE HCL 100 MG TAB PO SCH (09:00)
[2017-06-14] MEDS ORDERED: PROPRANOLOL HCL 10 MG TAB PO SCH (09:00)
[2017-06-14] MEDS ORDERED: SPIRONOLACTONE 50 MG TAB PO SCH ×2 (09:00)
[2017-06-14] MEDS ORDERED: SODIUM CHLORIDE 0.9% FLUSH 10 ML FLUSH IV FLUSH SCH (09:00)
[2017-06-14] MEDS ORDERED: FOLIC ACID 1 MG TAB PO SCH (09:00)
[2017-06-14] MEDS ORDERED: MULTIVITAMINS/MINERALS THERAPEUTIC TAB PO SCH (09:00)
[2017-06-14] MEDS ORDERED: cefTRIAXone INJ 2,000 MG in SODIUM CHLORIDE 0.9% INJ 100 ML IV SCH (09:00)
[2017-06-14] MEDS ORDERED: FUROSEMIDE 40 MG/4 ML VIAL IV PUSH SCH (09:00)
[2017-06-14] MEDS ORDERED: hydrOXYzine HCL 25 MG TAB PO PRN (10:00)
[2017-06-14] MEDS ORDERED: LIDOCAINE HCL 1% 30 ML VIAL SQ ONE (10:50)
--- NOTE | 2017-06-14 11:33 | HHI.HP ---
[facility]Staff Admission Diagnosis Cirrhosis; Edema; Hyperbilirubinemia Diagnoses: (1) Ascites Diagnosis: Principal (2) Lower extremity edema Diagnosis: Principal (3) hepatic failure, most likely due to alcoholism and alcoholic hepatitis Diagnosis: Principal Chief Complaint: Abdominal pain, lower external edema, Travel History International Travel<30 Days: No Contact w/Intl Traveler <30 Da: No Traveled to Known Affected Are: No History of Present Illness Written by Andrea Weathers, acting as scribe for Dr. Patel on 06/14/17 at 11: 23. This is a 56-year-old female with known history of alcohol hepatitis, liver failure, who presented to hospital because of lower extremity edema and abdominal discomfort. Patient was just discharged from the hospital one month ago for initial evaluation of alcohol hepatitis. Patient indicates that she has followed up with Dr. Martel who has continued some of her medications. However she has ran out of a few of her medications and has not been able to have them filled. She does have an appointment with her electronic technician tomorrow and was hoping that they would fill her medication. However, patient had worsening lower extremity edema over the last 6 days with her persistent abdominal discomfort and increased abdominal size. Patient states that her abdominal pain has been the same since being discharged from the hospital that there has been no improvement. She has ran out of her pain medication. Patient appears to be not too compliant with her medications and she does openly admit that she does not take her Lasix consistently. Patient came to emergency department for evaluation. CT scan was done which did show increased abdominal ascites. It was recommended by ER physician the patient be observed in the hospital. Patient denies any nausea, vomiting, appetite changes, chest pain, shortness of breath, dyspnea, hematemesis, melena, hematochezia. 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 Hypertension Anxiety Past Surgical History D&C Tonsillectomy Endoscopy, colonoscopy Reported Medications Reported Meds & Active Scripts Active Hydroxyzine HCl 25 Mg Tab 25 Mg PO HS PRN Oxycodone (Oxycodone HCl) 5 Mg Tab 5 Mg PO Q6H PRN Diflucan (Fluconazole) 100 Mg Tab 100 Mg PO DAILY 20 Days Prednisolone Odt 10 Mg Tab 20 Mg PO DAILY 30 Days Pantoprazole (Pantoprazole Sodium) 40 Mg Tab 40 Mg PO DAILY 30 Days Furosemide 40 Mg Tab 40 Mg PO BID@09,18 30 Days Potassium Chloride Microencaps 20 Meq Tab 40 Meq PO BID 30 Days Aldactone (Spironolactone) 50 Mg Tab 50 Mg PO BID@09,18 30 Days Midodrine 5 Mg Tab 12.5 Mg PO TID@07,12,17 30 Days Reported Motrin Ib (Ibuprofen) 200 Mg Tablet 400 Mg PO BID Lorazepam 0.5 Mg Tab 0.5 Mg PO BID PRN Phenergan (Promethazine HCl) 25 Mg Tablet 25 Mg PO Q8HR PRN Trazodone (Trazodone HCl) 150 Mg Tablet 150 Mg PO HS Allergies: Coded Allergies: No Known Allergies (Verified , 06/13/17) Family History Reviewed is significant for mother with heart disease, dementia, father from motor vehicle accident Social History Patient states that she quits drinking alcohol on April 18, 2017. Denies any tobacco or illicit drug use Physical Exam Vital Signs Vital Signs Date Time Temp Pulse Resp B/P (MAP) Pulse Ox O2 Delivery O2 Flow Rate FiO2 06/14/17 07:45 96.1 95 15 129/75 (93) 98 06/14/17 06:55 18 06/14/17 04:00 96.4 98 20 124/76 (92) 96 06/13/17 23:20 96.6 101 24 102/83 (89) 97 06/13/17 23:20 86 06/13/17 22:15 95 18 131/74 (93) 95 06/13/17 20:42 95 18 135/73 (93) 95 Room Air 06/13/17 19:06 20 06/13/17 19:05 90 20 144/80 (101) 95 Room Air 06/13/17 18:58 92 Room Air 06/13/17 18:58 90 20 92 Room Air 06/13/17 17:58 98.0 120 22 135/86 (102) 96 Physical Exam GENERAL: Well-developed, well-nourished, in no acute distress. alert and orientated HEENT: Head is normocephalic without any lesions or masses noted. Facial features are symmetric. Eyes: Pupils equal round reactive to light. Extraocular muscles are intact. Conjunctivae were clear. Oropharyngeal: Pharynx without any erythema edema. Tongue is midline without deviation. Buccal mucosa is moist without any masses or lesions NECK: Supple without any masses. Trachea midline no deviation. No JVD, no bruits are appreciated CARDIAC: Regular rhythm, tachycardic. S1/S2 are heard. No murmurs gallops or rubs. LUNGS: Clear to auscultation bilaterally. No wheeze, rhonchi or rales. No use of accessory muscles on inspiration or expiration. ABDOMEN: Soft, nontender. Distended abdomen with visible abdominal veins. Bowel sounds heard in all 4 quadrants. No organomegaly or masses. Negative rebound, negative guarding EXTREMITIES: 1+ nonpitting edema noted bilateral lower extremities, pulses are equal bilaterally. No cyanosis or clubbing NEUROLOGY: Mood and affect appear appropriate. Cranial nerves II through XII grossly intact. Muscle strength 5/5 in upper and lower extremities bilaterally. Deep tendon reflexes are 2+ in upper and lower extremities bilaterally. Laboratory Laboratory Tests Test 06/13/17 18:20 06/13/17 21:00 06/14/17 06:30 White Blood Count 10.6 8.6 Red Blood Count 3.85 3.69 Hemoglobin 12.6 11.6 Hematocrit 37.5 35.9 Mean Corpuscular Volume 97.3 97.4 Mean Corpuscular Hemoglobin 32.6 31.3 Mean Corpuscular Hemoglobin Concent 33.5 32.2 Red Cell Distribution Width 15.1 14.9 Platelet Count 143 110 Mean Platelet Volume 7.9 7.9 CBC Comment AUTO DIFF DIFF FINAL Differential Total Cells Counted 100 Neutrophils % (Manual) 86 Lymphocytes % 5 Monocytes % 9 Neutrophils # (Manual) 9.1 Differential Comment FINAL DIFF MANUAL Platelet Estimate LOW Platelet Morphology Comment CLUMPED Red Cell Morphology Comment NORMAL Prothrombin Time 14.4 14.7 Prothromb Time International Ratio 1.3 1.3 Activated Partial Thromboplast Time 28.0 Blood Urea Nitrogen 6 7 Creatinine 0.81 0.79 Random Glucose 102 102 Total Protein 6.0 5.7 Albumin 2.2 2.1 Calcium Level 8.4 8.3 Alkaline Phosphatase 131 116 Aspartate Amino Transf (AST/SGOT) 35 29 Alanine Aminotransferase (ALT/SGPT) 29 27 Total Bilirubin 7.1 6.2 Sodium Level 131 133 Potassium Level 3.4 3.4 Chloride Level 95 96 Carbon Dioxide Level 25.8 27.2 Anion Gap 10 10 Estimat Glomerular Filtration Rate 73 76 Lactic Acid Level 2.4 2.6 Lipase 146 Urine Color BIBI Urine Turbidity CLEAR Urine pH 5.5 Urine Specific [place] GREATER THAN 1.035 Urine Protein NEG Urine Glucose (UA) NEG Urine Ketones NEG Urine Occult Blood TRACE Urine Nitrite NEG Urine Bilirubin SMALL Urine Leukocyte Esterase NEG Urine WBC 3-5 Urine Squamous Epithelial Cells 0-5 Urine Bacteria OCC Urine Hyaline Casts 0-2 Microscopic Urinalysis Comment CULT NOT INDICATED Neutrophils (%) (Auto) 79.5 Lymphocytes (%) (Auto) 14.4 Monocytes (%) (Auto) 5.5 Eosinophils (%) (Auto) 0.2 Basophils (%) (Auto) 0.4 Neutrophils # (Auto) 6.9 Lymphocytes # (Auto) 1.2 Monocytes # (Auto) 0.5 Eosinophils # (Auto) 0.0 Basophils # (Auto) 0.0 Result Diagram: 06/14/1730 06/14/17 0630 Imaging Last Impressions Abdomen/Pelvis CT 06/13/171806 Signed Impressions: Service Date/Time: Tuesday, June 13, 2017 19:24 - CONCLUSION: 1. Increasing left pleural effusion and ascites. 2. Chronic liver disease associated with splenomegaly. 3. Distended gallbladder. MD Damon Vallejo VTE Risk Assessment Caprini VTE Risk Assessment: Mod/High Risk (score >= 2) VTE Pharm Contraindication: End Stage Liver Disease Caprini Risk Assessment Model Point Value = 1 Point Value = 2 Point Value = 3 Point Value = 5 Age 41-60 Minor surgery BMI > 25 kg/m2 Swollen legs Varicose veins or History of unexplained or recurrent spontaneous Oral contraceptives or hormone replacement Sepsis (< 1 month) Serious lung disease, including pneumonia (< 1 month) Abnormal pulmonary function Acute myocardial infarction Congestive heart failure (< 1 month) History of inflammatory bowel disease Medical patient at bed rest Age 61-74 Arthroscopic surgery Major open surgery (> 45 min) Laparoscopic surgery (> 45 min) Malignancy Confined to bed (> 72 hours) Immobilizing plaster cast Central venous access Age >= 75 History of VTE Family history of VTE Factor V Leiden Prothrombin [id number] Lupus anticoagulant Anticardiolipin antibodies Elevated serum homocysteine Heparin-induced thrombocytopenia Other congenital or acquired thrombophilia Stroke (< 1 month) Elective arthroplasty Hip, pelvis, or leg fracture Acute spinal cord injury (< 1 month) Prophylaxis Regimen Total Risk Factor Score Risk Level Prophylaxis Regimen 0-1 Low Early ambulation 2 Moderate Order ONE of the following: *Sequential Compression Device (SCD) *Heparin 5000 units SQ BID 3-4 Higher Order ONE of the following medications: *Heparin 5000 units SQ TID *Enoxaparin/Lovenox 40 mg SQ daily (WT < 150 kg, CrCl > 30 mL/min) *Enoxaparin/Lovenox 30 mg SQ daily (WT < 150 kg, CrCl > 10-29 mL/min) *Enoxaparin/Lovenox 30 mg SQ BID (WT < 150 kg, CrCl > 30 mL/min) AND/OR *Sequential Compression Device (SCD) 5 or more Highest Order ONE of the following medications: *Heparin 5000 units SQ TID (Preferred with Epidurals) *Enoxaparin/Lovenox 40 mg SQ daily (WT < 150 kg, CrCl > 30 mL/min) *Enoxaparin/Lovenox 30 mg SQ daily (WT < 150 kg, CrCl > 10-29 mL/min) *Enoxaparin/Lovenox 30 mg SQ BID (WT < 150 kg, CrCl > 30 mL/min) AND *Sequential Compression Device (SCD) Assessment and Plan Assessment and Plan Ascites Patient presented with abdominal pain, lower extremity edema with known liver failure secondary to alcohol hepatitis Medication compliancy an issue Awaiting paracentesis Continue Lasix 40 mg twice daily Increase to spironolactone 100 mg daily Patient to keep follow-up appointment with GI tomorrow in outpatient setting Hypertension, blood pressure stable Continue home medications DVT prevention Sequential compression devices Discharge disposition Discharge home in stable condition after paracentesis and patient remained stable Activity: Ad melida. Diet: Healthy heart diet Medications per medication reconciliation Follow-up with primary medical doctor in one week, keep appointment with GI tomorrow This note was transcribed by chrissy [Andrea Weathers]. I, Dr. Lexis Patel personally performed the history, physical exam, and medical decision making; and confirmed the accuracy of the information in the transcribed note. Authenticated by Dr. Lexis Patel on 06/14/17 at 15:21. Problem Qualifiers (1) Ascites: Qualified Codes: K70.11 - Alcoholic hepatitis with ascites Andrea Weathers Jun 14, 2017 11:33 Lexis Patel MD Jun 14, 2017 15:19
[2017-06-14 11:45] VITALS: BP 140/81; PULSE 81; RESP 18; TEMP 97.8
[2017-06-14 12:15] VITALS: BP 135/76; PULSE 86; RESP 18; TEMP 96.5; O2SAT 98
[2017-06-14 12:20] LABS: PERITONEAL WBC 71 /MM3 (0-10)
--- NOTE | 2017-06-14 13:15 | RADRPT ---
EXAM DATE/TIME: 06/14/2017 08:30 [place] COMPARISON: US GUIDED ABD PARACENTESIS, April 21, 2017, 13:00. INDICATIONS : Ascites. MEDICAL HISTORY : Gastroesophageal reflux disease. Hypertension. Cirrhosis. Mitral valve prolapse. Asthma. End stage li samantha disease. Neck and back pain. Anxiety. ETOH abuse. ETOH tremors. Blood transfusion. Anemia. SURGICAL HISTORY : Tonsillectomy. Keloid removal from posterior ears. ENCOUNTER: Subsequent ACUITY: 2 months PAIN SCORE: 3/10 LOCATION: Right lower quadrant FLUID: Total volume of 4200 cc of cloudy, yellow fluid was removed. Fluid was sent to lab for ordered studies. Post procedure scanning reveals no hematoma or other complication. TECHNIQUE: 1. Ultrasound guidance for abdominal paracentesis. 2. Paracentesis. The risks, benefits, and alternatives to ultrasound guided paracentesis were explained to the patient in detail including the risk of bleeding and infection. Written and verbal informed consent was obt ained. With the patient on the ultrasound table, ultrasound imaging was used to select the most appropriate approach for paracentesis. Overlying skin was prepped and draped in the usual sterile fashion and wi th a local anesthetic, a dermatotomy was made with an 11 blade scalpel. A 6 [place] [id number] ca theter was introduced into the peritoneal cavity and fluid was collected. The patient tolerated the procedure well and left the ultrasound suite in stable condition. CONCLUSION: Uncomplicated ultrasound guided paracentesis. Chet Monroy MD on June 14, 2017 at 13:14 Board Certified Radiologist. This report was verified electronically.
[2017-06-14] MEDS ORDERED: PANT40TA3 PO (13:30)
[2017-06-14] MEDS ORDERED: HYDR-3133 PO (13:30)
[2017-06-14] MEDS ORDERED: FURO40TA PO (13:30)
[2017-06-14] MEDS ORDERED: SPIR100T PO (13:30)
[2017-06-14] MEDS ORDERED: POTA20TA5 PO (13:30)
[2017-06-14] MEDS ORDERED: OXYC-392 PO (13:30)
[2017-06-14] MEDS ORDERED: TRAZ1TAB45 PO (13:30)
--- NOTE | 2017-06-14 13:30 | HHI.DCPOC ---
Discharge Care Plan Diagnosis: (1) Ascites Goals to Promote Your Health * To prevent worsening of your condition and complications * To maintain your health at the optimal level Directions to Meet Your Goals Take your medications as prescribed Follow your dietary instruction Follow activity as directed Keep your appointments as scheduled Take your immunizations and boosters as scheduled If your symptoms worsen call your PCP, if no PCP go to Urgent Care Center or Emergency Room Smoking is Dangerous to Your Health. Avoid second hand smoke Call the 24-hour hour crisis hotline for domestic abuse at Andrea Weathers Jun 14, 2017 13:30
[2017-06-14 14:12] LABS: PERITONEAL HISTIOCYTES 2 %; PERITONEAL LYMPHS 52 %; PERITONEAL MESOTHELIAL 5 %; PERITONEAL MONOS 3 %; PERITONEAL POLYS(SEGS) 38 %
[2017-06-14 14:30] VITALS: PULSE 83
[2017-06-14 16:00] VITALS: BP 108/62; PULSE 95; RESP 18; TEMP 96.8; O2SAT 95
[2017-06-14] MEDS ORDERED: LORA-373 PO (16:28)
== END 2017-06-14 17:46 | disposition home or self-care (01) ==
LOC: PHED 17:54 → PHEDA 20:46 → PH3A 22:30
PROVIDERS: ADMIT Hospitalist; ATTEND Hospitalist
DX: R18.8 Other ascites (principal); I10 Essential (primary) hypertension; J90 Pleural effusion, not elsewhere classified; K70.40 Alcoholic hepatic failure without coma; K74.60 Unspecified cirrhosis of liver; R60.0 Localized edema; F41.9 Anxiety disorder, unspecified; J45.909 Unspecified asthma, uncomplicated; E87.6 Hypokalemia; K21.0 Gastro-esophageal reflux disease with esophagitis; K82.8 Other specified diseases of gallbladder
CPT/HCPCS: 49083; 74177; 80053; 81001; 83605; 83690; 85007; 85025; 85027; 85610; 85730; 87070; 87205; 88112; 88305; 89051; 96361; 96365; 96367; 96375; 96376; 99285; C1729; G0378; J0696; J1170; J1940; J2405; J2543; Q9967

== ENCOUNTER 2017-06-23 16:32 | Inpatient (IN) | payer OTHER ==
[~2017-06-23] VITALS: Ht 175.3 cm; Wt 80.6 kg
[~2017-06-23 16:32] MED LIST changes: -ALDA50TA2 PO; -CITA20TA4 PO; -DIFL100T PO; -ESTR1 PO; +LORA-373 PO; -MIDO5TAB PO; -PENT400T PO; -PRED1TAB72 PO; +SPIR100T PO; -WALKER WHEELS/F1 MIS; -XIFA550T4 PO
[2017-06-23 16:50] VITALS: BP 110/81; PULSE 126; RESP 18; TEMP 98.5; O2SAT 98
[2017-06-23] MEDS ORDERED: LISI-515 PO (18:49)
[2017-06-23] MEDS ORDERED: HYDR-3133 PO (18:49)
[2017-06-23] MEDS ORDERED: PRED10 PO (18:49)
[2017-06-23] MEDS ORDERED: LACT10SO PO (18:49)
[2017-06-23] MEDS ORDERED: FLUC100T2 PO (18:49)
[2017-06-23] MEDS ORDERED: FURO40TA PO (18:49)
[2017-06-23] MEDS ORDERED: POTA-163 PO (18:49)
[2017-06-23] MEDS ORDERED: POTA-245 PO (18:49)
[2017-06-23] MEDS ORDERED: PROM25TA10 PO (18:49)
[2017-06-23] MEDS ORDERED: CITA20TA4 PO (18:49)
[2017-06-23] MEDS ORDERED: MIDO5TAB PO (18:49)
[2017-06-23] MEDS ORDERED: ESTR1 PO (18:49)
[2017-06-23] MEDS ORDERED: PENT400T PO (18:49)
[2017-06-23] MEDS ORDERED: MORPHINE SULFATE 4 MG/ML INJ IV PUSH ONE (19:15)
[2017-06-23 19:36] LABS: AUTOMATED NEUTROPHIL # 6.4 TH/MM3 (1.8-7.7); BASOPHIL # 0.1 TH/MM3 (0-0.2); BASOPHIL % 0.7 % (0.0-2.0); EOSINOPHIL % 0.1 % (0.0-4.0); HEMATOCRIT 39.2 % (35.0-46.0); HEMOGLOBIN 12.8 GM/DL (11.6-15.3); LYMPH % 19.6 % (9.0-44.0); LYMPHOCYTE # 1.7 TH/MM3 (1.0-4.8); MEAN CELL VOLUME 95.3 FL (80.0-100.0); MEAN CORPUSCULAR HGB CONC 32.5 % (32.0-36.0); MEAN PLATELET VOLUME 7.4 FL (7.0-11.0); MONO % 7.2 % (0.0-8.0); MONOCYTE # 0.6 TH/MM3 (0-0.9); NEUT % 72.4 % (16.0-70.0); PLATELET COUNT 117 TH/MM3 (150-450); RED BLOOD COUNT 4.11 MIL/MM3 (4.00-5.30); RED CELL DISTRIBUTION WIDTH 15.1 % (11.6-17.2); WHITE BLOOD COUNT 8.8 TH/MM3 (4.0-11.0)
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
[2017-06-23 19:45] LABS: CHLORIDE 95 MEQ/L (98-107); SODIUM (NA) 130 MEQ/L (136-145)
[2017-06-23 19:48] LABS: CALCIUM 8.6 MG/DL (8.5-10.1)
[2017-06-23 19:49] LABS: ALBUMIN 2.3 GM/DL (3.4-5.0); BICARBONATE 26.4 MEQ/L (21.0-32.0); BLOOD UREA NITROGEN 6 MG/DL (7-18); GLUCOSE,RANDOM 104 MG/DL (74-106)
[2017-06-23 19:51] LABS: INTERNATIONAL NORMALIZED RATIO 1.3 RATIO; PROTHROMBIN TIME - PATIENT 14.8 SEC (9.8-11.6)
[2017-06-23 19:52] LABS: ALT (GPT) 25 U/L (10-53); AST (GOT) 36 U/L (15-37); GLOMERULAR FILTRATION RATE 87 ML/MIN (>89)
[2017-06-23 19:54] LABS: TOTAL PROTEIN 6.1 GM/DL (6.4-8.2)
[2017-06-23 19:55] LABS: ALKALINE PHOSPHATASE 124 U/L (45-117)
[2017-06-23 20:39] VITALS: BP 103/56; PULSE 101; RESP 14; O2SAT 97
[2017-06-23] MEDS ORDERED: ACETAMINOPHEN 325 MG TAB PO PRN (21:15)
[2017-06-23] MEDS ORDERED: SENNOSIDES 8.6 MG TAB PO PRN (21:15)
[2017-06-23] MEDS ORDERED: LIDOCAINE HCL 1% PF 30 ML VIAL SQ ONE (21:15)
[2017-06-23] MEDS ORDERED: BISACODYL 10 MG SUPP RECTAL PRN (21:15)
[2017-06-23] MEDS ORDERED: MAGNESIUM HYDROXIDE SUSP 30 ML CUP PO PRN (21:15)
[2017-06-23] MEDS ORDERED: SODIUM CHLORIDE 0.9% FLUSH 10 ML FLUSH IV FLUSH PRN (21:15)
[2017-06-23 21:17] LABS: LIPASE 102 U/L (73-393)
[2017-06-23] MEDS: ONDANSETRON HCL 4 MG/2 ML VIAL IVP PRN (21:51)
[2017-06-23] MEDS ORDERED: MORPHINE SULFATE 2 MG/ML INJ IV PUSH ONE (22:00)
[2017-06-23 22:18] VITALS: BP 124/69; TEMP 98.4
[2017-06-23 23:00] LABS: PERITONEAL LYMPHS 93 %; PERITONEAL POLYS(SEGS) 7 %; PERITONEAL RBC 2364 /MM3 (0-0)
[2017-06-23] MEDS ORDERED: cefTRIAXone INJ 1,000 MG in SODIUM CHLORIDE 0.9% INJ 100 ML IV ONE (23:00)
[2017-06-23 23:46] LABS: TOTAL PROTEIN,PERITONEAL FLUID 0.6 GM/DL
[2017-06-24] VITALS (7 sets, daily range): BP systolic 113–138; BP diastolic 72–78; PULSE 100–118; RESP 12–21; TEMP 96.4–97.6; O2SAT 95–99
[2017-06-24] MEDS: SODIUM CHLORIDE 0.9% FLUSH 10 ML FLUSH IV FLUSH SCH ×2 (08:07→21:55)
[2017-06-24] MEDS: DOCUSATE SODIUM 50 MG/SENNA 8.6 MG TAB PO SCH ×2 (08:07→21:54)
[2017-06-24 08:29] LABS: BASOPHIL % 0.6 % (0.0-2.0); EOSINOPHIL % 0.1 % (0.0-4.0); HEMATOCRIT 35.5 % (35.0-46.0); HEMOGLOBIN 11.8 GM/DL (11.6-15.3); LYMPH % 26.1 % (9.0-44.0); MEAN CELL VOLUME 94.8 FL (80.0-100.0); MEAN CORPUSCULAR HEMOGLOBIN 31.4 PG (27.0-34.0); MEAN CORPUSCULAR HGB CONC 33.1 % (32.0-36.0); MEAN PLATELET VOLUME 7.4 FL (7.0-11.0); MONOCYTE # 0.6 TH/MM3 (0-0.9); NEUT % 65.2 % (16.0-70.0); PLATELET COUNT 116 TH/MM3 (150-450); RED BLOOD COUNT 3.75 MIL/MM3 (4.00-5.30); RED CELL DISTRIBUTION WIDTH 15.2 % (11.6-17.2); WHITE BLOOD COUNT 7.6 TH/MM3 (4.0-11.0)
[2017-06-24 08:39] LABS: CHLORIDE 95 MEQ/L (98-107); SODIUM (NA) 130 MEQ/L (136-145)
[2017-06-24 08:42] LABS: CALCIUM 8.5 MG/DL (8.5-10.1)
[2017-06-24 08:43] LABS: ALBUMIN 2.2 GM/DL (3.4-5.0); BICARBONATE 27.5 MEQ/L (21.0-32.0); BLOOD UREA NITROGEN 6 MG/DL (7-18); GLUCOSE,RANDOM 88 MG/DL (74-106)
[2017-06-24 08:46] LABS: ALT (GPT) 24 U/L (10-53); AST (GOT) 32 U/L (15-37); CREATININE 0.65 MG/DL (0.50-1.00); GLOMERULAR FILTRATION RATE 95 ML/MIN (>89)
[2017-06-24 08:47] LABS: TOTAL BILIRUBIN ADULT 6.4 MG/DL (0.2-1.0); TOTAL PROTEIN 5.9 GM/DL (6.4-8.2)
[2017-06-24 08:49] LABS: ALKALINE PHOSPHATASE 115 U/L (45-117)
[2017-06-24] MEDS ORDERED: LORazepam 0.5 MG TAB PO PRN (09:45)
[2017-06-24] MEDS ORDERED: hydrOXYzine HCL 25 MG TAB PO PRN (09:45)
--- NOTE | 2017-06-24 09:49 | HHI.HP ---
[facility] Service [facility] Primary Care Physician Non-Staff Admission Diagnosis abdominal pain Diagnoses: Chief Complaint: Abdominal pain Travel History International Travel<30 Days: No Contact w/Intl Traveler <30 Da: No Traveled to Known Affected Are: No History of Present Illness The patient is a 56-year-old female with a past medical history of alcoholic liver disease who is presenting to the hospital with increasing abdominal pain. The patient says that she was here in March from the to May 13 because of her liver. She said she came to the hospital again last Wednesday and was discharged on Wednesday. She said 4.5 L were drained on her last hospital visit. She felt fine until this past Wednesday where she developed increasing abdominal pain as well as nausea and vomiting and diarrhea. She did have some pain medication left from her last hospitalization. She says her nausea/ vomiting/diarrhea has improved. She is tolerating food at this time. 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 The patient currently has spasms of abdominal pain in her upper abdomen that reaches a 6 out of 10 in severity. The patient denies any recent fevers. She does not endorse episodes of confusion. She states she does have lower extremity edema. She says she has not taken her diuretics for a couple of days. 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 Esophagitis Hypertension Anxiety Stress fracture of LLE Past Surgical History D&C Tonsillectomy Allergies: Coded Allergies: No Known Allergies (Verified , 06/23/17) Active Ordered Medications Current Medications Medications (Trade) Dose Ordered Sig/Ramon Route Start Time Stop Time Status Last Admin (NS Flush) 2 ml UNSCH PRN IV FLUSH 06/23/17 21:15 (NS Flush) 2 ml BID IV FLUSH 06/24/17 09:00 06/24/17 08:07 (Zofran Inj) 4 mg Q6H PRN IVP 06/23/17 21:15 06/23/17 21:51 (Tylenol) 650 mg Q6H PRN PO 06/23/17 21:15 (Roxicodone) 5 mg Q4H PRN PO 06/23/17 21:15 06/24/17 09:13 (Annemarie-Colace) 1 tab BID PO 06/24/17 09:00 (Milk Of Magnesia Liq) 30 ml Q12H PRN PO 06/23/17 21:15 (Senokot) 17.2 mg Q12H PRN PO 06/23/17 21:15 (Dulcolax Supp) 10 mg DAILY PRN RECTAL 06/23/17 21:15 (Lactulose Liq) 30 ml DAILY PRN PO 06/23/17 21:15 Family History CAD Alzheimer's Diabetes Social History The patient quit drinking in March. He does not smoke or use illicit substances. Physical Exam Vital Signs Vital Signs Date Time Temp Pulse Resp B/P (MAP) Pulse Ox O2 Delivery O2 Flow Rate FiO2 06/24/17 06:25 97.6 100 20 97 06/24/17 00:04 97.6 117 20 138/74 (95) 97 06/23/17 22:39 14 06/23/17 22:18 98.4 109 14 124/69 (87) 98 06/23/17 20:39 101 14 103/56 (72) 97 Room Air 06/23/17 20:18 14 06/23/17 16:50 98.5 126 18 110/81 (91) 98 Physical Exam GENERAL: Resting comfortably in bed. SKIN: Jaundiced, petechiae over the bilateral upper extremities. HEAD: Atraumatic. Normocephalic. EYES: Pupils equal and round. No injection or drainage. Scleral icterus. ENT: Dry mucous membranes. NECK: Trachea midline. CARDIOVASCULAR: Tachycardic. No murmur appreciated. RESPIRATORY: Clear to auscultation. Decreased breath sounds on the left. GASTROINTESTINAL: Abdomen soft, tender to palpation diffusely, distended. MUSCULOSKELETAL: Left lower extremity with 1-2+ edema, right lower extremity with trace edema. NEUROLOGICAL: Awake and alert. No obvious cranial nerve deficits. Moving all extremities. PSYCHIATRIC: Appropriate mood and affect; insight and judgment normal. Laboratory Laboratory Tests Test 06/23/17 19:24 06/23/17 21:50 06/24/17 08:00 White Blood Count 8.8 7.6 Red Blood Count 4.11 3.75 Hemoglobin 12.8 11.8 Hematocrit 39.2 35.5 Mean Corpuscular Volume 95.3 94.8 Mean Corpuscular Hemoglobin 31.0 31.4 Mean Corpuscular Hemoglobin Concent 32.5 33.1 Red Cell Distribution Width 15.1 15.2 Platelet Count 117 116 Mean Platelet Volume 7.4 7.4 Neutrophils (%) (Auto) 72.4 65.2 Lymphocytes (%) (Auto) 19.6 26.1 Monocytes (%) (Auto) 7.2 8.0 Eosinophils (%) (Auto) 0.1 0.1 Basophils (%) (Auto) 0.7 0.6 Neutrophils # (Auto) 6.4 5.0 Lymphocytes # (Auto) 1.7 2.0 Monocytes # (Auto) 0.6 0.6 Eosinophils # (Auto) 0.0 0.0 Basophils # (Auto) 0.1 0.0 CBC Comment DIFF FINAL DIFF FINAL Differential Comment Prothrombin Time 14.8 Prothromb Time International Ratio 1.3 Activated Partial Thromboplast Time 29.0 Blood Urea Nitrogen 6 6 Creatinine 0.70 0.65 Random Glucose 104 88 Total Protein 6.1 5.9 Albumin 2.3 2.2 Calcium Level 8.6 8.5 Alkaline Phosphatase 124 115 Aspartate Amino Transf (AST/SGOT) 36 32 Alanine Aminotransferase (ALT/SGPT) 25 24 Total Bilirubin 7.0 6.4 Sodium Level 130 130 Potassium Level 3.9 3.5 Chloride Level 95 95 Carbon Dioxide Level 26.4 27.5 Anion Gap 9 8 Estimat Glomerular Filtration Rate 87 95 Lipase 102 Peritoneal Fluid WBC 42 Peritoneal Fluid RBC 2364 Peritoneal Fluid Neutrophils 7 Peritoneal Fluid Lymphocytes 93 Peritoneal Fluid Total Protein 0.6 Peritoneal Fluid Albumin 0.3 Peritoneal Fluid Glucose 107 Date/Time Source Procedure Growth Status 06/23/17 21:50 Fluid Peritoneal Fluid Gram Stain - Final Resulted 06/23/17 21:50 Fluid Peritoneal Fluid Body Fluid Culture Pending Resulted Result Diagram: 06/24/17 0800 06/24/17 0800 Caprini VTE Risk Assessment Caprini VTE Risk Assessment: Mod/High Risk (score >= 2) Caprini Risk Assessment Model Point Value = 1 Point Value = 2 Point Value = 3 Point Value = 5 Age 41-60 Minor surgery BMI > 25 kg/m2 Swollen legs Varicose veins or History of unexplained or recurrent spontaneous Oral contraceptives or hormone replacement Sepsis (< 1 month) Serious lung disease, including pneumonia (< 1 month) Abnormal pulmonary function Acute myocardial infarction Congestive heart failure (< 1 month) History of inflammatory bowel disease Medical patient at bed rest Age 61-74 Arthroscopic surgery Major open surgery (> 45 min) Laparoscopic surgery (> 45 min) Malignancy Confined to bed (> 72 hours) Immobilizing plaster cast Central venous access Age >= 75 History of VTE Family history of VTE Factor V Leiden Prothrombin [id number] Lupus anticoagulant Anticardiolipin antibodies Elevated serum homocysteine Heparin-induced thrombocytopenia Other congenital or acquired thrombophilia Stroke (< 1 month) Elective arthroplasty Hip, pelvis, or leg fracture Acute spinal cord injury (< 1 month) Prophylaxis Regimen Total Risk Factor Score Risk Level Prophylaxis Regimen 0-1 Low Early ambulation 2 Moderate Order ONE of the following: *Sequential Compression Device (SCD) *Heparin 5000 units SQ BID 3-4 Higher Order ONE of the following medications: *Heparin 5000 units SQ TID *Enoxaparin/Lovenox 40 mg SQ daily (WT < 150 kg, CrCl > 30 mL/min) *Enoxaparin/Lovenox 30 mg SQ daily (WT < 150 kg, CrCl > 10-29 mL/min) *Enoxaparin/Lovenox 30 mg SQ BID (WT < 150 kg, CrCl > 30 mL/min) AND/OR *Sequential Compression Device (SCD) 5 or more Highest Order ONE of the following medications: *Heparin 5000 units SQ TID (Preferred with Epidurals) *Enoxaparin/Lovenox 40 mg SQ daily (WT < 150 kg, CrCl > 30 mL/min) *Enoxaparin/Lovenox 30 mg SQ daily (WT < 150 kg, CrCl > 10-29 mL/min) *Enoxaparin/Lovenox 30 mg SQ BID (WT < 150 kg, CrCl > 30 mL/min) AND *Sequential Compression Device (SCD) Assessment and Plan Assessment and Plan Ascites/ Alcoholic liver disease Patient presented with abdominal pain and lower extremity edema with 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 Tap in ED negative for SBP. - Awaiting US guided therapeutic paracentesis. - Continue Lasix 40 mg twice daily and spironolactone 100 mg daily. - Patient to follow-up with GI in outpatient setting. - pain control with a bowel regimen. Hypertension Blood pressure stable at this time. - Continue home medications. - pain control. Thrombocytopenia S/t liver disease. Has petechiae on exam. - follow CBC as needed. Tachycardia Likely secondary to pain. - Pain control. - Check an EKG. Dyspnea The patient endorses a cough recently. - Chest x-ray pending. - Oxygen as needed. DVT prevention: Sequential compression devices Code Status Full Discussed Condition With Patient, nurse William Dover DO Jun 24, 2017 09:49
[2017-06-24] MEDS: SPIRONOLACTONE 50 MG TAB PO SCH (11:03)
[2017-06-24] MEDS: FUROSEMIDE 40 MG TAB PO SCH ×2 (11:03→15:23)
[2017-06-24] MEDS: PANTOPRAZOLE SOD 40 MG DELAYED RELEASE TAB PO SCH (11:04)
[2017-06-24] MEDS: POTASSIUM CHLORIDE 20 MEQ CONTROLLED RELEASE TAB PO SCH (11:04)
--- NOTE | 2017-06-24 11:19 | RADRPT ---
EXAM DATE/TIME: 06/24/2017 10:34 [facility] COMPARISON: No previous studies available for comparison. INDICATIONS : Short of breath. MEDICAL HISTORY : Gastroesophageal reflux disease. Hypertension. Cirrhosis. Mitral valve prolapse. Asthma. End stage li samantha disease. Neck and back pain. Anxiety. ETOH abuse. ETOH tremors. Blood transfusion. Anemia. SURGICAL HISTORY : Tonsillectomy. Keloid removal from posterior ears. ENCOUNTER: Subsequent ACUITY: 2 weeks PAIN SCORE: 0/10 LOCATION: chest FINDINGS: Mild left base haziness noted and potentially early or mild pneumonia. Right lung is clear. No large effusion seen. No pneumothorax. Heart size stable, within normal limits. CONCLUSION: Possible pneumonia developing of the left base. Andrez Overton MD on June 24, 2017 at 11:16 Board Certified Radiologist. This report was verified electronically.
[2017-06-24] MEDS: PENTOXIFYLLINE 400 MG CONTROLLED RELEASE TAB PO SCH ×2 (13:00→15:24)
[2017-06-24] MEDS: MIDODRINE 5 MG TAB PO SCH ×2 (13:00→15:24)
--- NOTE | 2017-06-24 15:26 | RADRPT ---
EXAM DATE/TIME: 06/24/2017 08:24 [facility] COMPARISON: US GUIDED ABD PARACENTESIS, June 14, 2017, 8:30. INDICATIONS : Ascites. MEDICAL HISTORY : Gastroesophageal reflux disease. Hypertension. Cirrhosis. Mitral valve porlapse. Asthma. End stage li samantha disease. Neck and back pain. Anxiety. ETOH abuse. ETOH tremors. Ascites. Anemia. SURGICAL HISTORY : Tonsillectomy. Keloid removal from posterior ears. Paracentesis. Blood transfusions. ENCOUNTER: Subsequent ACUITY: 1 week PAIN SCORE: 0/10 LOCATION: Right lower quadrant FLUID: Total volume of 3,800 cc of clear, yellow fluid was removed. Fluid was discarded. Paracentesis was therapeutic only. Post procedure scanning reveals no hematoma or other complication. TECHNIQUE: 1. Ultrasound guidance for abdominal paracentesis. 2. Paracentesis. The risks, benefits, and alternatives to ultrasound guided paracentesis were explained to the patient in detail including the risk of bleeding and infection. Written and verbal informed consent was obt ained. With the patient on the ultrasound table, ultrasound imaging was used to select the most appropriate approach for paracentesis. Overlying skin was prepped and draped in the usual sterile fashion and wi th a local anesthetic, a dermatotomy was made with an 11 blade scalpel. A 6 Hungarian [id number] ca theter was introduced into the peritoneal cavity and fluid was collected. The patient tolerated the procedure well and left the ultrasound suite in stable condition. CONCLUSION: Uncomplicated ultrasound guided paracentesis. Andrez Toro MD on June 24, 2017 at 15:24 Board Certified Radiologist. This report was verified electronically.
[2017-06-24] MEDS: traZODone HCL 50 MG TAB PO SCH (21:55)
--- NOTE | 2017-06-24 23:39 | EKG ---
Date Performed: 06/24/2017 Time Performed: 10:13:03 PTAGE: 56 years EKG: SINUS TACHYCARDIA WITH OCCASIONAL VENTRICULAR PREMATURE COMPLEXES NONSPECIFIC T-WAVE ABNORM ALITY ABNORMAL RHYTHM ECG PREVIOUS TRACING : 05/10/2017 12.35 Compared to prior tracing rate has increased DOCTOR: Thiago Webb Interpretating Date/Time 06/24/2017 23:38:18
[2017-06-25] VITALS: BP 110/72; PULSE 119; RESP 20; TEMP 97.8; O2SAT 100
[2017-06-25 08:00] VITALS: BP 114/72; PULSE 116; RESP 21; TEMP 96.6; O2SAT 99
[2017-06-25] MEDS: PANTOPRAZOLE SOD 40 MG DELAYED RELEASE TAB PO SCH (08:18)
[2017-06-25] MEDS: DOCUSATE SODIUM 50 MG/SENNA 8.6 MG TAB PO SCH ×2 (08:18→21:50)
[2017-06-25] MEDS: MIDODRINE 5 MG TAB PO SCH ×3 (08:18→14:35)
[2017-06-25] MEDS: SPIRONOLACTONE 50 MG TAB PO SCH (08:19)
[2017-06-25] MEDS: PENTOXIFYLLINE 400 MG CONTROLLED RELEASE TAB PO SCH ×3 (08:19→14:35)
[2017-06-25] MEDS: SODIUM CHLORIDE 0.9% FLUSH 10 ML FLUSH IV FLUSH SCH ×2 (08:19→21:50)
[2017-06-25] MEDS: POTASSIUM CHLORIDE 20 MEQ CONTROLLED RELEASE TAB PO SCH (08:19)
[2017-06-25] MEDS: FUROSEMIDE 40 MG TAB PO SCH ×2 (08:23→21:50)
[2017-06-25 12:00] VITALS: BP 105/75; PULSE 120; RESP 20; TEMP 96.7; O2SAT 97
--- NOTE | 2017-06-25 14:05 | HHI.PR ---
Subjective Remarks The patient complained of increased abdominal pain. She said that she has not been able to eat much and has been nauseous. She said her legs are very swollen today. Discussed with nursing. Objective Vitals Vital Signs Date Time Temp Pulse Resp B/P (MAP) Pulse Ox O2 Delivery O2 Flow Rate FiO2 06/25/17 12:00 96.7 120 20 105/75 (85) 97 06/25/17 08:00 96.6 116 21 114/72 (86) 99 06/25/17 00:00 97.8 119 20 110/72 (85) 100 06/24/17 20:00 96.4 113 21 113/72 (86) 99 06/24/17 16:00 97.6 118 16 125/74 (91) 99 06/24/17 15:00 97.5 115 16 124/76 (92) 97 06/24/17 14:45 97.5 118 20 129/74 (92) 98 I/O 06/24/17 06/24/17 06/24/17 06/25/17 06/25/17 06/25/17 07:00 15:00 23:00 07:00 15:00 23:00 Intake Total 100 ml 480 ml 240 ml Balance 100 ml 480 ml 240 ml Intake Oral 480 ml 240 ml IV Total 100 ml # Voids 4 1 3 # Bowel Movements 0 Result Diagram: 06/24/17 0800 06/24/17 0800 Imaging Last Impressions Cyst Biopsy Asp-Paracentesis US 06/24/17 0000 Signed Impressions: Service Date/Time: May 08:24 - CONCLUSION: Uncomplicated ultrasound guided paracentesis. Andrez Toro MD Chest X-Ray 06/24/17 0000 Signed Impressions: Service Date/Time: May 10:34 - CONCLUSION: Possible pneumonia developing of the left base. Andrez Overton MD Objective Remarks GENERAL: NAD. SKIN: Jaundiced, petechiae over the bilateral upper extremities. HEAD: Atraumatic. Normocephalic. EYES: Pupils equal and round. No injection or drainage. Scleral icterus. ENT: Dry mucous membranes. NECK: Trachea midline. CARDIOVASCULAR: Tachycardic. No murmur appreciated. RESPIRATORY: Clear to auscultation. Decreased breath sounds on the left. GASTROINTESTINAL: Abdomen soft, tender to palpation diffusely, distended. MUSCULOSKELETAL: Left lower extremity with 3+ edema, right lower extremity with 1+ edema. NEUROLOGICAL: Awake and alert. No obvious cranial nerve deficits. Moving all extremities. PSYCHIATRIC: Appropriate mood and affect; insight and judgment normal. Procedures Paracentesis Medications and IVs Current Medications Medications (Trade) Dose Ordered Sig/Ramon Route Start Time Stop Time Status Last Admin (NS Flush) 2 ml UNSCH PRN IV FLUSH 06/23/17 21:15 (NS Flush) 2 ml BID IV FLUSH 06/24/17 09:00 06/25/17 08:19 (Zofran Inj) 4 mg Q6H PRN IVP 06/23/17 21:15 06/23/17 21:51 (Tylenol) 650 mg Q6H PRN PO 06/23/17 21:15 (Roxicodone) 5 mg Q4H PRN PO 06/23/17 21:15 06/25/17 08:19 (Annemarie-Colace) 1 tab BID PO 06/24/17 09:00 06/25/17 08:18 (Milk Of Magnesia Liq) 30 ml Q12H PRN PO 06/23/17 21:15 (Senokot) 17.2 mg Q12H PRN PO 06/23/17 21:15 (Dulcolax Supp) 10 mg DAILY PRN RECTAL 06/23/17 21:15 (Lactulose Liq) 30 ml DAILY PRN PO 06/23/17 21:15 (Lasix) 40 mg DAILY@0900,1800 PO 06/24/17 09:45 06/25/17 08:23 (Atarax) 25 mg TID PRN PO 06/24/17 09:45 (Ativan) 0.5 mg BID PRN PO 06/24/17 09:45 (Proamatine) 5 mg TID PO 06/24/17 13:00 06/25/17 12:48 (Protonix) 40 mg DAILY PO 06/24/17 09:45 06/25/17 08:18 (TRENtal SR) 400 mg TID PO 06/24/17 13:00 06/25/17 12:48 (KCl) 20 meq DAILY PO 06/24/17 09:45 06/25/17 08:19 (Aldactone) 100 mg DAILY PO 06/24/17 11:00 06/25/17 08:19 (Desyrel) 150 mg HS PO 06/24/17 21:00 06/24/17 21:55 A/P Assessment and Plan Ascites/ Alcoholic liver disease/ Abdominal pain Patient presented with abdominal pain and lower extremity edema with 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 Tap in ED negative for SBP. S/p therapeutic paracentesis 06/24 per IR. Still in severe pain and nauseous. - Continue Lasix 40 mg twice daily and spironolactone 100 mg daily. - GI consult requested. - pain control with a bowel regimen. Hypertension Blood pressure stable at this time. - Continue home medications. - pain control. Thrombocytopenia S/t liver disease. Has petechiae on exam. - follow CBC as needed. Tachycardia Likely secondary to pain. EKG with sinus tachycardia. - Pain control. Dyspnea The patient endorses a cough recently. CXR with ? of PNA. - Chest x-ray PA/ lateral pending. - Oxygen as needed. DVT prevention: Sequential compression devices Discharge Planning Awaiting GI William Alvarado DO Jun 25, 2017 14:05
[2017-06-25] MEDS ORDERED: MORPHINE SULFATE 4 MG/ML INJ IV ONE (14:15)
[2017-06-25] MEDS: LACTULOSE SYRUP 20 GM/30 ML CUP PO PRN (14:37)
[2017-06-25 14:57] LABS: CALCIUM 8.1 MG/DL (8.5-10.1)
[2017-06-25 14:58] LABS: BICARBONATE 28.9 MEQ/L (21.0-32.0)
[2017-06-25 15:01] LABS: CREATININE 0.66 MG/DL (0.50-1.00)
--- NOTE | 2017-06-25 15:15 | RADRPT ---
EXAM DATE/TIME: 06/25/2017 14:50 [facility] COMPARISON: CHEST SINGLE AP, June 24, 2017, 10:34. INDICATIONS : Short of breath. Pneumonia. Nausea. MEDICAL HISTORY : Gastroesophageal reflux disease. Hypertension. Cirrhosis. Mitral valve prolapse. Asthma. End stage li samantha disease. Neck and back pain. Anxiety. ETOH abuse. ETOH tremors. Blood transfusion. Anemia. SURGICAL HISTORY : Tonsillectomy. Keloid removal from posterior ears. ENCOUNTER: Initial ACUITY: 2 weeks PAIN SCORE: 0/10 LOCATION: chest FINDINGS: Persistent consolidation in the left lower lobe with loss of delineation of the medial left hemidiaph ragm and a few air bronchograms the retrocardiac region. No evidence of mediastinal shift. The righ t lung is clear. The heart is normal size. CONCLUSION: Left lower lobe consolidation, stable. Darren Field MD on June 25, 2017 at 15:12 Board Certified Radiologist. This report was verified electronically.
[2017-06-25 16:00] VITALS: BP 119/63; PULSE 111; RESP 20; TEMP 98; O2SAT 98
[2017-06-25] MEDS: ONDANSETRON HCL 4 MG/2 ML VIAL IVP PRN ×2 (18:28→23:30)
[2017-06-25 20:00] VITALS: BP 119/79; PULSE 121; RESP 20; TEMP 96; O2SAT 100
[2017-06-25] MEDS: ALBUMIN 25% INJ 50 ML IV SCH (21:48)
[2017-06-25] MEDS: traZODone HCL 50 MG TAB PO SCH (21:49)
[2017-06-25] MEDS ORDERED: DIATRIZOATE MEGLUM/DIATRIZOATE SOD 9 ML CUP PO ONE (22:00)
[2017-06-26] VITALS: BP 121/75; PULSE 124; RESP 18; TEMP 97; O2SAT 100
[2017-06-26 07:23] LABS: CALCIUM 8.3 MG/DL (8.5-10.1)
[2017-06-26 07:27] LABS: CREATININE 0.63 MG/DL (0.50-1.00)
[2017-06-26 08:00] VITALS: BP 116/78; PULSE 114; RESP 19; TEMP 97.4; O2SAT 100
[2017-06-26] MEDS ORDERED: POTASSIUM CHLORIDE 25 MEQ EFFERVESCENT TAB PO ONE (08:15)
[2017-06-26] MEDS: ONDANSETRON HCL 4 MG/2 ML VIAL IVP PRN ×3 (08:53→22:51)
[2017-06-26] MEDS: PANTOPRAZOLE SOD 40 MG DELAYED RELEASE TAB PO SCH (08:55)
[2017-06-26] MEDS: MIDODRINE 5 MG TAB PO SCH ×3 (08:55→15:45)
[2017-06-26] MEDS: SPIRONOLACTONE 50 MG TAB PO SCH (08:55)
[2017-06-26] MEDS: DOCUSATE SODIUM 50 MG/SENNA 8.6 MG TAB PO SCH ×2 (08:55→21:17)
[2017-06-26] MEDS: PENTOXIFYLLINE 400 MG CONTROLLED RELEASE TAB PO SCH ×3 (08:55→15:44)
[2017-06-26] MEDS: FUROSEMIDE 40 MG TAB PO SCH ×2 (08:56→21:17)
[2017-06-26] MEDS: POTASSIUM CHLORIDE 20 MEQ CONTROLLED RELEASE TAB PO SCH (08:59)
[2017-06-26] MEDS: ALBUMIN 25% INJ 50 ML IV SCH ×2 (08:59→20:05)
[2017-06-26] MEDS: metroNIDAZOLE 500 MG INJ 100 ML IV SCH ×3 (09:00→21:16)
[2017-06-26] MEDS: SODIUM CHLORIDE 0.9% FLUSH 10 ML FLUSH IV FLUSH SCH ×2 (09:00→20:06)
[2017-06-26] MEDS: VANCOMYCIN 500 MG VIAL (FOR ORAL USE ONLY) PO SCH ×4 (09:01→21:17)
[2017-06-26] MEDS ORDERED: METOCLOPRAMIDE HCL 10 MG/2 ML VIAL IV PUSH ONE (10:15)
--- NOTE | 2017-06-26 10:20 | HHI.PR ---
Subjective Remarks The patient was complaining of nausea. She said she still had abdominal pain. She believes her leg swelling is improved. She was trying to drink the liquid prior to having a CAT scan done. Discussed with nursing. Objective Vitals Vital Signs Date Time Temp Pulse Resp B/P (MAP) Pulse Ox O2 Delivery O2 Flow Rate FiO2 06/26/17 08:00 97.4 114 19 116/78 (91) 100 06/26/17 00:00 97.0 124 18 121/75 (90) 100 06/25/17 20:00 96.0 121 20 119/79 (92) 100 06/25/17 16:00 98.0 111 20 119/63 (81) 98 06/25/17 12:00 96.7 120 20 105/75 (85) 97 I/O 06/25/17 06/25/17 06/25/17 06/26/17 06/26/17 06/26/17 07:00 15:00 23:00 07:00 15:00 23:00 Intake Total 240 ml 900 ml 420 ml Balance 240 ml 900 ml 420 ml Intake Oral 240 ml 900 ml 420 ml # Voids 3 8 5 # Bowel Movements 0 0 1 Result Diagram: 06/24/17 0800 06/26/17 0645 Imaging Last Impressions Chest X-Ray 06/25/17 0000 Signed Impressions: Service Date/Time: Sunday, June 25, 2017 14:50 - CONCLUSION: Left lower lobe consolidation, stable. Darren Field MD Cyst Biopsy Asp-Paracentesis US 06/24/17 0000 Signed Impressions: Service Date/Time: May 08:24 - CONCLUSION: Uncomplicated ultrasound guided paracentesis. Andrez Toro MD Objective Remarks GENERAL: Nauseous. SKIN: Jaundiced, petechiae over the bilateral upper extremities. HEAD: Atraumatic. Normocephalic. EYES: Pupils equal and round. No injection or drainage. Scleral icterus. ENT: Dry mucous membranes. NECK: Trachea midline. CARDIOVASCULAR: Tachycardic. No murmur appreciated. RESPIRATORY: Clear to auscultation. Decreased breath sounds on the left. GASTROINTESTINAL: Abdomen soft, tender to palpation diffusely, distended. MUSCULOSKELETAL: Left lower extremity with 2+ edema, right lower extremity with 1+ edema. NEUROLOGICAL: Awake and alert. No obvious cranial nerve deficits. Moving all extremities. PSYCHIATRIC: Appropriate mood and affect; insight and judgment normal. Procedures Paracentesis Medications and IVs Current Medications Medications (Trade) Dose Ordered Sig/Ramon Route Start Time Stop Time Status Last Admin (NS Flush) 2 ml UNSCH PRN IV FLUSH 06/23/17 21:15 (NS Flush) 2 ml BID IV FLUSH 06/24/17 09:00 06/26/17 09:00 (Zofran Inj) 4 mg Q6H PRN IVP 06/23/17 21:15 06/26/17 08:53 (Tylenol) 650 mg Q6H PRN PO 06/23/17 21:15 (Roxicodone) 5 mg Q4H PRN PO 06/23/17 21:15 06/25/17 08:19 (Annemarie-Colace) 1 tab BID PO 06/24/17 09:00 06/26/17 08:55 (Milk Of Magnesia Liq) 30 ml Q12H PRN PO 06/23/17 21:15 (Senokot) 17.2 mg Q12H PRN PO 06/23/17 21:15 (Dulcolax Supp) 10 mg DAILY PRN RECTAL 06/23/17 21:15 (Lactulose Liq) 30 ml DAILY PRN PO 06/23/17 21:15 06/25/17 14:37 (Atarax) 25 mg TID PRN PO 06/24/17 09:45 (Ativan) 0.5 mg BID PRN PO 06/24/17 09:45 (Proamatine) 5 mg TID PO 06/24/17 13:00 06/26/17 08:55 (Protonix) 40 mg DAILY PO 06/24/17 09:45 06/26/17 08:55 (TRENtal SR) 400 mg TID PO 06/24/17 13:00 06/26/17 08:55 (KCl) 20 meq DAILY PO 06/24/17 09:45 06/26/17 08:59 (Aldactone) 100 mg DAILY PO 06/24/17 11:00 06/26/17 08:55 (Desyrel) 150 mg HS PO 06/24/17 21:00 06/25/17 21:49 (Roxicodone) 10 mg Q4H PRN PO 06/25/17 14:00 06/26/17 08:53 (Lasix) 40 mg BID PO 06/25/17 21:00 06/26/17 08:56 Albumin Human 50 ml @ 60 mls/hr Q12H IV 06/25/17 20:00 06/26/17 08:59 Metronidazole 100 ml @ 100 mls/hr Q6H IV 06/26/17 08:00 06/26/17 09:00 (VANCOMYCIN for oral use only) 250 mg QID PO 06/26/17 09:00 06/26/17 09:01 (Ceftin) 500 mg Q12HR PO 06/26/17 10:00 (Reglan Inj) 5 mg ONCE ONCE IV PUSH 06/26/17 10:15 06/26/17 10:16 A/P Assessment and Plan Ascites/ Alcoholic liver disease/ Abdominal pain/ C diff Patient presented with abdominal pain and lower extremity edema with 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 Tap in ED negative for SBP. S/p therapeutic paracentesis 06/24 per IR. Still in severe pain and nauseous. C diff PCR positive. GI consult appreciated. - Continue Lasix 40 mg twice daily and spironolactone 100 mg daily. - continue PO vancomycin and Flagyl per GI. - pain control with a bowel regimen. Hypertension Blood pressure well controlled. - Continue home medications. - pain control. Thrombocytopenia S/t liver disease. Has petechiae on exam. - follow CBC as needed. Tachycardia Likely secondary to pain/ nausea and infection. EKG with sinus tachycardia. - Pain control and antiemetics as needed. - antibiotics. Dyspnea The patient endorses a cough recently. CXR with left lung consolidation. - Oxygen and nebs as needed. - continue Flagyl. Add Ceftin. Hypokalemia S/t nausea and C diff. - replete with IV KCl and monitor. DVT prevention: Sequential compression devices Discharge Planning Awaiting clinical improvement. William Dover DO Jun 26, 2017 10:20
--- NOTE | 2017-06-26 10:32 | HHI.GIFU ---
Subjective Remarks Patient laying in bed, seems to be comfortable, having loose bowel, mild diffuse abdominal pain C. difficile was positive Objective Vitals I&O Vital Signs Date Time Temp Pulse Resp B/P (MAP) Pulse Ox O2 Delivery O2 Flow Rate FiO2 06/26/17 08:00 97.4 114 19 116/78 (91) 100 06/26/17 00:00 97.0 124 18 121/75 (90) 100 06/25/17 20:00 96.0 121 20 119/79 (92) 100 06/25/17 16:00 98.0 111 20 119/63 (81) 98 06/25/17 12:00 96.7 120 20 105/75 (85) 97 I/O 06/25/17 06/25/17 06/25/17 06/26/17 06/26/17 06/26/17 07:00 15:00 23:00 07:00 15:00 23:00 Intake Total 240 ml 900 ml 420 ml Balance 240 ml 900 ml 420 ml Intake Oral 240 ml 900 ml 420 ml # Voids 3 8 5 # Bowel Movements 0 0 1 Laboratory Laboratory Tests Test 06/25/17 14:31 06/26/17 00:00 06/26/17 06:45 Blood Urea Nitrogen 4 4 Creatinine 0.66 0.63 Random Glucose 112 99 Calcium Level 8.1 8.3 Sodium Level 128 130 Potassium Level 3.2 3.1 Chloride Level 90 91 Carbon Dioxide Level 28.9 30.0 Anion Gap 9 9 Estimat Glomerular Filtration Rate 93 98 Stool C. difficile Toxin (PCR) POSITIVE Stl C. difficile Toxin Epiderm 027 PRESUMPTIVE NEGATIVE Date/Time Source Procedure Growth Status 06/23/17 21:50 Fluid Peritoneal Fluid Gram Stain - Final Complete 06/23/17 21:50 Fluid Peritoneal Fluid Body Fluid Culture - Final NO GROWTH IN 72 HRS.--AEROBICALLY OR ... Complete 06/26/17 00:00 Stool Stool Pending Received Physical Exam HEENT: Pupils round and reactive to light; normocephalic; atraumatic; positive jaundice jaundice. Throat is clear. NECK: Neck is supple, no JVD, no lymphadenopathy. CHEST: Chest is clear to auscultation and percussion. CARDIAC: Regular rate and rhythm with no murmur gallop or rubs. ABDOMEN: Soft, mild distention of the abdomen, mild tenderness; no hepatosplenomegaly; bowel sounds are present in all four quadrants. EXTREMITIES: No clubbing, cyanosis, or edema. SKIN: Normal; no rash; no jaundice. [employer]: No focal deficits; alert and oriented times three. Assessment and Plan Plan Patient came back with C. difficile positive, we started vancomycin/Flagyl by Dr. Bai Cirrhosis, patient off alcohol for 8 weeks Advance diet as tolerated after CT scan of the abdomen that was ordered by Dr. Bai Continue antibioticAdvance Rochelle Proctor MD Jun 26, 2017 10:32
[2017-06-26] MEDS: CEFUROXIME AXETIL 500 MG TAB PO SCH ×2 (10:37→21:16)
[2017-06-26] MEDS ORDERED: POTASSIUM CHLOR 20 MEQ PREMIX 100 ML IV ONE (11:00)
[2017-06-26 12:00] VITALS: BP 109/80; PULSE 98; RESP 18; TEMP 97.7; O2SAT 99
[2017-06-26 15:17] LABS: BICARBONATE 26.7 MEQ/L (21.0-32.0); CALCIUM 8.8 MG/DL (8.5-10.1)
[2017-06-26 15:21] LABS: CREATININE 0.58 MG/DL (0.50-1.00)
--- NOTE | 2017-06-26 15:21 | MB ---
cc: THUY QUEEN M.D. DATE OF CONSULTATION 06/25/[address] William Dover REASON FOR CONSULTATION Abdominal pain, liver cirrhosis, diarrhea. HISTORY OF PRESENT ILLNESS Ms. Espinoza is an unfortunate 56-year-old lady with history of alcoholic cirrhosis, alcoholic hepatitis, recently discharged from the hospital. She was seen earlier this week in the office with worsening abdominal pain, nausea and vomiting and diarrhea. In the office she was examined and she was found to have extreme abdominal tenderness, for this reason she was sent to the emergency room for further evaluation and treatment and possible paracentesis to rule out SBP. She was readmitted. She had paracenteses which was negative for SBP. Abdominal pain got initially better but today it is worse. She continued to have nausea and vomiting. No further episodes of diarrhea. She stated she is abstinent from alcohol since her discharge. 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 PAST SURGICAL HISTORY D&C, tonsillectomy. ALLERGIES No known allergies. MEDICATIONS 1. Lactulose. 2. Dulcolax. 3. Lasix. 4. Desyrel. 5. Roxicodone. 6. ___. 7. Pentoxifylline. 8. Aldactone. 9. Atarax. 10. Lorazepam. 11. Protonix. 12. Tylenol p.r.n. 13. Milk of Magnesia p.r.n. 14. Senokot p.r.n. FAMILY HISTORY Coronary artery disease, Alzheimer's, diabetes. SOCIAL HISTORY Denies any drug use or smoking. Stopped drinking in March. REVIEW OF SYSTEMS CONSTITUTIONAL: She denies any fever or chills, weight loss or weight gain. ENT: No alteration in baseline hearing or visual acuity. PULMONARY: Denies any chest pain, shortness of breath. GASTROINTESTINAL: As above. GENITOURINARY: Denies dysuria, hematuria. HEMATOLOGIC: Denies any history of anemia or bleeding disorder. SKIN: No alteration in baseline skin lesion. NEUROLOGIC: No history of TIA or CVA kind of symptoms. PHYSICAL EXAMINATION GENERAL: On clinical exam she is sitting in bed in mild distress. She started vomiting after just eating dinner. VITAL SIGNS: Her temperature 96.6, pulse 116, respiration 21, blood pressure 114/72, pulse ox 99. HEENT: CARITO, jaundice. NECK: No JVD. No lymphadenopathy. CHEST: Clear to auscultation and palpation. CARDIOVASCULAR: S1-S2. No murmur. ABDOMEN: Abdomen is soft, distended, tender in the upper abdomen. MACHINE CLERICAL VERIFIER: Awake, alert, oriented x3. No focal signs identified. EXTREMITIES: Pedal edema 1+. LABORATORY DATA Her hemoglobin is 11.8 with white count of 7.6, platelets 116. Her bilirubin on admission was 7, currently 6.4. Her sodium 130, potassium 3.1, carbon dioxide 30. IMAGING STUDIES The patient had paracentesis as above. IMPRESSION Ms. Espinoza is an unfortunate 56-year-old lady with a history of alcoholic liver cirrhosis, currently decompensated, nausea, vomiting, possible secondary to gastroparesis, portal hypertension, diarrhea improved at this time. C. Diff pending. Severe abdominal pain, distension, possible recurrent ascites versus ileus, not much improved. Jaundice secondary to alcoholic liver disease. RECOMMENDATIONS Add albumin to Lasix and Aldactone. CT abdomen and pelvis to further evaluate her abdominal pain and distension. Clear liquid diet. If continues to vomit consider NG tube insertion and keep n.p.o. Follow up stool studies. Supportive care. If no improvement may consider palliative care, Hospice consultation. Not a liver transplant candidate at this time as she just stopped drinking in March. I would like to thank Dr. Dover for referring her to our office for consultation. Thuy Queen MD BSB/EO /7:58 AM /2:58 PM
[2017-06-26 15:54] LABS: MAGNESIUM 1.9 MG/DL (1.5-2.5)
[2017-06-26 16:00] VITALS: BP_SYST 122; BP_SYST 124; BP_DIAS 58; BP_DIAS 61; PULSE 115; PULSE 55; RESP 17; RESP 18; TEMP 97.6; TEMP 98; O2SAT 100; O2SAT 99
[2017-06-26] MEDS ORDERED: IOHEXOL 350 MG/ML 10 ML VIAL (for RAD DIAG) IVCONTRAST ONE (16:30)
--- NOTE | 2017-06-26 17:11 | RADRPT ---
EXAM DATE/TIME: 06/26/2017 16:34 [facility] COMPARISON: CT ABDOMEN & PELVIS W CONTRAST, June 13, 2017, 19:24. INDICATIONS : Diffuse abdomen pain with nausea and vomiting. IV CONTRAST: 75 cc Omnipaque 350 (iohexol) IV ORAL CONTRAST: Prescribed oral contrast ingested. RADIATION DOSE: 14.33 CTDIvol (mGy) MEDICAL HISTORY : Gastroesophageal reflux disease. Hypertension. SURGICAL HISTORY : None. ENCOUNTER: Initial ACUITY: 2 days PAIN SCALE: 7/10 LOCATION: Bilateral abdomen TECHNIQUE: Volumetric scanning of the abdomen and pelvis was performed. Using automated exposure control and ad justment of the mA and/or kV according to patient size, radiation dose was kept as low as reasonably achievable to obtain optimal diagnostic quality images. DICOM format image data is available electro nically for review and comparison. FINDINGS: Large left pleural effusion measuring 5.4 cm is stable in size with segmental consolidation of the le ft lower lung.. Diffuse ascites in the lateral abdomen and pelvis is similar in severity to prior. Stable splenomegaly. The gallbladder remains distended. Multiple small low density lesions in the l iver stable. No evidence of hydronephrosis. Abdominal aorta is normal dimension. The pancreas is g rossly intact. Oral contrast passes through to the rectum. There is diffuse wall thickening in the right colon. CONCLUSION: Multiple CT findings are unchanged when compared to 06/13/17 including ascites, splenomegaly, left pl eural effusion. There is intraluminal contrast in the colon which demonstrates diffuse wall thickeni ng in the right colon Darren Field MD on June 26, 2017 at 17:00 Board Certified Radiologist. This report was verified electronically.
[2017-06-26 20:00] VITALS: BP 120/73; PULSE 70; RESP 18; TEMP 97.6; O2SAT 98
[2017-06-26] MEDS: traZODone HCL 50 MG TAB PO SCH (21:17)
[2017-06-27] VITALS: BP 115/81; PULSE 110; RESP 18; TEMP 97.7; O2SAT 99
[2017-06-27] MEDS: metroNIDAZOLE 500 MG INJ 100 ML IV SCH ×4 (01:58→20:11)
[2017-06-27] MEDS: ONDANSETRON HCL 4 MG/2 ML VIAL IVP PRN ×3 (05:05→21:04)
--- NOTE | 2017-06-27 08:57 | HHI.GIFU ---
Subjective Remarks Patient was seen and examined, reading a newspaper in her bed, she said she feels okay except sometimes has some nausea and abdominal discomfort before her medicine do, she had few bowel movements which were loose Objective Vitals I&O Vital Signs Date Time Temp Pulse Resp B/P (MAP) Pulse Ox O2 Delivery O2 Flow Rate FiO2 06/27/17 00:00 97.7 110 18 115/81 (92) 99 06/26/17 20:00 97.6 70 18 120/73 (89) 98 06/26/17 16:00 97.6 115 17 124/58 (80) 99 06/26/17 12:00 97.7 98 18 109/80 (90) 99 I/O 06/26/17 06/26/17 06/26/17 06/27/17 06/27/17 06/27/17 07:00 15:00 23:00 07:00 15:00 23:00 Intake Total 420 ml 520 ml 360 ml Balance 420 ml 520 ml 360 ml Intake Oral 420 ml 520 ml 360 ml # Voids 5 3 # Bowel Movements 1 2 Laboratory Laboratory Tests Test 06/26/17 14:45 Blood Urea Nitrogen 4 Creatinine 0.58 Random Glucose 100 Calcium Level 8.8 Magnesium Level 1.9 Sodium Level 130 Potassium Level 3.7 Chloride Level 93 Carbon Dioxide Level 26.7 Anion Gap 10 Estimat Glomerular Filtration Rate 108 Date/Time Source Procedure Growth Status 06/23/17 21:50 Fluid Peritoneal Fluid Gram Stain - Final Complete 06/23/17 21:50 Fluid Peritoneal Fluid Body Fluid Culture - Final NO GROWTH IN 72 HRS.--AEROBICALLY OR ... Complete 06/26/17 00:00 Stool Stool - Final NO ENTERIC PATHOGENS DETECTED BY PCR... Complete Physical Exam HEENT: Pupils round and reactive to light; normocephalic; atraumatic; positive jaundice jaundice. Throat is clear. NECK: Neck is supple, no JVD, no lymphadenopathy. CHEST: Chest is clear to auscultation and percussion. CARDIAC: Regular rate and rhythm with no murmur gallop or rubs. ABDOMEN: Soft, mild distention of the abdomen from SI tests, mild tenderness; no hepatosplenomegaly; bowel sounds are present in all four quadrants. EXTREMITIES: No clubbing, cyanosis, or edema. SKIN: Normal; no rash; positive + jaundice. 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 Assessment and Plan Plan Patient came back with C. difficile positive, we started vancomycin/Flagyl by Dr. Bai Cirrhosis, patient off alcohol for 8 weeks Advance diet as tolerated after CT scan of the abdomen that was ordered by Dr. Bai Continue antibioticAdvance 06/27/2017, patient feeling reasonably well, still having some loose stool, we will continue treatment for C. difficile, Cirrhosis still jaundice but stable Advance diet as tolerated to low salt diet Rochelle Proctor MD Jun 27, 2017 08:57
[2017-06-27] MEDS: DOCUSATE SODIUM 50 MG/SENNA 8.6 MG TAB PO SCH (09:00)
[2017-06-27 09:12] VITALS: BP 125/73; PULSE 121; RESP 15; TEMP 97.2; O2SAT 98
[2017-06-27] MEDS: ALBUMIN 25% INJ 50 ML IV SCH ×2 (09:38→20:00)
[2017-06-27] MEDS: CEFUROXIME AXETIL 500 MG TAB PO SCH ×2 (09:39→20:12)
[2017-06-27] MEDS: MIDODRINE 5 MG TAB PO SCH ×3 (09:39→17:45)
[2017-06-27] MEDS: PENTOXIFYLLINE 400 MG CONTROLLED RELEASE TAB PO SCH ×3 (09:39→17:45)
[2017-06-27] MEDS: FUROSEMIDE 40 MG TAB PO SCH ×2 (09:39→20:12)
[2017-06-27] MEDS: POTASSIUM CHLORIDE 20 MEQ CONTROLLED RELEASE TAB PO SCH (09:40)
[2017-06-27] MEDS: PANTOPRAZOLE SOD 40 MG DELAYED RELEASE TAB PO SCH (09:40)
[2017-06-27] MEDS: SODIUM CHLORIDE 0.9% FLUSH 10 ML FLUSH IV FLUSH SCH ×2 (09:40→20:11)
[2017-06-27] MEDS: SPIRONOLACTONE 50 MG TAB PO SCH (09:41)
[2017-06-27] MEDS: VANCOMYCIN 500 MG VIAL (FOR ORAL USE ONLY) PO SCH ×4 (10:11→20:12)
--- NOTE | 2017-06-27 13:50 | HHI.PR ---
Subjective Remarks Patient seen and examined today for follow-up on end-stage liver disease, ascites, Clostridium difficile infection. Patient states that she is feeling better. Has not had any diarrhea today. She does have lower extremity edema and she also believes her abdomen is started distending again. I discussed with the patient possible palliative care consult. She is in agreement at this time. Objective Vitals Vital Signs Date Time Temp Pulse Resp B/P (MAP) Pulse Ox O2 Delivery O2 Flow Rate FiO2 06/27/17 09:12 97.2 121 15 125/73 (90) 98 06/27/17 00:00 97.7 110 18 115/81 (92) 99 06/26/17 20:00 97.6 70 18 120/73 (89) 98 06/26/17 16:00 97.6 115 17 124/58 (80) 99 I/O 06/26/17 06/26/17 06/26/17 06/27/17 06/27/17 06/27/17 07:00 15:00 23:00 07:00 15:00 23:00 Intake Total 420 ml 520 ml 360 ml Balance 420 ml 520 ml 360 ml Intake Oral 420 ml 520 ml 360 ml # Voids 5 3 # Bowel Movements 1 2 Result Diagram: 06/24/17 0800 06/26/17 1445 Objective Remarks GENERAL: Well-developed, well-nourished, in no acute distress. alert and orientated HEENT: Head is normocephalic without any lesions or masses noted. Facial features are symmetric. Eyes: Conjunctivae and sclera are icteric. NECK: Supple without any masses. Trachea midline no deviation. CARDIAC: Regular rhythm, regular rate. S1/S2 are heard. No murmurs gallops or rubs. LUNGS: Clear to auscultation bilaterally. No wheeze, rhonchi or rales. No use of accessory muscles on inspiration or expiration. ABDOMEN: Soft, nontender. Nondistended. Bowel sounds heard in all 4 quadrants. No organomegaly or masses. Negative rebound, negative guarding EXTREMITIES: Bilateral pitting feet edema, pulses are equal bilaterally. No cyanosis or clubbing NEUROLOGY: Mood and affect appear appropriate. Cranial nerves II through XII grossly intact. 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 Tap in ED negative for SBP. S/p therapeutic paracentesis 06/24 per IR. Still in severe pain and nauseous. C diff PCR positive. GI consult appreciated. - Diagnostic paracentesis in emergency department without signs of spontaneous bacterial peritonitis - Therapeutic paracentesis has been performed with removable of 3800 cc of clear yellow fluid - Continue Lasix 40 mg twice daily and spironolactone 100 mg daily. - continue pain control with a bowel regimen. - Assurance Assistant indicates patient not a candidate for transplant this time , we'll consult palliative care for recommendations and goals of care Clostridium difficile infection - Advance diet as tolerated - Continue vancomycin by mouth and Flagyl IV Hypertension, Blood pressure well controlled. - Continue home medications. - pain control. Thrombocytopenia, S/t liver disease. Has petechiae on exam. - follow CBC as needed. Tachycardia Likely secondary to pain/ nausea and infection. EKG with sinus tachycardia. - Pain control and antiemetics as needed. - antibiotics. Left lower lung consolidation with Dyspnea - Oxygen and nebs as needed. - continue Ceftin and Flagyl Hypokalemia, resolved S/t nausea and C diff. - replete with IV KCl and monitor. DVT prevention: - Sequential compression devices Andrea Weathers Jun 27, 2017 13:50
[2017-06-27 14:50] VITALS: BP 131/80; PULSE 120; RESP 15; TEMP 97; O2SAT 99
[2017-06-27 18:29] VITALS: BP 126/63; PULSE 119; RESP 16; TEMP 97; O2SAT 98
[2017-06-27 20:00] VITALS: BP 127/75; PULSE 115; RESP 18; TEMP 96.8; O2SAT 100
[2017-06-27] MEDS: traZODone HCL 50 MG TAB PO SCH (20:12)
[2017-06-28] VITALS: BP 114/61; PULSE 111; RESP 16; TEMP 96.3; O2SAT 100
[2017-06-28] MEDS: ONDANSETRON HCL 4 MG/2 ML VIAL IVP PRN ×3 (02:56→17:23)
[2017-06-28] MEDS: metroNIDAZOLE 500 MG INJ 100 ML IV SCH ×2 (02:57→07:40)
[2017-06-28 04:00] VITALS: BP 135/59; PULSE 127; RESP 16; TEMP 97.6; O2SAT 98
[2017-06-28] MEDS: SPIRONOLACTONE 50 MG TAB PO SCH (07:40)
[2017-06-28] MEDS: FUROSEMIDE 40 MG TAB PO SCH ×2 (07:40→22:26)
[2017-06-28] MEDS: POTASSIUM CHLORIDE 20 MEQ CONTROLLED RELEASE TAB PO SCH (07:40)
[2017-06-28] MEDS: ALBUMIN 25% INJ 50 ML IV SCH (07:40)
[2017-06-28] MEDS: PENTOXIFYLLINE 400 MG CONTROLLED RELEASE TAB PO SCH ×3 (07:41→17:02)
[2017-06-28] MEDS: CEFUROXIME AXETIL 500 MG TAB PO SCH ×2 (07:41→22:26)
[2017-06-28] MEDS: PANTOPRAZOLE SOD 40 MG DELAYED RELEASE TAB PO SCH (07:41)
[2017-06-28] MEDS: SODIUM CHLORIDE 0.9% FLUSH 10 ML FLUSH IV FLUSH SCH ×2 (07:41→22:26)
[2017-06-28] MEDS: VANCOMYCIN 500 MG VIAL (FOR ORAL USE ONLY) PO SCH ×4 (07:41→22:25)
[2017-06-28 08:00] VITALS: BP 145/68; PULSE 120; RESP 20; TEMP 96.5; O2SAT 100
--- NOTE | 2017-06-28 11:06 | PD.CONS ---
Consult Service Palliative Care Consult Requested By BILL Carranza . Primary Care Physician Non-Staff Reason for Consultation a. To assist with evaluation and management of symptoms including: nausea, malnutrition, anxiety. b. To assist medical decision maker(s) with: better understanding of current medical conditions; weighing benefits/burdens of medical treatment options; making medical treatment decisions. . HPI History of Present Illness The patient is a 56 year old female with a past medical history significant for alcoholic liver disease who presented to the ED on 06/24/17 with increasing abdominal pain. Patient was referred to the ED via her social media analyst to rule out spontaneous bacterial peritonitis. The patient was recently hospitalized from April 19 to May 13, she presented to the ED at that time for generalized weakness and dizziness. During that hospitalization she was found to have liver failure with significant ascites requiring paracentesis secondary to alcohol liver disease, her hospitalization was prolonged due to profound weakness. * ED workup included: Significant laboratory data: Hb.8, Hct:35.5, Plt Count :116K, Na:130, Chlorida:95, Total bilirubin:6.4, Total Protein:5.9, Albumin:2.2 , PT:18.5, INR:1.6. MELD score:22. Diagnostic paracentesis performed: Negative for SBP. Chest CXR: Possible pneumonia developing of the left lung base. ECG: Sinus tachycardia with PVCs. Patient admitted for observation and therapeutic paracentesis. * 06/26/17: Patient with ongoing nausea and abdominal pain. C. diff PCR: positive. GI consulted. * GI consulted: Albumin added to Lasix and Aldactone. Vancomycin and Flagyl initiated for C. diff. CT abdomen: Ascites, splenomegaly, left pleural effusions. Patient is not a liver transplant candidate as she only recently stopped drinking alcohol in March, recommended Hospice. Patient seen and examined today, resting in bed, no family at bedside. Patient is alert and oriented x 3. She states that she feels "terrible", complains of generalized weakness, abdominal pain, and nausea. Patient also states that her lower extremity edema has not improved, she stated her lower extremities are also painful and it has been difficult to put on compression stockings but she has been able to tolerate SCDs. She also states her abdomen has become increasingly more distended, she stated when she was first diagnosed with liver disease she did not realize that fluid would continue to accumulate even after having paracentesis. Medical team has planned for an additional therapeutic paracentesis. Palliative care was consulted to assist with symptom management, as well as to discuss with the patient goals of care, the benefits/burdens of her current illnesses, and options regarding future care. Function/Cognitive Trajectory Patient was completely independent of all ADLs prior to her prolonged hospitalization in March. She was discharged mid April after being hospitalized for approximately one month, since her discharge she has had to move in with her family due to financial reasons as well as to help coordinate her care. She has experienced profound weakness prior to this hospitalization, she has only been able to ambulate around the house and can not tolerate ambulating long distances. . Review of Systems Constitutional: COMPLAINS OF: Fatigue, Weight gain, Change in appetite, Generalized weakness Respiratory: COMPLAINS OF: Cough Cardiovascular: COMPLAINS OF: Lower Extremity Edema, DENIES: Chest pain Gastrointestinal: COMPLAINS OF: Abdominal pain, Diarrhea, Nausea, Vomiting, Dyspepsia or heartburn, Bloating Musculoskeletal: COMPLAINS OF: Decreased range of motion Integumentary: COMPLAINS OF: Abnormal pigmentation Hematologic/Lymphatics: COMPLAINS OF: Bruising Neurologic: COMPLAINS OF: Poor Balance Psychiatric: COMPLAINS OF: Anxiety, Depression Past Family Social History Coded Allergies: No Known Allergies (Verified , 06/23/17) Past Medical History Liver failure secondary to alcoholic liver disease Esophagitis Hypertension Anxiety Depression Mitral valve prolapse Chronic neck/back pain Stress fracture of LLE Past Surgical History D&C Tonsillectomy Reported Medications Reported Meds & Active Scripts Active Spironolactone 100 Mg Tab 100 Mg PO DAILY Oxycodone (Oxycodone HCl) 5 Mg Tab 5 Mg PO Q6H PRN Pantoprazole (Pantoprazole Sodium) 40 Mg Tab 40 Mg PO DAILY 30 Days Trazodone (Trazodone HCl) 150 Mg Tablet 150 Mg PO HS Reported Phenergan (Promethazine HCl) 25 Mg Tablet 25 Mg PO ONCE Potassium Chloride ER (Potassium Chloride) 20 Meq Tab 20 Meq PO DAILY Pentoxifylline ER (Pentoxifylline) 400 Mg Tab 400 Mg PO TID Midodrine 5 Mg Tab 5 Mg PO TID Lactulose Liq (Lactulose) 10 Gm/15 Ml Soln 30 Ml PO BID Furosemide 40 Mg Tab 40 Mg PO BID Lorazepam 0.5 Mg Tab 0.5 Mg PO BID PRN . Current Medications Medications (Trade) Dose Ordered Sig/Ramon Route Start Time Stop Time Status Last Admin (NS Flush) 2 ml UNSCH PRN IV FLUSH 06/23/17 21:15 (NS Flush) 2 ml BID IV FLUSH 06/24/17 09:00 06/28/17 07:41 (Zofran Inj) 4 mg Q6H PRN IVP 06/23/17 21:15 06/28/17 02:56 (Tylenol) 650 mg Q6H PRN PO 06/23/17 21:15 (Roxicodone) 5 mg Q4H PRN PO 06/23/17 21:15 06/25/17 08:19 (Milk Of Magnesia Liq) 30 ml Q12H PRN PO 06/23/17 21:15 (Senokot) 17.2 mg Q12H PRN PO 06/23/17 21:15 (Dulcolax Supp) 10 mg DAILY PRN RECTAL 06/23/17 21:15 (Lactulose Liq) 30 ml DAILY PRN PO 06/23/17 21:15 06/25/17 14:37 (Atarax) 25 mg TID PRN PO 06/24/17 09:45 (Ativan) 0.5 mg BID PRN PO 06/24/17 09:45 (Protonix) 40 mg DAILY PO 06/24/17 09:45 06/28/17 07:41 (TRENtal SR) 400 mg TID PO 06/24/17 13:00 06/28/17 07:41 (KCl) 20 meq DAILY PO 06/24/17 09:45 06/28/17 07:40 (Aldactone) 100 mg DAILY PO 06/24/17 11:00 06/28/17 07:40 (Desyrel) 150 mg HS PO 06/24/17 21:00 06/27/17 20:12 (Roxicodone) 10 mg Q4H PRN PO 06/25/17 14:00 06/28/17 07:21 (Lasix) 40 mg BID PO 06/25/17 21:00 06/28/17 07:40 Albumin Human 50 ml @ 60 mls/hr Q12H IV 06/25/17 20:00 06/28/17 07:40 Metronidazole 100 ml @ 100 mls/hr Q6H IV 06/26/17 08:00 06/28/17 07:40 (VANCOMYCIN for oral use only) 250 mg QID PO 06/26/17 09:00 06/28/17 07:41 (Ceftin) 500 mg Q12HR PO 06/26/17 10:00 06/28/17 07:41 . Family History Father in MVA, mother secondary to Alzheimer's related complications, brother has DM type II, sister of alcohol liver disease. Substance Use Tobacco: None reported. Alcohol: penitentiary regular wine drinker. Prescription med abuse: None reported. Illicits: None reported. Psychosocial History The patient was born and raised in [place], but moved to [place] at age 17. She has lived in this area for quite some time, and his lived alone for the past 15 years. She was once, in 2001. She has no children, but has 2 brothers and 2 sisters. One brother lives locally. 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 . Spiritual/Cultural Factors Confucianist. Health Care Surrogate: Copy in medical record Date completed: 04/26/17 . Health Care Surrogate(s): Balaji Fishman (brother) . Today's verbally stated goals: Patient verbalized today her goals remain aggressive, she stated an understanding of the end stage nature of her disease process and indicated that she is aware that she is not a liver transplant candidate at this time. Risks, benefits, and limitations regarding CPR in the setting of her end stage live disease was discussed, she endorsed that she would like to remain a full code and is amenable to being placed on life support for "3 months" if necessary, she stated she would not want to remain on life support if she was in a persistent vegetative state. . Ethical and Legal Issues None known. Physical Exam Vital Signs Date Time Temp Pulse Resp B/P (MAP) Pulse Ox O2 Delivery O2 Flow Rate FiO2 06/28/17 08:00 96.5 120 20 145/68 (93) 100 06/28/17 04:00 97.6 127 16 135/59 (84) 98 06/28/17 00:00 96.3 111 16 114/61 (78) 100 06/27/17 20:00 96.8 115 18 127/75 (92) 100 06/27/17 18:29 97.0 119 16 126/63 (84) 98 06/27/17 14:50 97.0 120 15 131/80 (97) 99 Exam CONSTITUTIONAL/GENERAL: This is a frail, female patient, in no apparent distress , awake, alert, and oriented x 3. TUBES/LINES/DRAINS: PIV x 1 SKIN: Jaundice. Ecchymoses on upper extremities. No wounds seen anteriorly. Skin temperature appropriate. Not diaphoretic. HEAD: Atraumatic. Normocephalic. EYES: Pupils equal and round and reactive. Extraocular motions intact. Scleral icterus. No injection or drainage. Fundi not examined. ENT: Hearing grossly normal. Nose without bleeding or purulent drainage. Throat without visible erythema, exudates, masses, or lesions. NECK: Trachea midline. Supple, nontender. CARDIOVASCULAR: Regular rate and rhythm without murmurs, gallops, or rubs. No JVD. Peripheral pulses symmetric. RESPIRATORY/CHEST: Symmetric, unlabored respirations. Clear to auscultation. Breath sounds equal bilaterally. No wheezes, rales, or rhonchi. GASTROINTESTINAL: Abdomen firm, distended, tender. Hypoactive bowel sounds present. GENITOURINARY: Without palpable bladder distension. MUSCULOSKELETAL: Extremities without clubbing, cyanosis. 2+ pitting edema in BLE. No mottling or clubbing. LYMPHATICS: No palpable cervical or supraclavicular adenopathy. NEUROLOGICAL: Awake and alert. Motor and sensory grossly within normal limits. Follows commands. Cognitively sharp. Moves all extremities. PSYCHIATRIC: No obvious anxiety/depression. no apparent hallucinations or other psychotic thought process. . Diagnostic Tests Laboratory Laboratory Tests Test 06/25/17 14:31 06/26/17 00:00 06/26/17 06:45 06/26/17 14:45 Blood Urea Nitrogen 4 MG/DL (7-18) 4 MG/DL (7-18) 4 MG/DL (7-18) Creatinine 0.66 MG/DL (0.50-1.00) 0.63 MG/DL (0.50-1.00) 0.58 MG/DL (0.50-1.00) Random Glucose 112 MG/DL (74-106) 99 MG/DL (74-106) 100 MG/DL (74-106) Calcium Level 8.1 MG/DL (8.5-10.1) 8.3 MG/DL (8.5-10.1) 8.8 MG/DL (8.5-10.1) Sodium Level 128 MEQ/L (136-145) 130 MEQ/L (136-145) 130 MEQ/L (136-145) Potassium Level 3.2 MEQ/L (3.5-5.1) 3.1 MEQ/L (3.5-5.1) 3.7 MEQ/L (3.5-5.1) Chloride Level 90 MEQ/L (98-107) 91 MEQ/L (98-107) 93 MEQ/L (98-107) Carbon Dioxide Level 28.9 MEQ/L (21.0-32.0) 30.0 MEQ/L (21.0-32.0) 26.7 MEQ/L (21.0-32.0) Anion Gap 9 MEQ/L (5-15) 9 MEQ/L (5-15) 10 MEQ/L (5-15) Estimat Glomerular Filtration Rate 93 ML/MIN (>89) 98 ML/MIN (>89) 108 ML/MIN (>89) Stool C. difficile Toxin (PCR) POSITIVE (NEGATIVE) Stl C. difficile Toxin Epiderm 027 PRESUMPTIVE NEGATIVE Magnesium Level 1.9 MG/DL (1.5-2.5) Result Diagram: 06/24/17 0800 06/26/17 1445 Microbiology Microbiology Date/Time Source Procedure Growth Status 06/26/17 00:00 Stool Stool - Final NO ENTERIC PATHOGENS DETECTED BY PCR... Complete Patient/Family Conference Present at Family Conference: Telephone conference with patient's brother Balaji Jones, updated on patient's clinical status. Family Conference Location: Bedside, Telephone Issues Discussed: * Palliative care role, purpose, approach * Additional medical, psychosocial, and spiritual history * Patients general health, functional status, and cognitive changes in the months leading up to the current hospitalization * Patient/family understanding of the current medical problems * Patient/family understanding of prognosis * Patients goals of care as best understood from advance directives and/or conversations and/or values * Current medical treatment options and benefits/burdens of those options * Code status * Likely scenarios comparing ongoing aggressive care with a transition to comfort measures only * Hospice role and philosophy * Questions answered to the best of my ability * Palliative care contact information provided Assessment and Plan Disease Oriented Problem List: (1) End stage liver disease (2) EtOH dependence Symptom Scale: (1) Dyspnea (2) Malnutrition (3) anxiety Pertinent Non-Medical Issues Psychosocial: The patient was born and raised in [place], but moved to [place] at age 17. She has lived in this area for quite some time, and his lived alone for the past 15 years. She was once, in 2001. She has no children, but has 2 brothers and 2 sisters. 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 Spiritual: Confucianist Legal: None known. Ethical issues impacting care: None known. . Important Contacts Brother: Balaji Fishman Home: Prognosis Patient has a long standing history of ETOH abuse, she was recently diagnosed with end stage liver disease in March of this year, she is not a liver transplant candidate as she has only abstained from alcohol since her diagnosis in March. The patient has recently required multiple paracentesis secondary to recurrent ascites, during this admission her hospitalization has now been complicated with C. difficile. She is at an ongoing risk for complications and setbacks secondary to her end stage liver disease, debility, and poor nutritional status. . Code Status: Full Code Plan * CODE STATUS: FULL CODE. Risks, benefits, and limitations regarding CPR in the setting of her end stage live disease was discussed, she endorsed that she would like to remain a full code and is amenable to being placed on life support for "3 months" if necessary, she stated she would not want to remain on life support if she was in a persistent vegetative state. * HEALTHCARE DECISION-MAKING: Patient is currently capacitated to make her own medical decisions at this time. She has previously designated her brother Balaji Jones as her HCS, she again confirmed this today. Discussed at length her wishes in regard to prolonged life support and end of life care. * GOALS OF CARE: Patient verbalized today her goals remain aggressive, she stated an understanding of the end stage nature of her disease process and indicated that she is aware that she is not a liver transplant candidate at this time. * Hospice introduced and discussed. Although patient stated she would be open to meeting with Hospice, her goals are aggressive and not compatible with Hospice at this time. * SYMPTOMS: * = Nausea: Patient has had ongoing issues with nausea even prior to this hospitalization. Ondansetron 4mg q 6 hours PRN for nausea ordered, 4 doses utilized in the past 24 hours. No recommendations at this time. * =Malnutrition: Secondary to nausea/vomiting, persistent abdominal discomfort. Albumin 2.2 on 06/24/17. Diet advanced from liquid diet to heart healthy diet yesterday. Patient still experiencing ongoing nausea, when improved she would benefit from nutritional supplement like ensure with meals. * =Anxiety: Patient has a history of anxiety, currently on trazadone 150mg QHS, lorazepam 05.mg BID PRN for anxiety also ordered, patient has not required any PRN doses. No recommendations at this time. * Palliative care contact information has been provided to patient. * Palliative care will continue to follow-up with patient for further clarifications of goals of care as her clinical course continue to evolve. . Thank you for the opportunity to participate in the care of Ms. Espinoza. Attestation To help prompt me to consider important information that might be impacting today's encounter and assessment, information from prior notes written by myself or my colleagues may have been "brought forward" into today's note. My signature on this note, however, is an attestation that I personally performed the exam, history, and/or decision-making noted today, and, unless otherwise indicated, the interactions with patient, family, and staff as well as the review of records all occurred today. I also attest that the listed assessment and stated plan reflect my best clinical judgment today based on the combination of historical information, prior notes, and today's exam/ interactions. When time spent is documented, it refers only to time spent today by the signer, or if indicated, combined time spent today by collaborating physician/nurse practitioner. Tiffany Ma Jun 28, 2017 11:06
--- NOTE | 2017-06-28 11:40 | HHI.PR ---
Subjective Remarks Patient seen and examined today for follow-up on Clostridium difficile infection , end-stage liver disease, ascites and patient states that her bowel movements have improved. However still having significant lower extremity edema, worsening abdominal distention, patient has had 4 pound weight gain since yesterday. Patient states that she is too weak to even walk at this time. States that he barely make it to the bathroom. Objective Vitals Vital Signs Date Time Temp Pulse Resp B/P (MAP) Pulse Ox O2 Delivery O2 Flow Rate FiO2 06/28/17 08:00 96.5 120 20 145/68 (93) 100 06/28/17 04:00 97.6 127 16 135/59 (84) 98 06/28/17 00:00 96.3 111 16 114/61 (78) 100 06/27/17 20:00 96.8 115 18 127/75 (92) 100 06/27/17 18:29 97.0 119 16 126/63 (84) 98 06/27/17 14:50 97.0 120 15 131/80 (97) 99 I/O 06/27/17 06/27/17 06/27/17 06/28/17 06/28/17 06/28/17 07:00 15:00 23:00 07:00 15:00 23:00 Intake Total 360 ml 150 ml 1480 ml 480 ml Balance 360 ml 150 ml 1480 ml 480 ml Intake Oral 360 ml 1480 ml 480 ml IV Total 150 ml # Voids 3 6 5 # Bowel Movements 0 1 Result Diagram: 06/24/17 0800 06/26/17 1445 Objective Remarks GENERAL: Well-developed, well-nourished, in no acute distress. alert and orientated HEENT: Head is normocephalic without any lesions or masses noted. Facial features are symmetric. Eyes: Conjunctivae and sclera are icteric. NECK: Supple without any masses. Trachea midline no deviation. CARDIAC: Regular rhythm, regular rate. S1/S2 are heard. No murmurs gallops or rubs. LUNGS: Clear to auscultation bilaterally. No wheeze, rhonchi or rales. No use of accessory muscles on inspiration or expiration. ABDOMEN: Soft, nontender. Nondistended. Bowel sounds heard in all 4 quadrants. No organomegaly or masses. Negative rebound, negative guarding EXTREMITIES: Bilateral pitting feet edema, pulses are equal bilaterally. No cyanosis or clubbing NEUROLOGY: Mood and affect appear appropriate. Cranial nerves II through XII grossly intact. 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 Tap in ED negative for SBP. S/p therapeutic paracentesis 06/24 per IR. Still in severe pain and nauseous. C diff PCR positive. GI consult appreciated. - Diagnostic paracentesis in emergency department without signs of spontaneous bacterial peritonitis - Therapeutic paracentesis has been performed with removable of 3800 cc of clear yellow fluid - Continue Lasix 40 mg twice daily and spironolactone 100 mg daily. - continue pain control with a bowel regimen. - Newspaper Photographer indicates patient not a candidate for transplant this time , we'll consult palliative care for recommendations and goals of care - We'll plan another therapeutic paracentesis with the patient's increased abdominal girth with anticipation of discharge with the next 24-48 hours Clostridium difficile infection - Advance diet as tolerated - Continue vancomycin by mouth, continue for total 2 weeks - Discontinue IV Flagyl Hypertension, Blood pressure well controlled. - Continue home medications. - pain control. Thrombocytopenia, S/t liver disease. Has petechiae on exam. - follow CBC as needed. Tachycardia Likely secondary to pain/ nausea and infection. EKG with sinus tachycardia. - Pain control and antiemetics as needed. - antibiotics. Left lower lung consolidation with Dyspnea - Oxygen and nebs as needed. - continue Ceftin Hypokalemia, resolved S/t nausea and C diff. - replete with IV KCl and monitor. DVT prevention: - Sequential compression devices Discharge Planning Case management for discharge planning, likely need home health care, outpatient follow-up with primary medical doctor, mandatory referral for Andrea Todd Jun 28, 2017 11:40
--- NOTE | 2017-06-28 11:42 | HHI.FF ---
Face to Face Verification Diagnosis: (1) Generalized weakness (2) Lower extremity edema (3) End stage liver disease (4) Malnutrition (5) Abdominal pain Physical Therapy Order: Evaluate and Treat, Improve ambulation, Strength and gait training Home Health Nursing Order: Medical education Signs/symptoms of disease process Nursing assessment with vital signs I have seen patient Krupa Espinoza on 06/28/17. My clinical findings support the need for the requested home health care services because: Ltd mobility - disease progression Deconditioned w/ increased weakness I certify that my clinical findings support that this patient is homebound because: Unsteady gait/balance Unsafe to leave home unassisted Andrea Weathers Jun 28, 2017 11:42
[2017-06-28 12:00] VITALS: BP 124/64; PULSE 121; RESP 20; TEMP 96.7; O2SAT 100
[2017-06-28 16:00] VITALS: BP 120/58; PULSE 120; RESP 20; TEMP 96.4; O2SAT 100
[2017-06-28 20:00] VITALS: BP 120/70; PULSE 125; RESP 20; TEMP 96.1; O2SAT 100
[2017-06-28] MEDS ORDERED: FAMOTIDINE 20 MG TAB PO SCH (21:00)
[2017-06-28] MEDS: traZODone HCL 50 MG TAB PO SCH (22:25)
[2017-06-28] MEDS ORDERED: PROMETHAZINE HCL 12.5 MG SUPP RECTAL PRN (23:15)
[2017-06-29] VITALS: BP 104/59; PULSE 114; RESP 18; TEMP 96.6; O2SAT 99
[2017-06-29] MEDS: ONDANSETRON HCL 4 MG/2 ML VIAL IVP PRN ×2 (04:50→11:31)
[2017-06-29 08:00] VITALS: BP 134/73; PULSE 115; RESP 20; TEMP 96.4; O2SAT 98
[2017-06-29] MEDS: PENTOXIFYLLINE 400 MG CONTROLLED RELEASE TAB PO SCH ×2 (09:00→13:00)
[2017-06-29] MEDS: POTASSIUM CHLORIDE 20 MEQ CONTROLLED RELEASE TAB PO SCH (09:00)
[2017-06-29] MEDS: SODIUM CHLORIDE 0.9% FLUSH 10 ML FLUSH IV FLUSH SCH (09:00)
[2017-06-29] MEDS: LACTULOSE SYRUP 20 GM/30 ML CUP PO PRN (11:11)
[2017-06-29] MEDS: VANCOMYCIN 500 MG VIAL (FOR ORAL USE ONLY) PO SCH ×2 (11:12→13:00)
[2017-06-29] MEDS: CEFUROXIME AXETIL 500 MG TAB PO SCH (11:12)
[2017-06-29] MEDS: FUROSEMIDE 40 MG TAB PO SCH (11:13)
[2017-06-29] MEDS: SPIRONOLACTONE 50 MG TAB PO SCH (11:13)
[2017-06-29 12:00] VITALS: BP 122/65; PULSE 114; RESP 20; TEMP 96.4; O2SAT 100
[2017-06-29] MEDS ORDERED: OXYC-392 PO (12:14)
[2017-06-29] MEDS ORDERED: PROM25TA10 PO (12:14)
[2017-06-29] MEDS ORDERED: VANC500I3 PO (12:14)
--- NOTE | 2017-06-29 12:15 | HHI.DCPOC ---
Discharge Care Plan Diagnosis: (1) C. difficile colitis (2) Lower extremity edema (3) Generalized weakness (4) End stage liver disease Goals to Promote Your Health * To prevent worsening of your condition and complications * To maintain your health at the optimal level Directions to Meet Your Goals Take your medications as prescribed Follow your dietary instruction Follow activity as directed Keep your appointments as scheduled Take your immunizations and boosters as scheduled If your symptoms worsen call your PCP, if no PCP go to Urgent Care Center or Emergency Room Smoking is Dangerous to Your Health. Avoid second hand smoke Call the 24-hour hour crisis hotline for domestic abuse at Hien Hernandez MD Jun 29, 2017 12:15
--- NOTE | 2017-06-29 12:15 | HHI.DCPOC ---
Discharge Care Plan Diagnosis: (1) C. difficile colitis (2) Lower extremity edema (3) Generalized weakness (4) End stage liver disease Goals to Promote Your Health * To prevent worsening of your condition and complications * To maintain your health at the optimal level Directions to Meet Your Goals Take your medications as prescribed Follow your dietary instruction Follow activity as directed Keep your appointments as scheduled Take your immunizations and boosters as scheduled If your symptoms worsen call your PCP, if no PCP go to Urgent Care Center or Emergency Room Smoking is Dangerous to Your Health. Avoid second hand smoke Call the 24-hour hour crisis hotline for domestic abuse at Hien Hernandez MD Jun 29, 2017 12:15
--- NOTE | 2017-06-29 12:15 | HHI.DCPOC ---
Discharge Care Plan Diagnosis: (1) C. difficile colitis (2) Lower extremity edema (3) Generalized weakness (4) End stage liver disease Goals to Promote Your Health * To prevent worsening of your condition and complications * To maintain your health at the optimal level Directions to Meet Your Goals Take your medications as prescribed Follow your dietary instruction Follow activity as directed Keep your appointments as scheduled Take your immunizations and boosters as scheduled If your symptoms worsen call your PCP, if no PCP go to Urgent Care Center or Emergency Room Smoking is Dangerous to Your Health. Avoid second hand smoke Call the 24-hour hour crisis hotline for domestic abuse at Hien Hernandez MD Jun 29, 2017 12:15
[2017-06-29] MEDS ORDERED: CULT10CA4 PO (12:19)
[2017-06-29] MEDS ORDERED: CEFU1TAB20 PO (12:19)
--- NOTE | 2017-06-29 12:20 | HHI.DS ---
Discharge Summary Admission Date Jun 26, 2017 at 10:21 Discharge Date: Jun 29, 2017 Admitting Diagnosis abdominal pain (1) C. difficile colitis ICD Code: A04.72 - Enterocolitis due to Clostridium difficile, not specified as recurrent (2) Lower extremity edema ICD Code: R60.0 - Localized edema (3) End stage liver disease ICD Code: K72.90 - Hepatic failure, unspecified without coma Procedures Paracentesis Brief History - From Admission The patient is a 56-year-old female with a past medical history of alcoholic liver disease who is presenting to the hospital with increasing abdominal pain. The patient says that she was here in March from the to May 13 because of her liver. She said she came to the hospital again last Wednesday and was discharged on Wednesday. She said 4.5 L were drained on her last hospital visit. She felt fine until this past Wednesday where she developed increasing abdominal pain as well as nausea and vomiting and diarrhea. She did have some pain medication left from her last hospitalization. She says her nausea/ vomiting/diarrhea has improved. She is tolerating food at this time. 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 The patient currently has spasms of abdominal pain in her upper abdomen that reaches a 6 out of 10 in severity. The patient denies any recent fevers. She does not endorse episodes of confusion. She states she does have lower extremity edema. She says she has not taken her diuretics for a couple of days. CBC/BMP: 06/26/17 1445 Significant Findings Laboratory Tests Test 06/26/17 14:45 Blood Urea Nitrogen 4 MG/DL (7-18) Sodium Level 130 MEQ/L (136-145) Chloride Level 93 MEQ/L (98-107) Imaging Last Impressions Chest X-Ray 06/25/17 0000 Signed Impressions: Service Date/Time: Sunday, June 25, 2017 14:50 - CONCLUSION: Left lower lobe consolidation, stable. Darren Field MD Abdomen/Pelvis CT 06/25/17 0000 Signed Impressions: Service Date/Time: Monday, June 26, 2017 16:34 - CONCLUSION: Multiple CT findings are unchanged when compared to 06/13/17 including ascites, splenomegaly, left pleural effusion. There is intraluminal contrast in the colon which demonstrates diffuse wall thickening in the right colon Darren Field MD Cyst Biopsy Asp-Paracentesis US 06/24/17 0000 Signed Impressions: Service Date/Time: May 08:24 - CONCLUSION: Uncomplicated ultrasound guided paracentesis. Andrez Toro MD PE at Discharge GENERAL: This is a frail, jaundice female CARDIOVASCULAR: Sinus tachycardia without murmurs, gallops, or rubs. RESPIRATORY: Clear to auscultation. Breath sounds equal bilaterally. No wheezes , rales, or rhonchi. GASTROINTESTINAL: Abdomen soft, non-tender, nondistended. Normal active bowel sounds MUSCULOSKELETAL: Extremities without clubbing, cyanosis, +2-3 edema NEURO: Alert & Oriented x4 to person, place, time, situation. Moves all ext x4 Pt update on day of discharge patient seen and evaluated in follow-up for discharge planning. Ultrasound of the abdomen repeated yesterday shows not enough fluid to drain. Diarrhea has improved dramatically. No new events. Discharge plans discussed with her Hospital Course This patient is a 56-year-old female with a history of chronic liver failure from alcohol dependency. Patient came into the hospital with diarrhea and was found to have C. difficile colitis. She was treated with antibiotics and recommended for palliative consult due to her severe liver failure. Patient persists to fine aggressive therapy options for her liver disease. She continued to improve her acute symptoms of diarrhea with oral vancomycin. Patient did have therapeutic paracentesis with 3.8 L of clear fluid. She continued on Lasix and Aldactone. She is chronic tachycardia, chronic, cytopenia and these remained stable. Patient was started on Ceftin due to lower lung consolidation with associated dyspnea. She was discharged home Pt Condition on Discharge: Good Discharge Disposition: Discharge Home Discharge Time: > 30 minutes Discharge Instructions DIET: Follow Instructions for: Heart Healthy Diet, Low Fat Diet Activities you can perform: Regular-No Restrictions Follow up Referrals: PCP Follow-up - 1 Week New Medications: Lactobacillus Rhamnosus (GG) (Culturelle) 10 Billion Cell Cap 1 CAP PO BID for Nutritional Supplement, #62 CAP 0 Refills Cefuroxime (Cefuroxime) 500 Mg Tab 500 MG PO Q12HR for Infection, #5 TAB Vancomycin Inj (Vancomycin Inj) 500 Mg Inj 250 MG PO QID for Infection, #12 INJECTION Continued Medications: Furosemide (Furosemide) 40 Mg Tab 40 MG PO BID, #30 TAB 0 Refills Hydroxyzine HCl (Hydroxyzine HCl) 25 Mg Tab 25 MG PO TID PRN for ITCHING, TAB 0 Refills Lorazepam (Lorazepam) 0.5 Mg Tab 0.5 MG PO BID PRN for ANXIETY, TAB 0 Refills Midodrine (Midodrine) 5 Mg Tab 5 MG PO TID for Control Low Blood Pressure, #90 TAB 0 Refills Oxycodone (Oxycodone) 5 Mg Tab 5 MG PO Q6H PRN for PAIN 1-10, #20 TAB (This prescription has been renewed) Pantoprazole (Pantoprazole) 40 Mg Tab 40 MG PO DAILY for GI protection, gastritis for 30 Days, #30 TAB Pentoxifylline ER (Pentoxifylline ER) 400 Mg Tab 400 MG PO TID for Intermittent claudication, #90 TAB 0 Refills Potassium Chloride ER (Potassium Chloride ER) 20 Meq Tab 20 MEQ PO DAILY for Electrolyte Replacement, #30 TAB 0 Refills Promethazine (Phenergan) 25 Mg Tablet 25 MG PO ONCE for Nausea/Vomiting, #30 TAB 0 Refills (This prescription has been renewed) Spironolactone (Spironolactone) 100 Mg Tab 100 MG PO DAILY for ascites, #30 TAB 0 Refills Trazodone (Trazodone) 150 Mg Tablet 150 MG PO HS for Control Depression, #30 TAB 0 Refills Discontinued Medications: Lactulose Liq (Lactulose Liq) 10 Gm/15 Ml Soln 30 ML PO BID, ML 0 Refills Hien Hernandez MD Jun 29, 2017 12:20
[2017-06-29 12:31] VITALS: RESP 16
[2017-06-29] MEDS ORDERED: ZOFR4TAB PO (16:04)
== END 2017-06-29 17:06 | disposition home or self-care (01) | DRG 432 ==
LOC: PHED 16:32 → PHEDA 21:05 → PH3A 23:03 → PH3B 06-24 14:03 → OBSVTOIN 06-26 10:21
PROVIDERS: ADMIT Hospitalist; ATTEND Hospitalist
PROC: 0W9G3ZX Drainage of Peritoneal Cavity, Percutaneous Approach, Diagnostic (ICD-10-PCS; principal; 2017-06-23)
PROC: 0W9G3ZZ Drainage of Peritoneal Cavity, Percutaneous Approach (ICD-10-PCS; 2017-06-24)
DX: K70.31 Alcoholic cirrhosis of liver with ascites (principal); J18.1 Lobar pneumonia, unspecified organism; D69.6 Thrombocytopenia, unspecified; E46 Unspecified protein-calorie malnutrition; A04.72 Enterocolitis due to Clostridium difficile, not specified as recurrent; E87.1 Hypo-osmolality and hyponatremia; K70.11 Alcoholic hepatitis with ascites; K70.40 Alcoholic hepatic failure without coma; F41.9 Anxiety disorder, unspecified; J45.909 Unspecified asthma, uncomplicated; K21.9 Gastro-esophageal reflux disease without esophagitis; I10 Essential (primary) hypertension; E87.6 Hypokalemia; F10.20 Alcohol dependence, uncomplicated; F32.9 Major depressive disorder, single episode, unspecified; G89.29 Other chronic pain; M54.2 Cervicalgia
CPT/HCPCS: 49083; 71010; 71020; 74177; 76705; 80048; 80053; 82042; 82945; 83690; 83735; 84157; 85025; 85610; 85730; 87070; 87205; 87493; 87506; 89051; 93005; C1729; J0696; J2270; J2405; J2765; J3480; P9047; Q9963; Q9967